=== PATIENT | female | born 1970 | race Caucasian/White ===

== ENCOUNTER 2023-10-31 21:44 | Observation (INO) | payer OTHER, SELFPAY ==
[2023-10-31] VITALS (18 sets, daily range): BP systolic 145–174; BP diastolic 90–130; PULSE 73–93; TEMP 36.8; O2SAT 94–97; BMI 39.0
--- NOTE | 2023-10-31 21:51 | ECG_ITS ---
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
--- NOTE | 2023-10-31 22:04 | XR_ITS ---
The [place] [id number] Patient Name: MIL MARCUM MRN: [id number] date: 1970 Sex: F Assigned Patient Location: ER Current Patient Location: ED.MAIN Accession/Order Number: [id number] Exam Date: 10/31/2023 22:12 Report Date: 10/31/2023 23:14 At the request of: CLARICE MARKER Procedure: XR chest 1V EXAMINATION: XR chest 1V, , 10/31/2023 10:12 PM EDT INDICATION: Cp HISTORY: Ordering Provider Reason for Exam: Cp Technologist Note: Additional: COMPARISON: XR CHEST 1 V Date 07/18/2021 TECHNIQUE: Chest x-ray: One view. FINDINGS: No pneumothorax, pleural effusion or focal airspace consolidation. Heart is normal in size. Bony thorax is unremarkable. XR/XR chest 1V IMPRESSION: No acute cardiopulmonary process. Electronically authenticated by: VIKTORIA NEWTON Date: 10/31/2023 23:14
--- NOTE | 2023-10-31 22:10 | ED_ITS ---
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 The patient states that the symptoms started earlier tonight. Her colleague did an EKG on her that was normal but then checked her blood pressure and it was very high. Her partner also told her that she appeared to be diaphoretic. She complains of mild shortness of breath. She denies any dizziness or syncope. She has no abdominal pain. She denies that she has done anything strenuous today. The pain in her chest radiates between her shoulder blades. She was given 324 mg baby aspirin by EMS with mild clinical improvement. Related Data Home Medications ?Medication ?Instructions ?Recorded ?Confirmed No Known Home Medications 10/31/23 10/31/23 Allergies Allergy/AdvReac Type Severity Reaction Status Date / Time No Known Drug Allergies Allergy Verified 10/31/23 21:46 Review of Systems ROS Status of ROS 10 or more systems reviewed and unremark able except as noted in history and below Exam Narrative Exam Narrative: Vital signs and Nursing Notes reviewed: Patient is afebrile with a normal pulse, blood pressure is elevated at 170/130, she has not hypoxic with pulse ox of 97% on room air General: Awake, alert, oriented, anxious, no respiratory distress HEENT: Normocephalic atraumatic, mucous membranes are moist and pink, eyes are clear, normal conjunctiva, vision is grossly intact Chest: Lungs are clear to auscultation with good air entry, there is no wheezing rhonchi or rales appreciated no accessory muscle use, patient is speaking in complete sentences-no chest wall tenderness to palpation CVS: Regular rate and rhythm S1-S2, no murmurs rubs or gallops, pulses are brisk and equal bilaterally ABD: Soft, nondistended, nontender, no rebound guarding or rigidity, bowel sounds are normal, no pulsatile masses appreciated Extremities: Moving all extremities, no lower extremity tenderness or swelling noted, negative Homans' sign, pulses are brisk and equal bilaterally Skin: Normal in appearance without rash,pallor, petechiae or purpura Neuro: No focal deficits Constitutional Vital Signs, click to edit/add: Last Vital Signs Temp 98.2 F 10/31/23 21:47 Pulse 71 11/01/23 02:00 Resp 21 H 11/01/23 02:00 BP 160/110 H 11/01/23 02:22 Pulse Ox 98 11/01/23 00:40 O2 Del Method Room Air 10/31/23 21:59 Course Vital Signs Vital signs: Vital Signs Temperature 98.2 F 10/31/23 21:47 Pulse Rate 88 10/31/23 21:47 Respiratory Rate 18 10/31/23 21:47 Blood Pressure 170/130 H 10/31/23 21:47 Pulse Oximetry 95 10/31/23 21:47 Oxygen Delivery Method Room Air 10/31/23 21:47 Temperature 98.2 F 10/31/23 21:47 Pulse Rate 71 11/01/23 02:00 Respiratory Rate 21 H 11/01/23 02:00 Blood Pressure 160/110 H 11/01/23 02:22 Pulse Oximetry 98 11/01/23 00:40 Oxygen Delivery Method Room Air 10/31/23 21:59 MDM - Chest Pain MDM Narrative Medical decision making narrative: This 53-year-old female who is moderately overweight but otherwise healthy and a non-smoker 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 The patient states that she started feeling some midsternal chest discomfort that radiated between her shoulders earlier in the evening. Her colleague told her that she looked mildly diaphoretic. An EKG was done that looked normal but her blood pressure was noted to be markedly elevated. Upon arrival her blood pressure was in the 170s over 100s. She states she has never had high blood pressure before. She states she is active, does not smoke and watches her diet. She did have [employer] for lunch earlier in the day. She had been given 324 mg baby aspirin by EMS prior to arrival with mild relief of her pain. Her blood pressure was still markedly elevated. An EKG done upon arrival was a sinus rhythm at 86 bpm with a normal axis and no acute changes. An IV was placed and she was medicated with a sublingual nitroglycerin and 5 mg of IV Lopressor as well as gentle IV hydration. Her blood pressure did come down initially with this treatment but then bounced back into the 160s over 100s. She was then given an oral dose of Norvasc. Her cardiac workup including CBC with differential, comprehensive metabolic profile, D-dimer and troponin and delta troponin were all normal the exception of a mildly elevated creatinine at 1.09. Chest x-ray was reviewed by radiology and is normal. Her blood pressure remained high despite these medications and she was given an additional 10 mg of IV labetalol. This provided her with short- term relief of the elevated blood pressure and again she bounced back into the 160s over 100s. An inch of Nitropaste was then placed onto her chest wall. At that time I felt it was prudent to admit her despite her reluctance to be admitted but she was agreeable partly because of the fact that her at age 48 from an OR but never had any symptoms prior to his heart attack. The case was discussed with the hospitalist and the patient accepted for admission. She will be admitted to the ICU for further evaluation, treatment, management of her elevated blood pressure and cardiology consultation as deemed appropriate. Medical Records Data Medical records narrative: The [address] [address] XRay Report Signed Patient: MIL MARCUM MR#: [id number] : 1970 Acct:[id number] Age/Sex: 53 / F ADM Date: 10/31/23 Loc: ER Attending Dr: Ordering Physician: Megan Lucas Date of Service: 10/31/23 Procedure(s): XR chest 1V Accession Number(s): [id number] cc: Megan Lucas; Sampson Carpenter M.D.~ The [address] [address] Patient Name: MIL MARCUM MRN: [id number] date: 1970 Sex: F Assigned Patient Location: ER Current Patient Location: ED.MAIN Accession/Order Number: [id number] Exam Date: 10/31/2023 22:12 Report Date: 10/31/2023 23:14 At the request of: MEGAN LUCAS Procedure: XR chest 1V EXAMINATION: XR chest 1V, , 10/31/2023 10:12 PM EDT INDICATION: Cp HISTORY: Ordering Provider Reason for Exam: Cp Technologist Note: Additional: COMPARISON: XR CHEST 1 V Date 07/18/2021 TECHNIQUE: Chest x-ray: One view. FINDINGS: No pneumothorax, pleural effusion or focal airspace consolidation. Heart is normal in size. Bony thorax is unremarkable. XR/XR chest 1V IMPRESSION: No acute cardiopulmonary process. Electronically authenticated by: VIKTORIA NEWTON Date: 10/31/2023 23:14 Lab Data Labs: Lab Results 10/31/23 10/31/23 Range/Units 22:08 23:52 WBC 10.5 (4.0-11.0) 10^3/uL RBC 4.74 (4.20-5.40) 10^6/uL Hgb 13.8 (12.0-16.0) g/dL Hct 40.8 (36.0-48.0) % MCV 86.1 (81.0-99.0) fL MCH 29.1 (26.7-34.0) pg MCHC 33.8 (29.9-35.2) g/dL RDW 13.0 (11.0-15.0) % Plt Count 273 (150-450) 10^3/uL MPV 10.0 (9.5-13.5) fL Neut % (Auto) 58.8 (43.0-75.0) % Lymph % (Auto) 31.8 (20.5-60.0) % [place] % (Auto) 6.6 (1.7-12.0) % Eos % (Auto) 2.1 (0.9-7.0) % Baso % (Auto) 0.4 (0.2-2.0) % Neut # (Auto) 6.2 (1.4-6.5) 10^3/uL Lymph # (Auto) 3.3 (1.2-3.8) 10^3/uL [place] # (Auto) 0.7 (0.3-0.8) 10^3/uL Eos # (Auto) 0.2 (0.0-0.7) 10^3/uL Baso # (Auto) 0.0 (0.0-0.1) 10^3/uL Abs Immat Gran (auto) 0.03 (0.00-0.03) 10^3/uL Imm/Tot Granulo (auto) 0.3 (0.0-0.5) % D-Dimer 0.42 (<=0.59) mg/L FEU Sodium 138 (136-145) mmol/L Potassium 3.9 (3.5-5.1) mmol/L Chloride 103 (98-107) mmol/L Carbon Dioxide 26.1 (21.0-32.0) mmol/L Anion Gap 12.8 BUN 14.0 (7.0-18.0) mg/dL Creatinine 1.09 H (0.55-1.02) mg/dL Est GFR ( Amer) >60 (>=60) Est GFR (Non-Af Amer) 53 L (>=60) BUN/Creatinine Ratio 12.8 Glucose 115 H (74-106) mg/dL Calcium 9.4 (8.5-10.1) mg/dL Total Bilirubin 0.3 (0.2-1.0) mg/dL AST 28 (15-37) U/L ALT 41 (14-59) U/L Alkaline Phosphatase 52 (46-116) U/L Troponin I High Sens <4.0 L <4.0 L (4.0-51.3) pg/mL Total Protein 7.5 (6.4-8.2) g/dL Albumin 3.8 (3.4-5.0) g/dL Globulin 3.7 g/dL Albumin/Globulin Ratio 1.0 ECG Data Attestation: I personally reviewed and interpreted this ECG as follows: (EKG interpretation sinus rhythm 86 bpm, normal axis, normal intervals, no acute ST segment elevation or T wave inversion) Heart Score History: Moderately Suspicious ECG: Normal Age: >45-<65 years Risk Factors: 1 or 2 Risk Factors Troponin: <Normal Limit Total Heart Score Recommendations & Risks:: 3 Critical Care Time Critical Care Time Critical Care Time: Yes Total Critical Care Time: 35 Attestation: Patient was treated with IV antihypertensives for her markedly elevated blood pressure as well as a cardiac workup and admission to the ICU Discharge Plan Discharge Stand Alone Forms: Portal Instructions Chief Complaint: Chest Pain Clinical Impression: Chest pain, Hypertension Patient Disposition: Home, Self-Care Time of Disposition Decision: 02:13 Condition: Good Prescriptions / Home Meds: No Action No Known Home Medications Print Language: Korean Instructions: Chest Pain (ED), Hypertension (ED) Referrals: Sampson Carpenter MD [Primary Care Provider] - 1 week
[2023-10-31 22:17] LABS: Basophils Percent Auto 0.4 % (0.2-2.0); Eosinophils Absolute Auto 0.2 10^3/uL (0.0-0.7); Eosinophils Percent Auto 2.1 % (0.9-7.0); Hematocrit 40.8 % (36.0-48.0); Hemoglobin 13.8 g/dL (12.0-16.0); Immature Granulocytes Abs Auto 0.03 10^3/uL (0.00-0.03); Immature Granulocytes Pct Auto 0.3 % (0.0-0.5); Lymphocytes Absolute Auto 3.3 10^3/uL (1.2-3.8); Lymphocytes Percent Auto 31.8 % (20.5-60.0); Mean Corpuscular HGB Conc 33.8 g/dL (29.9-35.2); Mean Corpuscular Hemoglobin 29.1 pg (26.7-34.0); Mean Corpuscular Volume 86.1 fL (81.0-99.0); Monocytes Absolute Auto 0.7 10^3/uL (0.3-0.8); Monocytes Percent Auto 6.6 % (1.7-12.0); Neutrophils Absolute Auto 6.2 10^3/uL (1.4-6.5); Neutrophils Percent Auto 58.8 % (43.0-75.0); Platelet Count 273 10^3/uL (150-450); Red Blood Count 4.74 10^6/uL (4.20-5.40); White Blood Count 10.5 10^3/uL (4.0-11.0)
[2023-10-31] MEDS: METOPROLOL TARTRATE 5 MG/5 ML VIAL IVP (22:22)
[2023-10-31] MEDS: NITROGLYCERIN 0.4 MG BOTTLE SL (22:22)
[2023-10-31] MEDS: FAMOTIDINE/PF 20 MG/2 ML VIAL IV (22:22)
[2023-10-31 22:32] LABS: D Dimer 0.42 mg/L FEU (<=0.59)
[2023-10-31 22:33] LABS: Anion Gap 12.8
[2023-10-31 22:35] LABS: Alanine Aminotransferase 41 U/L (14-59); Albumin Level 3.8 g/dL (3.4-5.0); Alkaline Phosphatase 52 U/L (46-116); Aspartate Amino Transferase 28 U/L (15-37); BUN Creatinine Ratio 12.8; Bilirubin Total 0.3 mg/dL (0.2-1.0); Calcium 9.4 mg/dL (8.5-10.1); Carbon Dioxide 26.1 mmol/L (21.0-32.0); Chloride 103 mmol/L (98-107); Estimated GFR (African America >60 (>=60); Estimated GFR (Non-African Ame 53 (>=60); Globulin 3.7 g/dL; Glucose 115 mg/dL (74-106); Potassium 3.9 mmol/L (3.5-5.1); Sodium 138 mmol/L (136-145); Total Protein 7.5 g/dL (6.4-8.2); Troponin I High Sensitivity <4.0 pg/mL (4.0-51.3)
[2023-10-31] MEDS: 0.9 % SODIUM CHLORIDE 1,000 ML 150 ML IV (23:18)
[2023-11-01] VITALS (88 sets, daily range): BP systolic 125–172; BP diastolic 83–120; PULSE 56–99; TEMP 36.4–37.1; O2SAT 95–98; BMI 39.0
[2023-11-01 00:22] LABS: Troponin I High Sensitivity <4.0 pg/mL (4.0-51.3)
[2023-11-01] MEDS: AMLODIPINE BESYLATE 5 MG TABLET PO (00:45)
[2023-11-01] MEDS: LABETALOL HCL 20 MG/4 ML SYRINGE 10 MG IVP (01:42)
[2023-11-01] MEDS: NITROGLYCERIN 2% 1 GRAM PACKET 1 GM TD (02:39)
[2023-11-01] MEDS: ACETAMINOPHEN 325 MG TABLET 650 MG PO (03:25)
--- NOTE | 2023-11-01 05:00 | ECG_ITS ---
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
[2023-11-01 06:57] LABS: Hematocrit 38.8 % (36.0-48.0); Hemoglobin 12.8 g/dL (12.0-16.0); Mean Corpuscular Volume 87.8 fL (81.0-99.0); Mean Platelet Volume 9.8 fL (9.5-13.5); Platelet Count 250 10^3/uL (150-450); Red Blood Count 4.42 10^6/uL (4.20-5.40); White Blood Count 9.3 10^3/uL (4.0-11.0)
--- NOTE | 2023-11-01 07:00 | CA_ITS ---
Patient Name: MIL MARCUM MR#: [id number] : 1970 Exam Date: 11/01/2023 Ordering Doctor: JANE VELARDE ECHOCARDIOGRAM REPORT PROCEDURE: CA ECHO DOPPLER COMPLETE INDICATIONS: Chest pain, Hypertensive urgency COMPARISON: None. DESCRIPTION: COMPLETE ECHOCARDIOGRAM Real-time transthoracic echocardiography with 2D, M-mode, spectral and color flow Doppler performed. QUALITY: Technical quality was good. LEFT VENTRICLE: Normal chamber size. Normal left ventricular wall thickness. LV EF: Global left ventricular systolic function is normal; visually estimated ejection fraction is 60 to 65%. No wall motion abnormalities. DIASTOLIC: Normal diastolic function. ATRIAL SEPTUM: Inadequately seen. LEFT ATRIUM: Normal chamber size. RIGHT ATRIUM: Normal chamber size. RIGHT VENTRICLE: Normal chamber size. Normal right ventricular systolic function. TRICUSPID VALVE: Normal mobility and thickness. No stenosis with no regurgitation. Unable to assess right-sided pressures due to lack of measurable tricuspid regurgitation. MITRAL VALVE: Normal mobility and thickness. No evidence of mitral valve stenosis. There is no mitral annular calcification. No mitral regurgitation. AORTIC VALVE: Normal trileaflet appearance. No visible sclerosis. Normal leaflet mobility. No evidence of aortic valve stenosis. No aortic regurgitation. AORTIC ROOT: Normal diameter and appearance. PULMONIC VALVE: Normal thickness and mobility. No stenosis. No regurgitation. PERICARDIUM: Anterior free space; trivial effusion versus fat pad. IVC: Not well visualized. CONCLUSION: 1. Global left ventricular systolic function is normal; visually estimated ejection fraction is 60 to 65% 2. Normal right ventricular size and systolic function 3. The left atrium is normal in size 4. Normal diastolic function 5. No significant valvular abnormalities 6. Anterior free space; trivial pericardial effusion versus fat pad Adult Echocardiography Procedure Report Left Ventricle LVEDD (3.7 - 5.6 cm): 4.37 cm LVESD (2.2 - 4.0 cm): 2.32 cm LVIVS thickness (0.6 - 1.2 cm): 0.92 cm LVPW thickness (0.5 - 1.0 cm): 0.78 cm e': 0.10 m/s E - e': 5.58 LVOT Max Gradient: 2.62 mm[Hg] LVOT Area (cm2): 0.81 m/s Peak Velocity (LVOT): 0.81 m/s LVOT Diameter 2.15 cm Left Atrium LA Volume Index (2D A2C): 22.31 ml/m2 Left Atrium Systolic Dimension: 3.69 cm Mitral Valve MV E to A Ratio: 0.80 Mitral Valve A-Wave Peak Velocity: 0.72 m/s Mitral Valve E-Wave Peak Velocity: 0.58 m/s Right Ventricle Aorta AO Root Diam: 3.20 cm Ascending Ao Diam: 2.89 cm Aortic Valve AoV Area ([place]): 2.41 cm2, 2.41 cm2 Peak Velocity(Antegrade Flow): 1.22 m/s Peak Gradient(Antegrade Flow): 5.93 mm[Hg] Tricuspid Valve Pulmonic Valve Mean Gradient: 2.45 mm[Hg] Mean Velocity: 0.74 m/s Peak Velocity: 1.04 m/s, 1.00 m/s Peak Gradient: 3.98 mm[Hg], 4.33 mm[Hg] Right Atrium Right Atrium Systolic Pressure: 53.79 ml, 53.79 ml Dictated by: Elizabeth Obrien M.D. on 11/01/2023 at 18:33 Approved by: Elizabeth Obrien M.D. on 11/01/2023 at 18:35
[2023-11-01 07:07] LABS: Estimated Average Glucose 120 mg/dL; Glycohemoglobin A1C 5.8 % (4.5-6.2)
[2023-11-01 07:26] LABS: Anion Gap 13.1; BUN Creatinine Ratio 11.7; Calcium 8.9 mg/dL (8.5-10.1); Carbon Dioxide 24.6 mmol/L (21.0-32.0); Chloride 107 mmol/L (98-107); Estimated GFR (African America >60 (>=60); Estimated GFR (Non-African Ame 56 (>=60); Glucose 118 mg/dL (74-106); Potassium 3.7 mmol/L (3.5-5.1); Sodium 141 mmol/L (136-145)
[2023-11-01 07:40] LABS: Chol HDL Ratio 3.5; Cholesterol 212 mg/dL (<=200); HDL Cholesterol 60 mg/dL (40-60); Thyroid Stimulating Hormone 1.773 uIU/mL (0.358-3.740); Triglycerides 123 mg/dL (<=150); Troponin I High Sensitivity <4.0 pg/mL (4.0-51.3); VLDL CHOLESTEROL 24.6 mg/dL
[2023-11-01] MEDS: ASPIRIN 81 MG TAB.CHEW PO (08:57)
[2023-11-01] MEDS: AMLODIPINE BESYLATE 5 MG TABLET 10 MG PO (09:45)
--- NOTE | 2023-11-01 10:45 | CM.NOTE ---
Rounds made with Dr. Ruiz. Dr. Ruiz explained high BP and need for medication and follow up with PCP. Pt stated hadn't seen Dr since 2018. Dr. Ruiz discussed importance of taking BP & tracking it in order to show PCP for possible medication adjustment after discharge. Pam verbalized understanding. To get echo done today and probable discharge today with po BP med.
--- NOTE | 2023-11-01 11:40 | P.HP_ITS ---
HPI H&P: HPI History of Present Illness Chief complaint: Chest Pain Narrative: History of presenting illness and Hospital course: 53-year-old female with no significant past medical history was in her usual state of health when she started to experience chest discomfort in the middle wi th radiation to her back along with mild difficulty in breathing. Her coworker checked her blood pressure and her blood pressure was as high as 170/120. She has no prior history of high blood pressure. She was brought in to ED for further evaluation and was admitted for observation for hypertensive emergency and rule out acute coronary syndrome. Overnight, patient received combination of oral and IV medications to bring her blood pressure down to acceptable level. She did not require continuous IV infusion for hypertensive emergency. Earlier today her blood pressure was more or less at goal with oral Norvasc 10 mg. Her chest pain and back pain is resolved. Her cardiac enzymes are also negative. Her EKG showed nonspecific T wave changes. She had an echocardiogram to assess cardiac structure and it did not show any significant finding but an official read is pending. Patient has no known prior history of coronary artery disease or congestive heart failure. She has not seen a primary care physician for 5 years now and does not check her blood pressure at home. Patient is stable for discharge medically on oral aspirin, Lipitor for hyperlipidemia and Norvasc for hypertension. She was instructed to check her blood pressure at home and bring her home blood pressure reading to her PCP. She will need to follow-up with PCP in 1 to 2 weeks. She is generally very active and I have low suspicion for underlying coronary artery disease. However it is not unreasonable to pursue workup for ischemic heart disease as outpatient if deemed necessary by her PCP. Opioid HPI Opioid Management Most Recent Pain and Opioid Data: Last Pain Scale 2 11/01/23 11:00 Last Pain Assessment 11/01/23 11:00 Last MAR Pain Assessment 11/01/23 04:46 Last ORT Total Score 0 11/01/23 03:11 Last ORT Risk Category Low Risk 11/01/23 03:11 Review of Systems ROS Status of ROS 10 or more systems reviewed and unremark able except as noted in history and below [facility] Surgical History (Updated 11/01/23 @ 03:06 by Coral Alcantara) H/O arthroscopy of knee ?Z98.890 - Other specified postprocedural states (ICD-10) History of bunionectomy ?Z98.890 - Other specified postprocedural states (ICD-10) Family History (Updated 11/01/23 @ 03:07 by Coral Alcantara) Mother Family history of cancer Grandmother Family history of diabetes mellitus Social History (Updated 11/01/23 @ 03:08 by Coral Alcantara) Within the past year, how often did you have a drink containing alcohol: never Score interpretation: A score less than 3 is consistent with normal alcohol consumption. Smoking status: Never smoker Non-prescribed substance use: denies use Previous occupational history: EMT Highest level of school completed/degree received: Associate degree: academic program Are you now , , , , never or living with a partner: In a typical week, how many times do you talk on the telephone with family, friends, or neighbors: 3 or more times per week How often do you get together with friends or relatives: 3 or more times per week How often do you attend buddhist or baptist services: never Little interest or pleasure in doing things: not at all Feeling down, depressed, or hopeless: not at all Feel stressed/tense/nervous/anxious/difficulty sleeping: not at all Meds Home Medications and Allergies Home Medications ?Medication ?Instructions ?Recorded ?Confirmed ?Type amlodipine 10 mg tablet (Norvasc) 10 mg PO DAILY #30 tabs 11/01/23 Rx aspirin 81 mg chewable tablet 81 mg PO DAILY #30 tabs 11/01/23 Rx atorvastatin 20 mg tablet (Lipitor) 20 mg PO DAILY #30 tabs 11/01/23 Rx Allergies Allergy/AdvReac Type Severity Reaction Status Date / Time No Known Drug Allergies Allergy Verified 10/31/23 21:46 Exam Constitutional Vital Signs, click to edit/add: Last Vital Signs Temp 97.6 F 11/01/23 08:00 Pulse 77 11/01/23 11:00 Resp 14 11/01/23 11:00 BP 137/83 11/01/23 10:59 Pulse Ox 98 11/01/23 10:52 O2 Del Method Room Air 11/01/23 10:52 Documenting provider has reviewed patient's vital signs: yes Common normals: no apparent distress and oriented x3 General appearance: cooperative HENMT Common normals: normocephalic and head/scalp atraumatic Head and scalp: normocephalic and atraumatic Respiratory Common normals: normal respiratory effort and clear to auscultation bilaterally Effort & inspection: able to speak in complete sentences Auscultation: clear to auscultation bilaterally Cardio Common normals: regular rate, S1 normal heart sound and S2 normal heart sound Rate: regular rate Heart sounds: S1 normal and S2 normal GI Common normals: Normal to inspection, nondistended, normoactive bowel sounds present, soft to palpation, non-tender and no hepatosplenomegaly Palpation: soft and no hepatosplenomegaly Extremity Common normals: no clubbing, cyanosis or edema Neuro Common normals: oriented x3, moves all extremities and no focal motor deficits Psych Common normals: mental status grossly normal, denies hallucinations, denies homicidal ideation and denies suicidal ideation Results Labs Labs: Short CBC 10/31/23 11/01/23 Range/Units 22:08 06:48 WBC 10.5 9.3 (4.0-11.0) 10^3/uL Hgb 13.8 12.8 (12.0-16.0) g/dL Hct 40.8 38.8 (36.0-48.0) % Plt Count 273 250 (150-450) 10^3/uL BMP 10/31/23 11/01/23 22:08 06:48 Sodium 138 141 Potassium 3.9 3.7 Chloride 103 107 Carbon Dioxide 26.1 24.6 BUN 14.0 12.0 Creatinine 1.09 H 1.03 H Glucose 115 H 118 H Calcium 9.4 8.9 Liver Function 10/31/23 Range/Units 22:08 Total Bilirubin 0.3 (0.2-1.0) mg/dL AST 28 (15-37) U/L ALT 41 (14-59) U/L Alkaline Phosphatase 52 (46-116) U/L Albumin 3.8 (3.4-5.0) g/dL Assessment and Plan Assessment and Plan (1) Chest pain: Assessment and Plan: Likely due to uncontrolled hypertension. Chest pain is now resolved. No significant finding on EKG and or cardiac echocardiogram. Cardiac enzymes are negative. Will discharge on low-dose aspirin and Lipitor as patient also has hyperlipidemia. Will defer ischemic workup to patient's PCP Qualifiers: Chest pain type: other chest pain Qualified Code(s): R07.89 - Other chest pain (2) Hypertensive emergency: Assessment and Plan: Presented with uncontrolled hypertension with blood pressure as high as 170/120. Improved with combination of oral and IV medication. Her blood pressure is reasonably controlled with oral Norvasc 10 mg once daily. Patient instructed to follow-up with PCP as outpatient and monitor blood pressure at home (3) HLD (hyperlipidemia): Assessment and Plan: LDL: 128, T chol >200. Will start on low dose lipitor. Qualifiers: Hyperlipidemia type: mixed hyperlipidemia Qualified Code(s): E78.2 - Mixed hyperlipidemia Plan Stable for discharge on oral Norvasc. Monitor blood pressure at home. Follow- up with PCP in 1 to 2 weeks.
--- NOTE | 2023-11-04 11:35 | CM.DCFOLLOWU ---
Person spoke with: patient How are you feeling? well How is your pain? none Did you understand your discharge instructions? yes Do you have any questions about your discharge instructions? no Were you given any prescriptions at discharge? yes Were you able to get your prescriptions filled? yes Do you understand how to take your medications as ordered? yes Do you have any questions about your follow up appointment and do you plan to keep your follow up appointment? no questions, has to call Dr. Carpenter office to reschedule follow up Is there anything else that you would like to discuss? no Questions/Comments/Concerns/Other: none
== END 2023-11-01 12:28 | disposition home or self-care (01) ==
LOC: ER 11-01 02:14 → ICU 11-01 02:59
PROVIDERS: Registered Nurse; Admitting Provider Internal Medicine; Emergency Provider Emergency Medicine; PCP Family Medicine; Visit Provider Internal Medicine
DX: I16.1 Hypertensive emergency (principal); R07.89 Other chest pain; E78.2 Mixed hyperlipidemia
CPT/HCPCS: 36415; 71045; 80048; 80053; 80061; 83036; 84443; 84484; 85025; 85027; 85378; 93005; 93306; 94761; 96374; 96375; 99285; G0378; J1290

== ENCOUNTER 2023-11-07 17:00 | Emergency (ER) | payer OTHER, SELFPAY ==
[2023-11-07] VITALS (13 sets, daily range): BP systolic 122–174; BP diastolic 82–104; PULSE 72–88; TEMP 36.8; O2SAT 94–98; BMI 39.0
--- OUTSIDE RECORDS SUMMARY | 2023-11-07 17:19 | XMS_ITS | CCD ---
Author Organization [facility] CliniSyri Care Team Providers Care Head Nurse Name Role Phone Carrol Traore Unavailable KrisitnaDeysi Unavailable CYNTHIA Samaniego Attending Provider [phone] Estrella Samaniego Unavailable AVINASH, DR SAMPSON Paula Primary Care Unavailable PAY ., DR HA Admitting Unavailable PAY ., DR HA Attending Unavailable PAY ., DR HA Consulting Unavailable AVINASH, DR SAMPSON Paula Primary Care Unavailable LEIA, DR SIGRID Beavers Admitting Unavailable LEIA, DR SIGRID Beavers Attending Unavailable LEIA, DR SIGRID Beavers Consulting Unavailable RUIZ, ANNE MARIE Consulting Unavailable SAID, LIZETTE Consulting Unavailable NADERER, DR SAMPSON Paula Admitting Unavailable NADERER, DR SAMPSON Paula Attending Unavailable NADERER, DR SAMPSON Paula Primary Care Unavailable NADERER, DR SAMPSON Paula Consulting Unavailable NADERER, DR SAMPSON Paula Admitting Unavailable NADERER, DR SAMPSON Paula Attending Unavailable NADERER, DR SAMPSON Paula Primary Care Unavailable NADERENimesh, DR SAMPSON Paula Consulting Unavailable NADERENimesh, DR SAMPSON Paula Admitting Unavailable CHRISTALERENimesh, DR SAMPSON Paula Attending Unavailable NADERER, DR SAMPSON Paula Primary Care Unavailable MABEL, DR LENNOX Beavers Consulting Unavailable NADERENimesh, DR SAMPSON Paula Consulting Unavailable CYNTHIA Samaniego Attending Provider MD Sampson Da Silva Primary Care Provider CYNTHIA Acevedo Emergency Provider Seth Soliz Unavailable MD Seth Soliz Attending Provider Rut Farrell Unavailable Sampson Da Silva Primary Care Unavailable Seth Soliz Admitting Unavailable Seth Soliz Attending Unavailable Sampson Da Silva Primary Care Unavailable Yves Rosales Admitting Unavailable Yves Rosales Attending Unavailable Nick Acevedo Admitting Unavailable Nick Acevedo Attending Unavailable Sampson Da Silva Primary Care Unavailable Seth Soliz Admitting Unavailable Sampson Da Silva Primary Care Unavailable Seth Soliz Attending Unavailable Estrella Samaniego Admitting Unavailable Estrella Samaniego Attending Unavailable Seth Soliz Attending Unavailable Sampson Da Silva Primary Care Unavailable Seth Soliz Admitting Unavailable Seth Soliz Attending Unavailable Sampson Da Silva Primary Care Unavailable Seth Soliz Admitting Unavailable MD Sampson Da Silva Primary Care Provider DO Yves Rosales Emergency Provider MD Seth Soliz Attending Provider Allergies Allergy Classification Reported Allergen(s) Allergy Type Date of Onset Reaction(s) Facility (6 sources) Meperidine; Translations: [meperidine] Drug Allergy 01-13-2020 [facility] Medications Current Medications Medication Drug Class(es) Dates Sig (Normalized) Sig (Original) acetaminophen 325 mg / HYDROcodone bitartrate 5 mg oral tablet (14 sources) Opioid Agonist Start: 09-13-2022 take 1-2 tablets by mouth every four to six hours as needed HYDROcodone-Aceta minophen 5-325 MG 1-2 tablet as needed Orally every 4-6 hrs for 7 days Aug, Active Start: 07-10-2017 End: 01-13-2020 take 1 tablet by mouth every four to six hours Hydrocodone-Acetaminophen ([place]) 5-325 mg tablet Discontinued 1 - 2 TAB PO EVERY 4-6 HOURS March 03, 2018 January 13, 2020 12:30pm [id number] 200 actuat albuterol 0.09 mg/actuat metered dose inhaler (2 sources) beta2-Adrenergic Agonist Start: 08-08-2021 take 2 puff(s) by inhalation four times daily as needed Albuterol Sulfate HFA 108 (90 Base) MCG/ACT 2 puffs Inhalation qid prn July, Active ciprofloxacin 3 mg/ml / dexamethasone 1 mg/ml otic suspension (2 sources) Corticosteroid, Quinolone Antimicrobial Start: 09-10-2021 Ciprofloxacin-Dexame thasone 0.3-0.1 % 4 drops into affected ear Otic Twice a day for 7 days Aug, Active clindamycin 300 mg oral capsule (2 sources) Lincosamide Antibacterial Start: 09-10-2021 take 1 capsule by mouth every eight hours Clindamycin HCl 300 MG 1 capsule Orally every 8 hrs for 10 day(s) Aug, Active dextromethorphan hydrobromide 15 mg / guaiFENesin 400 mg / pseudoephedrine hydrochloride 60 mg oral tablet (1 source) alpha-Adrenergic Agonist, Uncompetitive J-kxaxco-T-aspartat e Receptor Antagonist, Sigma-1 Agonist Start: 03-09-2023 take 4 tablets by mouth every twenty-four hours as needed Capmist DM 60-15-400 MG as needed Orally every 4-6 hours as needed, max 4 tablets in 24 hours for 5 days Feb, Active fluconazole 150 mg oral tablet (2 sources) Azole Antifungal Start: 09-10-2021 Diflucan 150 MG 1 tablet Orally take 1 tablet after antibiotics completed. may take another pill 7 days later if needed for 2 days Aug, Active methylPREDNISolone 4 mg oral tablet (4 sources) Corticosteroid Start: 09-10-2021 methylPREDNISolone 4 MG as directed Orally Once a day for 6 days Aug, Active Start: 12-31-2020 methylPREDNISo lone 4 MG as directed Orally Once a day for 6 days Dec, Active Naproxen (1 source) Nonsteroidal Anti-inflammatory Drug Aleve Active nitrofurantoin, macrocrystals 25 mg / nitrofurantoin, monohydrate 75 mg oral capsule (1 source) Nitrofuran Antibacterial Start: take 1 capsule by mouth every twelve hours Macrobid 100 MG 1 capsule with food Orally every 12 hrs for 7 day(s) Apr, Active phenazopyridine hydrochloride 200 mg oral tablet (1 source) Start: take 1 tablet by mouth every eight hours Pyridium 200 MG 1 tablet after meals Orally Three times a day for 2 day(s) Apr, Active predniSONE 20 mg oral tablet (3 sources) Start: take 1 tablet by mouth every twelve hours prednisone 20 MG 1 tablet Orally BID for 5 Feb, Active Start: 08-08-2021 take 1 tablet by hema th every twelve hours predniSONE 20 MG 1 tablet Orally bid for 5 day(s) July, Active zolpidem tartrate 10 mg oral tablet (4 sources) gamma-Aminobutyric Acid-ergic Agonist Start: 08-29-2022 take 10 mg by mouth once daily at bedtime Zolpidem Active 10 MG PO Daily at bedtime August 29, 2022 12:00am Completed/Discontinued Medications Medication Drug Class(es) Dates Sig (Normalized) Sig (Original) acetaminophen 325 mg / oxyCODONE hydrochloride 5 mg oral tablet (6 sources) Opioid Agonist Start: 01-13-2020 End: 07-20-2022 take 1 tablet by mouth every six hours Oxycodone-Acetamin ophen (Percocet) 5-325 mg tablet Discontinued 1 TAB PO Q6H 12 January 13, 2020 July 20, 2022 12:17pm amoxicillin 875 mg oral tablet (8 sources) Penicillin-class Antibacterial Start: 04-06-2019 take 1 tablet by mouth every twelve hours Amoxicillin 875 MG 1 tablet Orally every 12 hrs for 7 days Aug, Not-Taking cefTRIAXone (8 sources) Cephalosporin Antibacterial Start: 09-10-2021 Start: 09-10-2021 Rocephin 500 m g Aug, 500 mg hydrocortisone 10 mg/ml / neomycin 3.5 mg/ml / polymyxin b 16032 unt/ml otic solution (6 sources) Aminoglycoside Antibacterial, Polymyxin-class Antibacterial, Corticosteroid Start: 09-05-2020 Jqpcvuns-Gjfqamgky-EG [id number] 4 drops into affected ear Otic Three times a day for 7 day(s) Aug, Not-Taking Ketorolac (10 sources) Nonsteroidal Anti-inflammatory Drug, Cyclooxygenase Inhibitor Start: 10-14-2015 Start: 10-14-2015 Toradol per 15 mg Sep, 60 mg ondansetron 4 mg disintegrating oral tablet (6 sources) Serotonin-3 Receptor Antagonist Start: 01-13-2020 End: 07-20-2022 take 4 mg by mouth every six hours Ondansetron Discontinued 4 MG PO Q6H January 13, 2020 12:00am July 20, 2022 12:17pm 24 hr phentermine 11.25 mg / topiramate 69 mg extended release oral capsule (6 sources) Sympathomimetic Amine Anorectic Start: 07-20-2022 End: 08-29-2022 take 1 capsule by mouth once daily Phentermine-Topir amate (Qsymia) 11.25-69 mg capsule, ER multiphase 24 hr Discontinued 1 CAP PO Daily July 20, 2022 12:00am August 29, 2022 4:34pm Qsymia Active Sugar Bear Hair Vitamans (6 sources) Start: 07-08-2017 End: 01-13-2020 [employer] Vitamans Dis continued July 08, 2017 12:00am January 13, 2020 12:30pm Start: 07-08-2017 End: 01-13-2020 [employer] Vitamans Dis continued July 07, 2017 11:00pm January 13, 2020 11:30am sulfamethoxazole 800 mg / trimethoprim 160 mg oral tablet (12 sources) Dihydrofolate Reductase Inhibitor Antibacterial, Sulfonamide Antimicrobial Start: 07-10-2017 End: 01-13-2020 take 1 tablet by mouth twice daily Sulfamethoxazole-Trimethoprim (Bactrim Ds) 800-160 mg tablet Discontinued 1 TAB PO Twice daily 12 27March 03, 2018 1:00am January 13, 2020 12:30pm Problems Active Problems Problem Classification Problem Date Documented Date Episodic/Chronic Abdominal pain (6 sources) Abdominal pain; Translations: [Unspecified abdominal pain] 01-13-2020 Episodic Headache; including migraine (1 source) Migraine, unspecified, not intractable, without status migrainosus; Translations: [MIGRAINE UNS NOT INTRACT W/O SM] Onset: 07-31-2021 Chronic Headache; including migraine (1 source) Headache; including migraine; Translations: [HEADACHE UNSPECIFIED] Onset: 08-24-2021 Joint disorders and dislocations; trauma-related (6 sources) Derangement of left knee; Translations: [Unspecified internal derangement of left knee] Chronic Joint disorders and dislocations; trauma-related (2 sources) Other tear of medial meniscus, current injury, left knee, initial encounter; Translations: [Other tear of medial meniscus, current injury, left knee, subsequent encounter] Episodic Noninfectious gastroenteritis (6 sources) Colitis; Translations: [Noninfective gastroenteritis and colitis, unspecified] 01-13-2020 Episodic Osteoarthritis (6 sources) Arthritis of left knee; Translations: [Unilateral primary osteoarthritis, left knee] Chronic Other bone disease and musculoskeletal deformities (2 sources) Chondromalacia, left knee Episodic Other injuries and conditions due to external causes (2 sources) Other injury of unspecified body region, initial encounter Episodic Other nervous system disorders (20 sources) Carpal tunnel syndrome of left wrist; Translations: [Carpal tunnel syndrome, left upper limb] Chronic Other nervous system disorders (12 sources) Bilateral carpal tunnel syndrome; Translations: [Carpal tunnel syndrome, bilateral upper limbs] Chronic Other nervous system disorders (2 sources) Postoperative pain ; Translations: [Other acute postprocedural pain] 09-17-2022 Episodic Other non-traumatic joint disorders (2 sources) Pain in unspecified knee; Translations: [Knee pain] 09-17-2022 Episodic Other screening for suspected conditions (not mental disorders or infectious disease) (8 sources) Encounter for screening mammogram for malignant neoplasm of breast; Translations: [Encounter for screening for malignant neoplasm of cervix] Onset: 05-15-2022 Episodic Other upper respiratory infections (14 sources) Acute maxillary sinusitis; Translations: [Acute maxillary sinusitis] Onset: 08-24-2021 Episodic Otitis media and related conditions (9 sources) Chronic serous otitis media of right ear; Translations: [Chronic serous otitis media, right ear] Onset: 09-10-2021 Resolved: 09-10-2021 Chronic Residual codes; unclassified (2 sources) Other specified postprocedural states Episodic Sprains and strains (5 sources) Sprain of knee; Translations: [Sprain of unspecified site of unspecified knee, initial encounter] 07-20-2022 Episodic Unclassified (2 sources) COUGH, UNSPECIFIED; Translations: [COUGH, UNSPECIFIED] Onset: 08-24-2021 Unclassified (1 source) CONTACT W/AND (SUSP) EXPOS COVID-19; Translations: [CONTACT W/AND (SUSP) EXPOS COVID-19] Onset: 08-24-2021 Unclassified (1 source) Other tear of medial meniscus, current injury, left knee, subsequent encounter; Translations: [Other tear of medial meniscus, current injury, left knee, subsequent encounter] Onset: 09-24-2022 Unclassified (1 source) Pain in left knee; Translations: [Pain in left knee] Onset: 09-17-2022 Unclassified (1 source) Peripheral tear of medial meniscus, current injury, left knee, initial encounter; Translations: [Peripheral tear of medial meniscus, current injury, left knee, initial encounter] Onset: 09-12-2022 Unclassified (1 source) Encounter for preprocedural laboratory examination; Translations: [Encounter for preprocedural laboratory examination] Onset: 08-29-2022 Unclassified (1 source) Unspecified internal derangement of left knee; Translations: [Unspecified internal derangement of left knee] Onset: 08-07-2022 Unclassified (1 source) Pain in left lower leg; Translations: [Pain in left lower leg] Onset: 07-20-2022 Urinary tract infections (1 source) Acute cystitis with hematuria Episodic Past or Other Problems Problem Classification Problem Date Documented Da te Episodic/Chronic Chronic obstructive pulmonary disease and bronchiectasis (2 sources) Bronchitis, not specified as acute or chronic Onset: 08-08-2021 Resolved: 08-08-2021 Episodic Conditions associated with dizziness or vertigo (1 source) Dizziness and giddiness; Translations: [DIZZINESS AND GIDDINESS] Onset: 07-31-2021 Episodic Genitourinary symptoms and ill-defined conditions (2 sources) Dysuria; Translations: [Dysuria] Onset: 05-01-2022 Episodic Immunizations and screening for infectious disease (3 sources) Encounter for screening for other viral diseases; Translations: [Contact with and (suspected) exposure to other viral communicable diseases] Onset: 05-15-2021 Resolved: 08-08-2021 Episodic Nonspecific chest pain (4 sources) Other chest pain; Translations: [Chest pain, unspecified] Onset: 07-18-2021 Episodic Other aftercare (1 source) Other termite control technician (current) drug therapy; Translations: [OTH PENITENTIARY CURRENT DRUG THERAPY] Onset: 07-31-2021 Episodic Other ear and sense organ disorders (1 source) Diffuse otitis externa, right ear Onset: 09-10-2021 Resolved: 09-10-2021 Episodic Other ear and sense organ disorders (1 source) Otalgia, bilateral; Translations: [OTALGIA BILATERAL] Onset: 08-24-2021 Episodic Otitis media and related conditions (1 source) Otitis media, unspecified, right ear; Translations: [Right acute otitis media H66.91] Onset: 12-31-2020 Resolved: 12-31-2020 Episodic Unclassified (1 source) COUGH, UNSPECIFIED; Translations: [COUGH, UNSPECIFIED] Onset: 08-23-2021 Unclassified (1 source) Suspected COVID-19 virus infection Z20.822 Results Test Name Value Interpretation Reference Range Facility COVID/FLU RT-PCRon 3 SARS-CoV-2 (COVID-19) RNA PRANAV+probe Ql (Unsp spec) Negative Located Within [facility] YuanV Other COVID/FLU RT-PCR Negative [facility] Prognosis [employer] Other Basic Metabolic Panelon 08-24 Anion gap [Moles/Vol] 12.3 mmol/L Normal 6.0-15.0 [facility] Comment on above: Performed By: #### C RP, BMP, CBC, ESR #### [facility] [address] Calcium [Mass/Vol] 9.1 mg/dL Normal 8.6-10.3 [facility] Comment on above: Performed By: #### C RP, BMP, CBC, ESR #### [facility] [address] [place] [address] [place] Chloride [Moles/Vol] 105 mmol/L Normal 98-107 [facility] Comment on above: Performed By: #### C RP, BMP, CBC, ESR #### [facility] [address] [place] [id number] [facility] CO2 [Moles/Vol] 26.4 mmol/L Normal 21.0-31.0 [facility] Comment on above: Performed By: #### C RP, BMP, CBC, ESR #### [facility] [address] [place] [address] [place] Creatinine [Mass/Vol] 1.01 mg/dL Normal 0.60-1.20 [facility] Comment on above: Performed By: #### C RP, BMP, CBC, ESR #### [facility] [address] [place] [id number] [place] Creatinine Clr Calc Pharmacy 73.65 [facility] Comment on above: Performed By: #### C RP, BMP, CBC, ESR #### [facility] [address] [place] [address] [place] GFR/1.73 sq M.predicted MDRD (S/P/Bld) [Vol rate/Area] mL/min/{1.73_m2} Normal [facility] Comment on above: Performed By: #### C RP, BMP, CBC, ESR #### [facility] [address] [place] [address] [place] Glucose [Mass/Vol] 127 mg/dL High 70-100 [facility] Comment on above: Result Comment: [facility] Glucose Reference Range is dependent on time and content of last meal. Glucose of more than 200 mg/dL in a nonstressed, ambulatory subject supports the diagnosis of Diabetes Mellitus. ADA recommended reference range Performed By: #### C RP, BMP, CBC, ESR #### [facility] [address] Potassium [Moles/Vol] 3.7 mmol/L Normal 3.5-5.1 [facility] Comment on above: Performed By: #### C RP, BMP, CBC, ESR #### [facility] [address] [place] [address] [place] Sodium [Moles/Vol] 140 mmol/L Normal 136-145 [facility] Comment on above: Performed By: #### C RP, BMP, CBC, ESR #### [facility] [address] [place] [address] [place] Urea nitrogen [Mass/Vol] 15 mg/dL Normal 7-25 [facility] Comment on above: Performed By: #### C RP, BMP, CBC, ESR #### [facility] [address] [place] [address] [place] C-Reactive Proteinon 06-2 023 C-Reactive Protein 0.9 mg/dL High 0.0-0.5 [facility] Comment on above: Result Comment: PERF ORMED BY: [place] [address] PATHOLOGIST CHIEF RELAY TESTER LIGIA VALDIVIA M.D. Performed By: #### C RP, BMP, CBC, ESR #### [address] Complete Blood Count Auto Di ffon 09-17-2022 Basophils (Bld) [#/Vol] 0.1 10*3/uL Normal 0.0-0.2 [facility] Comment on above: Performed By: #### C RP, BMP, CBC, ESR #### [address] Basophils/100 WBC (Bld) 0.8 % Normal . F [facility] Comment on above: Performed By: #### C RP, BMP, CBC, ESR #### [address] Eosinophils (Bld) [#/Vol] 0.4 10*3/uL Normal 0.0-0.45 [facility] Comment on above: Performed By: #### C RP, BMP, CBC, ESR #### [address] Eosinophils/100 WBC (Bld) 4.0 % Normal . [facility] Comment on above: Performed By: #### C RP, BMP, CBC, ESR #### [address] Erythrocyte distribution width (RBC) [Ratio] 13.4 % Normal 11.9-15.3 [facility] Comment on above: Performed By: #### C RP, BMP, CBC, ESR #### [address] Hematocrit (Bld) [Volume fraction] 37.6 % Normal 34.0-46.4 [facility] Comment on above: Performed By: #### C RP, BMP, CBC, ESR #### [address] Hemoglobin (Bld) [Mass/Vol] 12.9 g/dL Normal 11.8-15.4 [facility] Comment on above: Performed By: #### C RP, BMP, CBC, ESR #### [place] [address] [place] Lymphocytes (Bld) [#/Vol] 3.2 10*3/uL Normal 1.00-4.8 [facility] Comment on above: Performed By: #### C RP, BMP, CBC, ESR #### [address] Lymphocytes/100 WBC (Bld) 32.5 % Normal . [facility] Comment on above: Performed By: #### C RP, BMP, CBC, ESR #### [address] MCH (RBC) [Entitic mass] 29.7 pg Normal 24.7-34.3 [facility] Comment on above: Performed By: #### C RP, BMP, CBC, ESR #### [address] MCV (RBC) [Entitic vol] 86.3 fL Normal 80-100 [facility] Comment on above: Performed By: #### C RP, BMP, CBC, ESR #### [address] Mean Corpuscular HGB Conc 34.4 g/dL Normal 32.0-35.0 [facility] Comment on above: Performed By: #### C RP, BMP, CBC, ESR #### [address] Monocytes (Bld) [#/Vol] 0.6 10*3/uL Normal 0.0-0.8 [facility] Comment on above: Performed By: #### C RP, BMP, CBC, ESR #### [address] Monocytes/100 WBC (Bld) 19.00 % Normal 0.00-20.00 [facility] Comment on above: Performed By: #### C RP, BMP, CBC, ESR #### [address] Monocytes/100 WBC (Bld) 6.4 % Normal . F [facility] Comment on above: Performed By: #### C RP, BMP, CBC, ESR #### [facility] [address] Neutrophils (Bld) [#/Vol] 5.6 10*3/uL Normal 1.8-7.7 [facility] Comment on above: Performed By: #### C RP, BMP, CBC, ESR #### [address] Neutrophils/100 WBC (Bld) 56.3 % Normal . [facility] Comment on above: Performed By: #### C RP, BMP, CBC, ESR #### [address] NRBC% 0.1 /100{WBC} Normal 0-0.5 [facility] Comment on above: Performed By: #### C RP, BMP, CBC, ESR #### [address] Platelet mean volume (Bld) [Entitic vol] 7.9 fL Normal 6.3-10.7 [facility] Comment on above: Performed By: #### C RP, BMP, CBC, ESR #### [address] Platelets (Bld) [#/Vol] 244 10*3/uL Normal 150-450 [facility] Comment on above: Performed By: #### C RP, BMP, CBC, ESR #### [address] RBC (Bld) [#/Vol] 4.35 10*6/uL Normal 3.60-5.00 [facility] Comment on above: Performed By: #### C RP, BMP, CBC, ESR #### [address] WBC (Bld) [#/Vol] 10.0 10*3/uL Normal 3.8-11.6 [facility] Comment on above: Performed By: #### C RP, BMP, CBC, ESR #### [address] Erythrocyte Sedimentation Ra ingris 09-17-2022 ESR (Bld) [Velocity] 11 mm/h Normal 0-29 [facility] Comment on above: Result Comment: PERF ORMED BY: [place] [address] PATHOLOGIST CHIEF RELAY TESTER LIGIA VALDIVIA M.D. Performed By: #### C RP, BMP, CBC, ESR #### [address] XR knee LT 4V*on 09-17-2022 XR knee LT 4V* [facility] Main [place] [address] [place] [address] XRay Report Signed Patient: Pam Méndez MR#: [id number] : 1970 Acct:[id number] Age/Sex: 52 / F ADM Date: 09/16/22 Loc: ER Room: Type: [facility] [place] Attending Dr: Copies to: Yves Rosales DO Ordering Provider: Yves Rosales DO Date of Service: 09/16/22 XR/XR knee LT 4V*: Extremity Injury, Lower LEFT KNEE - 4 views CLINICAL HISTORY: Left knee pain post surgery on Saturday. COMPARISON: Left knee 07/20/2022 FINDINGS: Knee joint effusion is noted. No acute bony process is seen. Joint spaces appear maintained. XR/XR knee LT 4V* IMPRESSION: KNEE JOINT EFFUSION WITHOUT ACUTE BONY PROCESS. Impression dictated by: Zain Cid Jr., D.O.09/17/2022 10:25 AM Dictation Location: [place] [address] Transcribed By: [facility] 09/17/22 1025 Dictated By: Zain Cid Jr, DO 09/17/22 1024 Signed By: 09/17/22 1025 Normal [facility] Basophils Auto (Bld) [#/Vol] Ordered By: Yves Rosales on 09-16-2022 Basophils (Bld) [#/Vol] 0.1 10*3/uL 0.0-0.2 [facility] Basophils/100 WBC Auto (Bld) Ordered By: Yves Rosales on 09-16-2022 Basophils/100 WBC (Bld) 0.8 % . [facility] C reactive protein [Mass/vol ume] in Serum or PlasmaOrdered By: Yves Rosales on 09-16-2022 CRP [Mass/Vol] 0.9 mg/dL 0.0-0.5 [facility] Calcium [Mass/volume] in Ser um or PlasmaOrdered By: Yves Rosales on 09-16-2022 Calcium [Mass/Vol] 9.1 mg/dL 8.6-10.3 [facility] Carbon dioxide, total [Moles /volume] in Serum or PlasmaOrdered By: Yves Rosales on 09-16-2022 CO2 [Moles/Vol] 26.4 mmol/L 21.0-31.0 [facility] Chloride [Moles/volume] in S dor[place] or PlasmaOrdered By: Yves Rosales on 09-16-2022 Chloride [Moles/Vol] 105 mmol/L 98-107 [facility] Creatinine [Mass/volume] in Serum or PlasmaOrdered By: Yves Rosales on 09-16-2022 Creatinine [Mass/Vol] 1.01 mg/dL 0.60-1.20 [facility] Eosinophils Auto (Bld) [#/Vo l]Ordered By: Yves Rosales on 09-16-2022 Eosinophils (Bld) [#/Vol] 0.4 10*3/uL 0.0-0.45 [facility] Eosinophils/100 WBC Auto (Bl d)Ordered By: Yves Rosales on 09-16-2022 Eosinophils/100 WBC (Bld) 4.0 % . [facility] Erythrocyte distribution wid th Auto (RBC) [Ratio]Ordered By: Yves Rosales on 09-16-2022 Erythrocyte distribution width (RBC) [Ratio] 13.4 % 11.9-15.3 [facility] Erythrocyte sedimentation ra te by Photometric methodOrdered By: Yves Rosales on 09-16-2022 ESR Photometric method (Bld) [Velocity] 11 mm/hr 0-29 [facility] Glucose [Mass/volume] in Ser um or PlasmaOrdered By: Yves Rosales on 09-16-2022 Glucose [Mass/Vol] 127 mg/dL 70-100 [facility] Comment on above: ADA recommended refe rence rangeRandom Glucose Reference Range is dependent on time and content of last meal. Glucose of more than 200 mg/dL in a nonstressed, ambulatory subject supports the diagnosis of Diabetes Mellitus. Hematocrit Auto (Bld) [Volum e fraction]Ordered By: Yves Rosales on 09-16-2022 Hematocrit (Bld) [Volume fraction] 37.6 % 34.0-46.4 [facility] Hemoglobin [Mass/volume] in BloodOrdered By: Yves Rosales on 09-16-2022 Hemoglobin (Bld) [Mass/Vol] 12.9 g/dL 11.8-15.4 [facility] [facility] [#/volume] correc gracie for nucleated erythrocytes in Blood by Automated counOrdered By: Yves Rosales on 09-16-2022 WBC corrected for nucl RBC Auto (Bld) [#/Vol] 10.0 10*3/uL 3.8-11.6 [facility] Lymphocytes Auto (Bld) [#/Vo l]Ordered By: Yves Rosales on 09-16-2022 Lymphocytes (Bld) [#/Vol] 3.2 10*3/uL 1.00-4.8 [facility] Lymphocytes/100 WBC Auto (Bl d)Ordered By: Yves Rosales on 09-16-2022 Lymphocytes/100 WBC (Bld) 32.5 % . [facility] MCH Auto (RBC) [Entitic mass ]Ordered By: Yves Rosales on 09-16-2022 MCH (RBC) [Entitic mass] 29.7 pg 24.7-34.3 [facility] MCHC Auto (RBC) [Mass/Vol]Or dered By: Yves Rosales on 09-16-2022 MCHC (RBC) [Mass/Vol] 34.4 g/dL 32.0-35.0 [facility] MCV Auto (RBC) [Entitic vol] Ordered By: Yves Rosales on 09-16-2022 MCV (RBC) [Entitic vol] 86.3 fL 80-100 [facility] Monocyte distribution width [Entitic volume] in Blood by AutomatedOrdered By: Yves Rosales on 09-16-2022 Monocyte distribution width Auto (Bld) [Entitic vol] 19.00 % 0.00-20.00 [facility] Monocytes Auto (Bld) [#/Vol] Ordered By: Yves Rosales on 09-16-2022 Monocytes (Bld) [#/Vol] 0.6 10*3/uL 0.0-0.8 [facility] Monocytes/100 WBC Auto (Bld) Ordered By: Yves Rosales on 09-16-2022 Monocytes/100 WBC (Bld) 6.4 % . [facility] Neutrophils Auto (Bld) [#/Vo l]Ordered By: Yves Rosales on 09-16-2022 Neutrophils (Bld) [#/Vol] 5.6 10*3/uL 1.8-7.7 [facility] Neutrophils/100 WBC Auto (Bl d)Ordered By: Yves Rosales on 09-16-2022 Neutrophils/100 WBC (Bld) 56.3 % . [facility] No Panel InformationOrdered By: Yves Rosales on 09-16-2022 Estimated GFR (CKD-EPI) > 60.0 mL/Min [facility] Creatinine Clearance (Chem 73.65 [facility] Nucleated erythrocytes [Pres ence] in Blood by Automated countOrdered By: Yves Rosales on 09-16-2022 Nucleated RBC Auto Ql (Bld) 0.1 /100{WBC} 0-0.5 [facility] Platelet mean volume Auto (B ld) [Entitic vol]Ordered By: Yves Rosales on 09-16-2022 Platelet mean volume (Bld) [Entitic vol] 7.9 fL 6.3-10.7 [facility] Platelets Auto (Bld) [#/Vol] Ordered By: Yves Rosales on 09-16-2022 Platelets (Bld) [#/Vol] 244 10*3/uL 150-450 [facility] Potassium [Moles/volume] in Serum or PlasmaOrdered By: Yves Rosales on 09-16-2022 Potassium [Moles/Vol] 3.7 mmol/L 3.5-5.1 [facility] RBC Auto (Bld) [#/Vol]Ordere d By: Yves Rosales on 09-16-2022 RBC (Bld) [#/Vol] 4.35 10*6/uL 3.60-5.00 [facility] Serum or plasma anion gap de terminationOrdered By: Yves Rosales on 09-16-2022 Anion gap [Moles/Vol] 12.3 mmol/L 6.0-15.0 [facility] Sodium [Moles/volume] in Ser um or PlasmaOrdered By: Yves Rosales on 09-16-2022 Sodium [Moles/Vol] 140 mmol/L 136-145 [facility] Urea nitrogen [Mass/volume] in Serum or PlasmaOrdered By: Yves Rosales on 09-16-2022 Urea nitrogen [Mass/Vol] 15 mg/dL 725 [facility] WBC Auto (Bld) [#/Vol]Ordere d By: Yves Rosales on 09-16-2022 WBC (Bld) [#/Vol] 10.0 10*3/uL 3.8-11.6 [facility] Alanine aminotransferase [En zymatic activity/volume] in Serum or PlasmaOrdered By: Seth Soliz on 08-29-2022 ALT [Catalytic activity/Vol] 32 U/L 7-52 [facility] Albumin [Mass/volume] in Ser um or Plasma by Bromocresol green (BCG) dye binding methoOrdered By: Seth Soliz on 08-29-2022 Albumin BCG dye [Mass/Vol] 4.7 g/dL 3.5-5.7 [facility] Alkaline phosphatase [Enzyma tic activity/volume] in Serum or PlasmaOrdered By: Seth Soliz on 08-29-2022 ALP [Catalytic activity/Vol] 49 U/L 34-104 [facility] Aspartate aminotransferase [ Enzymatic activity/volume] in Serum or PlasmaOrdered By: Seth Soliz on 08-29-2022 AST [Catalytic activity/Vol] 28 U/L 13-39 [facility] Basophils Auto (Bld) [#/Vol] Ordered By: Seth Soliz on 08-29-2022 Basophils (Bld) [#/Vol] 0.1 10*3/uL 0.0-0.2 [facility] Basophils/100 WBC Auto (Bld) Ordered By: Seth Soliz on 08-29-2022 Basophils/100 WBC (Bld) 0.6 % . [facility] Bilirubin.total [Mass/volume ] in Serum or PlasmaOrdered By: Seth Soliz on 08-29-2022 Bilirubin [Mass/Vol] 0.4 mg/dL 0.3-1.0 [facility] CMP with reflex to A1Con Albumin [Mass/Vol] 4.7 g/dL Normal 3.5-5.7 [facility] Comment on above: Performed By: #### C BC, CMP wRFX A1C #### [facility] [address] Albumin/Globulin [Mass ratio] 2.2 {ratio} Normal [facility] Comment on above: Performed By: #### C BC, CMP wRFX A1C #### [facility] [address] ALP [Catalytic activity/Vol] 49 U/L Normal 34-104 [facility] Comment on above: Result Comment: PERF ORMED BY: [place] [address] PATHOLOGIST CHIEF [employer] TESTER LIGIA VALDIVIA M.D. Performed By: #### C BC, CMP wRFX A1C #### [facility] [address] [place] [address] ALT [Catalytic activity/Vol] 32 U/L Normal 7-52 [facility] Comment on above: Performed By: #### C BC, CMP wRFX A1C #### [facility] [address] [place] [address] [place] Anion gap [Moles/Vol] 14.0 mmol/L Normal 6.0-15.0 [facility] Comment on above: Performed By: #### C BC, CMP wRFX A1C #### [facility] [address] [place] [address] [place] AST [Catalytic activity/Vol] 28 U/L Normal 13-39 [facility] Comment on above: Performed By: #### C BC, CMP wRFX A1C #### [facility] [address] [place] [id number] [place] Bilirubin [Mass/Vol] 0.4 mg/dL Normal 0.3-1.0 [facility] Comment on above: Performed By: #### C BC, CMP wRFX A1C #### [facility] [address] Calcium [Mass/Vol] 10.0 mg/dL Normal 8.6-10.3 [facility] Comment on above: Performed By: #### C BC, CMP wRFX A1C #### [facility] [address] Chloride [Moles/Vol] 107 mmol/L Normal 98-107 [facility] Comment on above: Performed By: #### C BC, CMP wRFX A1C #### [facility] [address] CO2 [Moles/Vol] 23.9 mmol/L Normal 21.0-31.0 [facility] Comment on above: Performed By: #### C BC, CMP wRFX A1C #### [address] Creatinine [Mass/Vol] 0.99 mg/dL Normal 0.60-1.20 [facility] Comment on above: Performed By: #### C BC, CMP wRFX A1C #### [place] [address] [place] GFR/1.73 sq M.predicted MDRD (S/P/Bld) [Vol rate/Area] mL/min/{1.73_m2} [facility] Comment on above: Performed By: #### C BC, CMP wRFX A1C #### [facility] [address] [place] [address] [place] Globulin (S) [Mass/Vol] 2.1 g/dL Normal [facility] Comment on above: Performed By: #### C BC, CMP wRFX A1C #### [facility] [address] Glucose [Mass/Vol] 100 mg/dL Normal 70-100 [facility] Comment on above: Performed By: #### C BC, CMP wRFX A1C #### [facility] [address] [place] [address] [place] Potassium [Moles/Vol] 3.9 mmol/L Normal 3.5-5.1 [facility] Comment on above: Performed By: #### C BC, CMP wRFX A1C #### [facility] [address] Protein [Mass/Vol] 6.8 g/dL Normal 6.4-8.9 [facility] Comment on above: Performed By: #### C BC, CMP wRFX A1C #### [facility] [address] Sodium [Moles/Vol] 141 mmol/L Normal 136-145 [facility] Comment on above: Performed By: #### C BC, CMP wRFX A1C #### [facility] [address] Urea nitrogen [Mass/Vol] 8 mg/dL Normal 7-25 [facility] Comment on above: Performed By: #### C BC, CMP wRFX A1C #### [facility] [address] Calcium [Mass/volume] in Ser um or PlasmaOrdered By: Seth Soliz on 08-29-2022 Calcium [Mass/Vol] 10.0 mg/dL 8.6-10.3 [facility] Carbon dioxide, total [Moles /volume] in Serum or PlasmaOrdered By: Seth Soliz on 08-29-2022 CO2 [Moles/Vol] 23.9 mmol/L 21.0-31.0 [facility] Chloride [Moles/volume] in S dorota or PlasmaOrdered By: Seth Soliz on 08-29-2022 Chloride [Moles/Vol] 107 mmol/L 98-107 [facility] Complete Blood Count Auto Di ffon 08-29-2022 Basophils (Bld) [#/Vol] 0.1 10*3/uL Normal 0.0-0.2 [facility] Comment on above: Result Comment: PERF ORMED BY: [facility] [address] [place] [address] PATHOLOGIST [employer]IE[employer] LIGIA VALDIVIA M.D. Performed By: #### C BC, CMP wRFX A1C #### [facility] [address] Basophils/100 WBC (Bld) 0.6 % Normal . [facility] Comment on above: Performed By: #### C BC, CMP wRFX A1C #### [facility] [address] Eosinophils (Bld) [#/Vol] 0.2 10*3/uL Normal 0.0-0.45 [facility] Comment on above: Performed By: #### C BC, CMP wRFX A1C #### [address] Eosinophils/100 WBC (Bld) 2.6 % Normal . [facility] Comment on above: Performed By: #### C BC, CMP wRFX A1C #### [address] Erythrocyte distribution width (RBC) [Ratio] 13.8 % Normal 11.9-15.3 [facility] Comment on above: Performed By: #### C BC, CMP wRFX A1C #### [address] Hematocrit (Bld) [Volume fraction] 41.2 % Normal 34.0-46.4 [facility] Comment on above: Performed By: #### C BC, CMP wRFX A1C #### [address] Hemoglobin (Bld) [Mass/Vol] 14.0 g/dL Normal 11.8-15.4 [facility] Comment on above: Performed By: #### C BC, CMP wRFX A1C #### [address] Lymphocytes (Bld) [#/Vol] 3.0 10*3/uL Normal 1.00-4.8 [facility] Comment on above: Performed By: #### C BC, CMP wRFX A1C #### [facility] [address] [place] [address] [place] Lymphocytes/100 WBC (Bld) 31.6 % Normal . [facility] Comment on above: Performed By: #### C BC, CMP wRFX A1C #### [facility] [address] MCH (RBC) [Entitic mass] 29.3 pg Normal 24.7-34.3 [facility] Comment on above: Performed By: #### C BC, CMP wRFX A1C #### [facility] [address] [place] [address] [place] MCV (RBC) [Entitic vol] 86.0 fL Normal 80-100 [facility] Comment on above: Performed By: #### C BC, CMP wRFX A1C #### [facility] [address] Mean Corpuscular HGB Conc 34.0 g/dL Normal 32.0-35.0 [facility] Comment on above: Performed By: #### C BC, CMP wRFX A1C #### [facility] [address] [place] [address] [place] Monocytes (Bld) [#/Vol] 0.7 10*3/uL Normal 0.0-0.8 [facility] Comment on above: Performed By: #### C BC, CMP wRFX A1C #### [facility] [address] [place] [address] [place] Monocytes/100 WBC (Bld) 7.1 % Normal . [facility] Comment on above: Performed By: #### C BC, CMP wRFX A1C #### [facility] [address] [place] [address] [place] Neutrophils (Bld) [#/Vol] 5.6 10*3/uL Normal 1.8-7.7 [facility] Comment on above: Performed By: #### C BC, CMP wRFX A1C #### [facility] [address] [place] [address] [place] Neutrophils/100 WBC (Bld) 58.1 % Normal . [facility] Comment on above: Performed By: #### C BC, CMP wRFX A1C #### [facility] [address] NRBC% 0.1 /100{WBC} Normal 0-0.5 [facility] Comment on above: Performed By: #### C BC, CMP wRFX A1C #### [facility] [address] Platelet mean volume (Bld) [Entitic vol] 8.9 fL Normal 6.3-10.7 [facility] Comment on above: Performed By: #### C BC, CMP wRFX A1C #### [facility] [address] [place] [address] [place] Platelets (Bld) [#/Vol] 268 10*3/uL Normal 150-450 [facility] Comment on above: Performed By: #### C BC, CMP wRFX A1C #### [facility] [address] RBC (Bld) [#/Vol] 4.78 10*6/uL Normal 3.60-5.00 [facility] Comment on above: Performed By: #### C BC, CMP wRFX A1C #### [facility] [address] WBC (Bld) [#/Vol] 9.6 10*3/uL Normal 3.8-11.6 [facility] Comment on above: Performed By: #### C BC, CMP wRFX A1C #### [address] Creatinine [Mass/volume] in Serum or PlasmaOrdered By: Seth Soliz on 08-29-2022 Creatinine [Mass/Vol] 0.99 mg/dL 0.60-1.20 [facility] ECG 12 lead ECGon 08-29-2022 ECG 12 lead ECG [facility] [address] [place] [address] Electrocardiograph Report Signed Patient: Pam Méndez MR#: [id number] : 1970 Acct:[id number] Age/Sex: 52 / F ADM Date: 08/29/22 Loc: PS Room: Type: [facility] Attending Dr: Seth Soliz MD Ordering Provider: Seth Soliz MD Date of Service: 08/29/2210/14/1610 ECG/ECG 12 lead ECG: LEFT KNEE ARTHROSCOPY, MEDIAL MENISCECTOMY Copies to: Test Reason : Blood Pressure : / mmHG Vent. Rate : 092 BPM Atrial Rate : 092 BPM P-R Int : 146 ms QRS Dur : 084 ms QT Int : 382 ms P-R-T Axes : 029 086 027 degrees QTc Int : 472 ms Normal sinus rhythm Prolonged QT Abnormal ECG No previous ECGs available Confirmed by DILCIA ALBRECHT DO ([id number]) on 08/30/2022 7:49:38 AM Referred By: SYLWIA Electronically Signed By:DILCIA ALBRECHT DO Transcribed By: MUS Signed By Dilcia Albrecht DO 08/30 0749 Normal [facility] Eosinophils Auto (Bld) [#/Vo l]Ordered By: Seth Soliz on 08-29-2022 Eosinophils (Bld) [#/Vol] 0.2 10*3/uL 0.0-0.45 [facility] Eosinophils/100 WBC Auto (Bl d)Ordered By: Seth Soliz on 08-29-2022 Eosinophils/100 WBC (Bld) 2.6 % . [facility] Erythrocyte distribution wid th Auto (RBC) [Ratio]Ordered By: Seth Soliz on 08-29-2022 Erythrocyte distribution width (RBC) [Ratio] 13.8 % 11.9-15.3 [facility] Globulin Calc (S) [Mass/Vol] Ordered By: Seth Soliz on 08-29-2022 Globulin (S) [Mass/Vol] 2.1 g/dL [facility] Glucose [Mass/volume] in Ser um or PlasmaOrdered By: Seth Soliz on 08-29-2022 Glucose [Mass/Vol] 100 mg/dL 70-100 [facility] Hematocrit Auto (Bld) [Volum e fraction]Ordered By: Seth Soliz on 08-29-2022 Hematocrit (Bld) [Volume fraction] 41.2 % 34.0-46.4 [facility] Hemoglobin [Mass/volume] in BloodOrdered By: Seth Soliz on 08-29-2022 Hemoglobin (Bld) [Mass/Vol] 14.0 g/dL 11.8-15.4 [facility] Leukocytes [#/volume] correc gracie for nucleated erythrocytes in Blood by Automated counOrdered By: Seth Soliz on 08-29-2022 WBC corrected for nucl RBC Auto (Bld) [#/Vol] 9.6 10*3/uL 3.8-11.6 [facility] Lymphocytes Auto (Bld) [#/Vo l]Ordered By: Seth Soliz on 08-29-2022 Lymphocytes (Bld) [#/Vol] 3.0 10*3/uL 1.00-4.8 [facility] Lymphocytes/100 WBC Auto (Bl d)Ordered By: Seth Soliz on 08-29-2022 Lymphocytes/100 WBC (Bld) 31.6 % . [facility] MCH Auto (RBC) [Entitic mass ]Ordered By: Seth Soliz on 08-29-2022 MCH (RBC) [Entitic mass] 29.3 pg 24.7-34.3 [facility] MCHC Auto (RBC) [Mass/Vol]Or dered By: Seth Soliz on 08-29-2022 MCHC (RBC) [Mass/Vol] 34.0 g/dL 32.0-35.0 [facility] MCV Auto (RBC) [Entitic vol] Ordered By: Seth Soliz on 08-29-2022 MCV (RBC) [Entitic vol] 86.0 fL 80-100 [facility] Monocytes Auto (Bld) [#/Vol] Ordered By: Seth Soliz on 08-29-2022 Monocytes (Bld) [#/Vol] 0.7 10*3/uL 0.0-0.8 [facility] Monocytes/100 WBC Auto (Bld) Ordered By: Seth Soliz on 08-29-2022 Monocytes/100 WBC (Bld) 7.1 % . [facility] Neutrophils Auto (Bld) [#/Vo l]Ordered By: Seth Soliz on 08-29-2022 Neutrophils (Bld) [#/Vol] 5.6 10*3/uL 1.8-7.7 [facility] Neutrophils/100 WBC Auto (Bl d)Ordered By: Seth Soliz on 08-29-2022 Neutrophils/100 WBC (Bld) 58.1 % . [facility] No Panel InformationOrdered By: Seth Soliz on 08-29-2022 Estimated GFR (CKD-EPI) > 60.0 mL/Min [facility] Creatinine Clearance (Chem N/A [facility] Nucleated erythrocytes [Pres ence] in Blood by Automated countOrdered By: Seth Soliz on 08-29-2022 Nucleated RBC Auto Ql (Bld) 0.1 /100{WBC} 0-0.5 [facility] Platelet mean volume Auto (B ld) [Entitic vol]Ordered By: Seth Soliz on 08-29-2022 Platelet mean volume (Bld) [Entitic vol] 8.9 fL 6.3-10.7 [facility] Platelets Auto (Bld) [#/Vol] Ordered By: Seth Soliz on 08-29-2022 Platelets (Bld) [#/Vol] 268 10*3/uL 150-450 [facility] Potassium [Moles/volume] in Serum or PlasmaOrdered By: Seth Soliz on 08-29-2022 Potassium [Moles/Vol] 3.9 mmol/L 3.5-5.1 [facility] Protein [Mass/volume] in Ser um or PlasmaOrdered By: Seth Soliz on 08-29-2022 Protein [Mass/Vol] 6.8 g/dL 6.4-8.9 [facility] RBC Auto (Bld) [#/Vol]Ordere d By: Seth Soliz on 08-29-2022 RBC (Bld) [#/Vol] 4.78 10*6/uL 3.60-5.00 [facility] Serum or plasma albumin/glob ulin mass ratioOrdered By: Seth Soliz on 08-29-2022 Albumin/Globulin [Mass ratio] 2.2 {ratio} [facility] Serum or plasma anion gap de terminationOrdered By: Seth Soliz on 08-29-2022 Anion gap [Moles/Vol] 14.0 mmol/L 6.0-15.0 [facility] Sodium [Moles/volume] in Ser um or PlasmaOrdered By: Seth Soliz on 08-29-2022 Sodium [Moles/Vol] 141 mmol/L 136-145 [facility] Urea nitrogen [Mass/volume] in Serum or PlasmaOrdered By: Seth Soliz on 08-29-2022 Urea nitrogen [Mass/Vol] 8 mg/dL 7-25 [facility] WBC Auto (Bld) [#/Vol]Ordere d By: Seth Soliz on 08-29-2022 WBC (Bld) [#/Vol] 9.6 10*3/uL 3.8-11.6 [facility] MR knee LT wo conon 08-08-19 MR knee LT wo con [facility] [place] [address] MRI Report Signed Patient: Pam Méndez MR#: [id number] : 1970 Acct:[id number] Age/Sex: 52 / F ADM Date: 08/07/22 Loc: [facility] Room: Type: [facility] Attending Dr: Seth Soliz MD Copies to: Seth Soliz MD Ordering Provider: Seth Soliz MD Date of Service: 08/07/22 MR/MR knee LT wo con: Internal derangement of left knee MRI of the leftKnee without contrast TECHNIQUE: Multiplanar T1 and T2-weighted imaging of the knee obtained without contrast HISTORY: Diffuse left knee pain. The left lower leg swelling. The medial knee pain for one month BONE MARROW: No infiltrative changes. BONE MARROW EDEMA: medial femoral condyle focal subarticular bone marrow edema FRACTURE: None BONE TUMOR: None BONY ALIGNMENT: Adequate DEGENERATION: No significant spurring or joint space narrowing. JOINT EFFUSION: Moderate joint effusion. MUSCLES: Unremarkable SOFT TISSUES: Unremarkable POPLITEAL CYST: None ANTERIOR CRUCIATE LIGAMENT: Intact POSTERIOR CRUCIATE LIGAMENT: Intact LATERAL COMPARTMENT: LATERAL MENISCUS: Intact. LATERAL ARTICULAR CARTILAGE: Intact. No osteochondral defect. No subcuticular bone marrow edema. PROXIMAL TIBIOFIBULAR JOINT: Intact POSTERIOR LATERAL COMPARTMENT: Intact lateral collateral ligament complex. Intact biceps femoris tendon. Intact popliteus tendon. COMMON PERONEAL NERVE: Intact MEDIAL COMPARTMENT: MEDIAL MENISCUS: A small tear of the body of the medial meniscus identified. 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 Associated subarticular bone marrow edema identified. POSTERIOR MEDIAL COMPARTMENT: Medial collateral ligament complex intact. The semimembranosus tendon intact. No ramp lesion of the posterior horn of medial meniscus present. PATELLOFEMORAL COMPARTMENT: PATELLOFEMORAL ARTICULAR CARTILAGE: Intact ANTERIOR LIGAMENTS: Patellar ligament and quadriceps tendon are intact. MR/MR knee LT wo con IMPRESSION: Intact ACL. Intact lateral meniscus. Small tear of the body of the medial meniscus. 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 Impression dictated by: Dilcia Lawson M.D.08/07/2022 1:59 PM Dictation Location: [place] [address] Transcribed By: [facility] 08/07/22 1359 Dictated By: Dilcia Lawson DO 08/07/22 1353 Signed By: 08/07/22 1359 [facility] US venous duplex LE LT US venous duplex LE LT [facility] [place] [place] [address] Ultrasound Report Signed Patient: Pam Méndez MR#: [id number] : 1970 Acct:[id number] Age/Sex: 52 / F ADM Date: 07/20/22 Loc: ER Room: Type: [facility] Attending Dr: Ordering Provider: Nick Acevedo APRN Date of Service: 07/20/22 US/US venous duplex LE LT: lower leg pain Copies to: Nick Acevedo APRN LEFT LOWER EXTREMITY VENOUS DUPLEX INDICATION: Left leg pain Unilateral left lower extremity venous duplex Doppler study was obtained utilizing B-mode, color- flow and spectral Doppler. FINDINGS: The left common femoral, femoral, and popliteal veins showed adequate compressibility, color-flow and augmentation. The left posterior tibial and peroneal veins were compressible, as well as proximal greater saphenous vein. The contralateral right common femoral vein was compressible with color-flow and augmentation. US/US venous duplex LE LT IMPRESSION: NO EVIDENCE OF DEEP VENOUS THROMBOSIS IN THE LEFT LOWER EXTREMITY. NO SUPERFICIAL THROMBOPHLEBITIS WAS NOTED. Impression dictated by: Dilcia Morales M.D.07/21/2022 10:40 AM Dictation Location: [place] [address] Tech: Barbara Owens Transcribed By: SELENA 07/21/22 1040 Dictated By: Dilcia Morales MD 07/21/22 1039 Signed By: 07/21/22 1040 [facility] XR knee LT 4V*on 07-20-2022 XR knee LT 4V* [facility] [address] [place] [address] XRay Report Signed Patient: Pam Méndez MR#: [id number] : 1970 Acct:[id number] Age/Sex: 52 / F ADM Date: 07/20/22 Loc: ER Room: Type: [facility] ER Attending Dr: Copies to: Nick Acevedo APRN Ordering Provider: Nick Acevedo APRN Date of Service: 07/20/22 XR/XR knee LT 4V*: Extremity Injury, Lower XR knee LT 4V* 07/20/2022 12:39 PM SIGNS AND SYMPTOMS: Left leg and ankle swelling, leg is cold to touch PROTOCOL: Frontal, lateral, and oblique radiographs of the left knee COMPARISON: None FINDINGS: The weightbearing and patellofemoral joint spaces are preserved. There is no evidence of fracture. No dislocation. No joint effusion or soft tissue swelling. XR/XR knee LT 4V* IMPRESSION: No acute bony injury. No significant degenerative change. Impression dictated by: Sigrid Millard M.D.07/20/2022 1:06 PM Dictation Location: [place] [address] Transcribed By: SELENA 07/20/22 1306 Dictated By: Sigrid Millard II, MD 07/20/22 1303 Signed By: 07/20/22 1306 [facility] MG MAMM SCREEN 3D SAIRA CADon 06-07-2022 MG MAMM SCREEN 3D SAIRA CAD Patient: PAM MÉNDEZ Exam Date: 06/07/2022 : 1970 Gender:F Ordering : DR SAMPSON DA SILVA . Admission #: [id number] Family : Order #: [id number] CLICK HERE TO VIEW EXAM RADIOLOGY REPORT PROCEDURE: MAMMOGRAM SCREENING 3D BILATERAL CAD COMPARISON: MG MAMM SCREEN SAIRA W CAD, 04/24/2017. MG MAMM SCREEN SAIRA W CAD, 09/24/2018. INDICATIONS: Screening mammography Calculator Name NCI Breast Cancer Risk Assessment Tool 5 Year Breast Cancer Risk 1.20% Lifetime Breast Cancer Risk 9.60% Personal Breast Cancer No Personal Ovarian Cancer No Treatments None Family Cancers None LOCATION: [facility] BREAST COMPOSITION: Scattered areas fibroglandular density. FINDINGS: DIAGNOSTIC CATEGORY 2--BENIGN FINDING: RIGHT BREAST: No significant suspicious finding. Scattered benign-appearing nodules are present. No significant change has occurred. LEFT BREAST: No significant suspicious finding. No significant change has occurred. RECOMMENDATIONS: ROUTINE MAMMOGRAM AND CLINICAL EVALUATION IN 12 MONTHS. PLEASE NOTE: A NORMAL MAMMOGRAM DOES NOT EXCLUDE THE POSSIBILITY OF BREAST CANCER. A CLINICALLY SUSPICIOUS PALPABLE LUMP SHOULD BE BIOPSIED. Dictated by: Lennox Muro M.D. on 06/07/2022 at 14:06 Approved by: Lennox Muro M.D. on 06/07/2022 at 14:08 Normal [facility] CBC AUTO DIFFon 05-29-2022 BASO # 0.0 103/ul Normal 0.0-0.1 [facility] Comment on above: Performed By: #### C BC ####[facility] [id number] [place] [address]Dr. Micah Ackerman Basophils/100 WBC (Bld) 0.4 % Normal 0.2-2.0 [facility] Comment on above: Performed By: #### C BC ####[facility] [address] [place] [id number]. Micah Ackerman EO # 0.3 103/ul Normal 0.0-0.7 [facility] Comment on above: Performed By: #### C BC ####[facility] [address] [place] [id number]. Micah Ackerman Eosinophils/100 WBC (Bld) 3.5 % Normal 0.9-7.0 [facility] Comment on above: Performed By: #### C BC ####[facility] [address] [place] [address]Dr. Micah Ackerman Erythrocyte distribution width (RBC) [Ratio] 12.9 % Normal 11.0-15.0 [facility] Comment on above: Performed By: #### C BC ####[facility] [address] [place], [place] [address]Dr. Micah Ackerman Hematocrit (Bld) [Volume fraction] 39.6 % Normal 36.0-48.0 [facility] Comment on above: Performed By: #### C BC ####[facility] Qtydkaritp[address] [place], [place] [address]Dr. Micah Ackerman Hemoglobin (Bld) [Mass/Vol] 13.5 g/dL Normal 12.0-16.0 [facility] Comment on above: Performed By: #### C BC ####[facility] W[address] [place], [place] [address]Dr. Micah Ackerman IG # 0.02 10e3/ul Normal 0.00-0.03 [facility] Comment on above: Performed By: #### C BC ####[facility] [address] [place], [place] [address]Dr. Micah Ackerman IG % 0.2 % Normal 0.0-0.5 [facility] Comment on above: Performed By: #### C BC ####[facility] Ogq[address] [place], [place] [address]Dr. Micah Ackerman LYMPH # 2.7 103/ul Normal 1.2-3.8 [facility] Comment on above: Performed By: #### C BC ####[facility] Abdvtmqkji[address] [place], [place] [address]Dr. Micah Ackerman Lymphocytes/100 WBC (Bld) 31.9 % Normal 20.5-60.0 [facility] Comment on above: Performed By: #### C BC ####[facility] G[address]zqhwa[address] [place], [place] [address]Dr. Micah Ackerman MANUAL DIFF REQ NO Normal [facility] Comment on above: Performed By: #### C BC ####[facility] Qv[address]jwen[address] [place] [id number]. Micah Tyron MCH (RBC) [Entitic mass] 28.7 pg Normal 26.7-34.0 [facility] Comment on above: Performed By: #### C BC ####[facility] [address] [place] [address] [address]Dr. Micah Tyron MCHC (RBC) [Mass/Vol] 34.1 g/dL Normal 29.9-35.2 [facility] Comment on above: Performed By: #### C BC ####[facility] X[address] [place] [address]Dr. Micah Ackerman MCV (RBC) [Entitic vol] 84.3 fL Normal 81.0-99.0 [facility] Comment on above: Performed By: #### C BC ####[facility] K[address] [place], [place] [address]Dr. Micah Ackerman MONO # 0.5 103/ul Normal 0.3-0.8 [facility] Comment on above: Performed By: #### C BC ####[facility] Zppedbbweo[address] [place], [place] [address]Dr. Micah Ackerman Monocytes/100 WBC (Bld) 6.0 % Normal 1.7-12.0 [facility] Comment on above: Performed By: #### C BC ####[facility] Fedkgwmkab[address] [place], [place] [address]Dr. Micah Ackerman NEUT # 4.9 103/ul Normal 1.4-6.5 [facility] Comment on above: Performed By: #### C BC ####[facility] [address] [place], [place] [id number]. Micah Ackerman Neutrophils/100 WBC (Bld) 58.0 % Normal 43.0-75.0 [facility] Comment on above: Performed By: #### C BC ####[facility] Qce[address]cp[address] [place], [place] [address]Dr. Micah Ackerman Platelet mean volume (Bld) [Entitic vol] 9.6 fL Normal 9.5-13.5 [facility] Comment on above: Performed By: #### C BC ####[facility] [address] [place] [address]Dr. Micah Ackerman PLT 273 103/ul Normal 150-450 [facility] Comment on above: Performed By: #### C BC ####[facility] [address] [place] [id number]. Micah Ackerman RBC 4.70 106/ul Normal 4.20-5.40 [facility] Comment on above: Performed By: #### C BC ####[facility] [address] [place] [id number]. Micah Ackerman WBC 8.5 103/ul Normal 4.0-11.0 [facility] Comment on above: Performed By: #### C BC ####[facility] [address] [place] [address]Dr. Micah Ackerman GLYCOHEMOGLOBIN A1Con 2022 ADA RECOMMENDATION SEE BELOW Normal [facility] Comment on above: Result Comment: ADA RECOMMENDED LIMIT 4.0 - 6.0 ADA THERAPEUTIC TARGET < 7.0 ACTION SUGGESTED > 7.0 Performed By: #### A 1C ####[facility] [address] [place] [address]Dr. Micah Ackerman Glucose [Mass/Vol] 128 mg/dL Normal [facility] Comment on above: Performed By: #### A 1C ####[facility] [address] [place] [address]Dr. Micah Ackerman HbA1c (Bld) [Mass fraction] 6.1 % Normal 4.5-6.2 [facility] Comment on above: Performed By: #### A 1C ####[facility] [address] [place] [address]Dr. Micah Ackerman LIPID PROFILEon 05-29-2022 CHOL-HDL RATIO NORM SEE BELOW Normal [facility] Comment on above: Result Comment: 3.3 - 4.4 LOW RISK 4.4 - 7.1 AVERAGE RISK 7.1 - 11.0 MODERATE RISK >11.0 HIGH RISK Performed By: #### L IVER, TSH, BMP, LIPID #### [facility] [address] [address] [address] Micah Ackerman Cholesterol [Mass/Vol] 204 mg/dL Critically high <=200 [facility] Comment on above: Performed By: #### L IVER, TSH, BMP, LIPID #### [facility] [address] [address] [address] Micah Ackerman Cholesterol in HDL [Mass/Vol] 54 mg/dL Normal 40-60 [facility] Comment on above: Performed By: #### L IVER, TSH, BMP, LIPID #### [facility] [address] [address] [address] Micah Ackerman Cholesterol in LDL [Mass/Vol] 132.2 mg/dL Normal [facility] Comment on above: Performed By: #### L IVER, TSH, BMP, LIPID #### [facility] [address] [place] [address] Dr. Micah Ackerman Cholesterol.total/Kanchan sterol in HDL [Mass ratio] 3.8 {ratio} Normal [facility] Comment on above: Performed By: #### L IVER, TSH, BMP, LIPID #### [facility] [address] [address] [address] Micah Ackerman HDL NORMAL > or = 60 mg/dl - LOW CARDIOVASCULAR RISK <40 mg/dl - HIGH CARDIOVASCULAR RISK Normal [facility] Comment on above: Performed By: #### L IVER, TSH, BMP, LIPID #### [facility] [address] [address] [address] Micah Ackerman LDL CALC NORMAL SEE BELOW Normal [facility] Comment on above: Result Comment: <100 mg/dl OPTIMAL 100 - 129 mg/dl NEAR OR ABOVE OPTIMAL 130 - 159 mg/dl BORDERLINE HIGH 160 - 189 mg/dl HIGH >190 mg/dl VERY HIGH Performed By: #### L IVER, TSH, BMP, LIPID #### [facility] [address] [address] [address] Micah Ackerman Triglyceride [Mass/Vol] 89 mg/dL Normal <=150 [facility] Comment on above: Performed By: #### L IVER, TSH, BMP, LIPID #### [facility] [address] [address] [address] Micah Ackerman VLDL CALC 17.8 mg/dL Normal [facility] Comment on above: Performed By: #### L IVER, TSH, BMP, LIPID #### [facility] [address] [address] [address] Micah Ackerman LIVER PROFILEon 05-29-2022 Albumin [Mass/Vol] 4.0 g/dL Normal 3.4-5.0 [facility] Comment on above: Performed By: #### L IVER, TSH, BMP, LIPID #### [facility] [address] [address] [address] Micah Ackerman Albumin/Globulin [Mass ratio] 1.3 {ratio} Normal [facility] Comment on above: Performed By: #### L IVER, TSH, BMP, LIPID #### [facility] [address] [address] [address] Micah Ackerman ALP [Catalytic activity/Vol] 57 U/L Normal 46-116 [facility] Comment on above: Performed By: #### L IVER, TSH, BMP, LIPID #### [facility] [address] [address] [address] Micah Ackerman ALT [Catalytic activity/Vol] 51 U/L Normal 14-59 [facility] Comment on above: Performed By: #### L IVER, TSH, BMP, LIPID #### [facility] [address] [address] [address] Micah Ackerman AST [Catalytic activity/Vol] 46 U/L Critically high 15-37 [facility] Comment on above: Performed By: #### L IVER, TSH, BMP, LIPID #### [facility] [address] [address] [address] Micah Ackerman BILI, CONJUGATED 0.1 mg/dL Normal 0.0-0.2 [facility] Comment on above: Performed By: #### L IVER, TSH, BMP, LIPID #### [facility] [address] [address] [address] Micah Ackerman Bilirubin [Mass/Vol] 0.6 mg/dL Normal 0.2-1.0 [facility] Comment on above: Performed By: #### L IVER, TSH, BMP, LIPID #### [facility] [address] [address] [address] Micah Ackerman Globulin (S) [Mass/Vol] 3.0 g/dL Normal [facility] Comment on above: Performed By: #### L IVER, TSH, BMP, LIPID #### [facility] [address] [address] [address] Micah Ackerman Protein [Mass/Vol] 7.0 g/dL Normal 6.4-8.2 [facility] Comment on above: Performed By: #### L IVER, TSH, BMP, LIPID #### [facility] [address] [place] [address] Dr. Micah Ackerman PROF CHEM 8 (BAS METB)on Anion gap [Moles/Vol] 14.3 mmol/L Normal [facility] Comment on above: Performed By: #### L IVER, TSH, BMP, LIPID #### [facility] [address] [place] [address] Dr. Micah Ackerman Calcium [Mass/Vol] 8.8 mg/dL Normal 8.5-10.1 [facility] Comment on above: Performed By: #### L IVER, TSH, BMP, LIPID #### [facility] [address] [place] [address] Dr. Micah Ackerman Chloride [Moles/Vol] 108 mmol/L Critically high 98-107 [facility] Comment on above: Performed By: #### L IVER, TSH, BMP, LIPID #### [facility] [address] [address] [address] Micah Ackerman CO2 [Moles/Vol] 23.5 mmol/L Normal 21.0-32.0 [facility] Comment on above: Performed By: #### L IVER, TSH, BMP, LIPID #### [facility] [address] [address] [address] Micah Ackerman Creatinine [Mass/Vol] 1.12 mg/dL Critically high 0.55-1.02 [facility] Comment on above: Performed By: #### L IVER, TSH, BMP, LIPID #### [facility] [address] [place] [address] Dr. Micah Ackerman EGFR-AF ARMENIAN >60 Normal >=60 [facility] Comment on above: Performed By: #### L IVER, TSH, BMP, LIPID #### [facility] [address] [address] [address] Micah Ackerman EGFR-NON AF ARMENIAN 51 mL/min/1.73m2 Critically low >=60 [facility] Comment on above: Performed By: #### L IVER, TSH, BMP, LIPID #### [facility] [address] [place] [address] Dr. Micah Ackerman Glucose [Mass/Vol] 126 mg/dL Critically high 74-106 T [facility] Comment on above: Performed By: #### L IVER, TSH, BMP, LIPID #### [facility] [address] [place] [address] Dr. Micah Ackerman Potassium [Moles/Vol] 3.8 mmol/L Normal 3.5-5.1 [facility] Comment on above: Performed By: #### L IVER, TSH, BMP, LIPID #### [facility] [address] [place] [address] Dr. Micah Ackerman Sodium [Moles/Vol] 142 mmol/L Normal 136-145 [facility] Comment on above: Performed By: #### L IVER, TSH, BMP, LIPID #### [facility] [address] [place] [address] Dr. Micah Ackerman Urea nitrogen [Mass/Vol] 11.0 mg/dL Normal 7.0-18.0 [facility] Comment on above: Performed By: #### L IVER, TSH, BMP, LIPID #### [facility] [address] [place] [address] Dr. Micah Ackerman Urea nitrogen/Creatinine [Mass ratio] 9.8 mg/mg Normal [facility] Comment on above: Performed By: #### L IVER, TSH, BMP, LIPID #### [facility] [address] [address] [address] Micah Ackerman TSHon 05-29-2022 TSH 1.092 uIU/mL Normal 0.358-3.740 [facility] Comment on above: Performed By: #### L IVER, TSH, BMP, LIPID #### [facility] [address] [address] [address] Micah Ackerman PAP ACOG PANEL 2: 30 to 65on 05-23-2022 . . Normal [facility] Comment on above: Result Comment: Perf ormed at: WB Performed By: #### 4 [id number] ####[facility] [address] [place] [address]Dr. Micah Ackerman Age Gdln ACOG Testing - [facility] Comment on above: Performed By: #### 4 [id number] ####[facility] [address] [place] [address]DrDrea Ackerman DIAGNOSIS: Comment Normal [facility] Comment on above: Result Comment: NEGA TIVE FOR INTRAEPITHELIAL LESION OR MALIGNANCY. SHIFT IN NURIA SUGGESTIVE OF BACTERIAL VAGINOSIS. Performed at: WB Performed By: #### 4 [id number] ####[facility] [address] [place], [place] [address]DrDrea Ackerman HPV Aptima Positive Abnormal Negative [facility] Comment on above: Result Comment: This nucleic acid amplification test detects fourteen high-risk HPV types (16,18,31,33,35,39,45,51,52,56,58,59,66,68) without differentiation. Performed at: =G Performed By: #### 4 [id number] ####[facility] [address] [place] [address]Dr. Micah Ackerman HPV Genotype 16 Negative Normal Negative [facility] Comment on above: Performed By: #### 4 [id number] ####[facility] [address] [place] [address]Dr. Micah Ackerman HPV Genotype 18,45 Negative Normal Negative [facility] Comment on above: Performed By: #### 4 [id number] ####[facility] [address] [place] [id number]. Micah Ackerman HPV Genotype Reflex Comment Normal [facility] Comment on above: Result Comment: Dyllan higuera, see HPV Genotype results. Performed at: WB Performed By: #### 4 [id number] ####[facility] [address] [place] [address]Dr. Micah Ackerman Methodology: Comment Normal [facility] Comment on above: Result Comment: This liquid based ThinPrep(R) pap test was screened with the use of an image guided system. Performed at: WB Performed By: #### 4 [id number] ####[facility] [address] [place], [place] [address]Dr. Micah Ackerman Note: Comment Normal [facility] Comment on above: Result Comment: The Pap smear is a screening test designed to aid in the detection of premalignant and malignant conditions of the uterine cervix. It is not a diagnostic procedure and should not be used as the sole means of detecting cervical cancer. Both false-positive and false-negative reports do occur. . Performed at: WB Performed By: #### 4 [id number] ####[facility] [address] [place], [place] [address]Dr. Micah Ackerman Performed by: Comment Normal [facility] Comment on above: Result Comment: Justyn Rick, Nip Wrapper (ASCP) Performed at: WB Performed By: #### 4 [id number] ####[facility] [address] [place], [place] [address]Dr. Micah Ackerman Specimen adequacy: Comment Normal [facility] Comment on above: Result Comment: Sati sfactory for evaluation. Endocervical and/or squamous metaplastic cells (endocervical component) are present. Performed at: WB Performed By: #### 4 [id number] ####[facility] [address] [place], [place] [address]Dr. Micah Ackerman Urinalysis - AUTOMATEDon Appearance (U) Cloudy [employer] Other Bilirubin Ql (U) Negative [employer] Other Color (U) Yellow [employer] Other Glucose Ql (U) Negative [employer] Other Hemoglobin Ql (U) Large [employer] Other Ketones Ql (U) Negative [employer] Other Leukocyte esterase Test strip Ql (U) Large [employer] Other Nitrite Ql (U) Negative [employer] Other pH (U) 6.0 [pH] [employer] Other Protein Ql (U) 100 [employer] Other Specific gravity (U) [Rel density] 1.025 [employer] Other Urobilinogen (U) [Mass/Vol] 0.2 mg/dL [employer] Other Urinalysis - AUTOMATED No rt ilab Other Urine Cultureon 05-01-2022 Bacteria identified Cx Nom (U) ORGANISM: Escherichia coli (O:ESCCOL) [place] Count >100,000 Aerobic GRACE Charge ([id number]) ------ SUSCEPTIBILITY ----- ORGANISM: O:ESCCOL ANTIBIOTIC INTERPRETATION GRACE Amikacin S <16 Amoxacillin/K Clavulanate S <8 Ampicillin R >16 Ampicillin/Sulbacta m I 1616/8 Aztreonam S <4 Cefazolin S <2 Cefepime S <2 Ceftazidime S <1 Ceftazidime/Avibact am S <4 Ceftolozane/Tazobac becker S <2 Ceftriaxone S <1 Cefuroxime S <4 Ciprofloxacin S <0.25 Ertapenem S <0.5 Gentamicin R >8 Levofloxacin S <0.5 Meropenem S <1 Meropenem/Vaborbact am S <2 Nitrofurantoin S <32 Piperacillin/Tazoba ctam S <8 Tetracycline R >8 Tigecycline S <2 Tobramycin R >8 Trimethoprim/Sulfam ethoxazole R >2 S = SUSCEPTIBLE I = INTERMEDIATE R = RESISTANT BLANK = DATA NOT AVAILABLE, OR DRUG NOT ADVISABLE OR TESTED R* = RESISTANCE DUE TO EXTENDED SPECTRUM BETA-LACTAMASES ESBL = EXTENDED SPECTRUM BETA-LACTAMASE TFG = THYMIDINE-DEPENDENT STRAIN SHU = BETA-LACTAMASE POSITIVE IB = INDUCIBLE BETA-LACTAMASE. APPEARS IN PLACE OF 'S' WITH SPECIES KNOWN TO POSSESS INDUCIBLE BETA-LACTAMASES. POTENTIALLY THEY MAY BECOME RESISTANT TO ALL B-LACTAM DRUGS. PERFORMED BY: [facility] [address] [place] [address] PATHOLOGIST CHIEF RELAY TESTER LIGIA VALDIVIA M.D. Normal [facility] Comment on above: Performed By: #### C UU ####[facility] [address] [place] [address] [facility] Urine Culture >100,000 [employer] Other Urine Culture <16 Susceptible [employer] Other Urine Culture <8/4 Susceptible [employer] Other Urine Culture >16 Resistant [employer] Other Urine Culture <4 Susceptible [employer] Other Urine Culture <2 Susceptible [employer] Other Urine Culture <1 Susceptible [employer] Other Urine Culture <0.25 Susceptible [employer] Other Urine Culture <0.5 Susceptible [employer] Other Urine Culture >8 Resistant [employer] Other Urine Culture <32 Susceptible [employer] Other Urine Culture >2/38 Resistant [employer] Other Urine culture routineOrdered By: Estrella Samaniego on 05-01-2022 Bacteria identified Cx Nom (U) Escherichia coli [facility] Consenton 09-14-2021 Consent [id number]:127 Normal [facility] Quantiferon-TB Plus (Client Incubated)on 09-14-2021 Gamma interferon background IA Qn (Bld) 0.00 International_Unit/ mL Invalid Interpretation Code [facility] Comment on above: Performed By: #### 1 [id number], [id number], [id number] #### [facility] [address] [place] [address] M. tuberculosis stim IFN-g by CD4+ CD8+ T-cells corrected for background Qn (Bld) 0.00 International_Unit/ mL Invalid Interpretation Code [facility] Comment on above: Performed By: #### 1 [id number], [id number], [id number], [id number] #### [facility] [address] [place] [address] M. tuberculosis stim IFN-g by CD4+ T-cells corrected for background Qn (Bld) 0.00 International_Unit/ mL Invalid Interpretation Code [facility] Comment on above: Performed By: #### 1 [id number], [id number], [id number], [id number] #### [facility] [address] [place] [address] M. tuberculosis stim IFN-g Ql (Bld) [Interp] Negative Invalid Interpretation Code Negative [facility] Comment on above: Result Comment: The specimen received for QuantiFERON testing was incubated by the ordering institution. Specific procedures outlined in our Directory of Services and in the package insert for the QuantiFERON Gold (In Tube) test must be followed to enable for proper stimulation of cells for the production of interferon gamma. Chemiluminescence immunoassay methodology Performed at: [facility] [address] [place] [address] [id number] PhD Geehta Payne Performed By: #### 1 [id number], [id number], [id number], [id number] #### [facility] [address] [place] [address] Mitogen stimulated gamma interferon Qn (Bld) >10.00 Invalid Interpretation Code [facility] Comment on above: Performed By: #### 1 [id number], [id number], [id number], [id number] #### [facility] [address] [place] [address] Service comment (Unsp spec) [Interp] Comment Invalid Interpretation Code [facility] Comment on above: Result Comment: The QuantiFERON-TB Gold Plus result is determined by subtracting the Nil value from either TB antigen (Ag) tube. The mitogen tube serves as a control for the test. Performed By: #### 1 [id number], [id number], [id number], [id number] #### [facility] [address] [place] [address] Registrationon 09-14-2021 Registration [id number]:127 Normal [facility] Hep Bs Abon 09-13-2021 HBV surface Ab Ql (S) Non-Reactive Invalid Interpretation Code [facility] Comment on above: Result Comment: Non Reactive: Inconsistent with immunity, less than 10 mIU/mL Reactive: Consistent with immunity, greater than 9.9 mIU/mL Performed at: [address] [id number] PhD Geetha Payne Performed By: #### 1 [id number], [id number], [id number], [id number] #### [facility] [address] [place] [address] Measles/Mumps/Rubella Immuni tyon 09-13-2021 MeV IgG IA Qn (S) 79.0 A unit/mL Invalid Interpretation Code Immune >16.4 [facility] Comment on above: Result Comment: Nega tive <13.5 Equivocal 13.5 - 16.4 Positive >16.4 Presence of antibodies to Rubeola is presumptive evidence of immunity except when acute infection is suspected. Performed By: #### 1 [id number], [id number], [id number], [id number] #### [facility] [address] [place] [address] MuV IgG IA Qn (S) 65.9 A unit/mL Invalid Interpretation Code Immune >10.9 [facility] Comment on above: Result Comment: Nega tive <9.0 Equivocal 9.0 - 10.9 Positive >10.9 A positive result generally indicates past exposure to Mumps virus or previous vaccination. Performed at: [id number] [place], [place] [id number] PhD Geetha Payne Performed By: #### 1 [id number], [id number], [id number], [id number] #### [facility] [address] [place] [address] Rubella virus IgG Qn (S) 1.48 [IU]/mL Invalid Interpretation Code Immune >0.99 [facility] Comment on above: Result Comment: Non- immune <0.90 Equivocal 0.90 - 0.99 Immune >0.99 Performed By: #### 1 [id number], [id number], [id number], [id number] #### [facility] [address] [place] [address] Varic IgGon 09-13-2021 VZV IgG IA Qn (S) 581 Invalid Interpretation Code Immune >165 [facility] Comment on above: Result Comment: Nega tive <135 Equivocal 135 - 165 Positive >165 A positive result generally indicates exposure to the pathogen or administration of specific immunoglobulins, but it is not indication of active infection or stage of disease. Performed at: [address] [id number] PhD Geetha Payne Performed By: #### 1 [id number], [id number], [id number], [id number] #### [facility] [address] [place] [address] Physician Orderon 09-12-2021 Physician Order [id number]:127 Normal [facility] Physician Order [id number]:127 Normal [facility] Covid-19 PCR (CVDTBH)on SARS-CoV-2 (COVID-19) RNA PRANAV+probe Ql (Unsp spec) Not detected Normal NOT DETECTED [facility] Comment on above: Result Comment: When diagnostic testing is negative, the possibility of a false negative should be considered in the context of a patient's recent exposures and the presence of clinical signs and symptoms consistent with SARS-CoV-2. This test is not yet approved or cleared by the [place] FDA. When there are no FDA-approved or cleared tests available, and other criteria are met, FDA can make tests available under an emergency access mechanism called an Emergency Use Authorization (EUA). The EUA for this test is supported by the [place] of Health and Human Service's declaration that circumstances exist to justify the emergency use of in vitro diagnostics for the detection and/or diagnosis of the virus that causes COVID-19. This EUA will remain in effect for the duration of the COVID-19 declaration justifying emergency of IVDs, unless it is terminated or revoked by the FDA (after which the test may no longer be used). Performed By: #### C VDTBH #### [facility] [address] [address] [address] Micah Ackerman COVID Quick Testingon 2021 Result Negative [facility] Other CBC AUTO DIFFon 07-18-2021 BASO # 0.0 103/ul Normal 0.0-0.1 [facility] Comment on above: Performed By: #### C BC ####[facility] [address] [address]Dr. Micah Ackerman Basophils/100 WBC (Bld) 0.5 % Normal 0.2-2.0 [facility] Comment on above: Performed By: #### C BC ####[facility] [address] [address]Dr. Micah Ackerman EO # 0.2 103/ul Normal 0.0-0.7 [facility] Comment on above: Performed By: #### C BC ####[facility] [address] [address]Dr. Micah Ackerman Eosinophils/100 WBC (Bld) 2.1 % Normal 0.9-7.0 [facility] Comment on above: Performed By: #### C BC ####[facility] [address] [address]Dr. Micah Ackerman Erythrocyte distribution width (RBC) [Ratio] 12.9 % Normal 11.0-15.0 [facility] Comment on above: Performed By: #### C BC ####[facility] [address] [place], [place] [address]Dr. Micah Ackerman Hematocrit (Bld) [Volume fraction] 40.9 % Normal 36.0-48.0 [facility] Comment on above: Performed By: #### C BC ####[facility] [address] [place], [place] [address]Dr. Micah Ackerman Hemoglobin (Bld) [Mass/Vol] 13.5 g/dL Normal 12.0-16.0 [facility] Comment on above: Performed By: #### C BC ####[facility] [address] [place], [place] [address]Dr. Micah Ackerman IG # 0.03 10e3/ul Normal 0.00-0.03 [facility] Comment on above: Performed By: #### C BC ####[facility] [address] [place], [place] [address]Dr. Micah Ackerman IG % 0.4 % Normal 0.0-0.5 [facility] Comment on above: Performed By: #### C BC ####[facility] [address] [place], [place] [address]Dr. Micah Ackerman LYMPH # 1.6 103/ul Normal 1.2-3.8 [facility] Comment on above: Performed By: #### C BC ####[facility] [address] [place], [place] [address]Dr. Micah Ackerman Lymphocytes/100 WBC (Bld) 19.5 % Critically low 20.5-60.0 [facility] Comment on above: Performed By: #### C BC ####[facility] [address] [id number]. Micah Ackerman MANUAL DIFF REQ NO Normal [facility] Comment on above: Performed By: #### C BC ####[facility] [address] [id number]. Micah Ackerman MCH (RBC) [Entitic mass] 29.5 pg Normal 26.7-34.0 [facility] Comment on above: Performed By: #### C BC ####[facility] [address] [id number]. Micah Ackerman MCHC (RBC) [Mass/Vol] 33.0 g/dL Normal 29.9-35.2 [facility] Comment on above: Performed By: #### C BC ####[facility] [address] [address]Dr. Micah Ackerman MCV (RBC) [Entitic vol] 89.5 fL Normal 81.0-99.0 [facility] Comment on above: Performed By: #### C BC ####[facility] [address] [place], [place] [address]Dr. Micah Ackerman MONO # 0.6 103/ul Normal 0.3-0.8 [facility] Comment on above: Performed By: #### C BC ####[facility] [address] [place], [place] [address]Dr. Micah Ackerman Monocytes/100 WBC (Bld) 8.0 % Normal 1.7-12.0 [facility] Comment on above: Performed By: #### C BC ####[facility] [address] [id number]. Micah Ackerman NEUT # 5.6 103/ul Normal 1.4-6.5 [facility] Comment on above: Performed By: #### C BC ####[facility] [address] [id number]. Micah Ackerman Neutrophils/100 WBC (Bld) 69.5 % Normal 43.0-75.0 [facility] Comment on above: Performed By: #### C BC ####[facility] [address] [id number]. Micah Ackerman Platelet mean volume (Bld) [Entitic vol] 9.4 fL Critically low 9.5-13.5 [facility] Comment on above: Performed By: #### C BC ####[facility] [address] [id number]. Micah Ackerman PLT 249 103/ul Normal 150-450 [facility] Comment on above: Performed By: #### C BC ####[facility] [address] [id number]. Micah Ackerman RBC 4.57 106/ul Normal 4.20-5.40 [facility] Comment on above: Performed By: #### C BC ####[facility] [address] [id number]. Micah Ackerman WBC 8.0 103/ul Normal 4.0-11.0 [facility] Comment on above: Performed By: #### C BC ####[facility] [id number]. Micah Ackerman CT HEAD WO CONon 07-18-2021 CT HEAD WO CON EXAMINATION: CT HEAD WO CON HISTORY: BENIGN PAROXYSMAL VERTIGO, UNSPECIFIED EAR COMPARISON: None. TECHNIQUE: CT examination of the head without IV contrast. Dose reduction techniques were achieved by using automated exposure control and/or adjustment of mA and/or kV according to patient size and/or use of iterative reconstruction technique. FINDINGS: The cerebral sulci and ventricles are normal in size and shape. The density of the cerebrum, brainstem, and cerebellum is unremarkable. There is no evidence of intracranial hemorrhage, mass, or midline shift. No extra-axial fluid collection is seen. The brainstem and cerebellum are normal in appearance. The visualized paranasal sinuses and mastoid air cells are clear. No skull abnormalities are identified. IMPRESSION: 1. No acute intracranial abnormality. Electronically authenticated by: Constanza RUIZ Date: 2021-07-18 01:20 Normal [facility] CTA CHEST WO W CONon 2 022 CTA CHEST WO W CON EXAMINATION: CTA CHEST WO W CON HISTORY: BENIGN PAROXYSMAL VERTIGO, UNSPECIFIED EAR COMPARISON: None. TECHNIQUE: CT angiography of the pulmonary arteries following the administration of intravenous contrast. Coronal and sagittal MIP (maximum intensity projection) images were performed. Dose reduction techniques were achieved by using automated exposure control and/or adjustment of mA and/or kV according to patient size and/or use of iterative reconstruction technique. FINDINGS: The study is technically adequate with a good contrast bolus to the pulmonary arteries. There are no filling defects or vascular cutoffs to indicate a pulmonary embolus. The pulmonary arteries are normal in size. There is a mosaic attenuation to the lungs. The central airways are patent. No pleural effusion or pneumothorax is seen. The thoracic aorta is normal in course and caliber without evidence of an aneurysm. There is mild cardiomegaly. There is no pericardial effusion. There is no mediastinal, hilar, or axillary lymphadenopathy by CT size criteria. Images through the upper abdomen reveal a cyst within the right hepatic lobe. There is a small hiatal hernia. No suspicious or aggressive bone lesions are seen. No acute fracture is seen. IMPRESSION: 1. No evidence of pulmonary embolism. 2. Mosaic attenuation of the lungs which can be seen with small airways disease. 3. Mild cardiomegaly. Electronically authenticated by: Constanza RUIZ Date: 2021-07-18 02:32 Normal [facility] D-DIMERon 07-18-2021 D-DIMER 0.45 mg/L FEU Normal 0.19-0.[address] [facility] Comment on above: Performed By: #### D DIM ####[facility] [address] [id number]. Micah Ackerman D-DIMER COMMENTS SEE BELOW Normal [facility] Comment on above: Result Comment: Incr eases in D-Dimer concentration observed with thromboembolic events can be variable due to localization, size, and age of the thrombus. Therefore, a thromboembolic event cannot be diagnosed with certainty on the basis of the reference range. D-Dimers may also be elevated for a variety of disorders including: advanced age, , coronary disease, cancer, liver disease, infection, inflammation, hematoma, DIC, trauma, post-surgery, diabetes, thrombolytic or anticoagulant therapy, stress, and generalized hospitalization. Performed By: #### D DIM ####[facility] [address] [id number]. Micah Ackerman PROF 14(COMP METB)on 022 Albumin [Mass/Vol] 3.8 g/dL Normal 3.4-5.0 [facility] Comment on above: Performed By: #### C MP #### [facility] [address] [address] [address] Micah Ackerman Albumin/Globulin [Mass ratio] 1.1 {ratio} Normal [facility] Comment on above: Performed By: #### C MP #### [facility] [address] [address] [address] Micah Ackerman ALP [Catalytic activity/Vol] 44 U/L Critically low 46-116 [facility] Comment on above: Performed By: #### C MP #### [facility] [address] [place] [address] Dr. Micah Ackerman ALT [Catalytic activity/Vol] 44 U/L Normal 14-59 [facility] Comment on above: Performed By: #### C MP #### [facility] [address] [place] [address] Dr. Micah Ackerman Anion gap [Moles/Vol] 13.7 mmol/L Normal [facility] Comment on above: Performed By: #### C MP #### [facility] [address] [place] [address] Dr. Micah Ackerman AST [Catalytic activity/Vol] 32 U/L Normal 15-37 [facility] Comment on above: Performed By: #### C MP #### [facility] [address] [address] [address] Micah Ackerman Bilirubin [Mass/Vol] 0.4 mg/dL Normal 0.2-1.0 [facility] Comment on above: Performed By: #### C MP #### [facility] [address] [place] [address] Dr. Micah Ackerman Calcium [Mass/Vol] 8.6 mg/dL Normal 8.5-10.1 [facility] Comment on above: Performed By: #### C MP #### [facility] [address] [place] [address] Dr. Micah Ackerman Chloride [Moles/Vol] 103 mmol/L Normal 98-107 [facility] Comment on above: Performed By: #### C MP #### [facility] [address] [place] [address] Dr. Micah Ackerman CO2 [Moles/Vol] 25.5 mmol/L Normal 21.0-32.0 [facility] Comment on above: Performed By: #### C MP #### [facility] [address] [place] [address] Dr. Micah Ackerman Creatinine [Mass/Vol] 1.02 mg/dL Normal 0.55-1.02 [facility] Comment on above: Performed By: #### C MP #### [facility] [address] [place] [address] Dr. Micah Ackerman EGFR-AF ARMENIAN >60 Normal >=60 [facility] Comment on above: Performed By: #### C MP #### [facility] [address] [place] [address] Dr. Micah Ackerman EGFR-NON AF ARMENIAN 57 mL/min/1.73m2 Critically low >=60 [facility] Comment on above: Performed By: #### C MP #### [facility] [address] [place] [address] Dr. Micah Ackerman Globulin (S) [Mass/Vol] 3.6 g/dL Normal [facility] Comment on above: Performed By: #### C MP #### [facility] [address] [place] [address] Dr. Micah Ackerman Glucose [Mass/Vol] 168 mg/dL Critically high 74-106 [facility] Comment on above: Performed By: #### C MP #### [facility] [address] [place] [address] Dr. Micah Ackerman Potassium [Moles/Vol] 4.2 mmol/L Normal 3.5-5.1 [facility] Comment on above: Performed By: #### C MP #### [facility] [address] [place] [address] Dr. Micah Ackerman Protein [Mass/Vol] 7.4 g/dL Normal 6.1-8.2 [facility] Comment on above: Performed By: #### C MP #### [facility] [address] [address] [address] Micah Ackerman Sodium [Moles/Vol] 138 mmol/L Normal 136-145 [facility] Comment on above: Performed By: #### C MP #### [facility] [address] [address] [address] Micah Ackerman Urea nitrogen [Mass/Vol] 14.0 mg/dL Normal 7.0-18.0 [facility] Comment on above: Performed By: #### C MP #### [facility] [address] [address] [address] Micah Ackerman Urea nitrogen/Creatinine [Mass ratio] 13.7 mg/mg Normal [facility] Comment on above: Performed By: #### C MP #### [facility] [address] [address] [address] Micah Ackerman TROPONIN, HIGH SENSITIVITYon 07-18-2021 HSTROP 5.1 pg/mL Normal 4.0-51.3 [facility] Comment on above: Result Comment: CUT- OFF POINTS HAVE BEEN ESTABLISHED BASED ON THE FOURTH UNIVERSAL DEFINITIONS OF MYOCARDIAL INFARCTION. THE UPPER REFERENCE LIMIT (URL) OF TROPONIN, DEFINED THE 99TH PERCENTILE OF cTnI DISTRIBUTION IN A REFERENCE POPULATION, HAS BEEN CONFIRMED THE DECISION THRESHOLD FOR [place] DIAGNOSIS. Performed By: #### H STROPN ####[facility] [address] [address]Dr. Micah Ackerman HSTROP 5.5 pg/mL Normal 4.0-51.3 [facility] Comment on above: Result Comment: CUT- OFF POINTS HAVE BEEN ESTABLISHED BASED ON THE FOURTH UNIVERSAL DEFINITIONS OF MYOCARDIAL INFARCTION. THE UPPER REFERENCE LIMIT (URL) OF TROPONIN, DEFINED THE 99TH PERCENTILE OF cTnI DISTRIBUTION IN A REFERENCE POPULATION, HAS BEEN CONFIRMED THE DECISION THRESHOLD FOR [place] DIAGNOSIS. Performed By: #### H STROPN #### [facility] [address] [address] [address] Micah Ackerman XR CHEST 1 Von 07-18-2021 XR CHEST 1 V EXAM: XR CHEST 1 V 07/18/2021 12:25 AM EDT OH001 CLINICAL STATEMENT: CHEST PAIN, UNSPECIFIED COMPARISON: 07/15/2020 TECHNIQUE: Single AP radiograph of the chest is submitted. FINDINGS: There is no acute airspace disease. The cardiac silhouette is normal. The costophrenic recesses are sharp. No pneumothorax. The bony elements are unremarkable. IMPRESSION: No acute cardiopulmonary process. FOLLOW-UP: Follow-up as clinically indicated. Electronically authenticated by: LIZETTE WETZEL Date: 2021-07-18 00:45 Normal [facility] COVID Quick Testingon 2021 Result Negative [facility] Other Vital Signs Date Time Vital Sign Value Performing Clinician Facility 09-06-2023 09:29-0400 Body height 160.02 cm [facility] 09-06-2023 09:29-0400 Body mass index (BMI) [Ratio] 38.9 kg/m2 [facility] 09-06-2023 09:29-0400 Body temperature 98.1 [degF] [facility] 09-06-2023 09:29-0400 Body weight 99.9 kg [facility] 09-06-2023 09:29-0400 Diastolic blood pressure 85 mm[Hg] [facility] 09-06-2023 09:29-0400 Heart rate 58 /min [facility] 09-06-2023 09:29-0400 Respiratory rate 18 /min [facility] 09-06-2023 09:29-0400 SaO2% (BldA) [Mass fraction] 98 % [facility] 09-06-2023 09:29-0400 Systolic blood pressure 133 mm[Hg] [facility] 03-09-2023 11:10-0500 Body height 160.02 cm Estrella Samaniego Other [facility] Other 03-09-2023 11:10-0500 Body mass index (BMI) [Ratio] 39.76 kg/m2 Estrella Samaniego Other [facility] Other 03-09-2023 11:10-0500 Body temperature 97.7 [degF] Estrella Aden Other [facility] Other 03-09-2023 11:10-0500 Body weight 101.83 kg Estrella Samaniego Other [facility] Other 03-09-2023 11:10-0500 Respiratory rate 18 /min Estrella Samaniego Other [facility] Other 03-09-2023 11:10-0500 SaO2% (BldA) [Mass fraction] 94 % Estrella Samaniego Other [facility] Other 09-17-2022 00:30-0400 Diastolic blood pressure 84 mm[Hg] MD Sampson Da Silva Work Phone: [facility] 09-17-2022 00:30-0400 Heart rate 74 /min MD Sampson Da Silva Work Phone: [facility] 09-17-2022 00:30-0400 Respiratory rate 16 /min MD Sampson Da Silva Work Phone: [facility] 09-17-2022 00:30-0400 SaO2% (BldA) [Mass fraction] 96 % MD Sampson Da Silva Work Phone: [facility] 09-17-2022 00:30-0400 Systolic blood pressure 149 mm[Hg] MD Sampson Da Silva Work Phone: [facility] 09-16-2022 22:31-0400 Body height 160.02 cm MD Sampson Da Silva Work Phone: [facility] 09-16-2022 22:31-0400 Body temperature 96.7 [degF] MD Sampson Da Silva Work Phone: [facility] 09-16-2022 22:31-0400 Body weight 100.4 kg MD Sampson Da Silva Work Phone: [facility] 09-12-2022 10:40-0400 Diastolic blood pressure 88 mm[Hg] MD Sampson Da Silva Work Phone: [facility] 09-12-2022 10:40-0400 Heart rate 84 /min MD Sampson Da Silva Work Phone: [facility] 09-12-2022 10:40-0400 Respiratory rate 16 /min MD Sampson Da Silva Work Phone: [facility] 09-12-2022 10:40-0400 SaO2% (BldA) [Mass fraction] 95 % MD Sampson Da Silva Work Phone: [facility] 09-12-2022 10:40-0400 Systolic blood pressure 152 mm[Hg] MD Sampson Da Silva Work Phone: [facility] 09-12-2022 10:19-0400 Body height 160.02 cm MD Sampson Da Silva Work Phone: [facility] 09-12-2022 10:19-0400 Body mass index (BMI) [Ratio] 38.6 kg/m2 MD Sampson Da Silva Work Phone: [facility] 09-12-2022 10:19-0400 Body weight 98.9 kg MD Sampson Da Silva Work Phone: [facility] 09-12-2022 09:29-0400 Body temperature 98.1 [degF] MD Sampson Da Silva Work Phone: [facility] 09-12-2022 09:29-0400 Inhaled oxygen flow rate 6 L/min MD Sampson Da Silva Work Phone: [facility] 07-20-2022 12:19-0400 Body height 160.02 cm MD Sampson Da Silva Work Phone: [facility] 07-20-2022 12:19-0400 Body temperature 97.9 [degF] MD Sampson Da Silva Work Phone: [facility] 07-20-2022 12:19-0400 Body weight 97 kg MD Sampson Da Silva Work Phone: [facility] 07-20-2022 12:19-0400 Diastolic blood pressure 96 mm[Hg] MD Sampson Da Silva Work Phone: [facility] 07-20-2022 12:19-0400 Heart rate 89 /min MD Sampson Da Silva Work Phone: [facility] 07-20-2022 12:19-0400 Respiratory rate 18 /min MD Sampson Da Silva Work Phone: [facility] 07-20-2022 12:19-0400 SaO2% (BldA) [Mass fraction] 98 % MD Sampson Da Silva Work Phone: [facility] 07-20-2022 12:19-0400 Systolic blood pressure 166 mm[Hg] MD Sampson Da Silva Work Phone: [facility] 05-01-2022 13:05-0500 Body height 160.02 cm Estrella [employer] Other [facility] Other 05-01-2022 13:05-0500 Body mass index (BMI) [Ratio] 38.97 kg/m2 Estrella [employer] Other [facility] Other 05-01-2022 13:05-0500 Body temperature 97.4 [degF] Estrella [employer] Other [facility] Other 05-01-2022 13:05-0500 Body weight 99.79 kg Estrella Samaniego Other [facility] Other 05-01-2022 13:05-0500 Respiratory rate 18 /min Estrella [employer] Other [facility] Other 05-01-2022 13:05-0500 SaO2% (BldA) [Mass fraction] 96 % Estrella Samaniego Other [facility] Other 09-10-2021 10:15-0400 Body height 160.02 cm Carrol Traore Other [facility] Other 09-10-2021 10:15-0400 Body mass index (BMI) [Ratio] 37.9 kg/m2 Carrol Morganault Other [facility] Other 09-10-2021 10:15-0400 Body temperature 97.9 [degF] Carrol Morganault Other [facility] Other 09-10-2021 10:15-0400 Body weight 97.07 kg Carrol Traore Other [facility] Other 09-10-2021 10:15-0400 Diastolic blood pressure 71 mm[Hg] Carrol Morganault Other [facility] Other 09-10-2021 10:15-0400 Respiratory rate 18 /min Carrol Morganault Other [facility] Other 09-10-2021 10:15-0400 SaO2% (BldA) [Mass fraction] 98 % Carrol Eugenie Other [facility] Other 09-10-2021 10:15-0400 Systolic blood pressure 132 mm[Hg] Carrol Morganault Other [facility] Other 08-08-2021 11:45-0400 Body height 160.02 cm Deysi Acevedo Other [facility] Other 08-08-2021 11:45-0400 Body temperature 98 [degF] Deysi Acevedo Other [facility] Other 08-08-2021 11:45-0400 Respiratory rate 18 /min Deysi Acevedo Other [facility] Other 08-08-2021 11:45-0400 SaO2% (BldA) [Mass fraction] 98 % Deysi Acevedo Other [facility] Other 12-31-2020 13:20-0400 Body height 160.02 cm Carrol Eugenie Other [facility] Other 12-31-2020 13:20-0400 Body mass index (BMI) [Ratio] 37.9 kg/m2 Carrol Eugenie Other [facility] Other 12-31-2020 13:20-0400 Body temperature 98 [degF] Carrol Eugenie Other [facility] Other 12-31-2020 13:20-0400 Body weight 97.07 kg Carrol Eugenie Other [facility] Other 12-31-2020 13:20-0400 Diastolic blood pressure 66 mm[Hg] Carrol Eugenie Other [facility] Other 12-31-2020 13:20-0400 Respiratory rate 18 /min Carrol Eugenie Other [facility] Other 12-31-2020 13:20-0400 SaO2% (BldA) [Mass fraction] 99 % Carrol Traore Other [facility] Other 12-31-2020 13:20-0400 Systolic blood pressure 131 mm[Hg] Carrol Traore Other [facility] Other Encounters Encounter Date Encounter Type Care Provider Facility Start: 09-06-2023 End: 09-06-2023 ambulatory [facility] Work Phone: Start: 09-06-2023 End: 09-06-2023 Patient encounter procedure [facility] Work Phone: Start: 03-09-2023 End: 03-09-2023 ambulatory Estrella Samaniego Other [facility] Other Start: 03-09-2023 Office outpatient vi sit 25 minutes Estrella Samaniego [facility] Start: 10-08-2022 End: 10-08-2022 ambulatory Seth Olexa Other [facility] Other Start: 10-08-2022 Postop follow up vis it related to original px Seth Olexa [facility] Start: 09-24-2022 End: 09-24-2022 ambulatory Seth Olexa Facility:[facility] Start: 09-24-2022 End: 09-24-2022 ambulatory MD Sampson Da Silva Work Phone: [facility] Work Phone: Start: 09-24-2022 End: 09-24-2022 Discharged Recurring MD Sampson Da Silva Work Phone: [facility] [place] Start: 09-17-2022 End: 09-17-2022 ambulatory Rut Farrell Other [facility] Other Start: 09-17-2022 Postop follow up vis it related to original px Rut Farrell [facility] Start: 09-17-2022 End: 09-17-2022 Emergency department patient visit Sampson Da Silva Facility:[facility] Start: 09-16-2022 End: 09-17-2022 Emergency department patient visit MD Sampson Da Silva Work Phone: [facility] Work Phone: Start: 09-13-2022 End: 09-13-2022 ambulatory Rut Urenaarney Other [facility] Other Start: 09-13-2022 Telephone encounter Rut Farrell [facility] Start: 09-12-2022 End: 09-12-2022 ambulatory Sampson Da Silva Facility:[facility] Start: 09-12-2022 End: 09-12-2022 Admission to same day surgery center MD Sampson Da Silva Work Phone: [facility] [place] Start: 09-12-2022 End: 09-12-2022 ambulatory MD Sampson Da Silva Work Phone: [facility] Work Phone: Start: 08-29-2022 End: 08-29-2022 ambulatory Seth Latifxa Facility:[facility] Start: 08-29-2022 End: 08-29-2022 ambulatory MD Sampson Da Silva Work Phone: [facility] Work Phone: Start: 08-29-2022 End: 08-29-2022 Patient encounter procedure MD Sampson Da Silva Work Phone: [facility] Work Phone: Start: 08-07-2022 End: 08-07-2022 ambulatory Seth Latifxa Facility:[facility] Start: 08-07-2022 End: 08-07-2022 Patient encounter procedure MD Sampson Da Silva Work Phone: [facility] [address] Work Phone: Start: 07-24-2022 End: 07-24-2022 ambulatory Seth Soliz Other Located Within [facility] [employer] Other Start: 07-24-2022 Office outpatient vi sit 25 minutes Seth Soliz [facility] Start: 07-20-2022 End: 07-20-2022 Emergency department patient visit Nick Acevedo Facility:[facility] Start: 07-20-2022 End: 07-20-2022 Emergency department patient visit MD Sampson Da Silva Work Phone: [facility] Work Phone: Start: 06-07-2022 End: 06-08-[address] SAMPSON DA SILVA Facility:[facility] Start: 05-31-2022 Encounter for genera l adult medical examination without abnormal findings DR SAMPSON DA SILVA [facility] Start: 05-29-2022 End: 05-30-[address] SAMPSON DA SILVA Facility:[facility] Start: 05-29-2022 End: 05-30-2022 Encounter for general adult medical examination without abnormal findings DR SAMPSON DA SILVA Facility:[facility] Start: 05-15-2022 End: 05-15-[address] SAMPSON DA SILVA Facility:[facility] Start: 05-01-2022 End: 05-01-2022 ambulatory Estrella Samaniego Facility:[facility] Start: 05-01-2022 Office outpatient vi sit 15 minutes Estrella Samaniego [facility] Start: 05-01-2022 End: 05-01-2022 ambulatory ELEMENTARY EDUCATION TEACHER Estrella Samaniego Work Phone: [facility] Work Phone: Start: 05-01-2022 End: 05-01-2022 Departed Referred ELEMENTARY EDUCATION TEACHERRosalie Samaniego Work Phone: [facility] [address] Work Phone: Start: 09-14-2021 End: 09-14-2021 ambulatory Carrol Traore Other [facility] Other Start: 09-14-2021 Telephone encounter Carrol Cathymicheletvarun ocampo [facility] Start: 09-10-2021 End: 09-10-2021 ambulatory Carrol Traore Other [facility] Other Start: 09-10-2021 Office outpatient vi sit 25 minutes Carrol Eugenie [facility] Start: 08-23-2021 End: 08-23-[address] SAMPSON DA SILVA Facility:[facility] Start: 08-08-2021 End: 08-08-2021 ambulatory Deysi Acevedo Other [facility] Other Start: 08-08-2021 Office outpatient vi sit 15 minutes Deysi Acevedo [facility] Start: 07-18-2021 End: 07-18-[address] SAMPSON DA SILVA Facility:[facility] Start: 05-15-2021 End: 05-15-2021 ambulatory Carrol Eugenie Other [facility] Other Start: 05-15-2021 Office outpatient vi sit 5 minutes Carrol Eugenie [facility] Start: 12-31-2020 Office outpatient vi sit 15 minutes Carrol Eugenie [facility] Procedures Date Procedure Procedure Detail Performing Clinician Start: 09-16-2022 Radiologic examinati on of knee MD Sampson Da Silva Work Phone: Start: 09-12-2022 Arthroscopy of knee MD Sampson Da Silva Work Phone: Start: 08-07-2022 MRI of left knee MD Evelin Da Silva Work Phone: Start: 07-20-2022 Radiologic examinati on of knee MD Sampson Da Silva Work Phone: Start: 07-20-2022 Duplex scan of lower limb veins MD Sampson Da Silva Work Phone: Start: 05-01-2022 Piperacillin/tazobactam Estrella Samaniego Other Start: 05-01-2022 Urine culture MD Sampson vallejo Work Phone: Plan of Treatment Date Care Activity Detail Author Start: 09-12-2022 End: 09-12-2022 [facility] Start: 07-20-2022 Duplex scan of lower limb veins US venous duplex LE LT [facility] Start: 07-20-2022 US Lower extremity v ein - left [facility] Start: 05-01-2022 Bacteria identified in Urine by Culture [facility] Patient Education [facility] Work Phone: Patient referral [facility] Work Phone: [facility] Immunizations Immunization Date Immunization Notes Care Provider Fa cility 12-13-2020 COVID-19 mRNA Comirnatjurgen (Pfizer) MD Sampson Da Silva Work Phone: [facility] 11-22-2020 COVID-19 mRNASharanirlawrence (Pfizer) MD Sampson Da Silva Work Phone: [facility] 10-14-2015 Toradol per 15 mg Carrol Traore Other [facility] Other Payers Date Payer Category Payer [employer] ( and others) [id number] 44 2022 Self-pay [id number] 1970 Unknown [id number] 1970 Unknown [id number] 1970 Unknown [id number] 1970 Unknown [id number] 1970 Unknown [id number] 1959 [employer] ( and others) [id number] [employer] ( and others) [id number] 19 Unknown [id number] [id number] Unknown [id number] [id number] Unknown [id number] [id number] Unknown [id number] [id number] Unknown [id number] [id number] Unknown [id number] [id number] Unknown [id number] Social History Date Type Detail Facility Unknown if ever smoked [facility] Other Sex Assigned At Sex Assigned At Bir th [facility] Other Start: 01-14-2020 End: 09-16-2022 Tobacco smoking status NHIS Never smoked tobacco (finding) [facility] Start: 1970 Sex Assigned At Female F [facility] Goals Date Patient Goal Desired Activity /State Clinical Notes 07-10-2017 to 03-09-2023 Note Date & Type Note Facility 03-09-2023 Evaluation note Encounter Date Diagnosis Assessment Notes 16 Dec, 2023 Suspected COVID-19 virus infection (ICD-10 - Z20.822) Feb, Viral URI with cough (ICD-10 - J06.9) Advised patient that COVID/Influenza A/B PCR test was negative today. Advised patient that will treat as viral URI. Supportive care as directed, increase fluids and rest, Tylenol as directed, rx of Capmist and prednisone as directed, cool mist humidifier, throat lozenges. Discussed infection control practices such as good hand washing and mask wearing. Patient to follow up with PCP if symptoms persist or worsen despite treatment. Immediate eval for SOB, difficulty breathing, chest pain, fevers that do not break with antipyretic or any other concerning symptoms as reviewed on patient education handout. Patient verbalizes understanding and is agreeable to treatment plan. Patient left in stable condition. [facility] Other 06-26-2023 Evaluation note* Encounter Date Diagnosis Assessment Notes Treatment Notes Treatment Clinical Notes Aug, Acute medial meniscal tear, left, initial encounter (ICD-10 - S83.242A) Patient instructed on gentle motion exercise as well as quadriceps and hamstring strengthening exericse. Discussed use of ice and heat for pain relief as well as elevation of the leg to prevent swelling. Examination and assessment of this patient was performed by Rut Farrell NP and patient will continue with the treatment plan per Dr. Soliz, who initiated this treatment plan. Dr. Soliz is present in the office today and providing supervision. 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 Continued active use of the knee can lead to worsening of the condition and lead to irreversible damage to the knee. An MRI of the knee will be necessary to identify the source of pain and plan potential surgical treatment. [facility] Other 02-07-2023 Evaluation note* Encounter Date Diagnosis Assessment Notes Treatment Notes Treatment Clinical Notes Apr, Dysuria (ICD-10 - R30.0) Apr, Acute cystitis with hematuria (ICD-10 - N30.01) Discussed diagnosis and dipstick findings with patient. Will treat patient for UTI. Instructed patient to take antibiotic as prescribed, take with food, complete entire course of therapy even if feeling better. Allergies and recent antibiotic use were reviewed with patient. Advised patient culture was sent today and we will call with her results in 2-5 days. Patient instructed to push fluids. May take Pyridium for discomfort as prescribed. Patient symptoms should improve in the next 48 hours, if symptoms persist follow up with PCP or UC. Immediate eval by ER if back or flank pain, fever, chills, N/V, or any other concerning symptoms arise. Patient verbalizes understanding and is agreeable to treatment plan [facility] Other 06-19-2022 Evaluation note* Encounter Date Diagnosis Assessment Notes Treatment Notes Treatment Clinical Notes Aug, Right chronic serous otitis media (ICD-10 - H65.21) Referral made to ENT since this has been an ongoing issue and it is required for insurance. Patient has been suffering for over a month with symptoms after 3 treatments - this will be the 4ths. Aug, Acute diffuse otitis externa of right ear (ICD-10 - H60.311) [facility] Other 05-17-2022 Evaluation note* Encounter Date Diagnosis Assessment Notes Treatment Notes Treatment Clinical Notes July, Contact with and (suspected) exposure to other viral communicable diseases (ICD-10 - Z20.828) July, Bronchitis (ICD-10 - J40) Drink plenty fluids, get plenty of rest. Take the prednisone as prescribed until gone. Use the albuterol inhaler as prescribed as needed for cough or shortness of breath. Follow-up with your family physician if no improvement in 2 to 3 days. July, Other Additional time spent conducting pre-visit phone call, screening for symptoms, instructions on social distancing, application and removal of PPE, and cleaning of examination room, equipment and supplies was preformed. Patient education given for testing methodology and results. Patient care instructions given in writting by [employer] [facility] document. [facility] Other 03-01-2022 Reason for referral (narrative)* Reason *09/29 patient has had ear infection since May 2021 - history of repeated TM's - must have referral due to insurance. Has been hospitalized in past for ENT related infections. treated 3 times Diagnosis 1 Right chronic serous otitis media (H65.21) Diagnosis 2 Acute diffuse otitis externa of right ear (H60.311) Referral Organization [facility] Family Yusuf Mcnair Referring Provider First Name Carrol Referring Provider Last Name Eugenie Referring Provider Specialty Nurse Charlotte paige Referred Organization [facility] Referred Provider Yves Warren Referred Address [address] [place], [place],[address] Referred Provider Specialty Otolaryngolo gy Referral [facility]ine [facility]59 PM >Received today and waiting for notes to be locked and system is down today to check on Prior Auth [facility] 09/13/2021 07:39:02 AM > Auth attached and waiting for office notes to be locked [facility] 09/18/2021 08:16:51 AM >Please lock notes [facility] 09/21/2021 09:04:12 AM >Referral was fax [facility] Other 02-21-2022 Evaluation note* Encounter Date Diagnosis Assessment Notes Treatment Notes Treatment Clinical Notes Apr, Encounter for screening for other viral diseases (ICD-10 - Z11.59) Apr, Other Additional time spent conducting pre-visit phone call, screening for symptoms, instructions on social distancing, application and removal of PPE, and cleaning of examination room, equipment and supplies was preformed. Patient education given for testing methodology and results. Patient care instructions given in writting by [employer] [facility] document. [facility] Other 10-09-2021 Evaluation note* Encounter Date Diagnosis Assessment Notes Treatment Notes Treatment Clinical Notes Dec, Right acute otitis media (ICD-10 - H66.91) Ear infections are often a secondary infection caused from an URI, the flu or allergies. Take medication as directed. Complete all doses, even if you feel better. Tylenol or ibuprofen can help with pain. Warm pack to area for comfort helps as well. Follow up with primary care provider if no improvement of symptoms. [facility] Other 04-18-2018 History general Narrative - Reported* Type Description Date Surgical History Foot Surgery Surgical History ear surgery Surgical History tubal ligation 1999 Surgical History RCTR 07/10/17 Hospitalization History ear infetions [facility] Other 04-18-2018 History general Narrative - Reported* Type Description Date Surgical History Foot Surgery Surgical History ear surgery Surgical History tubal ligation 1999 Surgical History RCTR 07/10/17 Surgical History left knee arthroscop y with partial medial meniscectomy and chondral debridement medial femoral condyle, lateral patellar facet 09/12/22 Hospitalization History ear infetions [facility] Other Evaluation noteNo InformationNort ilab Other Evaluation noteNo assessment information available [facility] Work Phone: Evaluation noteNoThe [employer] Other History general Narrative - ReportedNoMadefire Other Hospital Discharge instructions Additional Instructions DISCHARGE INSTRUCTIONS FOR KNEE ARTHROSCOPY The following instructions must be followed very closely: 1. If you need pain pills, start before pain becomes intense. Antibiotics and pain pills are frequently less upsetting to your stomach if you take them with food such as crackers or bread. 2. If you are having excessive or persistent pain in, swelling, bleeding, nausea, vomiting, or any other problems, you should first call your surgeon for advice. If you are unable to contact your surgeon, seek help from a hospital emergency room. If you are given drugs to make you drowsy and/or pain medication, follow these instructions: 1. You should spend the remainder of the day and evening resting. 2. You should not attempt to walk, including going to the bathroom, without assistance. You may be lightheaded from the medications you received. 3. Eat light today to avoid nausea. You should be able to return to normal diet 24-36 hours after surgery. 4. For the next 24 hours he should not consume alcohol, attempt to drive, use any power tools, site important documents or make important personal or business decisions. After that do so only if you feel perfectly normal and alert. 5. Follow carefully any verbal or written instructions your surgeon may have given you. Surgeon's written instructions: It's very important to take aspirin after surgery if your surgeon has directed you to do so. This helps prevent post-op blood clots. If you are unsure about an aspirin regimen, contact your surgeon as soon as possible. 1. Weightbearing as tolerated, use crutches as needed, begin bending your knee. 2. Take pain medications as directed. 3. Ice bag to knee for 24 hours. 4. Elevate leg above the level of the heart to reduce swelling and pain. 5. Remove the dressing in 24 hours. Apply Band-Aids, and then you may shower. If there are tape strips over the incision line, do not remove them. 6. Call the office to confirm your postoperative appointment to see the surgeon in 1 week. 7. If you are having excessive or persistent pain, swelling, fever, yellow-green foul smelling drainage or bleeding from the incision, excessive redness of incision, nausea, vomiting, or any other problems, you should first call your surgeon at [phone] for advice. If your are unable to contact your surgeon, seek help from a hospital emergency room.[facility] Work Phone: Summary Purpose Family History Relationship Condition Age at Onset Recorded Date/T annabelle grandparent Diabetes mellitus Unknown Not Specified Malignant neoplasm of lung Unknown family member Malignant neoplasm of breast Unknown Relationship Condition Age at Onset Recorded Date/T annabelle grandparent Diabetes mellitus Unknown Not Specified Malignant neoplasm of lung Unknown family member Malignant neoplasm of breast Unknown father Unknown Not Specified Unknown Advance Directives Advance Directive Response Recorded Date/ Time Advance Directives No June 28 8:31am Advance Directive Response Recorded Date/ Time Advance Directives No June 28 9:31am Chief Complaint and Reason for Visit Chief Complaint R30.0 L leg pain Chief Complaint L leg pain M23.92 Knee Pain Chief Complaint L leg pain M23.92 Knee Pain Knee Pain Chief Complaint post surgical issue left knee Left Knee Scope/Medial Menisectomy Chief Complaint right ear iinfection Additional Source Comments INFORMATION SOURCE (unrecogn ized section and content) DATE CREATED AUTHOR 09/15/2021 Nicanor Kwong [facility] DATE CREATED AUTHOR AUTHOR'S ORGANIZ ATION 06/17/2022 [facility] DATE CREATED AUTHOR AUTHOR'S ORGANIZ ATION 12/14/2022 [facility] REASON FOR VISIT (unrecogniz ed section and content) LEFT EAR PAIN#1 MIGRAINE H/A , SXS SINCE RESOLVED, COVID Nurse Visit- Self PayRED [place], VOMITTING, SOB, B/A X 2 DAYSRED [place], VOMITTING, SOB, B/A X 2 DAYSRIGHT EARACHENo InformationBURNING AND PRESSURE; POSSIBLE UTILeft Knee InjurypostopRecheck Left Kneewants covid and flu test - sinus and exposure Care Teams (unrecognized sec tion and content) Team Status: Inactive Member Role Status Dates Estrella Samaniego APRN Attending Provider Active Team Status: Active Member Role Status Dates Sampson Da Silva MD Primary Care Provider Active Team Status: Inactive Member Role Status Dates Sampson Da Silva MD Primary Care Provider Active Nick Acevedo APRN Emergency Provider Active Team Status: Inactive Member Role Status Dates Sampson Da Silva MD Primary Care Provider Active Seth Soliz MD Attending Provider Active Team Status: Inactive Member Role Status Dates Sampson Da Silva MD Primary Care Provider Active Yves Rosales DO Emergency Provider Active Team Status: Inactive Member Role Status Dates Sampson Da Silva MD Primary Care Provider Active S tart: September 06, 2023 End: September 06, 2023 Zonia Stout APRN Attending Provider Active Start: September 06, 2023 End: September 06, 2023 Goals (unrecognized section and content) Goals may be documented in a n alternate section FOR RECORDS PERTAINING TO PATIENTS WHO ARE OR HAVE BEEN ENROLLED IN A CHEMICAL DEPENDENCY/SUBSTANCEABUSE PROGRAM, SOME INFORMATION MAY BE OMITTED. This clinical summary was aggregated from multiple sources. Caution should be exercised in using it in the provision of clinical care. This summary normalizes information from multiple sources, and as a consequence, information in this document may materially change the coding, format and clinical context of patient data. In addition, data may be omitted in some cases. CLINICAL DECISIONS SHOULD BE BASED ON THE PRIMARY CLINICAL RECORDS. [facility] [employer] [facility]. provides no warranty or guarantee of the accuracy or completeness of information in this document.
--- NOTE | 2023-11-07 17:26 | ECG_ITS ---
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
--- NOTE | 2023-11-07 17:26 | XR_ITS ---
[address] [address] Patient Name: MIL MARCUM MRN: [id number] date: 1970 Sex: F Assigned Patient Location: ER Current Patient Location: ER Accession/Order Number: [id number] Exam Date: 11/07/2023 17:35 Report Date: 11/07/2023 18:22 At the request of: SHAKA HEADLEY Procedure: XR chest 1V EXAM: XR chest 1V HISTORY: HTN, chest tightness COMPARISON: 10/31/2023 and earlier. TECHNIQUE: AP upright chest x-ray FINDINGS: Lungs clear without infiltrate or edema. Normal heart size for technique. No pleural effusion or pneumothorax. XR/XR chest 1V IMPRESSION: Negative chest x-ray, no acute abnormality. Electronically authenticated by: BALTAZAR LOPEZ Date: 11/07/2023 18:22
--- NOTE | 2023-11-07 17:27 | ED_ITS ---
HPI HPI - General Adult General Chief complaint: Chest Pain Stated complaint: Hypertension Time Seen by Provider: 11/07/23 17:14 Source: patient Mode of arrival: walk-in Limitations: no limitations History of Present Illness HPI narrative: 53 year old female presents to the ED for HTN, chest tightness, nausea. Onset was this afternoon. Denies fever, chills, [place], dizziness, vision changes. Denies SOB, back pain, emesis. She was evaluated here 10/31/23 for the same. She was placed on Lisinopril. She forgot to take the medication yesterday morning and this morning. Her last dose was 1430 this afternoon upon returning home from work; states her shifts are 24 hours. Related Data Previous Rx's ?Medication ?Instructions ?Recorded amlodipine 10 mg tablet (Norvasc) 10 mg PO DAILY #30 tabs 11/01/23 aspirin 81 mg chewable tablet 81 mg PO DAILY #30 tabs 11/01/23 atorvastatin 20 mg tablet (Lipitor) 20 mg PO DAILY #30 tabs 11/01/23 Allergies Allergy/AdvReac Type Severity Reaction Status Date / Time No Known Drug Allergies Allergy Verified 11/07/23 17:10 Opioid HPI Opioid Management Most Recent Opioid Data: Last Pain Scale 4 11/07/23 17:52 Last Pain Assessment 11/01/23 11:00 Last MAR Pain Assessment 11/01/23 04:46 Last ORT Total Score 0 11/01/23 03:11 Last ORT Risk Category Low Risk 11/01/23 03:11 Review of Systems ROS Constitutional Denies: fever or chills Eyes Denies: change in vision or blurry vision Ears, nose, mouth, and throat Denies: neck pain Cardiovascular Reports: other (Chest tightness); Denies: chest pain, palpitations, edema or swelling of feet/ankles Respiratory Denies: shortness of breath Gastrointestinal Denies: abdominal pain Musculoskeletal Denies: back pain or neck pain Neurological Denies: headache, numbness in extremities, weakness in extremities, lack of coordination, dizziness, confusion or slurred speech PFSH PFS Medical History (Updated 11/07/23 @ 18:37 by Mery Sands) HLD (hyperlipidemia) ?E78.5 - Hyperlipidemia, unspecified (ICD-10) Hypertension ?I10 - Essential (primary) hypertension (ICD-10) Surgical History (Updated 11/01/23 @ 03:06 by Coral Alcantara) H/O arthroscopy of knee ?Z98.890 - Other specified postprocedural states (ICD-10) History of bunionectomy ?Z98.890 - Other specified postprocedural states (ICD-10) Family History (Updated 11/01/23 @ 03:07 by Coral Alcantara) Mother Family history of cancer Grandmother Family history of diabetes mellitus Social History (Updated 11/01/23 @ 03:08 by Coral Alcantara) Within the past year, how often did you have a drink containing alcohol: never Score interpretation: A score less than 3 is consistent with normal alcohol consumption. Smoking status: Never smoker Non-prescribed substance use: denies use Previous occupational history: EMT Highest level of school completed/degree received: Associate degree: academic program Are you now , , , , never or living with a partner: In a typical week, how many times do you talk on the telephone with family, friends, or neighbors: 3 or more times per week How often do you get together with friends or relatives: 3 or more times per week How often do you attend pentecostal or adventist services: never Little interest or pleasure in doing things: not at all Feeling down, depressed, or hopeless: not at all Feel stressed/tense/nervous/anxious/difficulty sleeping: not at all Exam Constitutional Vital Signs, click to edit/add: Last Vital Signs Temp 98.2 F 11/07/23 17:05 Pulse 72 11/07/23 18:30 Resp 12 11/07/23 18:30 BP 123/83 11/07/23 18:30 Pulse Ox 96 11/07/23 18:30 O2 Del Method Room Air 11/07/23 17:54 Common normals: no apparent distress and oriented x3 General appearance: cooperative Orientation/consciousness: Yes awake HENMT Mouth: oral and palatal mucosa normal and lip normal Eye Common normals: PERRL, EOMs intact bilaterally, conjunctivae normal and no scleral icterus Chest Chest: symmetrical chest wall rise Respiratory Common normals: normal respiratory effort, no retractions, no use of accessory muscles and clear to auscultation bilaterally Cardio Common normals: regular rate and regular rhythm Neuro Common normals: oriented x3, CN's II-XII intact bilaterally, moves all extremities, no focal motor deficits and no sensory deficits noted Sensorium/orientation: awake and alert Speech: speech normal Gait (neuro): normal gait Course Vital Signs Vital signs: Vital Signs Temperature 98.2 F 11/07/23 17:05 Pulse Rate 80 11/07/23 17:05 Respiratory Rate 18 11/07/23 17:05 Blood Pressure 174/104 H 11/07/23 17:05 Temperature 98.2 F 11/07/23 17:05 Pulse Rate 72 11/07/23 18:30 Respiratory Rate 12 11/07/23 18:30 Blood Pressure 123/83 11/07/23 18:30 Pulse Oximetry 96 11/07/23 18:30 Oxygen Delivery Method Room Air 11/07/23 17:54 Medical Decision Making MDM Narrative Medical decision making narrative: BP was unremarkable here in the ED. Creatinine was 1.15. Troponin was unremarkable. Chest x-ray showed no acute findings. Findings were discussed with the patient. It was recommended to her that she stay for a second troponin draw; she declined. Follow up with pcp for a recheck, further evaluation and treatment. Return precautions were discussed. Medical Records Medical records reviewed: Yes I reviewed the patient's medical records Lab Data Lab results reviewed: Yes I reviewed the patient's lab results Labs: Lab Results 11/07/23 Range/Units 17:46 WBC 11.1 H (4.0-11.0) 10^3/uL RBC 4.88 (4.20-5.40) 10^6/uL Hgb 14.3 (12.0-16.0) g/dL Hct 42.5 (36.0-48.0) % MCV 87.1 (81.0-99.0) fL MCH 29.3 (26.7-34.0) pg MCHC 33.6 (29.9-35.2) g/dL RDW 12.9 (11.0-15.0) % Plt Count 283 (150-450) 10^3/uL MPV 10.0 (9.5-13.5) fL Neut % (Auto) 62.8 (43.0-75.0) % Lymph % (Auto) 28.4 (20.5-60.0) % Cook % (Auto) 6.2 (1.7-12.0) % Eos % (Auto) 1.9 (0.9-7.0) % Baso % (Auto) 0.5 (0.2-2.0) % Neut # (Auto) 7.0 H (1.4-6.5) 10^3/uL Lymph # (Auto) 3.2 (1.2-3.8) 10^3/uL Cook # (Auto) 0.7 (0.3-0.8) 10^3/uL Eos # (Auto) 0.2 (0.0-0.7) 10^3/uL Baso # (Auto) 0.1 (0.0-0.1) 10^3/uL Abs Immat Gran (auto) 0.02 (0.00-0.03) 10^3/uL Imm/Tot Granulo (auto) 0.2 (0.0-0.5) % Sodium 138 (136-145) mmol/L Potassium 3.9 (3.5-5.1) mmol/L Chloride 102 (98-107) mmol/L Carbon Dioxide 27.7 (21.0-32.0) mmol/L Anion Gap 12.2 BUN 15.0 (7.0-18.0) mg/dL Creatinine 1.15 H (0.55-1.02) mg/dL Est GFR ( Amer) 60 (>=60) Est GFR (Non-Af Amer) 49 L (>=60) BUN/Creatinine Ratio 13.0 Glucose 108 H (74-106) mg/dL Calcium 9.5 (8.5-10.1) mg/dL Troponin I High Sens <4.0 L (4.0-51.3) pg/mL Imaging Data Chest x-ray: Radiologist's impression: ITS Impressions Chest X-Ray 11/07/23 17:26 IMPRESSION: Negative chest x-ray, no acute abnormality. Electronically authenticated by: BALTAZAR LOPEZ Date: 11/07/2023 18:22 ECG Data Attestation: ?I have reviewed the pertinent ECG results. Interpretation: Measurements Intervals [place] Rate: 81 P: 39 TN: 144 QRS: 100 QRSD: 84 T: 24 QT: 386 QTc: 424 Interpretive Statements 1100 Sinus rhythm 4068 Nonspecific [place] abnormality 7102 Moderate right axis deviation 9130 borderline ECG No previous ECG available for comparison Discharge Plan Discharge Stand Alone Forms: Portal Instructions Chief Complaint: Chest Pain Clinical Impression: Hypertension, Chest tightness Patient Disposition: Home, Self-Care Time of Disposition Decision: 18:37 Condition: Good Mode of Transportation: Private Vehicle Prescriptions / Home Meds: No Action amlodipine [Norvasc] 10 mg tablet 10 mg PO DAILY Qty: 30 0RF atorvastatin [Lipitor] 20 mg tablet 20 mg PO DAILY Qty: 30 0RF aspirin 81 mg tablet,chewable 81 mg PO DAILY Qty: 30 0RF Print Language: Indonesian Instructions: Chest Pain (ED), Hypertension (ED) Additional Instructions: Return to the ER for new or worsening symptoms. Referrals: Sampson Carpenter MD [Primary Care Provider] - 1 week Discharge Date/Time: 11/07/23 18:46
[2023-11-07 18:02] LABS: Basophils Absolute Auto 0.1 10^3/uL (0.0-0.1); Basophils Percent Auto 0.5 % (0.2-2.0); Eosinophils Absolute Auto 0.2 10^3/uL (0.0-0.7); Eosinophils Percent Auto 1.9 % (0.9-7.0); Hematocrit 42.5 % (36.0-48.0); Hemoglobin 14.3 g/dL (12.0-16.0); Immature Granulocytes Abs Auto 0.02 10^3/uL (0.00-0.03); Immature Granulocytes Pct Auto 0.2 % (0.0-0.5); Lymphocytes Absolute Auto 3.2 10^3/uL (1.2-3.8); Lymphocytes Percent Auto 28.4 % (20.5-60.0); Mean Corpuscular HGB Conc 33.6 g/dL (29.9-35.2); Mean Corpuscular Hemoglobin 29.3 pg (26.7-34.0); Mean Corpuscular Volume 87.1 fL (81.0-99.0); Monocytes Absolute Auto 0.7 10^3/uL (0.3-0.8); Monocytes Percent Auto 6.2 % (1.7-12.0); Neutrophils Percent Auto 62.8 % (43.0-75.0); Platelet Count 283 10^3/uL (150-450); Red Blood Count 4.88 10^6/uL (4.20-5.40); Red Cell Distribution Width 12.9 % (11.0-15.0); White Blood Count 11.1 10^3/uL (4.0-11.0)
[2023-11-07 18:13] LABS: Anion Gap 12.2; Calcium 9.5 mg/dL (8.5-10.1); Carbon Dioxide 27.7 mmol/L (21.0-32.0); Chloride 102 mmol/L (98-107); Estimated GFR (African America 60 (>=60); Estimated GFR (Non-African Ame 49 (>=60); Glucose 108 mg/dL (74-106); Potassium 3.9 mmol/L (3.5-5.1); Sodium 138 mmol/L (136-145); Troponin I High Sensitivity <4.0 pg/mL (4.0-51.3)
== END 2023-11-07 18:46 | disposition home or self-care (01) ==
PROVIDERS: Nurse Practitioner Family; Emergency Provider Emergency Medicine; PCP Family Medicine
DX: I10 Essential (primary) hypertension (principal); R07.89 Other chest pain
CPT/HCPCS: 36415; 71045; 80048; 84484; 85025; 93005; 99285

== ENCOUNTER 2023-12-03 06:50 | Outpatient (OUT) | payer OTHER, SELFPAY ==
--- OUTSIDE RECORDS SUMMARY | 2023-12-03 06:52 | XMS_ITS | CCD ---
Author Organization [facility] CliniSymd Care Team Providers Care Computer Networker Name Role Phone Carrol Traore Unavailable KristinaDeysi Unavailable CYNTHIA Samaniego Attending Provider Estrella Samaniego Unavailable AVINASH, DR SAMPSON Paula Primary Care Unavailable PAY ., DR HA Admitting Unavailable PAY ., DR HA Attending Unavailable PAY ., DR HA Consulting Unavailable NADREMINGTON, DR SAMPSON Paula Primary Care Unavailable LEIA, DR SIGRID Beavers Admitting Unavailable LEIA, DR SIGRID Beavers Attending Unavailable LEIA, DR SIGRID Beavers Consulting Unavailable JOSEPH, ANNE MARIE Consulting Unavailable SAID, LIZETTE Consulting [...] Unavailable NADERENimesh, DR SAMPSON Paula Admitting Unavailable NADERER, DR SAMPSON Paula Attending Unavailable NADERER, DR SAMPSON Paula Primary Care Unavailable MABEL, DR LENNOX Beavers Consulting Unavailable NADERER, DR SAMPSON Paula Consulting Unavailable CYNTHIA Samaniego Attending Provider [phone] MD Sampson Da Silva Primary Care Provider [phone] CYNTHIA Acevedo Emergency Provider [phone] Seth Soliz Unavailable MD Seth Soliz Attending Provider Rut Farrell Unavailable Sampson Da Silva Primary Care Unavailable Seth Soliz Admitting Unavailable Seth Soliz Attending Unavailable Sampson Da Silva Primary Care Unavailable Yves Rosales Admitting Unavailable Yves Rosales Attending Unavailable Nick Acevedo Admitting Unavailable Nick Acevedo Attending Unavailable Sampson Da Silva Primary Care Unavailable Heydi, Seth Admitting Unavailable Sampson Da Silva Primary Care Unavailable Heydi, Seth Attending Unavailable Estrella Samaniego Admitting Unavailable Estrella Samaniego Attending Unavailable Seth Soliz Attending Unavailable Sampson Da Silva Primary Care Unavailable Seth Soliz Admitting Unavailable Seth Soliz Attending Unavailable Sampson Da Silva Primary Care Unavailable Heydi, Seth Admitting Unavailable MD Sampson Da Silva Primary Care Provider [phone] DO Yves Rosales Emergency Provider MD Seth Soliz Attending Provider SAMPSON DA SILVA Attending Unavailable Allergies Allergy Classification Reported Allergen(s) Allergy Type Date of Onset Reaction(s) Facility (6 sources) Meperidine; Translations: [meperidine] Drug Allergy 01-13-2020 [facility] Medications Current Medications Medication Drug Class(es) [...] mouth every four to six hours Hydrocodone-Acetaminophen ([place]) 5-325 mg tablet Discontinued 1 - 2 TAB PO EVERY 4-6 HOURS March 03, 2018 January 13, 2020 12:30pm [id number] 200 actuat albuterol 0.09 mg/actuat metered dose [...] oral tablet (1 source) alpha-Adrenergic Agonist, Uncompetitive W-hslpyv-I-aspartat e Receptor Antagonist, Sigma-1 Agonist Start: 03-09-2023 [...] / neomycin 3.5 mg/ml / polymyxin b [id number] unt/ml otic solution (6 sources) Aminoglycoside Antibacterial, Polymyxin-class Antibacterial, Corticosteroid Start: 09-05-2020 Sldnwrvv-Awiuvxotp-KJ 3.5-23818-9 4 drops into affected ear Otic Three [...] 07-18-2021 Episodic Other aftercare (1 source) Other mcfp (current) drug therapy; Translations: [OTH RETIREMENT CURRENT DRUG THERAPY] Onset: 07-31-2021 Episodic Other [...] (COVID-19) RNA PRANAV+probe Ql (Unsp spec) Negative [facility] FTL SOLAR Other COVID/FLU RT-PCR Negative [facility] [employer] Other Basic Metabolic Panelon 08-24 Anion gap [Moles/Vol] 12.3 mmol/L Normal 6.0-15.0 [facility] Comment on above: Performed By: #### C RP, BMP, CBC, ESR #### [facility] [address] [place] [address] [place] Calcium [Mass/Vol] 9.1 mg/dL Normal 8.6-10.3 [facility] Comment on above: Performed By: #### C RP, BMP, CBC, ESR #### [facility] [address] [place] [id number] [place] Chloride [Moles/Vol] 105 mmol/L Normal 98-107 [facility] Comment on above: Performed By: #### C RP, BMP, CBC, ESR #### [facility] [address] [place] [id number] [place] CO2 [Moles/Vol] 26.4 mmol/L Normal 21.0-31.0 [facility] Comment on above: Performed By: #### C RP, BMP, CBC, ESR #### [facility] [address] [place] [address] [place] Creatinine [Mass/Vol] 1.01 mg/dL Normal 0.60-1.20 [facility] Comment on above: Performed By: #### C RP, BMP, CBC, ESR #### [facility] [address] [place] [id number] [place] Creatinine Clr Calc Pharmacy 73.65 Normal [facility] Comment on above: Performed By: #### C RP, BMP, CBC, ESR #### [facility] [address] [place] [address] [place] GFR/1.73 sq M.predicted MDRD (S/P/Bld) [Vol rate/Area] mL/min/{1.73_m2} Normal [facility] Comment on above: Performed By: #### C RP, BMP, CBC, ESR #### [facility] [address] [place] [address] [place] Glucose [Mass/Vol] 127 mg/dL High 70-100 [facility] Comment on above: Result Comment: [facility] Glucose Reference Range is dependent on time and content of last meal. Glucose of more than 200 mg/dL in a nonstressed, ambulatory subject supports the diagnosis of Diabetes Mellitus. ADA recommended reference range Performed By: #### C RP, BMP, CBC, ESR #### [facility] [address] [place] [address] [place] Potassium [Moles/Vol] 3.7 mmol/L Normal 3.5-5.1 [facility] Comment on above: Performed By: #### C RP, BMP, CBC, ESR #### [place] [address] [place] Sodium [Moles/Vol] 140 mmol/L Normal 136-145 [facility] Comment on above: Performed By: #### C RP, BMP, CBC, ESR #### [facility] [address] [place] [address] [place] Urea nitrogen [Mass/Vol] 15 mg/dL Normal 7-25 [facility] Comment on above: Performed By: #### C RP, BMP, CBC, ESR #### [facility] [address] [place] [address] [place] C-Reactive Proteinon 023 C-Reactive Protein 0.9 mg/dL High 0.0-0.5 [facility] Comment on above: Result Comment: PERF ORMED BY: [place] [address] PATHOLOGIST STATION SUPERVISOR LIGIA VALDIVIA M.D. Performed By: #### C RP, BMP, CBC, ESR #### [address] Complete Blood Count Auto Di ffon 09-17-2022 Basophils (Bld) [#/Vol] 0.1 10*3/uL Normal 0.0-0.2 [facility] Comment on above: Performed By: #### C RP, BMP, CBC, ESR #### [address] Basophils/100 WBC (Bld) 0.8 % Normal . [facility] Comment on above: Performed By: #### C RP, BMP, CBC, ESR #### [address] Eosinophils (Bld) [#/Vol] 0.4 10*3/uL Normal 0.0-0.45 [facility] Comment on above: Performed By: #### C RP, BMP, CBC, ESR #### [address] Eosinophils/100 WBC (Bld) 4.0 % Normal . [facility] Comment on above: Performed By: #### C RP, BMP, CBC, ESR #### [address] Erythrocyte distribution width (RBC) [Ratio] 13.4 % Normal 11.9-15.3 [facility] Comment on above: Performed By: #### C RP, BMP, CBC, ESR #### [address] Hematocrit (Bld) [Volume fraction] 37.6 % Normal 34.0-46.4 [facility] Comment on above: Performed By: #### C RP, BMP, CBC, ESR #### [address] Hemoglobin (Bld) [Mass/Vol] 12.9 g/dL Normal 11.8-15.4 [facility] Comment on above: Performed By: #### C RP, BMP, CBC, ESR #### [place] [address] [place] Lymphocytes (Bld) [#/Vol] 3.2 10*3/uL Normal 1.00-4.8 [facility] Comment on above: Performed By: #### C RP, BMP, CBC, ESR #### [facility] [address] Lymphocytes/100 WBC (Bld) 32.5 % Normal . [facility] Comment on above: Performed By: #### C RP, BMP, CBC, ESR #### [facility] [address] MCH (RBC) [Entitic mass] 29.7 pg Normal 24.7-34.3 [facility] Comment on above: Performed By: #### C RP, BMP, CBC, ESR #### [address] MCV (RBC) [Entitic vol] 86.3 fL Normal 80-100 [facility] Comment on above: Performed By: #### C RP, BMP, CBC, ESR #### [address] Mean Corpuscular HGB Conc 34.4 g/dL Normal 32.0-35.0 [facility] Comment on above: Performed By: #### C RP, BMP, CBC, ESR #### [address] Monocytes (Bld) [#/Vol] 0.6 10*3/uL Normal 0.0-0.8 [facility] Comment on above: Performed By: #### C RP, BMP, CBC, ESR #### [place] [address] [place] Monocytes/100 WBC (Bld) 19.00 % Normal 0.00-20.00 [facility] Comment on above: Performed By: #### C RP, BMP, CBC, ESR #### [address] Monocytes/100 WBC (Bld) 6.4 % Normal . [facility] Comment on above: Performed By: #### C RP, BMP, CBC, ESR #### [address] Neutrophils (Bld) [#/Vol] 5.6 10*3/uL Normal 1.8-7.7 [facility] Comment on above: Performed By: #### C RP, BMP, CBC, ESR #### [address] Neutrophils/100 WBC (Bld) 56.3 % Normal . [facility] Comment on above: Performed By: #### C RP, BMP, CBC, ESR #### [address] NRBC% 0.1 /100{WBC} Normal 0-0.5 [facility] Comment on above: Performed By: #### C RP, BMP, CBC, ESR #### [address] Platelet mean volume (Bld) [Entitic vol] 7.9 fL Normal 6.3-10.7 [facility] Comment on above: Performed By: #### C RP, BMP, CBC, ESR #### [address] Platelets (Bld) [#/Vol] 244 10*3/uL Normal 150-450 [facility] Comment on above: Performed By: #### C RP, BMP, CBC, ESR #### [address] RBC (Bld) [#/Vol] 4.35 10*6/uL Normal 3.60-5.00 [facility] Comment on above: Performed By: #### C RP, BMP, CBC, ESR #### [address] WBC (Bld) [#/Vol] 10.0 10*3/uL Normal 3.8-11.6 [facility] Comment on above: Performed By: #### C RP, BMP, CBC, ESR #### [place] [address] [place] Erythrocyte Sedimentation Ra ingris 09-17-2022 ESR (Bld) [Velocity] 11 mm/h Normal 0-29 [facility] Comment on above: Result Comment: PERF ORMED BY: [place] [address] PATHOLOGIST STATION SUPERVISOR LIGIA VALDIVIA M.D. Performed By: #### C RP, BMP, CBC, ESR #### [address] XR knee LT 4V*on 09-17-2022 XR knee LT 4V* [facility] [place] [address] [place] [address] XRay Report Signed Patient: Pam Méndez MR#: [id number] : 1970 Acct:[id number] Age/Sex: 52 / F ADM Date: 09/16/22 Loc: ER Room: Type: [facility] ER Attending Dr: Copies to: Yves Rosales [...] Cid Jr., D.O.09/17/2022 10:25 AM Dictation Location: [place] [address] Transcribed By: [facility] 09/17/22 1025 Dictated By: Zain Cid Jr, DO 09/17/22 1024 Signed By: 09/17/22 1025 Normal [facility] Basophils Auto (Bld) [#/Vol] Ordered By: Yves Rosales on 09-16-2022 Basophils (Bld) [#/Vol] 0.1 10*3/uL 0.0-0.2 [facility] Basophils/100 WBC Auto (Bld) Ordered By: Yves Rosales on 09-16-2022 Basophils/100 WBC (Bld) 0.8 % . [facility] C reactive protein [Mass/vol ume] in Serum or PlasmaOrdered By: Yves Rosales on 09-16-2022 CRP [Mass/Vol] 0.9 mg/dL 0.0-0.5 [facility] Calcium [Mass/volume] in Ser um or PlasmaOrdered By: Yves Rosales on 09-16-2022 Calcium [Mass/Vol] 9.1 mg/dL 8.6-10.3 [facility] Carbon dioxide, total [Moles /volume] in Serum or PlasmaOrdered By: Yves Rosales on 09-16-2022 CO2 [Moles/Vol] 26.4 mmol/L 21.0-31.0 [facility] Chloride [Moles/volume] in S dorota or PlasmaOrdered By: Yves Rosales on 09-16-2022 Chloride [Moles/Vol] 105 mmol/L 98-107 [facility] Creatinine [Mass/volume] in Serum or PlasmaOrdered By: Yves Rosales on 09-16-2022 Creatinine [Mass/Vol] 1.01 mg/dL 0.60-1.20 [facility] Eosinophils Auto (Bld) [#/Vo l]Ordered By: Yves Rosales on 09-16-2022 Eosinophils (Bld) [#/Vol] 0.4 10*3/uL 0.0-0.45 [facility] Eosinophils/100 WBC Auto (Bl d)Ordered By: Yves Rosales on 09-16-2022 Eosinophils/100 WBC (Bld) 4.0 % . [facility] Erythrocyte distribution wid th Auto (RBC) [Ratio]Ordered By: Yves Rosales on 09-16-2022 Erythrocyte distribution width (RBC) [Ratio] 13.4 % 11.9-15.3 [facility] Erythrocyte sedimentation ra te by Photometric methodOrdered By: Yves Rosales on 09-16-2022 ESR Photometric method (Bld) [Velocity] 11 mm/hr 0-29 [facility] Glucose [Mass/volume] in Ser um or PlasmaOrdered By: Yves Rosales on 09-16-2022 Glucose [Mass/Vol] 127 mg/dL 70-100 [facility] Comment on above: ADA recommended refe rence rangeRandom Glucose Reference Range is dependent on time and content of last meal. Glucose of more than 200 mg/dL in a nonstressed, ambulatory subject supports the diagnosis of Diabetes Mellitus. Hematocrit Auto (Bld) [Volum e fraction]Ordered By: Yves Rosales on 09-16-2022 Hematocrit (Bld) [Volume fraction] 37.6 % 34.0-46.4 [facility] Hemoglobin [Mass/volume] in BloodOrdered By: Yves Rosales on 09-16-2022 Hemoglobin (Bld) [Mass/Vol] 12.9 g/dL 11.8-15.4 [facility] Leukocytes [#/volume] correc gracie for nucleated erythrocytes in Blood by Automated counOrdered By: Yves Rosales on 09-16-2022 WBC corrected for nucl RBC Auto (Bld) [#/Vol] 10.0 10*3/uL 3.8-11.6 [facility] Lymphocytes Auto (Bld) [#/Vo l]Ordered By: Yves Rosales on 09-16-2022 Lymphocytes (Bld) [#/Vol] 3.2 10*3/uL 1.00-4.8 [facility] Lymphocytes/100 WBC Auto (Bl d)Ordered By: Yves Rosales on 09-16-2022 Lymphocytes/100 WBC (Bld) 32.5 % . [facility] MCH Auto (RBC) [Entitic mass ]Ordered By: Yves Rosales on 09-16-2022 MCH (RBC) [Entitic mass] 29.7 pg 24.7-34.3 [facility] MCHC Auto (RBC) [Mass/Vol]Or dered By: Yves Rosales on 09-16-2022 MCHC (RBC) [Mass/Vol] 34.4 g/dL 32.0-35.0 [facility] MCV Auto (RBC) [Entitic vol] Ordered By: Yves Rosales on 09-16-2022 MCV (RBC) [Entitic vol] 86.3 fL 80-100 [facility] Monocyte distribution width [Entitic volume] in Blood by AutomatedOrdered By: Yves Rosales on 09-16-2022 Monocyte distribution width Auto (Bld) [Entitic vol] 19.00 % 0.00-20.00 [facility] Monocytes Auto (Bld) [#/Vol] Ordered By: Yves Rosales on 09-16-2022 Monocytes (Bld) [#/Vol] 0.6 10*3/uL 0.0-0.8 [facility] Monocytes/100 WBC Auto (Bld) Ordered By: Yves Rosales on 09-16-2022 Monocytes/100 WBC (Bld) 6.4 % . [facility] Neutrophils Auto (Bld) [#/Vo l]Ordered By: Yves Rosales on 09-16-2022 Neutrophils (Bld) [#/Vol] 5.6 10*3/uL 1.8-7.7 [facility] Neutrophils/100 WBC Auto (Bl d)Ordered By: Yves Rosales on 09-16-2022 Neutrophils/100 WBC (Bld) 56.3 % . [facility] No Panel InformationOrdered By: Yves Rosales on 09-16-2022 Estimated GFR (CKD-EPI) > 60.0 mL/Min [facility] Creatinine Clearance (Chem 73.65 [facility] Nucleated erythrocytes [Pres ence] in Blood by Automated countOrdered By: Yves Rosales on 09-16-2022 Nucleated RBC Auto Ql (Bld) 0.1 /100{WBC} 0-0.5 [facility] Platelet mean volume Auto (B ld) [Entitic vol]Ordered By: Yves Rosales on 09-16-2022 Platelet mean volume (Bld) [Entitic vol] 7.9 fL 6.3-10.7 [facility] Platelets Auto (Bld) [#/Vol] Ordered By: Yves Rosales on 09-16-2022 Platelets (Bld) [#/Vol] 244 10*3/uL 150-450 [facility] Potassium [Moles/volume] in Serum or PlasmaOrdered By: Yves Rosales on 09-16-2022 Potassium [Moles/Vol] 3.7 mmol/L 3.5-5.1 [facility] RBC Auto (Bld) [#/Vol]Ordere d By: Yves Rosales on 09-16-2022 RBC (Bld) [#/Vol] 4.35 10*6/uL 3.60-5.00 [facility] Serum or plasma anion gap de terminationOrdered By: Yves Rosales on 09-16-2022 Anion gap [Moles/Vol] 12.3 mmol/L 6.0-15.0 [facility] Sodium [Moles/volume] in Ser um or PlasmaOrdered By: Yves Rosales on 09-16-2022 Sodium [Moles/Vol] 140 mmol/L 136-145 [facility] Urea nitrogen [Mass/volume] in Serum or PlasmaOrdered By: Yves Rosales on 09-16-2022 Urea nitrogen [Mass/Vol] 15 mg/dL 7-25 [facility] WBC Auto (Bld) [#/Vol]Ordere d By: Yves Rosales on 09-16-2022 WBC (Bld) [#/Vol] 10.0 10*3/uL 3.8-11.6 [facility] Alanine aminotransferase [En zymatic activity/volume] in Serum or PlasmaOrdered By: Seth Soliz on 08-29-2022 ALT [Catalytic activity/Vol] 32 U/L 7-52 [facility] Albumin [Mass/volume] in Ser um or Plasma by Bromocresol green (BCG) dye binding methoOrdered By: Seth Soliz on 08-29-2022 Albumin BCG dye [Mass/Vol] 4.7 g/dL 3.5-5.7 [facility] Alkaline phosphatase [Enzyma tic activity/volume] in Serum or PlasmaOrdered By: Seth Soliz on 08-29-2022 ALP [Catalytic activity/Vol] 49 U/L 34-104 [facility] Aspartate aminotransferase [ Enzymatic activity/volume] in Serum or PlasmaOrdered By: Seth Soliz on 08-29-2022 AST [Catalytic activity/Vol] 28 U/L 13-39 [facility] Basophils Auto (Bld) [#/Vol] Ordered By: Seth Soliz on 08-29-2022 Basophils (Bld) [#/Vol] 0.1 10*3/uL 0.0-0.2 [facility] Basophils/100 WBC Auto (Bld) Ordered By: eSth Soliz on 08-29-2022 Basophils/100 WBC (Bld) 0.6 % . [facility] Bilirubin.total [Mass/volume ] in Serum or PlasmaOrdered By: Seth Soliz on 08-29-2022 Bilirubin [Mass/Vol] 0.4 mg/dL 0.3-1.0 [facility] CMP with reflex to A1Con Albumin [Mass/Vol] 4.7 g/dL Normal 3.5-5.7 [facility] Comment on above: Performed By: #### C BC, CMP wRFX A1C #### [facility] [address] Albumin/Globulin [Mass ratio] 2.2 {ratio} Normal [facility] Comment on above: Performed By: #### C BC, CMP wRFX A1C #### [address] ALP [Catalytic activity/Vol] 49 U/L Normal 34-104 [facility] Comment on above: Result Comment: PERF ORMED BY: [place] [address] PATHOLOGIST STATION SUPERVISOR LIGIA VALDIVIA M.D. Performed By: #### C BC, CMP wRFX A1C #### [facility] [address] [place] [address] ALT [Catalytic activity/Vol] 32 U/L Normal 7-52 [facility] Comment on above: Performed By: #### C BC, CMP wRFX A1C #### [facility] [address] [place] [address] Anion gap [Moles/Vol] 14.0 mmol/L Normal 6.0-15.0 [facility] Comment on above: Performed By: #### C BC, CMP wRFX A1C #### [facility] [address] [place] [address] AST [Catalytic activity/Vol] 28 U/L Normal 13-39 [facility] Comment on above: Performed By: #### C BC, CMP wRFX A1C #### [facility] [address] [place] [id number] [place] Bilirubin [Mass/Vol] 0.4 mg/dL Normal 0.3-1.0 [facility] Comment on above: Performed By: #### C BC, CMP wRFX A1C #### [facility] [address] Calcium [Mass/Vol] 10.0 mg/dL Normal 8.6-10.3 [facility] Comment on above: Performed By: #### C BC, CMP wRFX A1C #### [facility] [address] Chloride [Moles/Vol] 107 mmol/L Normal 98-107 [facility] Comment on above: Performed By: #### C BC, CMP wRFX A1C #### [facility] [address] CO2 [Moles/Vol] 23.9 mmol/L Normal 21.0-31.0 [facility] Comment on above: Performed By: #### C BC, CMP wRFX A1C #### [facility] [address] Creatinine [Mass/Vol] 0.99 mg/dL Normal 0.60-1.20 [facility] Comment on above: Performed By: #### C BC, CMP wRFX A1C #### [facility] [address] [place] [address] [place] GFR/1.73 sq M.predicted MDRD (S/P/Bld) [Vol rate/Area] mL/min/{1.73_m2} [facility] Comment on above: Performed By: #### C BC, CMP wRFX A1C #### [facility] [address] [place] [address] [place] Globulin (S) [Mass/Vol] 2.1 g/dL Normal [facility] Comment on above: Performed By: #### C BC, CMP wRFX A1C #### [facility] [address] [place] [address] [place] Glucose [Mass/Vol] 100 mg/dL Normal 70-100 [facility] Comment on above: Performed By: #### C BC, CMP wRFX A1C #### [facility] [address] [place] [address] [place] Potassium [Moles/Vol] 3.9 mmol/L Normal 3.5-5.1 [facility] Comment on above: Performed By: #### C BC, CMP wRFX A1C #### [facility] [address] Protein [Mass/Vol] 6.8 g/dL Normal 6.4-8.9 [facility] Comment on above: Performed By: #### C BC, CMP wRFX A1C #### [facility] [address] Sodium [Moles/Vol] 141 mmol/L Normal 136-145 [facility] Comment on above: Performed By: #### C BC, CMP wRFX A1C #### [facility] [address] Urea nitrogen [Mass/Vol] 8 mg/dL Normal 7-25 [facility] Comment on above: Performed By: #### C BC, CMP wRFX A1C #### [facility] [address] Calcium [Mass/volume] in Ser um or PlasmaOrdered By: Seth Soliz on 08-29-2022 Calcium [Mass/Vol] 10.0 mg/dL 8.6-10.3 [facility] Carbon dioxide, total [Moles /volume] in Serum or PlasmaOrdered By: Seth Soliz on 08-29-2022 CO2 [Moles/Vol] 23.9 mmol/L 21.0-31.0 [facility] Chloride [Moles/volume] in S dorota or PlasmaOrdered By: Seth Soliz on 08-29-2022 Chloride [Moles/Vol] 107 mmol/L 98-107 [facility] Complete Blood Count Auto Di ffon 08-29-2022 Basophils (Bld) [#/Vol] 0.1 10*3/uL Normal 0.0-0.2 [facility] Comment on above: Result Comment: PERF ORMED BY: [place] [address] PATHOLOGIST STATION SUPERVISOR LIGIA VALDIVIA M.D. Performed By: #### C BC, CMP wRFX A1C #### [address] Basophils/100 WBC (Bld) 0.6 % Normal . [facility] Comment on above: Performed By: #### C BC, CMP wRFX A1C #### [address] Eosinophils (Bld) [#/Vol] 0.2 10*3/uL Normal 0.0-0.45 [facility] Comment on above: Performed By: #### C BC, CMP wRFX A1C #### [address] Eosinophils/100 WBC (Bld) 2.6 % Normal . [facility] Comment on above: Performed By: #### C BC, CMP wRFX A1C #### [address] Erythrocyte distribution width (RBC) [Ratio] 13.8 % Normal 11.9-15.3 [facility] Comment on above: Performed By: #### C BC, CMP wRFX A1C #### [address] Hematocrit (Bld) [Volume fraction] 41.2 % Normal 34.0-46.4 [facility] Comment on above: Performed By: #### C BC, CMP wRFX A1C #### [address] Hemoglobin (Bld) [Mass/Vol] 14.0 g/dL Normal 11.8-15.4 [facility] Comment on above: Performed By: #### C BC, CMP wRFX A1C #### [address] Lymphocytes (Bld) [#/Vol] 3.0 10*3/uL Normal 1.00-4.8 [facility] Comment on above: Performed By: #### C BC, CMP wRFX A1C #### [facility] [address] [place] [address] [place] Lymphocytes/100 WBC (Bld) 31.6 % Normal . [facility] Comment on above: Performed By: #### C BC, CMP wRFX A1C #### [facility] [address] [place] [address] [place] MCH (RBC) [Entitic mass] 29.3 pg Normal 24.7-34.3 [facility] Comment on above: Performed By: #### C BC, CMP wRFX A1C #### [facility] [address] MCV (RBC) [Entitic vol] 86.0 fL Normal 80-100 [facility] Comment on above: Performed By: #### C BC, CMP wRFX A1C #### [facility] [address] Mean Corpuscular HGB Conc 34.0 g/dL Normal 32.0-35.0 [facility] Comment on above: Performed By: #### C BC, CMP wRFX A1C #### [facility] [address] [place] [address] [place] Monocytes (Bld) [#/Vol] 0.7 10*3/uL Normal 0.0-0.8 [facility] Comment on above: Performed By: #### C BC, CMP wRFX A1C #### [facility] [address] [place] [address] [place] Monocytes/100 WBC (Bld) 7.1 % Normal . [facility] Comment on above: Performed By: #### C BC, CMP wRFX A1C #### [facility] [address] [place] [address] [place] Neutrophils (Bld) [#/Vol] 5.6 10*3/uL Normal 1.8-7.7 [facility] Comment on above: Performed By: #### C BC, CMP wRFX A1C #### [facility] [address] [place] [id number] [place] Neutrophils/100 WBC (Bld) 58.1 % Normal . [facility] Comment on above: Performed By: #### C BC, CMP wRFX A1C #### [facility] [address] NRBC% 0.1 /100{WBC} Normal 0-0.5 [facility] Comment on above: Performed By: #### C BC, CMP wRFX A1C #### [facility] [address] Platelet mean volume (Bld) [Entitic vol] 8.9 fL Normal 6.3-10.7 [facility] Comment on above: Performed By: #### C BC, CMP wRFX A1C #### [facility] [address] [place] [address] [place] Platelets (Bld) [#/Vol] 268 10*3/uL Normal 150-450 [facility] Comment on above: Performed By: #### C BC, CMP wRFX A1C #### [facility] [address] [place] [address] [place] RBC (Bld) [#/Vol] 4.78 10*6/uL Normal 3.60-5.00 [facility] Comment on above: Performed By: #### C BC, CMP wRFX A1C #### [facility] [address] WBC (Bld) [#/Vol] 9.6 10*3/uL Normal 3.8-11.6 [facility] Comment on above: Performed By: #### C BC, CMP wRFX A1C #### [address] Creatinine [Mass/volume] in Serum or PlasmaOrdered By: Seth Soliz on 08-29-2022 Creatinine [Mass/Vol] 0.99 mg/dL 0.60-1.20 [facility] ECG 12 lead ECGon 08-29-2022 ECG 12 lead ECG [facility] [address] [place] [address] [place] [address] Electrocardiograph Report Signed Patient: Pam Méndez MR#: [id number] : 1970 Acct:[id number] Age/Sex: 52 / F ADM Date: 08/29/22 Loc: PS Room: Type: [facility] Attending Dr: Seth Soliz MD Ordering Provider: [...] ([id number]) on 08/30/2022 7:49:38 AM Referred By: HEYDI Electronically Signed By:DILCIA ALBRECHT DO Transcribed By: MUS Signed By Dilcia Albrecht DO 08/30 0749 Normal [facility] Eosinophils Auto (Bld) [#/Vo l]Ordered By: Seth Soliz on 08-29-2022 Eosinophils (Bld) [#/Vol] 0.2 10*3/uL 0.0-0.45 [facility] Eosinophils/100 WBC Auto (Bl d)Ordered By: Seth Soliz on 08-29-2022 Eosinophils/100 WBC (Bld) 2.6 % . [facility] Erythrocyte distribution wid th Auto (RBC) [Ratio]Ordered By: Seth Soliz on 08-29-2022 Erythrocyte distribution width (RBC) [Ratio] 13.8 % 11.9-15.3 [facility] Globulin Calc (S) [Mass/Vol] Ordered By: Seth Soliz on 08-29-2022 Globulin (S) [Mass/Vol] 2.1 g/dL [facility] Glucose [Mass/volume] in Ser um or PlasmaOrdered By: Seth Soliz on 08-29-2022 Glucose [Mass/Vol] 100 mg/dL 70-100 [facility] Hematocrit Auto (Bld) [Volum e fraction]Ordered By: Seth Soliz on 08-29-2022 Hematocrit (Bld) [Volume fraction] 41.2 % 34.0-46.4 [facility] Hemoglobin [Mass/volume] in BloodOrdered By: Seth Soliz on 08-29-2022 Hemoglobin (Bld) [Mass/Vol] 14.0 g/dL 11.8-15.4 [facility] Leukocytes [#/volume] correc gracie for nucleated erythrocytes in Blood by Automated counOrdered By: Seth Soliz on 08-29-2022 WBC corrected for nucl RBC Auto (Bld) [#/Vol] 9.6 10*3/uL 3.8-11.6 [facility] Lymphocytes Auto (Bld) [#/Vo l]Ordered By: Seth Soliz on 08-29-2022 Lymphocytes (Bld) [#/Vol] 3.0 10*3/uL 1.00-4.8 [facility] Lymphocytes/100 WBC Auto (Bl d)Ordered By: Seth Soliz on 08-29-2022 Lymphocytes/100 WBC (Bld) 31.6 % . [facility] MCH Auto (RBC) [Entitic mass ]Ordered By: Seth Soliz on 08-29-2022 MCH (RBC) [Entitic mass] 29.3 pg 24.7-34.3 [facility] MCHC Auto (RBC) [Mass/Vol]Or dered By: Seth Soliz on 08-29-2022 MCHC (RBC) [Mass/Vol] 34.0 g/dL 32.0-35.0 [facility] MCV Auto (RBC) [Entitic vol] Ordered By: Seth Soliz on 08-29-2022 MCV (RBC) [Entitic vol] 86.0 fL 80-100 [facility] Monocytes Auto (Bld) [#/Vol] Ordered By: Seth Soliz on 08-29-2022 Monocytes (Bld) [#/Vol] 0.7 10*3/uL 0.0-0.8 [facility] Monocytes/100 WBC Auto (Bld) Ordered By: Seth Soliz on 08-29-2022 Monocytes/100 WBC (Bld) 7.1 % . [facility] Neutrophils Auto (Bld) [#/Vo l]Ordered By: Seth Soliz on 08-29-2022 Neutrophils (Bld) [#/Vol] 5.6 10*3/uL 1.8-7.7 [facility] Neutrophils/100 WBC Auto (Bl d)Ordered By: Seth Soliz on 08-29-2022 Neutrophils/100 WBC (Bld) 58.1 % . [facility] No Panel InformationOrdered By: Seth Soliz on 08-29-2022 Estimated GFR (CKD-EPI) > 60.0 mL/Min [facility] Creatinine Clearance (Chem N/A [facility] Nucleated erythrocytes [Pres ence] in Blood by Automated countOrdered By: Seth Soliz on 08-29-2022 Nucleated RBC Auto Ql (Bld) 0.1 /100{WBC} 0-0.5 [facility] Platelet mean volume Auto (B ld) [Entitic vol]Ordered By: Seth Soliz on 08-29-2022 Platelet mean volume (Bld) [Entitic vol] 8.9 fL 6.3-10.7 [facility] Platelets Auto (Bld) [#/Vol] Ordered By: Seth Soliz on 08-29-2022 Platelets (Bld) [#/Vol] 268 10*3/uL 150-450 [facility] Potassium [Moles/volume] in Serum or PlasmaOrdered By: Seth Soliz on 08-29-2022 Potassium [Moles/Vol] 3.9 mmol/L 3.5-5.1 [facility] Protein [Mass/volume] in Ser um or PlasmaOrdered By: Seth Soliz on 08-29-2022 Protein [Mass/Vol] 6.8 g/dL 6.4-8.9 [facility] RBC Auto (Bld) [#/Vol]Ordere d By: Seth Soliz on 08-29-2022 RBC (Bld) [#/Vol] 4.78 10*6/uL 3.60-5.00 [facility] Serum or plasma albumin/glob ulin mass ratioOrdered By: Seth Soliz on 08-29-2022 Albumin/Globulin [Mass ratio] 2.2 {ratio} [facility] Serum or plasma anion gap de terminationOrdered By: Seth Soliz on 08-29-2022 Anion gap [Moles/Vol] 14.0 mmol/L 6.0-15.0 [facility] Sodium [Moles/volume] in Ser um or PlasmaOrdered By: Seth Soliz on 08-29-2022 Sodium [Moles/Vol] 141 mmol/L 136-145 [facility] Urea nitrogen [Mass/volume] in Serum or PlasmaOrdered By: Seth Soliz on 08-29-2022 Urea nitrogen [Mass/Vol] 8 mg/dL 7-25 [facility] WBC Auto (Bld) [#/Vol]Ordere d By: Seth Soliz on 08-29-2022 WBC (Bld) [#/Vol] 9.6 10*3/uL 3.8-11.6 [facility] MR knee LT wo conon 08-08-19 MR knee LT wo con [facility] [place] [address] MRI Report Signed Patient: Pam Méndez MR#: [id number] : 1970 Acct:[id number] Age/Sex: 52 / F ADM Date: 08/07/22 Loc: [facility] Room: Type: [facility] Attending Dr: Seth Soliz MD Copies to: [...] Dilcia Lawson M.D.08/07/2022 1:59 PM Dictation Location: [place] [address] Transcribed By: [facility] 08/07/22 135 Dictated By: Dilcia Lawson DO 08/07/22 1353 Signed By: 08/07/22 [facility] [facility] US venous duplex LE LTon US venous duplex LE LT [facility] [place] [address] Ultrasound Report Signed Patient: Pam Méndez MR#: [id number] : 1970 Acct:[id number] Age/Sex: 52 / F ADM Date: 07/20/22 Loc: ER Room: Type: [facility] ER Attending Dr: Ordering Provider: Nick Acevedo APRN [...] Dilcia Morales M.D.07/21/2022 10:40 AM Dictation Location: [place] [address] Tech: Barbara Sharma Transcribed By: SELENA 07/21/22 1040 Dictated By: Dilcia Morales MD 07/21/22 1039 Signed By: 07/21/[address] [facility] XR knee LT 4V*on 07-20-2022 XR knee LT 4V* [facility] [place] [address] [place] [address] XRay Report Signed Patient: Pam Méndez MR#: [id number] : 1970 Acct:[id number] Age/Sex: 52 / F ADM Date: 07/20/22 Loc: ER Room: Type: [facility] ER Attending Dr: Copies to: Nick Acevedo [...] Sigrid Millard M.D.07/20/2022 1:06 PM Dictation Location: [place] [address] Transcribed By: SELENA 07/20/22 1306 Dictated By: Sigrid Millard II, MD 07/20/22 1303 Signed By: 07/20/[address] [facility] MG MAMM SCREEN 3D SAIRA CADon 06-07-2022 MG MAMM SCREEN 3D SAIRA CAD Patient: PAM MÉNDEZ Exam Date: 06/07/2022 : 1970 Gender:F Ordering : DR SAMPSON DA SILVA . Admission #: [id number] Family : Order #: [id number] CLICK HERE TO VIEW EXAM RADIOLOGY REPORT [...] Treatments None Family Cancers None LOCATION: [facility] BREAST COMPOSITION: Scattered areas fibroglandular density. FINDINGS: [...] M.D. on 06/07/2022 at 14:08 Normal [facility] CBC AUTO DIFFon 05-29-2022 BASO # 0.0 103/ul Normal 0.0-0.[address] [facility] Comment on above: Performed By: #### C BC ####[facility] [address] [place] [id number]. Micah Ackerman Basophils/100 WBC (Bld) 0.4 % Normal 0.2-2.0 [facility] Comment on above: Performed By: #### C BC ####[facility] [address] [place], [place] [address]LrDrea Ackerman EO # 0.3 103/ul Normal 0.0-0.[address] [facility] Comment on above: Performed By: #### C BC ####[facility] [address] [place] [id number] Ackerman Eosinophils/100 WBC (Bld) 3.5 % Normal 0.9-7.[address] [facility] Comment on above: Performed By: #### C BC ####[facility] [address] [place] [address]Dr. Micah Ackerman Erythrocyte distribution width (RBC) [Ratio] 12.9 % Normal 11.0-15.[address] [facility] Comment on above: Performed By: #### C BC ####[facility] [address] [place], [place] [address]Dr. Micah Ackerman Hematocrit (Bld) [Volume fraction] 39.6 % Normal 36.0-48.[address] [facility] Comment on above: Performed By: #### C BC ####[facility] [address] [place], [place] [address]Dr. Micah Ackerman Hemoglobin (Bld) [Mass/Vol] 13.5 g/dL Normal 12.0-16.[address] [facility] Comment on above: Performed By: #### C BC ####[facility] [address] [place], [place] [address]Dr. Micah Ackerman IG # 0.02 10e3/ul Normal 0.00-0.[address] [facility] Comment on above: Performed By: #### C BC ####[facility] [address] [place], [place] [address]Dr. Micah Ackerman IG % 0.2 % Normal 0.0-0.[address] [facility] Comment on above: Performed By: #### C BC ####[facility] [address] [place], [place] [address]Dr. Micah Ackerman LYMPH # 2.7 103/ul Normal 1.2-3.[address] [facility] Comment on above: Performed By: #### C BC ####[facility] [address] [place], [place] [address]Dr. Micah Ackerman Lymphocytes/100 WBC (Bld) 31.9 % Normal 20.5-60.[address] [facility] Comment on above: Performed By: #### C BC ####[facility] [address] [place], [place] [address]Dr. Micah Ackerman MANUAL DIFF REQ NO Normal [place] Comment on above: Performed By: #### C BC ####[facility] [address] [place] [id number]. Micah Tyron MCH (RBC) [Entitic mass] 28.7 pg Normal 26.7-34.[address] [facility] Comment on above: Performed By: #### C BC ####[facility] [address] [place] [address]Dr. Micah Tyron MCHC (RBC) [Mass/Vol] 34.1 g/dL Normal 29.9-35.[address] [facility] Comment on above: Performed By: #### C BC ####[facility] [address] [place] [address]Dr. Geraldineenriqueta Ackerman MCV (RBC) [Entitic vol] 84.3 fL Normal 81.0-99.0 [facility] Comment on above: Performed By: #### C BC ####[facility] [address] [place], [place] [address]Dr. Micah Ackerman MONO # 0.5 103/ul Normal 0.3-0.[address] [facility] Comment on above: Performed By: #### C BC ####[facility] [address] [place], [place] [address]Dr. Geraldineenriqueta Ackerman Monocytes/100 WBC (Bld) 6.0 % Normal 1.7-12.0 [facility] Comment on above: Performed By: #### C BC ####[facility] [address] [place], [place] [address]Dr. Micah Ackerman NEUT # 4.9 103/ul Normal 1.4-6.[address] [facility] Comment on above: Performed By: #### C BC ####[facility] [address] [place], [place] [address]DrDrea Ackerman Neutrophils/100 WBC (Bld) 58.0 % Normal 43.0-75.[address] [facility] Comment on above: Performed By: #### C BC ####[facility] [address] [place], [place] [address]Dr. Micah Ackerman Platelet mean volume (Bld) [Entitic vol] 9.6 fL Normal 9.5-13.[address] [facility] Comment on above: Performed By: #### C BC ####[facility] [address] [place] [address]Dr. Micah Ackerman PLT 273 103/ul Normal 150-[address] [facility] Comment on above: Performed By: #### C BC ####[facility] [address] [place] [id number]. Micah Ackerman RBC 4.70 106/ul Normal 4.20-5.[address] [facility] Comment on above: Performed By: #### C BC ####[facility] [address] [place] [address]Dr. Micah Ackerman WBC 8.5 103/ul Normal 4.0-11.[address] [facility] Comment on above: Performed By: #### C BC ####[facility] [address] [place] [address]Dr. Micah Ackerman GLYCOHEMOGLOBIN A1Con 2022 ADA RECOMMENDATION SEE BELOW Normal [facility] Comment on above: Result Comment: ADA RECOMMENDED LIMIT 4.0 - 6.0 ADA THERAPEUTIC TARGET < 7.0 ACTION SUGGESTED > 7.0 Performed By: #### A 1C ####[facility] [address] [place], [place] [address]Dr. Micah Ackerman Glucose [Mass/Vol] 128 mg/dL Normal [facility] Comment on above: Performed By: #### A 1C ####[facility] [address] [place] [address]Dr. Micah Ackerman HbA1c (Bld) [Mass fraction] 6.1 % Normal 4.5-6.[address] [facility] Comment on above: Performed By: #### A 1C ####[facility] [address] [place], [place] [address]Dr. Micah Ackerman LIPID PROFILEon 05-29-2022 CHOL-HDL RATIO NORM SEE BELOW Normal [facility] Comment on above: Result Comment: 3.3 - 4.4 LOW RISK 4.4 - 7.1 AVERAGE RISK 7.1 - 11.0 MODERATE RISK >11.0 HIGH RISK Performed By: #### L MITCHEL BECKWITH, BMP, LIPID #### [facility] [address] [place] [address] [address] Micah Ackerman Cholesterol [Mass/Vol] 204 mg/dL Critically high <=[address] [facility] Comment on above: Performed By: #### L IVER, TSH, BMP, LIPID #### [facility] [address] [place] [address] [address] Micah Ackerman Cholesterol in HDL [Mass/Vol] 54 mg/dL Normal 40-[address] [facility] Comment on above: Performed By: #### L IVER, TSH, BMP, LIPID #### [facility] [address] [place] [address] [address] Micah Ackerman Cholesterol in LDL [Mass/Vol] 132.2 mg/dL Normal [facility] Comment on above: Performed By: #### L IVER, TSH, BMP, LIPID #### [facility] [address] [place] [address] Dr. Micah Ackerman Cholesterol.total/Kanchan sterol in HDL [Mass ratio] 3.8 {ratio} Normal [facility] Comment on above: Performed By: #### L IVER, TSH, BMP, LIPID #### [facility] [address] [place] [address] [address] Micah Ackerman HDL NORMAL > or = 60 mg/dl - LOW CARDIOVASCULAR RISK <40 mg/dl - HIGH CARDIOVASCULAR RISK Normal [facility] Comment on above: Performed By: #### L IVER, TSH, BMP, LIPID #### [facility] [address] [place] [address] [address] Micah Ackerman LDL CALC NORMAL SEE BELOW Normal [place] Comment on above: Result Comment: <100 mg/dl OPTIMAL 100 - 129 mg/dl NEAR OR ABOVE OPTIMAL 130 - 159 mg/dl BORDERLINE HIGH 160 - 189 mg/dl HIGH >190 mg/dl VERY HIGH Performed By: #### L IVER, TSH, BMP, LIPID #### [facility] [address] [place] [address] [address] Micah Ackerman Triglyceride [Mass/Vol] 89 mg/dL Normal <=150 [facility] Comment on above: Performed By: #### L IVER, TSH, BMP, LIPID #### [facility] [address] [place] [address] [address] Micah Ackerman VLDL CALC 17.8 mg/dL Normal [facility] Comment on above: Performed By: #### L IVER, TSH, BMP, LIPID #### [facility] [address] [place] [address] Dr. Micah Ackerman LIVER PROFILEon 05-29-2022 Albumin [Mass/Vol] 4.0 g/dL Normal 3.4-5.0 [facility] Comment on above: Performed By: #### L IVER, TSH, BMP, LIPID #### [facility] [address] [place] [address] Dr. Micah Ackerman Albumin/Globulin [Mass ratio] 1.3 {ratio} Normal [facility] Comment on above: Performed By: #### L IVER, TSH, BMP, LIPID #### [facility] [address] [place] [address] Dr. Micah Ackerman ALP [Catalytic activity/Vol] 57 U/L Normal 46-[address] [facility] Comment on above: Performed By: #### L IVER, TSH, BMP, LIPID #### [facility] [address] [place] [address] Dr. Micah Ackerman ALT [Catalytic activity/Vol] 51 U/L Normal 14-[address] [facility] Comment on above: Performed By: #### L IVER, TSH, BMP, LIPID #### [facility] [address] [place] [address] Dr. Micah Ackerman AST [Catalytic activity/Vol] 46 U/L Critically high 15-[address] [facility] Comment on above: Performed By: #### L IVER, TSH, BMP, LIPID #### [facility] [address] [place] [address] Dr. Micah Ackerman BILI, CONJUGATED 0.1 mg/dL Normal 0.0-0.2 [facility] Comment on above: Performed By: #### L IVER, TSH, BMP, LIPID #### [facility] [address] [place] [address] Dr. Micah Ackerman Bilirubin [Mass/Vol] 0.6 mg/dL Normal 0.2-1.[address] [facility] Comment on above: Performed By: #### L IVER, TSH, BMP, LIPID #### [facility] [address] [place] [address] Dr. Micah Ackerman Globulin (S) [Mass/Vol] 3.0 g/dL Normal T [facility] Comment on above: Performed By: #### L IVER, TSH, BMP, LIPID #### [facility] [address] [place] [address] Dr. Micah Ackerman Protein [Mass/Vol] 7.0 g/dL Normal 6.4-8.2 [facility] Comment on above: Performed By: #### L IVER, TSH, BMP, LIPID #### [facility] [address] [place] [address] Dr. Micah Ackerman PROF CHEM 8 (BAS METB)on Anion gap [Moles/Vol] 14.3 mmol/L Normal [facility] Comment on above: Performed By: #### L IVER, TSH, BMP, LIPID #### [facility] [address] [place] [address] Dr. Micah Ackerman Calcium [Mass/Vol] 8.8 mg/dL Normal 8.5-10.1 [facility] Comment on above: Performed By: #### L IVER, TSH, BMP, LIPID #### [facility] [address] [place] [address] Dr. Micah Ackerman Chloride [Moles/Vol] 108 mmol/L Critically high 98-[address] [facility] Comment on above: Performed By: #### L IVER, TSH, BMP, LIPID #### [facility] [address] [place] [address] Dr. Micah Ackerman CO2 [Moles/Vol] 23.5 mmol/L Normal 21.0-32.0 [facility] Comment on above: Performed By: #### L IVER, TSH, BMP, LIPID #### [facility] [address] [place] [address] Dr. Micah Ackerman Creatinine [Mass/Vol] 1.12 mg/dL Critically high 0.55-1.[address] [facility] Comment on above: Performed By: #### L IVER, TSH, BMP, LIPID #### [facility] [address] [place] [address] [address] Micah Ackerman EGFR-AF COSTA RICAN >60 Normal >=60 [facility] Comment on above: Performed By: #### L IVER, TSH, BMP, LIPID #### [facility] [address] [place] [address] [address] Micah Ackerman EGFR-NON AF [place] R[place] 51 mL/min/1.73m2 Critically low >=[address] [facility] Comment on above: Performed By: #### L IVER, TSH, BMP, LIPID #### [facility] [address] [place] [address] Dr. Micah Ackerman Glucose [Mass/Vol] 126 mg/dL Critically high 74-106 T [facility] Comment on above: Performed By: #### L IVER, TSH, BMP, LIPID #### [facility] [address] [place] [address] [address] Micah Ackerman Potassium [Moles/Vol] 3.8 mmol/L Normal 3.5-5.[address] [facility] Comment on above: Performed By: #### L IVER, TSH, BMP, LIPID #### [facility] [address] [place] [address] [address] Micah Ackerman Sodium [Moles/Vol] 142 mmol/L Normal 136-145 [facility] Comment on above: Performed By: #### L IVER, TSH, BMP, LIPID #### [facility] [address] [place] [address] [address] Micah Ackerman Urea nitrogen [Mass/Vol] 11.0 mg/dL Normal 7.0-18.[address] [facility] Comment on above: Performed By: #### L IVER, TSH, BMP, LIPID #### [facility] [address] [place] [address] [address] Micah Ackerman Urea nitrogen/Creatinine [Mass ratio] 9.8 mg/mg Normal [facility] Comment on above: Performed By: #### L IVER, TSH, BMP, LIPID #### [facility] [address] [place] [address] [address] Micah Ackerman TSHon 05-29-2022 TSH 1.092 uIU/mL Normal 0.358-3.740 [facility] Comment on above: Performed By: #### L IVER, TSH, BMP, LIPID #### [facility] [address] [place] [address] [address] Micah Ackerman PAP ACOG PANEL 2: 30 to 65on 05-23-2022 . . Normal [facility] Comment on above: Result Comment: Perf ormed at: WB Performed By: #### [id number] ####[facility] [address] [place], [place] [address]Dr. Micah Ackerman Age Gdln ACOG Testing 30-65 [facility] Comment on above: Performed By: #### [id number] ####[facility] [address] [place], [place] [address]Dr. Micah Ackerman DIAGNOSIS: Comment Normal [facility] Comment on above: Result Comment: NEGA TIVE FOR INTRAEPITHELIAL LESION OR MALIGNANCY. SHIFT IN NURIA SUGGESTIVE OF BACTERIAL VAGINOSIS. Performed at: WB Performed By: #### [id number] ####[facility] [address] [place], [place] [address]Dr. Micah Ackerman HPV Aptima Positive Abnormal Negative [facility] Comment on above: Result Comment: This nucleic acid amplification test detects fourteen high-risk HPV types (16,18,31,33,35,39,45,51,52,56,58,59,66,68) without differentiation. Performed at: =G Performed By: #### [id number] ####[facility] [address] [place] [address]Dr. Micah Ackerman HPV Genotype 16 Negative Normal Negative [facility] Comment on above: Performed By: #### 4 [id number] ####[facility] [address] [place] [address]Dr. Micah Ackerman HPV Genotype 18,45 Negative Normal Negative [facility] Comment on above: Performed By: #### 4 [id number] ####[facility] [address] [place] [id number]. Micah Ackerman HPV Genotype Reflex Comment Normal [facility] Comment on above: Result Comment: Dyllan higuera, see HPV Genotype results. Performed at: WB Performed By: #### 4 [id number] ####[facility] [address] [place], [place] [address]Dr. Micah Ackerman Methodology: Comment Normal [facility] Comment on above: Result Comment: This liquid based ThinPrep(R) pap test was screened with the use of an image guided system. Performed at: WB Performed By: #### 4 [id number] ####[facility] [address] [place], [place] [address]Dr. Micah Ackerman Note: Comment Normal [facility] Comment on above: Result Comment: The Pap smear is a screening test designed to aid in the detection of premalignant and malignant conditions of the uterine cervix. It is not a diagnostic procedure and should not be used as the sole means of detecting cervical cancer. Both false-positive and false-negative reports do occur. . Performed at: WB Performed By: #### 4 [id number] ####[facility] L[address] [place], [place] [address]Dr. Micah Ackerman Performed by: Comment Normal [facility] Comment on above: Result Comment: Justyn Rick, Rake Operator (ASCP) Performed at: WB Performed By: #### 4 [id number] ####[facility] [address] [place], [place] [address]Dr. Micah Ackerman Specimen adequacy: Comment Normal [facility] Comment on above: Result Comment: Sati sfactory for evaluation. Endocervical and/or squamous metaplastic cells (endocervical component) are present. Performed at: WB Performed By: #### 4 [id number] ####[facility] [address] [place], [place] [address]Dr. Micah Ackerman Urinalysis - AUTOMATEDon Appearance (U) [facility] Other Bilirubin Ql (U) Negative [facility] Other Color (U) Yellow [facility] Other Glucose Ql (U) Negative [facility] Other Hemoglobin Ql (U) Large [facility] Other Ketones Ql (U) Negative [facility] Other Leukocyte esterase Test strip Ql (U) Large [facility] Other Nitrite Ql (U) Negative [facility] Other pH (U) 6.0 [pH] [facility] Other Protein Ql (U) 100 [facility] Other Specific gravity (U) [Rel density] 1.025 [facility] Other Urobilinogen (U) [Mass/Vol] 0.2 mg/dL [facility] Other Urinalysis - AUTOMATED No rt [facility] Other Urine Cultureon 05-01-2022 Bacteria identified Cx Nom (U) ORGANISM: Escherichia coli (O:ESCCOL) Hardwick Count >100,000 Aerobic GRACE Charge (NMIC56) ------ [...] RESISTANT TO ALL B-LACTAM DRUGS. PERFORMED BY: [address] [place] [address] PATHOLOGIST STATION SUPERVISOR LIGIA VALDIVIA M.D. Normal [facility] Comment on above: Performed By: #### C UU ####[facility] [address] [place] [address] [facility] Urine Culture >100,000 [facility] Other Urine Culture <16 Susceptible [facility] Other Urine Culture <8/4 Susceptible [facility] Other Urine Culture >16 Resistant [facility] Other Urine Culture <4 Sus[facility] Other Urine Culture <2 Sus[facility] Other Urine Culture <1 [facility] Other Urine Culture <0.25 [facility] Other Urine Culture <0.5 [facility] Other Urine Culture >8 Resistant [facility] Other Urine Culture <32 [facility] Other Urine Culture >2/38 Resistant [facility] Other Urine culture routineOrdered By: Estrella Samaniego on 05-01-2022 Bacteria identified Cx Nom (U) Escherichia coli [facility] [place] 09-14-2021 Consent [id number]:127 Normal [facility] Quantiferon-TB Plus (Client Incubated)on 09-14-2021 Gamma interferon background IA Qn (Bld) 0.00 International_Unit/ mL Invalid Interpretation Code [facility] Comment on above: Performed By: #### 1 [id number], [id number], [id number] #### [facility] Laboratory [address] [place] [address] M. tuberculosis stim IFN-g by CD4+ CD8+ T-cells corrected for background Qn (Bld) 0.00 International_Unit/ mL Invalid Interpretation Code [facility] Comment on above: Performed By: #### 1 [id number], [id number], [id number], [id number] #### [facility] Laboratory [address] [place] [address] M. tuberculosis stim IFN-g by CD4+ T-cells corrected for background Qn (Bld) 0.00 International_Unit/ mL Invalid Interpretation Code [facility] Comment on above: Performed By: #### 1 [id number], 2591583, [id number], [id number] #### [facility] Laboratory [address] [place] [address] M. tuberculosis stim IFN-g Ql (Bld) [Interp] Negative Invalid Interpretation Code Negative [facility] Comment on above: Result Comment: The specimen received for QuantiFERON testing was incubated by the ordering institution. Specific procedures outlined in our Directory of Services and in the package insert for the QuantiFERON Gold (In Tube) test must be followed to enable for proper stimulation of cells for the production of interferon gamma. Chemiluminescence immunoassay methodology Performed at: [facility] [id number] PhD Geetha Payne Performed By: #### 1 [id number], [id number], [id number], [id number] #### [facility] Laboratory [address] [place] [address] Mitogen stimulated gamma interferon Qn (Bld) >10.00 Invalid Interpretation Code [facility] Comment on above: Performed By: #### 1 [id number], 3353390, [id number], [id number] #### [facility] Laboratory [address] [place] [address] Service comment (Unsp spec) [Interp] Comment Invalid Interpretation Code [facility] Comment on above: Result Comment: The QuantiFERON-TB Gold Plus result is determined by subtracting the Nil value from either TB antigen (Ag) tube. The mitogen tube serves as a control for the test. Performed By: #### 1 [id number], 1304967, [id number], [id number] #### [facility] Laboratory [address] [place] [address] Registrationon 09-14-2021 Registration [id number]:127 Normal [facility] Hep Bs Abon 09-13-2021 HBV surface Ab Ql (S) Non-Reactive Invalid Interpretation Code [facility] Comment on above: Result Comment: Non Reactive: Inconsistent with immunity, less than 10 mIU/mL Reactive: Consistent with immunity, greater than 9.9 mIU/mL Performed at: [address] [id number] PhD Geetha Payne Performed By: #### 1 [id number], [id number], [id number], [id number] #### [facility] Laboratory [address] [place] [address] Measles/Mumps/Rubella Immuni tyon 09-13-2021 MeV IgG IA Qn (S) 79.0 A unit/mL Invalid Interpretation Code Immune >16.4 [facility] Comment on above: Result Comment: Nega tive <13.5 Equivocal 13.5 - 16.4 Positive >16.4 Presence of antibodies to Rubeola is presumptive evidence of immunity except when acute infection is suspected. Performed By: #### 1 [id number], 6196981, [id number], [id number] #### [facility] Laboratory [address] [place] [address] MuV IgG IA Qn (S) 65.9 A unit/mL Invalid Interpretation Code Immune >10.9 [facility] Comment on above: Result Comment: Nega tive <9.0 Equivocal 9.0 - 10.9 Positive >10.9 A positive result generally indicates past exposure to Mumps virus or previous vaccination. Performed at: [facility] [address] [place] [address] [id number] PhD Geetha Payne Performed By: #### 1 [id number], 4634216, [id number], [id number] #### [facility] Laboratory [address] [place] [address] Rubella virus IgG Qn (S) 1.48 [IU]/mL Invalid Interpretation Code Immune >0.99 [facility] Comment on above: Result Comment: Non- immune <0.90 Equivocal 0.90 - 0.99 Immune >0.99 Performed By: #### 1 [id number], 0974638, [id number], [id number] #### [facility] Laboratory [address] [place] [address] Varic IgGon 09-13-2021 VZV IgG IA Qn (S) 581 Invalid Interpretation Code Immune >165 [facility] Comment on above: Result Comment: Nega tive <135 Equivocal 135 - 165 Positive >165 A positive result generally indicates exposure to the pathogen or administration of specific immunoglobulins, but it is not indication of active infection or stage of disease. Performed at: [address] [id number] PhD Geetha Payne Performed By: #### 1 [id number], 5341068, [id number], [id number] #### [facility] Laboratory [address] [place] [address] Physician Orderon 09-12-2021 Physician Order [id number]#[id number]:127 Normal [facility] Physician Order [id number]:127 Normal [facility] SARS-CoV-2 (COVID-19) RNA PRANAV+probe Ql (Unsp spec) Not detected Normal NOT DETECTED [facility] Comment on above: Result Comment: When diagnostic [...] for this test is supported by the [place] of Health and Human Service's declaration that [...] used). Performed By: #### C VDTBH #### [facility] Laboratory [address] [address] [address] Micah Ackerman COVID Quick Testingon 2021 Result Negative [facility] Other CBC AUTO DIFFon 07-18-2021 BASO # 0.0 103/ul Normal 0.0-0.[address] [facility] Comment on above: Performed By: #### C BC ####[facility] [address] [place], [place] [address]LvDr. Micah Ackerman Basophils/100 WBC (Bld) 0.5 % Normal 0.2-2.0 [facility] Comment on above: Performed By: #### C BC ####[facility] [address] [place], [place] [address]ZpDr. Micah Ackemran EO # 0.2 103/ul Normal 0.0-0.[address] [facility] Comment on above: Performed By: #### C BC ####[facility] [address] [place] [address]Dr. Micah Ackerman Eosinophils/100 WBC (Bld) 2.1 % Normal 0.9-7.[address] [facility] Comment on above: Performed By: #### C BC ####[facility] [address] [place], [place] [address]Dr. Micah Ackerman Erythrocyte distribution width (RBC) [Ratio] 12.9 % Normal 11.0-15.[address] [facility] Comment on above: Performed By: #### C BC ####[facility] Bj[address] [place], [place] [address]Dr. Micah Ackerman Hematocrit (Bld) [Volume fraction] 40.9 % Normal 36.0-48.[address] [facility] Comment on above: Performed By: #### C BC ####[facility] [address] [place], [place] [address]Dr. Micah Ackerman Hemoglobin (Bld) [Mass/Vol] 13.5 g/dL Normal 12.0-16.[address] [facility] Comment on above: Performed By: #### C BC ####[facility] [address] [place], [place] [address]Dr. Micah Ackerman IG # 0.03 10e3/ul Normal 0.00-0.[address] [facility] Comment on above: Performed By: #### C BC ####[facility] [address] [place], [place] [address]Dr. Micah Ackerman IG % 0.4 % Normal 0.0-0.[address] [facility] Comment on above: Performed By: #### C BC ####[facility] [address] [place], [place] [address]Dr. Micah Ackerman LYMPH # 1.6 103/ul Normal 1.2-3.[address] [facility] Comment on above: Performed By: #### C BC ####[facility] Up[address] [place], [place] [address]Dr. Micah Ackerman Lymphocytes/100 WBC (Bld) 19.5 % Critically low 20.5-60.[address] [facility] Comment on above: Performed By: #### C BC ####[facility] [address] [place] [address]Dr. Micah Ackerman MANUAL DIFF REQ NO Normal [place] Comment on above: Performed By: #### C BC ####[facility] [address] [place] [id number]. Micah Ackerman MCH (RBC) [Entitic mass] 29.5 pg Normal 26.7-34.[address] [facility] Comment on above: Performed By: #### C BC ####[facility] [address] [place] [address]Dr. Micah Ackerman MCHC (RBC) [Mass/Vol] 33.0 g/dL Normal 29.9-35.[address] [facility] Comment on above: Performed By: #### C BC ####[facility] [address] [place], [place] [address]Dr. Micah Ackerman MCV (RBC) [Entitic vol] 89.5 fL Normal 81.0-99.0 [facility] Comment on above: Performed By: #### C BC ####[facility] [address] [place], [place] [address]Dr. Micah Ackerman MONO # 0.6 103/ul Normal 0.3-0.[address] [facility] Comment on above: Performed By: #### C BC ####[facility] [address] [place] [address]Dr. Micah Ackerman Monocytes/100 WBC (Bld) 8.0 % Normal 1.7-12.0 [facility] Comment on above: Performed By: #### C BC ####[facility] [address] [place], [place] [address]DrDrea Ackerman NEUT # 5.6 103/ul Normal 1.4-6.[address] [facility] Comment on above: Performed By: #### C BC ####[facility] [address] [place], [place] [address]DrDrea Ackerman Neutrophils/100 WBC (Bld) 69.5 % Normal 43.0-75.[address] [facility] Comment on above: Performed By: #### C BC ####[facility] [address] [place] [address]Dr. Micah Ackerman Platelet mean volume (Bld) [Entitic vol] 9.4 fL Critically low 9.5-13.[address] [facility] Comment on above: Performed By: #### C BC ####[facility] [address] [place] [address]Dr. Micah Ackerman PLT 249 103/ul Normal 150-[address] [facility] Comment on above: Performed By: #### C BC ####[facility] [address] [place] [address]Dr. Micah Ackerman RBC 4.57 106/ul Normal 4.20-5.[address] [facility] Comment on above: Performed By: #### C BC ####[facility] [address] [place] [address]Dr. Micah Ackerman WBC 8.0 103/ul Normal 4.0-11.[address] [facility] Comment on above: Performed By: #### C BC ####[facility] [address] [place] [id number]. Micah Ackerman CT HEAD WO CONon 07-18-2021 [...] Constanza RUIZ Date: 2021-07-18 01:20 Normal [facility] CTA CHEST WO W CONon 2 022 [...] Constanza RUIZ Date: 2021-07-18 02:32 Normal [facility] D-DIMERon 07-18-2021 D-DIMER 0.45 mg/L FEU Normal 0.19-0.50 [facility] Comment on above: Performed By: #### D DIM ####[facility] [address] [place], [place] [address]DzDr. Micah Ackerman D-DIMER COMMENTS SEE BELOW Normal [facility] Comment on above: Result Comment: Incr [...] generalized hospitalization. Performed By: #### D DIM ####[facility] [address] [place] [address]Dr. Micah Ackerman PROF 14(COMP METB)on 022 Albumin [Mass/Vol] 3.8 g/dL Normal 3.4-5.0 [facility] Comment on above: Performed By: #### C MP #### [facility] Laboratory [address] [address] [address] Micah Ackerman Albumin/Globulin [Mass ratio] 1.1 {ratio} Normal [facility] Comment on above: Performed By: #### C MP #### [facility] [address] [place] [address] [address] Micah Ackerman ALP [Catalytic activity/Vol] 44 U/L Critically low 46-[address] [facility] Comment on above: Performed By: #### C MP #### [facility] [address] [place] [address] [address] Micah Ackerman ALT [Catalytic activity/Vol] 44 U/L Normal 14-[address] [facility] Comment on above: Performed By: #### C MP #### [facility] [address] [address] [address] Micah Ackerman Anion gap [Moles/Vol] 13.7 mmol/L Normal [facility] Comment on above: Performed By: #### C MP #### [facility] [address] [address] [address] Micah Ackerman AST [Catalytic activity/Vol] 32 U/L Normal 15-[address] [facility] Comment on above: Performed By: #### C MP #### [facility] [address] [address] [address] Micah Ackerman Bilirubin [Mass/Vol] 0.4 mg/dL Normal 0.2-1.[address] [facility] Comment on above: Performed By: #### C MP #### [facility] [address] [address] [address] Micah Ackerman Calcium [Mass/Vol] 8.6 mg/dL Normal 8.5-10.1 [facility] Comment on above: Performed By: #### C MP #### [facility] [address] [address] [address] Micah Ackerman Chloride [Moles/Vol] 103 mmol/L Normal 98-[address] [facility] Comment on above: Performed By: #### C MP #### [facility] [address] [address] [address] Micah Ackerman CO2 [Moles/Vol] 25.5 mmol/L Normal 21.0-32.0 [facility] Comment on above: Performed By: #### C MP #### [facility] [address] [place] [address] Dr. Micah Ackerman Creatinine [Mass/Vol] 1.02 mg/dL Normal 0.55-1.[address] [facility] Comment on above: Performed By: #### C MP #### [facility] [address] [place] [address] Dr. Micah Ackerman EGFR-AF COSTA RICAN >60 Normal >=60 [facility] Comment on above: Performed By: #### C MP #### [facility] [address] [place] [address] Dr. Micah Ackerman EGFR-NON AF COSTA RICAN 57 mL/min/1.73m2 Critically low >=[address] [facility] Comment on above: Performed By: #### C MP #### [facility] [address] [place] [address] Dr. Micah Ackerman Globulin (S) [Mass/Vol] 3.6 g/dL Normal [facility] Comment on above: Performed By: #### C MP #### [facility] [address] [place] [address] Dr. Micah Ackerman Glucose [Mass/Vol] 168 mg/dL Critically high 74-106 [facility] Comment on above: Performed By: #### C MP #### [facility] [address] [place] [address] Dr. Micah Ackerman Potassium [Moles/Vol] 4.2 mmol/L Normal 3.5-5.[address] [facility] Comment on above: Performed By: #### C MP #### [facility] [address] [place] [address] Dr. Micah Ackerman Protein [Mass/Vol] 7.4 g/dL Normal 6.1-8.2 [facility] Comment on above: Performed By: #### C MP #### [facility] [address] [address] [address] Micah Ackerman Sodium [Moles/Vol] 138 mmol/L Normal 136-145 [facility] Comment on above: Performed By: #### C MP #### [facility] [address] [address] [address] Micah Ackerman Urea nitrogen [Mass/Vol] 14.0 mg/dL Normal 7.0-18.[address] [facility] Comment on above: Performed By: #### C MP #### [facility] [address] [place] [address] Dr. Micah Ackerman Urea nitrogen/Creatinine [Mass ratio] 13.7 mg/mg Normal [facility] Comment on above: Performed By: #### C MP #### [facility] [address] [place] [address] Dr. Micah Ackerman TROPONIN, HIGH SENSITIVITYon 07-18-2021 HSTROP 5.1 pg/mL Normal 4.0-51.[address] [facility] Comment on above: Result Comment: CUT- OFF POINTS HAVE BEEN ESTABLISHED BASED ON THE FOURTH UNIVERSAL DEFINITIONS OF MYOCARDIAL INFARCTION. THE UPPER REFERENCE LIMIT (URL) OF TROPONIN, DEFINED THE 99TH PERCENTILE OF cTnI DISTRIBUTION IN A REFERENCE POPULATION, HAS BEEN CONFIRMED THE DECISION THRESHOLD FOR MT DIAGNOSIS. Performed By: #### H STROPN ####[facility] [address] [place] [address]Dr. Micah Ackerman HSTROP 5.5 pg/mL Normal 4.0-51.[address] [facility] Comment on above: Result Comment: CUT- OFF POINTS HAVE BEEN ESTABLISHED BASED ON THE FOURTH UNIVERSAL DEFINITIONS OF MYOCARDIAL INFARCTION. THE UPPER REFERENCE LIMIT (URL) OF TROPONIN, DEFINED THE 99TH PERCENTILE OF cTnI DISTRIBUTION IN A REFERENCE POPULATION, HAS BEEN CONFIRMED THE DECISION THRESHOLD FOR MT DIAGNOSIS. Performed By: #### H STROPN #### [facility] [address] [address] [address] Micah Ackerman XR CHEST 1 Von [...] by: LIZETTE WETZEL Date: 2021-07-18 00:[address] [facility] COVID Quick Testingon 2021 Result Negative [employer] Other Vital Signs Date Time Vital Sign Value Performing Clinician Facility 09-06-2023 09:29-0400 Body height 160.02 cm [facility] 09-06-2023 09:29-0400 Body mass index (BMI) [Ratio] 38.9 kg/m2 [facility] 09-06-2023 09:29-0400 Body temperature 98.1 [degF] [facility] 09-06-2023 09:29-0400 Body weight 99.9 kg [facility] 09-06-2023 09:29-0400 Diastolic blood pressure 85 mm[Hg] [facility] 09-06-2023 09:29-0400 Heart rate 58 /min [facility] 09-06-2023 09:29-0400 Respiratory rate 18 /min [facility] 09-06-2023 09:29-0400 SaO2% (BldA) [Mass fraction] 98 % [facility] 09-06-2023 09:29-0400 Systolic blood pressure 133 mm[Hg] [facility] 03-09-2023 11:10-0500 Body height 160.02 cm Estrella Smaaniego Other [employer] Other 03-09-2023 11:10-0500 Body mass index (BMI) [Ratio] 39.76 kg/m2 Estrella Samaniego Other [employer] Other 03-09-2023 11:10-0500 Body temperature 97.7 [degF] Estrella Aden Other [employer] Other 03-09-2023 11:10-0500 Body weight 101.83 kg Estrella Aden Other [employer] Other 03-09-2023 11:10-0500 Respiratory rate 18 /min Estrella Samaniego Other [employer] Other 03-09-2023 11:10-0500 SaO2% (BldA) [Mass fraction] 94 % Estrella Aden Other [employer] Other 09-17-2022 00:30-0400 Diastolic blood pressure 84 mm[Hg] MD Sampson Da Silva Work Phone: [facility] 09-17-2022 00:30-0400 Heart rate 74 /min MD Sampson Da Silva Work Phone: [facility] 09-17-2022 00:30-0400 Respiratory rate 16 /min MD Sampson Da Silva Work Phone: [facility] 09-17-2022 00:30-0400 SaO2% (BldA) [Mass fraction] 96 % MD Sampson Da Silva Work Phone: [facility] 09-17-2022 00:30-0400 Systolic blood pressure 149 mm[Hg] MD Sampson Da Silva Work Phone: [facility] 09-16-2022 22:31-0400 Body height 160.02 cm MD Sampson Da Silva Work Phone: [facility] [facility]22 22:31-0400 Body temperature 96.7 [degF] MD Sampson Da Silva Work Phone: [facility] 09-16-2022 22:31-0400 Body weight 100.4 kg MD Sampson Da Silva Work Phone: [facility] 09-12-2022 10:40-0400 Diastolic blood pressure 88 mm[Hg] MD Sampson Da Silva Work Phone: [facility] 09-12-2022 10:40-0400 Heart rate 84 /min MD Sampson Da Silva Work Phone: [facility] 09-12-2022 10:40-0400 Respiratory rate 16 /min MD Sampson Da Silva Work Phone: [facility] 09-12-2022 10:40-0400 SaO2% (BldA) [Mass fraction] 95 % MD Sampson Da Silva Work Phone: [facility] 09-12-2022 10:40-0400 Systolic blood pressure 152 mm[Hg] MD Sampson Da Silva Work Phone: [facility] 09-12-2022 10:19-0400 Body height 160.02 cm MD Sampson Da Silva Work Phone: [facility] 09-12-2022 10:19-0400 Body mass index (BMI) [Ratio] 38.6 kg/m2 MD Sampson Da Silva Work Phone: [facility] 09-12-2022 10:19-0400 Body weight 98.9 kg MD Sampson Da Silva Work Phone: [facility] 09-12-2022 09:29-0400 Body temperature 98.1 [degF] MD Sampson Da Silva Work Phone: [facility] 09-12-2022 09:29-0400 Inhaled oxygen flow rate 6 L/min MD Sampson Da Silva Work Phone: [facility] 07-20-2022 12:19-0400 Body height 160.02 cm MD Sampson Da Silva Work Phone: [facility] 07-20-2022 12:19-0400 Body temperature 97.9 [degF] MD Sampson Da Silva Work Phone: [facility] 07-20-2022 12:19-0400 Body weight 97 kg MD Sampson Da Silva Work Phone: [facility] 07-20-2022 12:19-0400 Diastolic blood pressure 96 mm[Hg] MD Sampson Da Silva Work Phone: [facility] 07-20-2022 12:19-0400 Heart rate 89 /min MD Sampson Da Silva Work Phone: [facility] 07-20-2022 12:19-0400 Respiratory rate 18 /min MD Sampson Da Silva Work Phone: [facility] 07-20-2022 12:19-0400 SaO2% (BldA) [Mass fraction] 98 % MD Sampson Da Silva Work Phone: [facility] 07-20-2022 12:19-0400 Systolic blood pressure 166 mm[Hg] MD Sampson Da Silva Work Phone: [facility] 05-01-2022 13:05-0500 Body height 160.02 cm Estrella Samaniego Other [email or web address] [facility] [employer] Other 05-01-2022 13:05-0500 Body mass index (BMI) [Ratio] 38.97 kg/m2 Estrella Samaniego Other [employer] Other 05-01-2022 13:05-0500 Body temperature 97.4 [degF] Estrella Samaniego Other [employer] Other 05-01-2022 13:05-0500 Body weight 99.79 kg Estrella Samaniego Other [employer] Other 05-01-2022 13:05-0500 Respiratory rate 18 /min Estrella Samaniego Other [employer] Other 05-01-2022 13:05-0500 SaO2% (BldA) [Mass fraction] 96 % Estrella Samaniego Other [employer] Other 09-10-2021 10:15-0400 Body height 160.02 cm Carrol Morganault Other [employer] Other 09-10-2021 10:15-0400 Body mass index (BMI) [Ratio] 37.9 kg/m2 Carrol Eugenie Other [employer] Other 09-10-2021 10:15-0400 Body temperature 97.9 [degF] Carrol Eugenie Other [employer] Other 09-10-2021 10:15-0400 Body weight 97.07 kg Carrol Morganault Other [employer] Other 09-10-2021 10:15-0400 Diastolic blood pressure 71 mm[Hg] Carrol Eugenie Other [employer] Other 09-10-2021 10:15-0400 Respiratory rate 18 /min Carrol Eugenie Other [employer] Other 09-10-2021 10:15-0400 SaO2% (BldA) [Mass fraction] 98 % Carrol Eugenie Other [employer] Other 09-10-2021 10:15-0400 Systolic blood pressure 132 mm[Hg] Carrol Eugenie Other [employer] Other 08-08-2021 11:45-0400 Body height 160.02 cm Deysi Acevedo Other [employer] Other 08-08-2021 11:45-0400 Body temperature 98 [degF] Deysi Acevedo Other [employer] Other 08-08-2021 11:45-0400 Respiratory rate 18 /min Deysi Acevedo Other [employer] Other 08-08-2021 11:45-0400 SaO2% (BldA) [Mass fraction] 98 % Deysi Acevedo Other [employer] Other 12-31-2020 13:20-0400 Body height 160.02 cm Carrol Morganault Other [employer] Other 12-31-2020 13:20-0400 Body mass index (BMI) [Ratio] 37.9 kg/m2 Carrol Eugenie Other [employer] Other 12-31-2020 13:20-0400 Body temperature 98 [degF] Carrol Eugenie Other [employer] Other 12-31-2020 13:20-0400 Body weight 97.07 kg Carrol Eugenie Other [employer] Other 12-31-2020 13:20-0400 Diastolic blood pressure 66 mm[Hg] Carrol Eugenie Other [employer] Other 12-31-2020 13:20-0400 Respiratory rate 18 /min Carrol Eugenie Other [employer] Other 12-31-2020 13:20-0400 SaO2% (BldA) [Mass fraction] 99 % Carrol Traore Other [employer] Other 12-31-2020 13:20-0400 Systolic blood pressure 131 mm[Hg] Carrol Morganault Other [employer] Other Encounters Encounter Date Encounter Type Care Provider Facility Start: 11-13-2023 End: 11-13-2023 ambulatory SAMPSON DA SILVA Not Available Start: 09-06-2023 End: 09-06-2023 ambulatory [facility] Work Phone: Start: 09-06-2023 End: 09-06-2023 Patient encounter procedure [facility] Work Phone: Start: 03-09-2023 End: 03-09-2023 ambulatory Estrella Samaniego Other [employer] Other Start: 03-09-2023 Office outpatient vi sit 25 minutes Estrella Samaniego [facility] Start: 10-08-2022 End: 10-08-2022 ambulatory Seth Olexa Other [employer] Other Start: 10-08-2022 Postop follow up vis it related to original px Seth Olexa [facility] Start: 09-24-2022 End: 09-24-2022 ambulatory Seth Olexa Facility:[facility] Start: 09-24-2022 End: 09-24-2022 ambulatory MD Sampson Da Silva Work Phone: [facility] Work Phone: Start: 09-24-2022 End: 09-24-2022 Discharged Recurring MD Sampson Da Silva Work Phone: [facility]-Physical Therapy [place] Start: 09-17-2022 End: 09-17-2022 ambulatory Rut Tompkinsney Other [employer] Other Start: 09-17-2022 Postop follow up vis it related to original px Rut Bud [facility] Start: 09-17-2022 End: 09-17-2022 Emergency department patient visit Sampson Da Silva Facility:[facility] Start: 09-16-2022 End: 09-17-2022 Emergency department patient visit MD Sampson Da Silva Work Phone: [facility]-Emergency Room Work Phone: Start: 09-13-2022 End: 09-13-2022 ambulatory Rut Urenaarney Other [employer] Other Start: 09-13-2022 Telephone encounter Rut Farrell [facility] Start: 09-12-2022 End: 09-12-2022 ambulatory Sampson Da Silva Facility:[facility] Start: 09-12-2022 End: 09-12-2022 Admission to same day surgery center MD Sampson Da Silva Work Phone: [facility]gery [facility] [address] [place] Start: 09-12-2022 End: 09-12-2022 ambulatory MD Sampson Da Silva Work Phone: [facility] Work Phone: Start: 08-29-2022 End: 08-29-2022 ambulatory Seth Soliz Facility:[facility] Start: 08-29-2022 End: 08-29-2022 ambulatory MD Sampson Da Silva Work Phone: [facility] Work Phone: Start: 08-29-2022 End: 08-29-2022 Patient encounter procedure MD Sampsno Da Silva Work Phone: [facility]-Pre-Surgical Testing Work Phone: Start: 08-07-2022 End: 08-07-2022 ambulatory Seth Heydi Facility:[facility] Start: 08-07-2022 End: 08-07-2022 Patient encounter procedure MD Sampson Da Silva Work Phone: [facility] [address] Work Phone: Start: 07-24-2022 End: 07-24-2022 ambulatory Seth Latifxa Other [employer] Other Start: 07-24-2022 Office outpatient vi sit 25 minutes Seth Soliz [facility] Start: 07-20-2022 End: 07-20-2022 Emergency department patient visit Nick Acevedo Facility:[facility] Start: 07-20-2022 End: 07-20-2022 Emergency department patient visit MD Sampson Da Silva Work Phone: [facility]-Emergency Room Work Phone: Start: 06-07-2022 End: 06-08-[address] SAMPSON DA SILVA Facility:[facility] Start: 05-31-2022 Encounter for genera l adult medical examination without abnormal findings DR SAMPSON DA SILVA [facility] Start: 05-29-2022 End: 05-30-[address] SAMPSON DA SILVA Facility:[facility] Start: 05-29-2022 End: 05-30-2022 Encounter for general adult medical examination without abnormal findings DR SAMPSON DA SILVA Facility:[facility] Start: 05-15-2022 End: 05-15-[address] SAMPSON DA SILVA Facility:[facility] Start: 05-01-2022 End: 05-01-2022 ambulatory Estrella Samaniego Facility:[facility] Start: 05-01-2022 Office outpatient vi sit 15 minutes Estrella Samaniego [facility] Start: 05-01-2022 End: 05-01-2022 ambulatory CYNTHIA Samaniego Work Phone: [facility] Work Phone: Start: 05-01-2022 End: 05-01-2022 Departed Referred CYNTHIA Samaniego Work Phone: [facility]-Lab [address] [place] Work Phone: Start: 09-14-2021 End: 09-14-2021 ambulatory Carrol Morganault Other [employer] Other Start: 09-14-2021 Telephone encounter Carrol Blackwood t [facility] Start: 09-10-2021 End: 09-10-2021 ambulatory Carrol Eugenie Other [employer] Other Start: 09-10-2021 Office outpatient vi sit 25 minutes Carrol Eugenie [facility] Start: 08-23-2021 End: 08-23-[address] SAMPSON DA SILVA Facility:[facility] Start: 08-08-2021 End: 08-08-2021 ambulatory Deysi Acevedo Other [employer] Other Start: 08-08-2021 Office outpatient vi sit 15 minutes Deysibear Acevedo [facility] Start: 07-18-2021 End: 07-18-[address] SAMPSON DA SILVA Facility:[facility] Start: 05-15-2021 End: 05-15-2021 ambulatory Carrol Eugenie Other [employer] Other Start: 05-15-2021 Office outpatient vi sit [...] Activity Detail Author Start: 09-12-2022 End: 09-12-2022 [facility] Start: 07-20-2022 Duplex scan of lower limb veins US venous duplex LE LT [facility] Start: 07-20-2022 US Lower extremity v ein - left [facility] Start: 05-01-2022 Bacteria identified in Urine by Culture [facility] Patient Education [facility] Work Phone: Patient referral [facility] Work Phone: [facility] Immunizations Immunization Date Immunization Notes Care Provider Fa cility 12-13-2020 COVID-19 mRNA, Comirnaty (Pfizer) MD Sampson Da Silva Work Phone: [facility] 11-22-2020 COVID-19 mRNA, Comirnaty (Pfizer) MD Sampson Da Silva Work Phone: [facility] 10-14-2015 Toradol per 15 mg Carrol Traore Other [employer] Other Payers Date Payer Category Payer [employer] ( and others) [id number] 2022 Self-pay [id number] 2022 [employer] ( and others) [id number] 1970 Unknown [id number] 1970 Unknown [id number] 1970 Unknown [id number] [id number] 1970 Unknown [id number] [id number] 1970 Unknown [id number] [id number] 1970 Unknown [id number] [id number] 1959 [employer] ([employer]) [id number] [employer] ([employer]) [id number]. 19 Unknown [id number] [id number] Unknown [id number] 2.16.840.1.030695.3.579.2.531 Unknown [id number] 2.16.840.1.885349.3.579.2.531 Unknown [id number] 2.16.840.1.012863.3.579.2.531 Unknown [id number] 2.16.840.1.655599.3.579.2.531 Unknown [id number] 2.16.840.1.939729.3.579.2.531 Unknown [id number] [id number] Social History Date Type Detail Facility Unknown if ever smoked [employer] Other Sex Assigned At Sex Assigned At Bir th [employer] Other Start: 01-14-2020 End: 09-16-2022 Tobacco smoking status NHIS Never smoked tobacco (finding) [facility] Start: 1970 Sex Assigned At Female F [facility] Goals Date Patient Goal Desired Activity /State Clinical Notes 07-10-2017 to 03-09-2023 Note Date & Type Note Facility 03-09-2023 Evaluation note Encounter Date Diagnosis Assessment Notes Feb, Suspected COVID-19 virus infection (ICD-10 - Z20.822) [...] treatment plan. Patient left in stable condition. [employer] Other 06-26-2023 Evaluation note* Encounter Date Diagnosis [...] Other specified postprocedural states (ICD-10 - Z98.890) [employer] Other 05-02-2023 Evaluation note* Encounter Date Diagnosis [...] of pain and plan potential surgical treatment. [employer] Other 02-07-2023 Evaluation note* Encounter Date Diagnosis [...] understanding and is agreeable to treatment plan [employer] Other 06-19-2022 Evaluation note* Encounter Date Diagnosis [...] externa of right ear (ICD-10 - H60.311) [employer] Other 05-17-2022 Evaluation note* Encounter Date Diagnosis [...] Patient care instructions given in writting by [facility] document. [employer] Other 03-01-2022 Reason for referral (narrative)* Reason * 09/29 patient has had ear infection since May 2021 - history of repeated TM's - must have referral due to insurance. Has been hospitalized in past for ENT related infections. treated 3 times Diagnosis 1 Right chronic serous otitis media (H65.21) Diagnosis 2 Acute diffuse otitis externa of right ear (H60.311) Referral Organization [facility] Yusuf Mcnair Referring Provider First Name Carrol Referring Provider Last Name Eugenie Referring Provider Specialty Nurse Charlotte paige Referred Organization [facility] Referred Provider Yves Warren Referred Address [address], [place],[address] Referred Provider Specialty Otolaryngolo gy Referral Priority Routine General Notes Paula Huertas 022 01:50:59 PM >Received today and waiting for notes to be locked and system is down today to check on [facility] 07:39[facility]02 AM > Auth attached and [facility] for office notes to be locked [facility] 08:16:51 AM >[facility] 09:04:12 AM >Referral was fax [employer] Other 02-21-2022 Evaluation note* Encounter Date Diagnosis [...] Patient care instructions given in writting by [facility] document. [employer] Other 10-09-2021 Evaluation note* Encounter Date Diagnosis [...] care provider if no improvement of symptoms. [employer] Other 04-18-2018 History general Narrative - Reported* Type Description Date Surgical History Foot Surgery Surgical History ear surgery Surgical History tubal ligation 1999 Surgical History RCTR 07/10/17 Hospitalization History ear infetions [employer] Other 04-18-2018 History general Narrative - Reported* Type Description Date Surgical History Foot Surgery Surgical History ear surgery Surgical History tubal ligation 1999 Surgical History RCTR 07/10/17 Surgical History left knee arthroscop y with partial medial meniscectomy and chondral debridement medial femoral condyle, lateral patellar facet 09/12/22 Hospitalization History ear infetions [employer] Other Evaluation noteNo InformationNort [employer] Other Evaluation noteNo assessment information available [facility] Work Phone: Evaluation noteNort [employer] Other History general Narrative - [facility] Other Hospital Discharge instructions Additional Instructions DISCHARGE [...] you should first call your surgeon at [phone] for advice. If your are unable to contact your surgeon, seek help from a hospital emergency room.[facility] Work Phone: Summary Purpose Family History No Family History Records Found Relationship Condition Age at Onset Recorded Date/T annabelle grandparent Diabetes mellitus Unknown Not Specified Malignant neoplasm of lung Unknown family member Malignant neoplasm of breast Unknown Relationship Condition Age at Onset Recorded Date/T annabelle grandparent Diabetes mellitus Unknown Not Specified Malignant neoplasm of lung Unknown family member Malignant neoplasm of breast Unknown father Unknown Not Specified Unknown Advance Directives No Advanced Directives Records Found Advance Directive Response Recorded Date/ Time Advance [...] section and content) DATE CREATED AUTHOR 09/15/2021 Vick Varghese [facility] DATE CREATED AUTHOR AUTHOR'S ORGANIZ ATION 06/17/2022 [facility] DATE CREATED AUTHOR AUTHOR'S ORGANIZ ATION 12/14/2022 [facility] DATE CREATED AUTHOR AUTHOR'S ORGANIZ ATION 11/15/2023 [facility] EPIC REASON FOR VISIT (unrecogniz ed section and [...] BE BASED ON THE PRIMARY CLINICAL RECORDS. Patient Communicator [facility]. provides no warranty or guarantee of the accuracy or completeness of information in this document.
--- NOTE | 2023-12-03 07:10 | NM_ITS ---
Patient Name: MIL MARCUM MR#: [id number] : 1970 Exam Date: 12/03/2023 Ordering Doctor: DR Sampson Carpenter . RADIOLOGY REPORT PROCEDURE: NM CHUY PERF SPECT REST STR COMPARISON: None. INDICATIONS: CHEST PAIN, HYPERTENSION TECHNIQUE: Exam Description: Stress/Rest one day protocol gated SPECT Rest Imagin.4 mCi Tc-99m Cardiolite IV on 12/03/2023 Stress Imaging 31.0 mCi Tc-99m Cardiolite IV on 12/03/2023 Exercise Protocol: Mikey Heart Rate (bpm): Rest: 75 Max: 150 PMHR: 89 Blood Pressure: Rest: 140/98 Max: 180/92 Exercise Time: Minutes: 7 Seconds: 02 Stage Reached: Stage: 3 Mets 10.1 Symptoms: Rest and peak stress ECG findings were pending and the exercise portion of the study was pending per attending physician Dr. Hemphill . For more details please see separate cardiac stress test report. FINDINGS: QUALITY OF STUDY: Excellent. PERFUSION DEFECT: None. LOCATION: N/A SIZE: N/A. SEVERITY: N/A. TYPE: N/A. WALL MOTION: Normal. LV SIZE: Normal. 61 mL. TID / TCD: None; 0.7 LVEF: Normal. Calculated EF 83%. SUMMARY: Myocardial perfusion imaging study is NORMAL. CONCLUSION: 1. Normal nuclear medicine myocardial perfusion scan. Dictated by: Lennox Muro M.D. on 12/03/2023 at 16:43 Approved by: Lennox Muro M.D. on 12/03/2023 at 16:44
--- NOTE | 2023-12-03 18:29 | P.STRESS_ITS ---
Stress Test Stress Test Allergies Allergy/AdvReac Type Severity Reaction Status Date / Time No Known Drug Allergies Allergy Verified 11/07/23 17:10 Requesting physician: Sampson Carpenter Procedure: Exercise Cardiolite stress test General Information: Reason for Stress Test: Chest pain Risk factors: Hypertension Resting 12 - Lead Electrocardiogram: Rate & rhythm: Normal sinus at a rate of 68. [place]: Right axis deviation T-waves: Inverted in aVL ST-segments: Normal Stress Test: Protocol: Mikey protocol was followed, with injection of Cardiolite once target heart rate was achieved. Exercise capacity: Good exercise capacity. Total exercise time of 7 minutes 3 seconds reached Mikey stage 3 at 3.4 MPH, 14% grade, & 10.1 METs. Blood pressure: Initial: 140/98, Maximum: 180/92 Rate & rhythm: Patient remained in sinus rhythm during the exercise and recovery portions of the study.? The maximum heart rate was 150, which was 89% of the maximum predicted heart rate. A couplet was noted. ST-segments & T-waves: Inverted T-waves in aVL flipped to positive orientation during exercise and maintained this orientation throughout recovery. Patient response/symptoms: No reproducible symptoms to chief complaint. Interpretation: Normal exercise stress test without electrocardiographical evidence of ischemia. Asymptomatic of chief complaint. Cardiolite imaging interpretation will be reported separately. Clinical correlation required.?
== END 2023-12-03 06:51 | disposition home or self-care (01) ==
LOC: NM 06:50
PROVIDERS: PCP Family Medicine; Visit Provider Family Medicine
DX: R07.89 Other chest pain (principal); I10 Essential (primary) hypertension; E78.5 Hyperlipidemia, unspecified; E66.9 Obesity, unspecified
CPT/HCPCS: 78452; 93017; A9500

== ENCOUNTER 2024-03-26 07:43 | Outpatient (OUT) | payer OTHER, SELFPAY ==
--- NOTE | 2024-03-24 08:39 | VEINCLINIC_ITS ---
Vital Signs 03/26/24 07:55 Height 5 ft 3 in Weight 99.79 kg BMI 39.0 BP 134/75 BP Location Right Brachial BP Position Supine BP Cuff Size Adult BP Source Automatic Cuff Respiration 16 Pulse 72 Pulse Source Monitor Pulse Oximetry (%) 98 Oxygen Delivery Method Room Air Comment The patient's blood pressure is elevated. Varicose Veins Patient is a 54 year old female in this day as a referral from Dr. Carpenter secondary to venous insufficiency. Patient c/o bilateral leg pain and swelling left greater than right. Patient has worn bilateral leg knee high compression stockings in the past, yet is unable to wear them due to they cut into her legs at knee area resulting in wounds. 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 Patient has no history of varicose vein treatment, nor family history of varicose vein disease. Patient no history of DVT no any clotting issues. Ishaan Oshea MD personally performed the services described in this documentation, as scribed by Osbaldo Nixon RN in my presence and it is both accurate and complete. Osbaldo Oshea RN, am scribing for, and in the presence of, Dr. Ishaan Cortez and in the presence of the patient. knee: bilateral, calf: bilateral, ankle: bilateral and villarreal: bilateral aching, burning, cramping, dull and tender 9 5 years Worsened in recent months: Yes standing, heavy lifting, long car trips and sitting analgesics and elevating extremities Reports muscle spasms of leg, heaviness, edema and leg edema History of lower extremity trauma: No Superficial thrombophlebitis: No Family history of varicose veins: no Has patient had previous lower extremity venous surgery: No Patient has previously received the following treatment(s) for lower extremity varicose veins: Reports none Does patient have a history of : yes Does patient intend to have future pregnancies: no Has patient had lower extremity venous scan with relux testing: No Support hose used: Yes Problems walking or doing physical activity: Yes How does it affect you: patient is currently changing careers due to the pain sh e is experiencing Do you walk much: Yes Do you stand much: Yes Review of Systems ROS0 Narrative Ishaan Oshae MD personally performed the services described in this documentation, as scribed by Osbaldo Hussain RN in my presence and it is both accurate and complete. I, Osbaldo Nixon RN, am scribing for, and in the presence of, Dr. Ishaan Cortez and in the presence of the patient. Status of ROS 10 or more systems reviewed and unremark able except as noted in history and below Cardiovascular Reports: edema Integumentary/Breast Reports: itching Neurological Reports: weakness in extremities PFSH [facility] Medical History (Updated 03/26/24 @ 08:10 by Osbaldo Nixon) Varicose veins of bilateral lower extremities with pain ?I83.813 - Varicose veins of bilateral lower extremities with pain (ICD-10) HLD (hyperlipidemia) ?E78.5 - Hyperlipidemia, unspecified (ICD-10) Hypertension ?I10 - Essential (primary) hypertension (ICD-10) Surgical History (Updated 11/01/23 @ 03:06 by Coral Alcantara) H/O arthroscopy of knee ?Z98.890 - Other specified postprocedural states (ICD-10) History of bunionectomy ?Z98.890 - Other specified postprocedural states (ICD-10) Family History (Updated 11/01/23 @ 03:07 by Coral Alcantara) Mother Family history of cancer Grandmother Family history of diabetes mellitus Social History (Updated 11/01/23 @ 03:08 by oCral Alcantara) Within the past year, how often did you have a drink containing alcohol: never Score interpretation: A score less than 3 is consistent with normal alcohol consumption. Smoking status: Never smoker Non-prescribed substance use: denies use Previous occupational history: EMT Highest level of school completed/degree received: Associate degree: academic program Are you now , , , , never or living with a partner: In a typical week, how many times do you talk on the telephone with family, friends, or neighbors: 3 or more times per week How often do you get together with friends or relatives: 3 or more times per week How often do you attend denominational or mu-ism services: never Little interest or pleasure in doing things: not at all Feeling down, depressed, or hopeless: not at all Feel stressed/tense/nervous/anxious/difficulty sleeping: not at all Meds Home Medications and Allergies Home Medications ?Medication ?Instructions ?Recorded ?Confirmed ?Type amlodipine 10 mg tablet (Norvasc) 10 mg PO DAILY #30 tabs 11/01/23 11/07/23 Rx aspirin 81 mg chewable tablet 81 mg PO DAILY #30 tabs 11/01/23 11/07/23 Rx atorvastatin 20 mg tablet (Lipitor) 20 mg PO DAILY #30 tabs 11/01/23 11/07/23 Rx Allergies Allergy/AdvReac Type Severity Reaction Status Date / Time No Known Drug Allergies Allergy Verified 11/07/23 17:10 Exam Constitutional Documenting provider has reviewed patient's vital signs: yes Common normals: oriented x3 Nutritional appearance: overweight Cardio Peripheral pulses: posterior tibial pulses present and dorsalis pedis pulses present Extremity Common normals: normal capillary refill General: edema Right lower extremity: lower leg Right lower leg: inspection and palpation Left lower extremity: lower leg Left lower leg: inspection and palpation Neuro Common normals: oriented x3 Results Additional Findings Additional findings: Bilateral leg reflux u/s reveals mild to moderate great saphenous venous insufficiency with dilation bilaterally along with bilateral leg branch saphenous truncal tributary venous insufficiency. Ishaan Oshea MD personally performed the services described in this documentation, as scribed by Osbaldo Nixon RN in my presence and it is both accurate and complete. Osbaldo Oshea RN, am scribing for, and in the presence of, Dr. Ishaan Cortez and in the presence of the patient. Assessment and Plan Assessment and Plan (1) Varicose veins of bilateral lower extremities with pain: Plan Plan is for patient to continue bilateral leg compression, exercise, rest, and elevation of bilateral legs/feet. Patient to return for EVLT of left GSV followed by right GSV followed by microfoam chemical ablation bilateral leg branch saphenous varicosities, and lastly sclerotherapy bilateral leg pre-hemorrhagic, reticular spider veins. Ishaan Oshea MD personally performed the services described in this documentation, as scribed by Osbaldo Nixon RN in my presence and it is both accurate and complete. Osbaldo Oshea RN, am scribing for, and in the presence of, Dr. Ishaan Cortez and in the presence of the patient.
--- NOTE | 2024-03-24 08:43 | P.DS_ITS ---
Discharge Plan Discharge Disposition: Home, Self-Care Outpatient Diagnostics: VC Endovenous Ablation 1VeinRT (Routine) Timeframe: 2 Weeks Facility: [facility] - Location[facility] Ordered By: Ishaan Cortez Plan of Treatment: EVLT of right GSV Patient Instructions: Endovenous Ablation (DC) Print Language: Serbian
--- OUTSIDE RECORDS SUMMARY | 2024-03-26 07:47 | XMS_ITS | CCD ---
Author Organization [facility] Care Team Providers Care Warning Coordination Meteorologist Name Role Phone Carrol Traore Unavailable KristinaDeysi Unavailable CYNTHIA Samaniego Attending Provider Estrella Samaniego Unavailable AVINASH, DR SAMPSON Paula Primary Care Unavailable PAY ., DR HA Admitting Unavailable PAY ., DR HA Attending Unavailable PAY ., DR HA Consulting Unavailable NADERENimesh, DR SAMPSON Paula Primary Care Unavailable LEIA, DR SIGRID Beavers Admitting Unavailable LEIA, DR SIGRID Beavers Attending Unavailable LEIA, DR SIGRID Beavers Consulting Unavailable RUIZ, ANNE MARIE Consulting Unavailable SAID, BINOR Consulting Unavailable NADERER, DR SAMPSON Paula Admitting [...] NADERER, DR SAMPSON Paula Primary Care Unavailable ZIEBER, DR LENNOX Beavers Consulting Unavailable NADERER, DR SAMPSON Paula Consulting Unavailable CYNTHIA Samaniego Attending Provider MD Sampson Da Silva Primary Care Provider CYNTHIA Acevedo Emergency Provider [phone] Seth Soliz Unavailable MD Seth Soliz Attending Provider [phone] Rut Farrell Unavailable MD Sampson Da Silva Primary Care Provider [phone] DO Yves Rosales Emergency Provider MD Seth Soliz Attending Provider Sampson Da Silva MD Primary Care Provider SAMPSON DA SILVA Attending Unavailable SAMPSON DA SILVA Attending Unavailable Elder Hare Attending Unavailable Elder Hare Admitting Unavailable Sampson Da Silva Primary Care Unavailable Allergies Allergy Classification Reported Allergen(s) Allergy Type Date of Onset Reaction(s) Facility (6 sources) Meperidine; Translations: [meperidine] Drug Allergy 01-13-2020 Hallucinating [facility] Medications Current Medications Medication Drug Class(es) Dates [...] mouth every four to six hours Hydrocodone-Acetaminophen ([place]) 5-325 mg tablet Discontinued 1 - 2 TAB PO EVERY 4-6 HOURS March 03, 2018 January 13, 2020 12:30pm [id number] 200 actuat albuterol 0.09 mg/actuat metered dose inhaler (2 sources) beta2-Adrenergic Agonist Start: 08-08-2021 take 2 puff(s) by inhalation four times daily as needed Albuterol Sulfate HFA 108 (90 Base) MCG/ACT 2 puffs Inhalation qid prn July, Active ALPRAZolam 0.5 mg oral tablet (3 sources) Benzodiazepine Start: 02-25-2023 End: 11-13-2023 take 1 tablet by mouth three times daily as needed for anxiety ALPRAZolam (Xanax) 0.5 MG tablet Indications: Acute stress reaction Take 1 tablet (0.5 mg) by mouth 3 (three) times a day as needed for anxiety 30 tablet 1 02/25/2023 11/13/2023 Discontinued (Therapy completed) amLODIPine 10 mg oral tablet (2 sources) Dihydropyridine Calcium Channel Mateo Start: 11-01-2023 take 1 tablet by mouth once daily amLODIPine (Norvasc) 10 MG tablet Take 10 mg by mouth Daily 11/01/2023 Active ciprofloxacin 3 mg/ml / dexamethasone 1 mg/ml otic suspension (2 sources) Corticosteroid, Quinolone Antimicrobial Start: 09-10-2021 Ciprofloxacin-De xamethasone 0.3-0.1 % 4 drops into affected ear Otic Twice a day for 7 days Aug, Active clindamycin 300 mg oral capsule (2 sources) Lincosamide Antibacterial Start: 09-10-2021 take 1 capsule by mouth every eight hours Clindamycin HCl 300 MG 1 capsule Orally every 8 hrs for 10 day(s) Aug, Active clobetasol propionate 0.5 mg/ml topical spray (8 sources) Corticosteroid Start: 03-02-2023 Clobetasol Propionate 0.05 % external spray APPLY TO THE AFFECTED AREA(S) topically TWICE DAILY 03/02/2023 Active Start: 02-25-2023 End: 11-13-2023 clobetasol (Temovate) 0.05 % external solution Indications: Dermatitis of ear canal, bilateral Apply topically 2 (two) times a day 30 mL 3 02/25/2023 11/13/2023 Discontinued dextromethorphan hydrobromide 15 mg / guaiFENesin 400 mg / pseudoephedrine hydrochloride 60 mg oral tablet (1 source) alpha-Adrenergic Agonist, Uncompetitive E-ufqzka-X-aspartate Receptor Antagonist, Sigma-1 Agonist Start: 03-09-2023 take 4 tablets by mouth every twenty-four hours as needed Capmist DM 60-15-400 MG as needed Orally every 4-6 hours as needed, max 4 tablets in 24 hours for 5 days Feb, Active diazePAM 5 mg oral tablet (2 sources) Benzodiazepine Start: 03-05-2024 End: 03-15-2024 take 1 tablet by mouth three times daily as needed for anxiety diazePAM (Valium) 5 MG tablet Indications: IRAIS (generalized anxiety disorder) (CMS/HCC) Take 1 tablet (5 mg) by mouth 3 (three) times a day as needed for anxiety for up to 10 days 30 tablet 03/05/2024 03/15/2024 Active fluconazole 150 mg oral tablet (2 sources) Azole Antifungal Start: 09-10-2021 Diflucan 150 MG 1 tablet Orally take 1 tablet after antibiotics completed. may take another pill 7 days later if needed for 2 days Aug, Active losartan potassium 25 mg oral tablet (5 sources) Angiotensin 2 Receptor Mateo Start: 03-05-2024 take 1 tablet by mouth once daily losartan (Cozaar) 25 MG tablet Indications: Benign essential hypertension (CMS/HCC) Take 1 tablet (25 mg) by mouth Daily 30 tablet 5 03/05/2024 Active Start: 11-18-2023 End: 03-05-2024 take 1 tablet by mouth once daily losartan (Cozaar) 50 MG tablet Indications: Benign essential hypertension (CMS/HCC) Take 1 tablet (50 mg) by mouth Daily 30 tablet 3 11/18/2023 03/05/2024 Discontinued (Reorder) methylPREDNISolone 4 mg oral tablet (4 sources) Corticosteroid Start: 09-10-2021 methylPREDNISo lone 4 MG as directed Orally [...] 12 hrs for 7 day(s) Apr, Active pantoprazole 40 mg delayed release oral tablet (2 sources) Proton Pump Inhibitor Start: 024 take 1 tablet by mouth before mealtime pantoprazole (Protonix) 40 MG EC tablet Indications: Chronic superficial gastritis without bleeding Take 1 tablet (40 mg) by mouth in the morning. Take before meals. Do not crush, chew, or split.. 30 tablet 5 03/05/2024 Active phenazopyridine hydrochloride 200 mg oral tablet (1 source) Start: take 1 tablet by mouth every eight hours Pyridium 200 MG 1 tablet after meals Orally Three times a day for 2 day(s) Apr, Active predniSONE 20 mg oral tablet (3 sources) Start: 023 take 1 tablet by mouth every twelve hours prednisone 20 MG 1 tablet Orally BID for 5 Feb, Active Start: 08-08-2021 take 1 tablet by hema th every twelve hours predniSONE 20 MG 1 tablet Orally bid for 5 day(s) July, Active sertraline 25 mg oral tablet (2 sources) Serotonin Reuptake Inhibitor Start: 03-05-2024 take 1 tablet by mouth once daily sertraline (Zoloft) 25 MG tablet Indications: IRAIS (generalized anxiety disorder) (CMS/HCC) Take 1 tablet (25 mg) by mouth Daily 30 tablet 5 03/05/2024 Active zolpidem tartrate 10 mg oral tablet (4 sources) gamma-Aminobutyri c Acid-ergic Agonist Start: 08-29-2022 take 10 mg [...] 12 hrs for 7 days Aug, Not-Taking aspirin 81 mg chewable tablet (5 sources) Platelet Aggregation Inhibitor, Nonsteroidal Anti-inflammatory Drug Start: 11-01-2023 End: 03-05-2024 Aspirin Low Dose 81 MG chewable tablet Chew 81 mg Daily 11/01/2023 03/05/2024 Discontinued atorvastatin 20 mg oral tablet (5 sources) HMG-CoA Reductase Inhibitor Start: 11-01-2023 End: 03-05-2024 take 1 tablet by mouth once daily atorvastatin (Lipitor) 20 MG tablet Take 20 mg by mouth Daily 11/01/2023 03/05/2024 Discontinued cefTRIAXone (8 sources) Cephalosporin Antibacterial Start: 09-10-2021 Start: 09-10-2021 Rocephin 500 m g Aug, 500 mg furosemide 40 mg oral tablet (3 sources) Loop Diuretic Start: 11-18-2023 End: 03-05-2024 take 1 tablet by mouth once daily as needed for edema furosemide (Lasix) 40 MG tablet Indications: Localized edema Take 1 tablet (40 mg) by mouth Daily as needed (Edema) 30 tablet 3 11/18/2023 03/05/2024 Discontinued hydrocortisone 10 mg/ml / neomycin 3.5 mg/ml / polymyxin b [id number] unt/ml otic solution (6 sources) Aminoglycoside Antibacterial, Polymyxin-class Antibacterial, Corticosteroid Start: 09-05-2020 Neomycin-Polymyxi n-HC [id number] 4 drops into affected ear Otic Three times a day for 7 day(s) Aug, Not-Taking Ketorolac (10 sources) Nonsteroidal Anti-inflammatory Drug, Cyclooxygenase Inhibitor Start: 10-14-2015 Start: 10-14-2015 Toradol per 15 mg Sep, 60 mg omeprazole 10 mg delayed release oral capsule (5 sources) Proton Pump Inhibitor End: 03-05-2024 omeprazole (PriLOSEC) [address] capsule 1 (one) time each day at the same time 03/05/2024 Discontinued ondansetron 4 mg disintegrating oral tablet (6 [...] pain; Translations: [Unspecified abdominal pain] 01-13-2020 Episodic Acquired foot deformities (6 sources) Hallux valgus (acquired), left foot; Translations: [Hallux valgus (acquired)] Onset: 11-13-2023 11-13-2023 Chronic Anxiety disorders (8 sources) Acute stress disorder; Translations: [Acute stress reaction] Onset: 11-13-2023 11-13-2023 Chronic Disorders of lipid metabolism (8 sources) Dyslipidemia; Translations: [Hyperlipidemia, unspecified] Onset: 11-13-2023 11-13-2023 Chronic Essential hypertension (9 sources) Benign essential hypertension; Translations: [Essential (primary) hypertension] Onset: 11-13-2023 11-13-2023 Chronic Gastritis and duodenitis (4 sources) Chronic superficial gastritis; Translations: [Chronic superficial gastritis without bleeding] Onset: 03-05-2024 03-05-2024 Chronic Genitourinary symptoms and ill-defined conditions (1 source) Dysuria Episodic Headache; including migraine (1 source) Migraine, [...] [Noninfective gastroenteritis and colitis, unspecified] 01-13-2020 Episodic Nonspecific chest pain (14 sources) Other chest pain; Translations: [Chest pain, unspecified] Onset: 07-18-2021 Episodic Osteoarthritis (6 sources) Arthritis of left knee; Translations: [Unilateral primary osteoarthritis, left knee] Chronic Other acquired deformities (6 sources) Equinus contracture of the ankle; Translations: [Contracture, left ankle] Onset: 11-13-2023 11-13-2023 Chronic Other bone disease and musculoskeletal deformities (2 sources) Chondromalacia, left knee Episodic Other circulatory disease (6 sources) Vascular insufficiency; Translations: [Venous insufficiency (chronic) (peripheral)] Onset: 11-13-2023 03-05-2024 Episodic Other injuries and conditions due to [...] knee; Translations: [Knee pain] 09-17-2022 Episodic Other nutritional; endocrine; and metabolic disorders (5 sources) Body mass index 30+ - obesity; Translations: [Obesity, unspecified] Onset: 11-13-2023 11-13-2023 Chronic Other nutritional; endocrine; and metabolic disorders (4 sources) Severe obesity; Translations: [Class 2 severe obesity due to excess calories with serious comorbidity and body mass index (BMI) of 39.0 to 39.9 in adult (CMS/HCC)] Onset: 11-13-2023 03-05-2024 Chronic Other screening for suspected conditions (not mental disorders or infectious disease) (10 sources) Encounter for screening mammogram for malignant [...] [CONTACT W/AND (SUSP) EXPOS COVID-19] Onset: 08-24-2021 Urinary tract infections (1 source) Acute cystitis with hematuria Episodic Past or Other Problems Problem Classification Problem Date Documented Da te Episodic/Chronic Chronic obstructive pulmonary disease and bronchiectasis (2 sources) Bronchitis, not specified as acute or chronic Onset: 08-08-2021 Resolved: 08-08-2021 Episodic Conditions associated with dizziness or vertigo (1 source) Dizziness and giddiness; Translations: [DIZZINESS AND GIDDINESS] Onset: 07-31-2021 Episodic Diabetes mellitus without complication (6 sources) Prediabetes; Translations: [Prediabetes] Onset: 11-13-2023 11-13-2023 Episodic Immunizations and screening for infectious disease (3 sources) Encounter for screening for other viral diseases; Translations: [Contact with and (suspected) exposure to other viral communicable diseases] Onset: 05-15-2021 Resolved: 08-08-2021 Episodic Other aftercare (1 source) Other oysterman (current) drug therapy; Translations: [OTH ASSISTED CURRENT DRUG THERAPY] Onset: 07-31-2021 Episodic Other connective tissue disease (6 sources) Plantar fasciitis; Translations: [Plantar fascial fibromatosis] Onset: 11-13-2023 11-13-2023 Episodic Other ear and sense organ disorders (1 source) Diffuse otitis externa, right ear Onset: 09-10-2021 Resolved: 09-10-2021 Episodic Other ear and sense organ disorders (1 source) Otalgia, bilateral; Translations: [OTALGIA BILATERAL] Onset: 08-24-2021 Episodic Otitis media and related conditions (1 source) Otitis media, unspecified, right ear; Translations: [Right acute otitis media H66.91] Onset: 12-31-2020 Resolved: 12-31-2020 Episodic Residual codes; unclassified (4 sources) Edema; Translations: [Edema, unspecified] Onset: 11-13-2023 11-13-2023 Episodic Residual codes; unclassified (6 sources) Persistent insomnia; Translations: [Insomnia, unspecified] Onset: 11-13-2023 11-13-2023 Episodic Spondylosis; intervertebral disc disorders; other back problems (6 sources) Chronic thoracic back pain; Translations: [Pain in thoracic spine] Onset: 11-13-2023 11-13-2023 Episodic Unclassified (1 source) COUGH, UNSPECIFIED; Translations: [COUGH, UNSPECIFIED] Onset: 08-23-2021 Unclassified (1 source) Suspected COVID-19 virus infection Z20.822 Results Test Name Value Interpretation Reference Range Facility B-Type Natriuretic Peptideon 03-02-2024 Natriuretic peptide B (Bld) [Mass/Vol] 16.0 pg/mL Normal 5-100 [facility] Comment on above: Result Comment: PERF ORMED BY: [place] [address] PATHOLOGIST CIRCULATION LIBRARIAN CHARY RHODES M.D. Performed By: #### H S TROP, CBC, CK, BMP, BNP, PT #### [address] Basic Metabolic Panelon 12-0 Anion gap [Moles/Vol] 13.0 mmol/L Normal 6.0-15.0 Th e [facility] Comment on above: Performed By: #### H S TROP, CBC, CK, BMP, BNP, PT #### [address] Calcium [Mass/Vol] 9.5 mg/dL Normal 8.6-10.3 [facility] Comment on above: Performed By: #### H S TROP, CBC, CK, BMP, BNP, PT #### [facility] [address] Chloride [Moles/Vol] 106 mmol/L Normal 98-107 [facility] Comment on above: Performed By: #### H S TROP, CBC, CK, BMP, BNP, PT #### [address] CO2 [Moles/Vol] 25.7 mmol/L Normal 21.0-31.0 The [facility] Comment on above: Performed By: #### H S TROP, CBC, CK, BMP, BNP, PT #### [facility] [address] Creatinine [Mass/Vol] 1.10 mg/dL Normal 0.60-1.20 [facility] Comment on above: Performed By: #### H S TROP, CBC, CK, BMP, BNP, PT #### [address] Creatinine Clr Calc Pharmacy 66.77 Normal [facility] Comment on above: Result Comment: PERF ORMED BY: [place] [address] PATHOLOGIST CIRCULATION LIBRARIAN CHRAY RHODES M.D. Performed By: #### H S TROP, CBC, CK, BMP, BNP, PT #### [address] Estimated GFR 59.712 mL/Min Normal [facility] Comment on above: Performed By: #### H S TROP, CBC, CK, BMP, BNP, PT #### [facility] [address] Glucose [Mass/Vol] 98 mg/dL Normal 70-100 The [facility] Comment on above: Result Comment: [place] Glucose Reference Range is dependent on time and content of last meal. Glucose of more than 200 mg/dL in a nonstressed, ambulatory subject supports the diagnosis of Diabetes Mellitus. ADA recommended reference range Performed By: #### H S TROP, CBC, CK, BMP, BNP, PT #### [address] Potassium [Moles/Vol] 3.7 mmol/L Normal 3.5-5.1 [facility] Comment on above: Performed By: #### H S TROP, CBC, CK, BMP, BNP, PT #### [facility] [address] Sodium [Moles/Vol] 141 mmol/L Normal 136-145 [facility] Comment on above: Performed By: #### H S TROP, CBC, CK, BMP, BNP, PT #### [address] Urea nitrogen [Mass/Vol] 13 mg/dL Normal 7-25 [facility] Comment on above: Performed By: #### H S TROP, CBC, CK, BMP, BNP, PT #### [address] angio [place]ston 03-02-2024 CT angio chest [facility] [place] [address] [place] [address] CT Scan Report Signed Patient: Pam Méndez MR#: [id number] : 1970 Acct:[id number] Age/Sex: 54 / F ADM Date: 03/02/24 Loc: ER Room: Type: [facility] ER Attending Dr: Copies to: Elder Hare DO Ordering Provider: Elder Hare DO Date of Service: 03/02/24 CT/CT angio chest: ro dissection CTA chest CLINICAL DATA: Midsternal chest pain radiates to back starting this morning. TECHNIQUE: Intravenous contrast-enhanced CT angiography of the chest was performed. Axial, sagittal, coronal, and 3D-dimensional reconstructions were created and reviewed. These CT exams were performed using one or more of the following dose reduction techniques: Automated exposure control, adjustment of the mA and/or kV according to patient size, or use of iterative reconstruction technique. COMPARISON: None. FINDINGS: Chest: Mediastinum:Aorta is normal. No dissection or aneurysm. Pulmonary trunk appears nondilated. No pericardial effusion or lymphadenopathy. The esophagus is grossly unremarkable. Moderate-sized hiatal hernia. Lungs:No consolidation pneumothorax or pleural effusion. Mild lung scarring. Tree-in-bud nodularity right upper lobe. Abd: No acute findings. Hepatic steatosis Liver cyst.[ Soft tissues/Bones: No acute findings. Osseous structures demonstrate degenerative change. CT/CT angio chest IMPRESSION: No acute aortic pathology. Moderate size hiatal hernia. Tree-in-bud nodularity involving the right upper lobe likely a sequela of bronchiolitis. Attention on follow-up is suggested. Impression dictated by: Zain Cid Jr., D.ODrea03/02/2024 6:39 PM Dictation Location: [id number] Transcribed By: [facility] 03/02/241838 Dictated By: Zain Cid Jr, DO 03/02/241832 Signed By: 03/02/241838 Normal [facility] Complete Blood Count Auto Di ffon 03-02-2024 Basophils (Bld) [#/Vol] 0.1 10*3/uL Normal 0.0-0.2 The [facility] Comment on above: Result Comment: PERF ORMED BY: [place] [address] PATHOLOGIST CIRCULATION LIBRARIAN CHARY RHODES M.D. Performed By: #### H S TROP, CBC, CK, BMP, BNP, PT #### [address] Basophils/100 WBC (Bld) 1.1 % Normal . T alan [facility] Comment on above: Performed By: #### H S TROP, CBC, CK, BMP, BNP, PT #### [address] Eosinophils (Bld) [#/Vol] 0.3 10*3/uL Normal 0.0-0.45 [facility] Comment on above: Performed By: #### H S TROP, CBC, CK, BMP, BNP, PT #### [place] [address] [place] Eosinophils/100 WBC (Bld) 2.4 % Normal . [facility] Comment on above: Performed By: #### H S TROP, CBC, CK, BMP, BNP, PT #### [address] Erythrocyte distribution width (RBC) [Ratio] 13.5 % Normal 11.9-15.3 [facility] Comment on above: Performed By: #### H S TROP, CBC, CK, BMP, BNP, PT #### [address] Hematocrit (Bld) [Volume fraction] 40.7 % Normal 34.0-46.4 [facility] Comment on above: Performed By: #### H S TROP, CBC, CK, BMP, BNP, PT #### [address] Hemoglobin (Bld) [Mass/Vol] 13.9 g/dL Normal 11.8-15.4 [facility] Comment on above: Performed By: #### H S TROP, CBC, CK, BMP, BNP, PT #### [address] Lymphocytes (Bld) [#/Vol] 3.4 10*3/uL Normal 1.00-4.8 [facility] Comment on above: Performed By: #### H S TROP, CBC, CK, BMP, BNP, PT #### [address] Lymphocytes/100 WBC (Bld) 32.0 % Normal . [facility] Comment on above: Performed By: #### H S TROP, CBC, CK, BMP, BNP, PT #### [address] MCH (RBC) [Entitic mass] 28.9 pg Normal 24.7-34.3 [facility] Comment on above: Performed By: #### H S TROP, CBC, CK, BMP, BNP, PT #### [address] MCV (RBC) [Entitic vol] 84.4 fL Normal 80-100 T he [facility] Comment on above: Performed By: #### H S TROP, CBC, CK, BMP, BNP, PT #### [address] Mean Corpuscular HGB Conc 34.2 g/dL Normal 32.0-35.0 [facility] Comment on above: Performed By: #### H S TROP, CBC, CK, BMP, BNP, PT #### [address] Monocytes (Bld) [#/Vol] 0.7 10*3/uL Normal 0.0-0.8 [facility] Comment on above: Performed By: #### H S TROP, CBC, CK, BMP, BNP, PT #### [address] Monocytes/100 WBC (Bld) 20.37 % High 0.00-20.00 [facility] Comment on above: Result Comment: For adults in ED, MDW > 20.0 may be associated with a higher risk of sepsis during the first 12 hrs of hospital admission Performed By: #### H S TROP, CBC, CK, BMP, BNP, PT #### [address] Monocytes/100 WBC (Bld) 6.7 % Normal . T alan [facility] Comment on above: Performed By: #### H S TROP, CBC, CK, BMP, BNP, PT #### [address] Neutrophils (Bld) [#/Vol] 6.1 10*3/uL Normal 1.8-7.7 [facility] Comment on above: Performed By: #### H S TROP, CBC, CK, BMP, BNP, PT #### [place] [address] [place] Neutrophils/100 WBC (Bld) 57.8 % Normal . [facility] Comment on above: Performed By: #### H S TROP, CBC, CK, BMP, BNP, PT #### [place] [address] [place] NRBC% 0.1 /100{WBC} Normal 0-0.5 [facility] Comment on above: Performed By: #### H S TROP, CBC, CK, BMP, BNP, PT #### [address] Platelet mean volume (Bld) [Entitic vol] 8.5 fL Normal 6.3-10.[address] [facility] Comment on above: Performed By: #### H S TROP, CBC, CK, BMP, BNP, PT #### [address] Platelets (Bld) [#/Vol] 296 10*3/uL Normal 150-450 [facility] Comment on above: Performed By: #### H S TROP, CBC, CK, BMP, BNP, PT #### [address] RBC (Bld) [#/Vol] 4.82 10*6/uL Normal 3.60-5.00 [facility] Comment on above: Performed By: #### H S TROP, CBC, CK, BMP, BNP, PT #### [address] WBC (Bld) [#/Vol] 10.6 10*3/uL Normal 3.8-11.6 [facility] Comment on above: Performed By: #### H S TROP, CBC, CK, BMP, BNP, PT #### [address] Creatine Kinaseon 03-02-2024 CK [Catalytic activity/Vol] 100 U/L Normal 30-223 [facility] Comment on above: Performed By: #### H S TROP, CBC, CK, BMP, BNP, PT #### [place] [address] [place] Dipstick and Microscopicon 1 05-03-2023 Appearance (U) Clear Normal Clear [facility] Comment on above: Order Comment: Name Collection Type:: Clean-Voided Midstream Performed By: #### C UU, ADDONUAPLUS #### [address] Bacteria,Urine None Seen Normal None Seen [facility] Comment on above: Order Comment: Name Collection Type:: Clean-Voided Midstream Performed By: #### C UU, ADDONUAPLUS #### [address] Bilirubin,Urine Negative Normal Negative [facility] Comment on above: Order Comment: Name Collection Type:: Clean-Voided Midstream Performed By: #### C UU, ADDONUAPLUS #### [address] Color (U) Colorless Normal Yellow [facility] [facility] Comment on above: Order Comment: Name Collection Type:: Clean-Voided Midstream Performed By: #### C UU, ADDONUAPLUS #### [address] Glucose Ql (U) Normal Normal Normal [facility] Comment on above: Order Comment: Name Collection Type:: Clean-Voided Midstream Performed By: #### C UU, ADDONUAPLUS #### [address] Hyaline Casts,Urine None Normal 0-[address] [facility] Comment on above: Order Comment: Name Collection Type:: Clean-Voided Midstream Result Comment: PERF ORMED BY: [place] [address] PATHOLOGIST CIRCULATION LIBRARIAN CHARY RHODES M.D. Performed By: #### C UU, ADDONUAPLUS #### [address] Ketones Ql (U) Negative Normal Negative [facility] Comment on above: Order Comment: Name Collection Type:: Clean-Voided Midstream Performed By: #### C UU, ADDONUAPLUS #### [address] Leukocyte esterase Test strip Ql (U) 4+ High Negative [facility] Comment on above: Order Comment: Name Collection Type:: Clean-Voided Midstream Performed By: #### C UU, ADDONUAPLUS #### [place] [address] [place] Nitrite,Urine Negative Normal Negative [facility] Comment on above: Order Comment: Name Collection Type:: Clean-Voided Midstream Performed By: #### C UU, ADDONUAPLUS #### [address] Occult Blood,Urine Negative Normal Negative The Counts include 234 beds at the [facility] Comment on above: Order Comment: Name Collection Type:: Clean-Voided Midstream Result Comment: PERF ORMED BY: [place] [address] PATHOLOGIST CIRCULATION LIBRARIAN CHARY RHODES M.D. Performed By: #### C UU, ADDONUAPLUS #### [address] pH (U) 5.5 [pH] Normal 5.0-9.0 [facility] Comment on above: Order Comment: Name Collection Type:: Clean-Voided Midstream Performed By: #### C UU, ADDONUAPLUS #### [place] [address] [place] Protein,Urine Negative Normal Negative [facility] Comment on above: Order Comment: Name Collection Type:: Clean-Voided Midstream Performed By: #### C UU, ADDONUAPLUS #### [place] [address] [place] RBC,Urine 5 [HPF] High 0-4 [facility] Comment on above: Order Comment: Name Collection Type:: Clean-Voided Midstream Performed By: #### C UU, ADDONUAPLUS #### [place] [address] [place] Specificy [place],Urine 1.008 Normal 1.001-1.030 [facility] Comment on above: Order Comment: Name Collection Type:: Clean-Voided Midstream Performed By: #### C UU, ADDONUAPLUS #### [place] [address] [place] Squamous Epithelial Cell,Urine 3 [HPF] High 0-2 [facility] Comment on above: Order Comment: Name Collection Type:: Clean-Voided Midstream Performed By: #### C UU, ADDONUAPLUS #### [facility] [address] [place] [address] Urobilinogen,Urine Normal Normal Normal [facility] Comment on above: Order Comment: Name Collection Type:: Clean-Voided Midstream Performed By: #### C UU, ADDONUAPLUS #### [facility] [address] [place] [address] WBC,Urine 5 [HPF] High 0-4 [facility] Comment on above: Order Comment: Name Collection Type:: Clean-Voided Midstream Performed By: #### C UU, ADDONUAPLUS #### [facility] [address] [place] [address] ECG 12 lead ECGon 03-02-2024 ECG 12 lead ECG [facility] [place] [address] [place] [address] Electrocardiograph Report Signed Patient: Pam Méndez MR#: [id number] : 1970 Acct:[id number] Age/Sex: 54 / F ADM Date: 03/02/24 Loc: ER Room: Type: PRE ER Attending Dr: Ordering Provider: Elder Hare DO Date of Service: 03/02/2412/16/1537 ECG/ECG 12 lead ECG: Chest Pain Copies to: Test Reason : Blood Pressure : 152/91 mmHG Vent. Rate : 77 BPM Atrial Rate : 77 BPM P-R Int : 150 ms QRS Dur : 84 ms QT Int : 408 ms P-R-T Axes : 44 100 27 degrees QTcB Int : 461 ms Normal sinus rhythm Rightward axis Borderline ECG When compared with ECG of 29-Aug-2022 16:27, No significant change was found Confirmed by ELDER HARE DO ([id number]) on 03/02/2024 4:46:22 PM Referred By: Electronically Signed By: ELDER HARE DO Transcribed By: MUS Signed By Elder Hare DO [id number] Normal [facility] Prothrombin Time INRon 03-02 INR Coag (PPP) [Relative time] 1.0 {INR} Normal [facility] Comment on above: Result Comment: INR Therapeutic Range A) Pre- and Peroperative OAT started two weeks before surgery. NOT HIP SURGERY: 1.5 - 2.5 HIP SURGERY: 2 - 3 B) Primary and secondary prevention of venous THROMBOSIS: 2 - 3 C) Active venous thrombosis, pulmonary embolism and prevention of recurrent venous thrombosis: 2 - 3 D) Prevention of arterial thromboembolism including patients with mechanical heart valves: 3 - 4.5 PERFORMED BY: [place] [id number] PATHOLOGIST CIRCULATION LIBRARIAN CHARY RHODES M.D. Performed By: #### H S TROP, CBC, CK, BMP, BNP, PT #### [address] [address] [facility] PT Coag (PPP) [Time] 11.9 s Normal 9.0-12.9 [facility] Comment on above: Result Comment: A he matocrit value greater than 55% may lead to inaccurate results in coagulation testing. Patients having hematocrit values >55% require a special collection tube for coagulation studies. Please contact the laboratory at [phone] for redraw instructions. Performed By: #### H S TROP, CBC, CK, BMP, BNP, PT #### [place] [id number] [facility] Troponin I High Sensitivityo n 03-02-2024 Troponin I High Sensitivity 2.7 pg/mL Normal 0.0-15.0 [facility] Comment on above: Result Comment: PERF ORMED BY: [address] [address] PATHOLOGIST CIRCULATION LIBRARIAN CHARY RHODES M.D. Performed By: #### H S TROP, CBC, CK, BMP, BNP, PT #### [place] [id number] [facility] Troponin I High Sensitivity 3.0 pg/mL Normal 0.0-15.0 [facility] Comment on above: Result Comment: PERF ORMED BY: [address] [place] [address] PATHOLOGIST CIRCULATION LIBRARIAN CHARY RHODES M.D. Performed By: #### H S TROP, CBC, CK, BMP, BNP, PT #### [facility] [address] [place] [address] Urine Cultureon 03-02-2024 Bacteria identified Cx Nom (U) >100,000 colonies/ml mixed bacterial skin contaminants 2 Days PERFORMED BY: [place] [address] PATHOLOGIST CIRCULATION LIBRARIAN CHARY RHODES M.D. Normal [facility] Comment on above: Performed By: #### C UU, ADDONUAPLUS #### [place] [id number] [facility] COVID/FLU RT-PCRon 3 SARS-CoV-2 (COVID-19) RNA PRANAV+probe Ql (Unsp spec) Negative [employer] Other COVID/FLU RT-PCR Negative [employer] Other Basophils Auto (Bld) [#/Vol] Ordered By: Yves Rosales on 09-16-2022 Basophils (Bld) [#/Vol] 0.1 10*3/uL 0.0-0.2 [facility] Basophils/100 WBC Auto (Bld) Ordered By: Yves Rosales on 09-16-2022 Basophils/100 WBC (Bld) 0.8 % . [facility] C reactive protein [Mass/vol ume] in Serum or PlasmaOrdered By: Yves Rosales on 09-16-2022 CRP [Mass/Vol] 0.9 mg/dL 0.0-0.5 [facility] Calcium [Mass/volume] in Ser um or PlasmaOrdered By: Yves Rosales on 09-16-2022 Calcium [Mass/Vol] 9.1 mg/dL 8.6-10.3 [facility] Carbon dioxide, total [Moles /volume] in Serum or PlasmaOrdered By: Yves Rosales on 09-16-2022 CO2 [Moles/Vol] 26.4 mmol/L 21.0-31.0 [facility] [place] [facility] Chloride [Moles/volume] in S dorota or PlasmaOrdered By: Yves Rosales on 09-16-2022 Chloride [Moles/Vol] 105 mmol/L 98-107 [facility] Creatinine [Mass/volume] in Serum or PlasmaOrdered By: Yves Rosales on 09-16-2022 Creatinine [Mass/Vol] 1.01 mg/dL 0.60-1.20 [facility] Eosinophils Auto (Bld) [#/Vo l]Ordered By: Yves Rosales on 09-16-2022 Eosinophils (Bld) [#/Vol] 0.4 10*3/uL 0.0-0.45 [facility] Eosinophils/100 WBC Auto (Bl d)Ordered By: Yves Rosales on 09-16-2022 Eosinophils/100 WBC (Bld) 4.0 % . [facility] Erythrocyte distribution wid th Auto (RBC) [Ratio]Ordered By: Yves Rosales on 09-16-2022 Erythrocyte distribution width (RBC) [Ratio] 13.4 % 11.9-15.3 [facility] Erythrocyte sedimentation ra te by Photometric methodOrdered By: vYes Rosales on 09-16-2022 ESR Photometric method (Bld) [Velocity] 11 mm/hr 0-29 [facility] Glucose [Mass/volume] in Ser um or PlasmaOrdered By: Yves Rosales on 09-16-2022 Glucose [Mass/Vol] 127 mg/dL 70-100 [facility] Comment on above: ADA recommended refe rence rangeRandom Glucose Reference Range is dependent on time and content of last meal. Glucose of more than 200 mg/dL in a nonstressed, ambulatory subject supports the diagnosis of Diabetes Mellitus. Hematocrit Auto (Bld) [Volum e fraction]Ordered By: Yves Rosales on 09-16-2022 Hematocrit (Bld) [Volume fraction] 37.6 % 34.0-46.4 [facility] Hemoglobin [Mass/volume] in BloodOrdered By: Yves Rosales on 09-16-2022 Hemoglobin (Bld) [Mass/Vol] 12.9 g/dL 11.8-15.4 [facility] Leukocytes [#/volume] correc gracie for nucleated erythrocytes in Blood by Automated counOrdered By: Yves Rosales on 09-16-2022 WBC corrected for nucl RBC Auto (Bld) [#/Vol] 10.0 10*3/uL 3.8-11.6 [facility] Lymphocytes Auto (Bld) [#/Vo l]Ordered By: Yves Rosales on 09-16-2022 Lymphocytes (Bld) [#/Vol] 3.2 10*3/uL 1.00-4.8 [facility] Lymphocytes/100 WBC Auto (Bl d)Ordered By: Yves Rosales on 09-16-2022 Lymphocytes/100 WBC (Bld) 32.5 % . [facility] MCH Auto (RBC) [Entitic mass ]Ordered By: Yves Rosales on 09-16-2022 MCH (RBC) [Entitic mass] 29.7 pg 24.7-34.3 [facility] MCHC Auto (RBC) [Mass/Vol]Or dered By: Yves Rosales on 09-16-2022 MCHC (RBC) [Mass/Vol] 34.4 g/dL 32.0-35.0 [facility] MCV Auto (RBC) [Entitic vol] Ordered By: Yevs Rosales on 09-16-2022 MCV (RBC) [Entitic vol] 86.3 fL 80-100 [facility] Monocyte distribution width [Entitic volume] in Blood by AutomatedOrdered By: Yves Rosales on 09-16-2022 Monocyte distribution width Auto (Bld) [Entitic vol] 19.00 % 0.00-20.00 [facility] Monocytes Auto (Bld) [#/Vol] Ordered By: Yves Rosales on 09-16-2022 Monocytes (Bld) [#/Vol] 0.6 10*3/uL 0.0-0.8 [facility] Monocytes/100 WBC Auto (Bld) Ordered By: Yves Rosales on 09-16-2022 Monocytes/100 WBC (Bld) 6.4 % . [facility] Neutrophils Auto (Bld) [#/Vo l]Ordered By: Yves Rosales on 09-16-2022 Neutrophils (Bld) [#/Vol] 5.6 10*3/uL 1.8-7.7 [facility] Neutrophils/100 WBC Auto (Bl d)Ordered By: Yves Rosales on 09-16-2022 Neutrophils/100 WBC (Bld) 56.3 % . [facility] No Panel InformationOrdered By: Yves Rosales on 09-16-2022 Estimated GFR (CKD-EPI) > 60.0 mL/Min [facility] Creatinine Clearance (Chem 73.65 [facility] Nucleated erythrocytes [Pres ence] in Blood by Automated countOrdered By: Yves Rosales on 09-16-2022 Nucleated RBC Auto Ql (Bld) 0.1 /100{WBC} 0-0.5 [facility] Platelet mean volume Auto (B ld) [Entitic vol]Ordered By: Yves Rosales on 09-16-2022 Platelet mean volume (Bld) [Entitic vol] 7.9 fL 6.3-10.7 [facility] Platelets Auto (Bld) [#/Vol] Ordered By: Yves Rosales on 09-16-2022 Platelets (Bld) [#/Vol] 244 10*3/uL 150-450 [facility] Potassium [Moles/volume] in Serum or PlasmaOrdered By: Yves Rosales on 09-16-2022 Potassium [Moles/Vol] 3.7 mmol/L 3.5-5.1 [facility] RBC Auto (Bld) [#/Vol]Ordere d By: Yves Rosales on 09-16-2022 RBC (Bld) [#/Vol] 4.35 10*6/uL 3.60-5.00 [facility] Serum or plasma anion gap de terminationOrdered By: Yves Rosales on 09-16-2022 Anion gap [Moles/Vol] 12.3 mmol/L 6.0-15.0 [facility] Sodium [Moles/volume] in Ser um or PlasmaOrdered By: Yves Rosales on 09-16-2022 Sodium [Moles/Vol] 140 mmol/L 136-145 [facility] Urea nitrogen [Mass/volume] in Serum or PlasmaOrdered By: Yves Rosales on 09-16-2022 Urea nitrogen [Mass/Vol] 15 mg/dL 7-25 [facility] WBC Auto (Bld) [#/Vol]Ordere d By: Yves Rosales on 09-16-2022 WBC (Bld) [#/Vol] 10.0 10*3/uL 3.8-11.6 [facility] Alanine aminotransferase [En zymatic activity/volume] in Serum or PlasmaOrdered By: Seth Soliz on 08-29-2022 ALT [Catalytic activity/Vol] 32 U/L 7-52 [facility] Albumin [Mass/volume] in Ser um or Plasma by Bromocresol green (BCG) dye binding methoOrdered By: Seth Soliz on 08-29-2022 Albumin BCG dye [Mass/Vol] 4.7 g/dL 3.5-5.7 [facility] Alkaline phosphatase [Enzyma tic activity/volume] in Serum or PlasmaOrdered By: Seth Soliz on 08-29-2022 ALP [Catalytic activity/Vol] 49 U/L 34-104 [facility] Aspartate aminotransferase [ Enzymatic activity/volume] in Serum or PlasmaOrdered By: Seth Soliz on 08-29-2022 AST [Catalytic activity/Vol] 28 U/L 13-39 [facility] Basophils Auto (Bld) [#/Vol] Ordered By: Seth Soliz on 08-29-2022 Basophils (Bld) [#/Vol] 0.1 10*3/uL 0.0-0.2 [facility] Basophils/100 WBC Auto (Bld) Ordered By: Seth Soliz on 08-29-2022 Basophils/100 WBC (Bld) 0.6 % . [facility] Bilirubin.total [Mass/volume ] in Serum or PlasmaOrdered By: Seth Soliz on 08-29-2022 Bilirubin [Mass/Vol] 0.4 mg/dL 0.3-1.0 [facility] Calcium [Mass/volume] in Ser um or PlasmaOrdered By: eSth Soliz on 08-29-2022 Calcium [Mass/Vol] 10.0 mg/dL 8.6-10.3 [facility] Carbon dioxide, total [Moles /volume] in Serum or PlasmaOrdered By: Seth Soliz on 08-29-2022 CO2 [Moles/Vol] 23.9 mmol/L 21.0-31.0 [facility] [place] [facility] Chloride [Moles/volume] in S dorota or PlasmaOrdered By: Seth Soliz on 08-29-2022 Chloride [Moles/Vol] 107 mmol/L 98-107 [facility] Creatinine [Mass/volume] in Serum or PlasmaOrdered By: Seth Soliz on 08-29-2022 Creatinine [Mass/Vol] 0.99 mg/dL 0.60-1.20 [facility] Eosinophils Auto (Bld) [#/Vo l]Ordered By: Seth Soliz on 08-29-2022 Eosinophils (Bld) [#/Vol] 0.2 10*3/uL 0.0-0.45 [facility] Eosinophils/100 WBC Auto (Bl d)Ordered By: Seth Soliz on 08-29-2022 Eosinophils/100 WBC (Bld) 2.6 % . [facility] Erythrocyte distribution wid th Auto (RBC) [Ratio]Ordered By: Seth Soliz on 08-29-2022 Erythrocyte distribution width (RBC) [Ratio] 13.8 % 11.9-15.3 [facility] Globulin Calc (S) [Mass/Vol] Ordered By: Seth Soliz on 08-29-2022 Globulin (S) [Mass/Vol] 2.1 g/dL [facility] Glucose [Mass/volume] in Ser um or PlasmaOrdered By: Seth Soliz on 08-29-2022 Glucose [Mass/Vol] 100 mg/dL 70-100 [facility] Hematocrit Auto (Bld) [Volum e fraction]Ordered By: Seth Soliz on 08-29-2022 Hematocrit (Bld) [Volume fraction] 41.2 % 34.0-46.4 [facility] Hemoglobin [Mass/volume] in BloodOrdered By: Seth Soliz on 08-29-2022 Hemoglobin (Bld) [Mass/Vol] 14.0 g/dL 11.8-15.4 [facility] Leukocytes [#/volume] correc gracie for nucleated erythrocytes in Blood by Automated counOrdered By: Seth Soliz on 08-29-2022 WBC corrected for nucl RBC Auto (Bld) [#/Vol] 9.6 10*3/uL 3.8-11.6 [facility] Lymphocytes Auto (Bld) [#/Vo l]Ordered By: Seth Soliz on 08-29-2022 Lymphocytes (Bld) [#/Vol] 3.0 10*3/uL 1.00-4.8 [facility] Lymphocytes/100 WBC Auto (Bl d)Ordered By: Seht Soliz on 08-29-2022 Lymphocytes/100 WBC (Bld) 31.6 % . [facility] MCH Auto (RBC) [Entitic mass ]Ordered By: Seth Soliz on 08-29-2022 MCH (RBC) [Entitic mass] 29.3 pg 24.7-34.3 [facility] MCHC Auto (RBC) [Mass/Vol]Or dered By: Seth Soliz on 08-29-2022 MCHC (RBC) [Mass/Vol] 34.0 g/dL 32.0-35.0 [facility] MCV Auto (RBC) [Entitic vol] Ordered By: Seth Soliz on 08-29-2022 MCV (RBC) [Entitic vol] 86.0 fL 80-100 [facility] Monocytes Auto (Bld) [#/Vol] Ordered By: Seth Soliz on 08-29-2022 Monocytes (Bld) [#/Vol] 0.7 10*3/uL 0.0-0.8 [facility] Monocytes/100 WBC Auto (Bld) Ordered By: Seth Soliz on 08-29-2022 Monocytes/100 WBC (Bld) 7.1 % . [facility] Neutrophils Auto (Bld) [#/Vo l]Ordered By: Seth Soliz on 08-29-2022 Neutrophils (Bld) [#/Vol] 5.6 10*3/uL 1.8-7.7 [facility] Neutrophils/100 WBC Auto (Bl d)Ordered By: Seth Soliz on 08-29-2022 Neutrophils/100 WBC (Bld) 58.1 % . [facility] No Panel InformationOrdered By: Seth Soliz on 08-29-2022 Estimated GFR (CKD-EPI) > 60.0 mL/Min [facility] Creatinine Clearance (Chem N/A [facility] Nucleated erythrocytes [Pres ence] in Blood by Automated countOrdered By: Seth Soliz on 08-29-2022 Nucleated RBC Auto Ql (Bld) 0.1 /100{WBC} 0-0.5 [facility] Platelet mean volume Auto (B ld) [Entitic vol]Ordered By: Seth Soliz on 08-29-2022 Platelet mean volume (Bld) [Entitic vol] 8.9 fL 6.3-10.7 [facility] Platelets Auto (Bld) [#/Vol] Ordered By: Seth Soliz on 08-29-2022 Platelets (Bld) [#/Vol] 268 10*3/uL 150-450 [facility] Potassium [Moles/volume] in Serum or PlasmaOrdered By: Seth Soliz on 08-29-2022 Potassium [Moles/Vol] 3.9 mmol/L 3.5-5.1 [facility] Protein [Mass/volume] in Ser um or PlasmaOrdered By: Seth Soliz on 08-29-2022 Protein [Mass/Vol] 6.8 g/dL 6.4-8.9 [facility] RBC Auto (Bld) [#/Vol]Ordere d By: Seth Soliz on 08-29-2022 RBC (Bld) [#/Vol] 4.78 10*6/uL 3.60-5.00 [facility] Serum or plasma albumin/glob ulin mass ratioOrdered By: Seth Soliz on 08-29-2022 Albumin/Globulin [Mass ratio] 2.2 {ratio} [facility] Serum or plasma anion gap de terminationOrdered By: Seth Soliz on 08-29-2022 Anion gap [Moles/Vol] 14.0 mmol/L 6.0-15.0 [facility] Sodium [Moles/volume] in Ser um or PlasmaOrdered By: Seth Soliz on 08-29-2022 Sodium [Moles/Vol] 141 mmol/L 136-145 [facility] Urea nitrogen [Mass/volume] in Serum or PlasmaOrdered By: Seth Soliz on 08-29-2022 Urea nitrogen [Mass/Vol] 8 mg/dL 7-25 [facility] WBC Auto (Bld) [#/Vol]Ordere d By: Seth Soliz on 08-29-2022 WBC (Bld) [#/Vol] 9.6 10*3/uL 3.8-11.6 [facility] MG MAMM SCREEN 3D SAIRA CADon 06-07-2022 MG MAMM SCREEN 3D SAIRA CAD Patient: PAM MÉNDEZ Exam Date: 06/07/2022 : 1970 Gender:F Ordering : DR SAMPSON DA SILVA . Admission #: [id number] Family : Order #: [id number] CLICK HERE TO VIEW EXAM RADIOLOGY REPORT [...] Treatments None Family Cancers None LOCATION: [facility] BREAST COMPOSITION: Scattered areas fibroglandular density. [...] Muro M.D. on 06/07/2022 at 14:08 Normal [facility] [place] [facility] CBC AUTO DIFFon 05-29-2022 BASO # 0.0 103/ul Normal 0.0-0.1 [facility] [place] [facility] Comment on above: Performed By: #### C BC ####[facility] [address] [place] [address]Dr. Micah Ackerman Basophils/100 WBC (Bld) 0.4 % Normal 0.2-2.0 [facility] Comment on above: Performed By: #### C BC ####[facility] [address] [place] [address]Dr. Micah Ackerman EO # 0.3 103/ul Normal 0.0-0.7 [facility] Comment on above: Performed By: #### C BC ####[facility] [address] [place] [address]Dr. Micah Ackerman Eosinophils/100 WBC (Bld) 3.5 % Normal 0.9-7.0 [facility] Comment on above: Performed By: #### C BC ####[facility] [address] [place], [place] [address]Dr. Micah Ackerman Erythrocyte distribution width (RBC) [Ratio] 12.9 % Normal 11.0-15.0 [facility] Comment on above: Performed By: #### C BC ####[facility] [address] [place], [place] [address]Dr. Micah Ackerman Hematocrit (Bld) [Volume fraction] 39.6 % Normal 36.0-48.0 [facility] Comment on above: Performed By: #### C BC ####[facility] [address] [place], [place] [address]Dr. Micah Ackerman Hemoglobin (Bld) [Mass/Vol] 13.5 g/dL Normal 12.0-16.0 [facility] Comment on above: Performed By: #### C BC ####[facility] [address] [place], [place] [address]Dr. Micah Ackerman IG # 0.02 10e3/ul Normal 0.00-0.03 [facility] Comment on above: Performed By: #### C BC ####[facility] [address] [place], [place] [address]Dr. Micah Ackerman IG % 0.2 % Normal 0.0-0.5 [facility] Comment on above: Performed By: #### C BC ####[facility] [address] [place], [place] [address]Dr. Micah Ackerman LYMPH # 2.7 103/ul Normal 1.2-3.8 [facility] Comment on above: Performed By: #### C BC ####[facility] [address] [place], [place] [address]Dr. Micah Ackerman Lymphocytes/100 WBC (Bld) 31.9 % Normal 20.5-60.0 [facility] [place] [facility] Comment on above: Performed By: #### C BC ####[facility] [address] [place] [address]Dr. Micah Ackerman MANUAL DIFF REQ NO Normal [facility] Comment on above: Performed By: #### C BC ####[facility] [address] [place] [address]Dr. Micah Ackerman MCH (RBC) [Entitic mass] 28.7 pg Normal 26.7-34.0 [facility] [place] [facility] Comment on above: Performed By: #### C BC ####[facility] [address] [place], [place] [address]Dr. Micah Ackerman MCHC (RBC) [Mass/Vol] 34.1 g/dL Normal 29.9-35.2 [facility] [place] [facility] Comment on above: Performed By: #### C BC ####[facility] [address] [place], [place] [address]Dr. Micah Ackerman MCV (RBC) [Entitic vol] 84.3 fL Normal 81.0-99.0 [facility] Comment on above: Performed By: #### C BC ####[facility] [address] [place], [place] [address]Dr. Micah Ackerman MONO # 0.5 103/ul Normal 0.3-0.8 [facility] [place] [facility] Comment on above: Performed By: #### C BC ####[facility] [address] [place], [place] [address]Dr. Micah Ackerman Monocytes/100 WBC (Bld) 6.0 % Normal 1.7-12.0 [facility] Comment on above: Performed By: #### C BC ####[facility] [address] [place], [place] [address]DrDrea Ackerman NEUT # 4.9 103/ul Normal 1.4-6.5 [facility] Comment on above: Performed By: #### C BC ####[facility] [address] [place], [place] [address]Dr. Micah Ackerman Neutrophils/100 WBC (Bld) 58.0 % Normal 43.0-75.0 [facility] [place] [facility] Comment on above: Performed By: #### C BC ####[facility] [address] [place] [address]Dr. Micah Ackerman Platelet mean volume (Bld) [Entitic vol] 9.6 fL Normal 9.5-13.5 [facility] Comment on above: Performed By: #### C BC ####[facility] [address] [place] [address]Dr. Micah Ackerman PLT 273 103/ul Normal 150-450 [facility] Comment on above: Performed By: #### C BC ####[facility] [address] [place], [place] [address]Dr. Micah Ackerman RBC 4.70 106/ul Normal 4.20-5.40 [facility] Comment on above: Performed By: #### C BC ####[facility] [address] [place], [place] [address]Dr. Micah Ackerman WBC 8.5 103/ul Normal 4.0-11.0 [facility] Comment on above: Performed By: #### C BC ####[facility] [address] [place], [place] [address]Dr. Micah Ackerman GLYCOHEMOGLOBIN A1Con 2022 ADA RECOMMENDATION SEE BELOW Normal [facility] Comment on above: Result Comment: ADA RECOMMENDED LIMIT 4.0 - 6.0 ADA THERAPEUTIC TARGET < 7.0 ACTION SUGGESTED > 7.0 Performed By: #### A 1C ####[facility] [address] [place], [place] [address]Dr. Micah Ackerman Glucose [Mass/Vol] 128 mg/dL Normal [facility] [place] [facility] Comment on above: Performed By: #### A 1C ####[facility] [address] [place], [place] [address]Dr. Micah Ackerman HbA1c (Bld) [Mass fraction] 6.1 % Normal 4.5-6.2 [facility] [place] [facility] Comment on above: Performed By: #### A 1C ####[facility] [address] [place], [place] [address]DcDr. Micah Ackerman LIPID PROFILEon 05-29-2022 CHOL-HDL RATIO NORM SEE BELOW Normal [facility] Comment on above: Result Comment: 3.3 - 4.4 LOW RISK 4.4 - 7.1 AVERAGE RISK 7.1 - 11.0 MODERATE RISK >11.0 HIGH RISK Performed By: #### L IVER, TSH, BMP, LIPID #### [facility] [address] [address] [address] Micah Ackerman Cholesterol [Mass/Vol] 204 mg/dL Critically high <=200 [facility] [place] [facility] Comment on above: Performed By: #### L IVER, TSH, BMP, LIPID #### [facility] [address] [address] [address] Micah Ackerman Cholesterol in HDL [Mass/Vol] 54 mg/dL Normal 40-60 [facility] [place] [facility] Comment on above: Performed By: #### L IVER, TSH, BMP, LIPID #### [facility] [address] [address] [address] Micah Ackerman Cholesterol in LDL [Mass/Vol] 132.2 mg/dL Normal [facility] [place] [facility] Comment on above: Performed By: #### L IVER, TSH, BMP, LIPID #### [facility] [address] [address] [address] Micah Ackerman Cholesterol.total/Kanchan sterol in HDL [Mass ratio] 3.8 {ratio} Normal [facility] [place] [facility] Comment on above: Performed By: #### L IVER, TSH, BMP, LIPID #### [facility] [address] [address] [address] Micah Ackerman HDL NORMAL > or = 60 mg/dl - LOW CARDIOVASCULAR RISK <40 mg/dl - HIGH CARDIOVASCULAR RISK Normal [facility] [place] [facility] Comment on above: Performed By: #### L IVER, TSH, BMP, LIPID #### [facility] [address] [address] [address] Micah Ackerman LDL CALC NORMAL SEE BELOW Normal [facility] Comment on above: Result Comment: <100 mg/dl OPTIMAL 100 - 129 mg/dl NEAR OR ABOVE OPTIMAL 130 - 159 mg/dl BORDERLINE HIGH 160 - 189 mg/dl HIGH >190 mg/dl VERY HIGH Performed By: #### L IVER, TSH, BMP, LIPID #### [facility] [address] [address] [address] Micah Ackerman Triglyceride [Mass/Vol] 89 mg/dL Normal <=150 [facility] Comment on above: Performed By: #### L IVER, TSH, BMP, LIPID #### [facility] [address] [address] [address] Micah Ackerman VLDL CALC 17.8 mg/dL Normal [facility] [place] [facility] Comment on above: Performed By: #### L IVER, TSH, BMP, LIPID #### [facility] [address] [address] [address] Micah Ackerman LIVER PROFILEon 05-29-2022 Albumin [Mass/Vol] 4.0 g/dL Normal 3.4-5.0 [facility] Comment on above: Performed By: #### L IVER, TSH, BMP, LIPID #### [facility] [address] [place] [address] Dr. Micah Ackerman Albumin/Globulin [Mass ratio] 1.3 {ratio} Normal [facility] [place] [facility] Comment on above: Performed By: #### L IVER, TSH, BMP, LIPID #### [facility] [address] [place] [address] Dr. Micah Ackerman ALP [Catalytic activity/Vol] 57 U/L Normal 46-116 [facility] [place] [facility] Comment on above: Performed By: #### L IVER, TSH, BMP, LIPID #### [facility] [address] [place] [address] Dr. Micah Ackerman ALT [Catalytic activity/Vol] 51 U/L Normal 14-59 [facility] [place] [facility] Comment on above: Performed By: #### L IVER, TSH, BMP, LIPID #### [facility] [address] [place] [address] Dr. Micah Ackerman AST [Catalytic activity/Vol] 46 U/L Critically high 15-37 [facility] [place] [facility] Comment on above: Performed By: #### L IVER, TSH, BMP, LIPID #### [facility] [address] [place] [address] Dr. Micah Ackerman BILI, CONJUGATED 0.1 mg/dL Normal 0.0-0.2 [facility] Comment on above: Performed By: #### L IVER, TSH, BMP, LIPID #### [facility] [address] [place] [address] Dr. Micah Ackerman Bilirubin [Mass/Vol] 0.6 mg/dL Normal 0.2-1.0 [facility] [place] [facility] Comment on above: Performed By: #### L IVER, TSH, BMP, LIPID #### [facility] [address] [place] [address] Dr. Micah Ackerman Globulin (S) [Mass/Vol] 3.0 g/dL Normal T [facility] Comment on above: Performed By: #### L IVER, TSH, BMP, LIPID #### [facility] [address] [place] [address] Dr. Micah Ackerman Protein [Mass/Vol] 7.0 g/dL Normal 6.4-8.2 [facility] Comment on above: Performed By: #### L IVER, TSH, BMP, LIPID #### [facility] [address] [place] [address] Dr. Micah Ackerman PROF CHEM 8 (BAS METB)on Anion gap [Moles/Vol] 14.3 mmol/L Normal [facility] Comment on above: Performed By: #### L IVER, TSH, BMP, LIPID #### [facility] [address] [place] [address] Dr. Micah Ackerman Calcium [Mass/Vol] 8.8 mg/dL Normal 8.5-10.1 [facility] Comment on above: Performed By: #### L IVER, TSH, BMP, LIPID #### [facility] [address] [place] [address] Dr. Micah Ackerman Chloride [Moles/Vol] 108 mmol/L Critically high 98-107 [facility] [place] [facility] Comment on above: Performed By: #### L IVER, TSH, BMP, LIPID #### [facility] [address] [address] [address] Micah Ackerman CO2 [Moles/Vol] 23.5 mmol/L Normal 21.0-32.0 [facility] Comment on above: Performed By: #### L IVER, TSH, BMP, LIPID #### [facility] [address] [address] [address] Micah Ackerman Creatinine [Mass/Vol] 1.12 mg/dL Critically high 0.55-1.02 [facility] [place] [facility] Comment on above: Performed By: #### L IVER, TSH, BMP, LIPID #### [facility] [address] [address] [address] Micah Ackerman EGFR-AF BRITISH >60 Normal >=60 [facility] Comment on above: Performed By: #### L IVER, TSH, BMP, LIPID #### [facility] [address] [place] [address] Dr. Micah Ackerman EGFR-NON AF BRITISH 51 mL/min/1.73m2 Critically low >=60 [facility] [place] [facility] Comment on above: Performed By: #### L IVER, TSH, BMP, LIPID #### [facility] [address] [address] [address] Micah Ackerman Glucose [Mass/Vol] 126 mg/dL Critically high 74-106 [facility] Comment on above: Performed By: #### L IVER, TSH, BMP, LIPID #### [facility] [address] [address] [address] Micah Ackerman Potassium [Moles/Vol] 3.8 mmol/L Normal 3.5-5.1 [facility] [place] [facility] Comment on above: Performed By: #### L IVER, TSH, BMP, LIPID #### [facility] [address] [address] [address] Micah Ackerman Sodium [Moles/Vol] 142 mmol/L Normal 136-145 [facility] Comment on above: Performed By: #### L IVER, TSH, BMP, LIPID #### [facility] [address] [address] [address] Micah Ackerman Urea nitrogen [Mass/Vol] 11.0 mg/dL Normal 7.0-18.0 [facility] [place] [facility] Comment on above: Performed By: #### L IVER, TSH, BMP, LIPID #### [facility] [address] [address] [address] Micah Ackerman Urea nitrogen/Creatinine [Mass ratio] 9.8 mg/mg Normal [facility] [place] [facility] Comment on above: Performed By: #### L IVER, TSH, BMP, LIPID #### [facility] [address] [address] [address] Micah Ackerman TSHon 05-29-2022 TSH 1.092 uIU/mL Normal 0.358-3.740 [facility] Comment on above: Performed By: #### L IVER, TSH, BMP, LIPID #### [facility] [address] [address] [address] Micah Ackerman PAP ACOG PANEL 2: 30 to 65on 05-23-2022 . . Normal [facility] [place] [facility] Comment on above: Result Comment: Perf ormed at: WB Performed By: #### 4 [id number] ####[facility] [address] [address]Dr. Micah Ackerman Age Gdln ACOG Testing 30-65 [facility] Comment on above: Performed By: #### 4 [id number] ####[facility] [address] [address]Dr. Micah Ackerman DIAGNOSIS: Comment Normal [facility] [place] [facility] Comment on above: Result Comment: NEGA TIVE FOR INTRAEPITHELIAL LESION OR MALIGNANCY. SHIFT IN NURIA SUGGESTIVE OF BACTERIAL VAGINOSIS. Performed at: WB Performed By: #### 4 [id number] ####[facility] [address] [address]Dr. Micah Ackerman HPV Aptima Positive Abnormal Negative [facility] [place] [facility] Comment on above: Result Comment: This nucleic acid amplification test detects fourteen high-risk HPV types (16,18,31,33,35,39,45,51,52,56,58,59,66,68) without differentiation. Performed at: =G Performed By: #### 4 [id number] ####[facility] [address] [address]Dr. Micah Ackerman HPV Genotype 16 Negative Normal Negative [facility] Comment on above: Performed By: #### 4 [id number] ####[facility] [address] [address]Dr. Micah Ackerman HPV Genotype 18,45 Negative Normal Negative [facility] [place] [facility] Comment on above: Performed By: #### 4 [id number] ####[facility] [address] [address]Dr. Micah Ackerman HPV Genotype Reflex Comment Normal [facility] Comment on above: Result Comment: Dyllan higuera, see HPV Genotype results. Performed at: WB Performed By: #### 4 [id number] ####[facility] [address] [place], [place] [address]Dr. Micah Ackerman Methodology: Comment Normal [facility] [place] [facility] Comment on above: Result Comment: This liquid based ThinPrep(R) pap test was screened with the use of an image guided system. Performed at: WB Performed By: #### 4 [id number] ####[facility] [address] [place], [place] [address]Dr. Micah Ackerman Note: Comment Normal [facility] [place] [facility] Comment on above: Result Comment: The Pap smear is a screening test designed to aid in the detection of premalignant and malignant conditions of the uterine cervix. It is not a diagnostic procedure and should not be used as the sole means of detecting cervical cancer. Both false-positive and false-negative reports do occur. . Performed at: WB Performed By: #### 4 [id number] ####[facility] [address] [address]Dr. Micah Ackerman Performed by: Comment Normal [facility] Comment on above: Result Comment: Justyn Rick, Necktie Stitcher (ASCP) Performed at: WB Performed By: #### 4 [id number] ####[facility] [address] [address]Dr. Micah Ackerman Specimen adequacy: Comment Normal [facility] Comment on above: Result Comment: Sati sfactory for evaluation. Endocervical and/or squamous metaplastic cells (endocervical component) are present. Performed at: WB Performed By: #### 4 [id number] ####[facility] [address] [place], [place] [address]IxDrea Ackerman Urinalysis - AUTOMATEDon Appearance (U) Cloudy [employer] Other Bilirubin Ql (U) Negative [employer] Other Color (U) Yellow [employer] Other Glucose Ql (U) Negative [employer] Other Hemoglobin Ql (U) Large sliceX Other Ketones Ql (U) Negative [employer] Other Leukocyte esterase Test strip Ql (U) Large [employer] Other Nitrite Ql (U) Negative [employer] Other pH (U) 6.0 [pH] [employer] Other Protein Ql (U) 100 [employer] Other Specific gravity (U) [Rel density] 1.025 [employer] Other Urobilinogen (U) [Mass/Vol] 0.2 mg/dL [employer] Other Urinalysis - AUTOMATED No rt Pops Other Urine Cultureon 05-01-2022 Urine Culture >100,000 [employer] Other Urine Culture <16 Susceptible [employer] Other Urine Culture <8/4 Susceptible [employer] Other Urine Culture >16 Resistant [employer] Other Urine Culture <4 Susceptible [employer] Other Urine Culture <2 Susceptible [employer] Other Urine Culture <1 Susceptible [employer] Other Urine Culture <0.25 Susceptible [employer] Other Urine Culture <0.5 Susceptible [employer] Other Urine Culture >8 Resistant [employer] Other Urine Culture <32 Susceptible [employer] Other Urine Culture >2/38 Resistant [employer] Other Urine culture routineOrdered By: Estrella Samaniego on 05-01-2022 Bacteria identified Cx Nom (U) Escherichia coli [facility] Consenton 09-14-2021 Consent [id number]:127 Normal [facility] Quantiferon-TB Plus (Client Incubated)on 09-14-2021 Gamma interferon background IA Qn (Bld) 0.00 International_Unit/ mL Invalid Interpretation Code [facility] Comment on above: Performed By: #### 1 [id number], [id number], [id number], [id number] #### [facility] [address] [place] [address] M. tuberculosis stim IFN-g by CD4+ CD8+ T-cells corrected for background Qn (Bld) 0.00 International_Unit/ mL Invalid Interpretation Code [facility] Comment on above: Performed By: #### 1 [id number], 4198885, [id number], [id number] #### [facility] [address] [place] [address] M. tuberculosis stim IFN-g by CD4+ T-cells corrected for background Qn (Bld) 0.00 International_Unit/ mL Invalid Interpretation Code [facility] Comment on above: Performed By: #### 1 [id number], [id number], [id number], [id number] #### [facility] [address] [place] [address] M. tuberculosis stim IFN-g Ql (Bld) [Interp] Negative Invalid Interpretation Code Negative [facility] Comment on above: Result Comment: The specimen received for QuantiFERON testing was incubated by the ordering institution. Specific procedures outlined in our Directory of Services and in the package insert for the QuantiFERON Gold (In Tube) test must be followed to enable for proper stimulation of cells for the production of interferon gamma. Chemiluminescence immunoassay methodology Performed at: [facility] [address] [id number] PhD Geetha Payne Performed By: #### 1 [id number], [id number], [id number], [id number] #### [facility] [address] [place] [address] Mitogen stimulated gamma interferon Qn (Bld) >10.00 Invalid Interpretation Code [facility] Comment on above: Performed By: #### 1 1133354, 1206493, [id number], [id number] #### [facility] [address] [place] [address] Service comment (Unsp spec) [Interp] Comment Invalid Interpretation Code [facility] Comment on above: Result Comment: The QuantiFERON-TB Gold Plus result is determined by subtracting the Nil value from either TB antigen (Ag) tube. The mitogen tube serves as a control for the test. Performed By: #### 1 [id number], 6127845, [id number], [id number] #### [facility] [address] [place] [address] Registrationon 09-14-2021 Registration [id number]:127 Normal [facility] Hep Bs Abon 09-13-2021 HBV surface Ab Ql (S) Non-Reactive Invalid Interpretation Code [facility] Comment on above: Result Comment: Non Reactive: Inconsistent with immunity, less than 10 mIU/mL Reactive: Consistent with immunity, greater than 9.9 mIU/mL Performed at: [email or web address] [address] [place] [address] [id number] PhD Geetha Payne Performed By: #### 1 [id number], 4726600, [id number], [id number] #### [facility] [address] [place] [address] Measles/Mumps/Rubella Immuni tyon 09-13-2021 MeV IgG IA Qn (S) 79.0 A unit/mL Invalid Interpretation Code Immune >16.4 [facility] Comment on above: Result Comment: Nega tive <13.5 Equivocal 13.5 - 16.4 Positive >16.4 Presence of antibodies to Rubeola is presumptive evidence of immunity except when acute infection is suspected. Performed By: #### 1 [id number], 4294013, [id number], [id number] #### [facility] [address] [place] [address] MuV IgG IA Qn (S) 65.9 A unit/mL Invalid Interpretation Code Immune >10.9 [facility] Comment on above: Result Comment: Nega tive <9.0 Equivocal 9.0 - 10.9 Positive >10.9 A positive result generally indicates past exposure to Mumps virus or previous vaccination. Performed at: [address] [id number] PhD Geetha Payne Performed By: #### 1 5052046, 4709417, [id number], [id number] #### [facility] [address] [place] [address] Rubella virus IgG Qn (S) 1.48 [IU]/mL Invalid Interpretation Code Immune >0.99 [facility] Comment on above: Result Comment: Non- immune <0.90 Equivocal 0.90 - 0.99 Immune >0.99 Performed By: #### 1 2978102, 7714861, [id number], [id number] #### [facility] [address] [place] [address] Varic IgGon 09-13-2021 VZV IgG IA Qn (S) 581 Invalid Interpretation Code Immune >165 [facility] Comment on above: Result Comment: Nega tive <135 Equivocal 135 - 165 Positive >165 A positive result generally indicates exposure to the pathogen or administration of specific immunoglobulins, but it is not indication of active infection or stage of disease. Performed at: [address] [id number] PhD Geetha Payne Performed By: #### 1 7208878, 9914947, [id number], [id number] #### [facility] [address] [place] [address] Physician Orderon 09-12-2021 Physician Order [id number]#[id number]:127 Normal [facility] Physician Order [id number]:127 Normal [facility] Covid-19 PCR (CVDTB)on SARS-CoV-2 (COVID-19) RNA PRANAV+probe Ql (Unsp spec) Not detected Normal NOT DETECTED [facility] Comment on above: Result Comment: When [...] for this test is supported by the [place] of Health and Human Service's declaration that [...] used). Performed By: #### C VDTBH #### [facility] [address] [place], [place] [address] Dr. Micah Ackerman COVID Quick Testingon 2021 Result Negative [employer] Other CBC AUTO DIFFon 07-18-2021 BASO # 0.0 103/ul Normal 0.0-0.1 [facility] [place] [facility] Comment on above: Performed By: #### C BC ####[facility] [address] [place], [place] [address]Dr. Geraldineenriqueta Tyron Basophils/100 WBC (Bld) 0.5 % Normal 0.2-2.0 [facility] Comment on above: Performed By: #### C BC ####[facility] [address] [place], [place] [address]Dr. Micah Ackerman EO # 0.2 103/ul Normal 0.0-0.7 [facility] [place] [facility] Comment on above: Performed By: #### C BC ####[facility] [address] [place], [place] [address]Dr. Micah Ackerman Eosinophils/100 WBC (Bld) 2.1 % Normal 0.9-7.0 [facility] Comment on above: Performed By: #### C BC ####[facility] [address] [place], [place] [address]Dr. Micah Ackerman Erythrocyte distribution width (RBC) [Ratio] 12.9 % Normal 11.0-15.0 [facility] [place] [facility] Comment on above: Performed By: #### C BC ####[facility] [address] [place], [place] [address]Dr. Micah Ackerman Hematocrit (Bld) [Volume fraction] 40.9 % Normal 36.0-48.0 [facility] [place] [facility] Comment on above: Performed By: #### C BC ####[facility] [address] [place], [place] [address]Dr. Micah Ackemran Hemoglobin (Bld) [Mass/Vol] 13.5 g/dL Normal 12.0-16.0 [facility] Comment on above: Performed By: #### C BC ####[facility] [address] [place], [place] [address]Dr. Micah Ackerman IG # 0.03 10e3/ul Normal 0.00-0.03 [facility] Comment on above: Performed By: #### C BC ####[facility] [address] [address]Dr. Geraldineenriqueta Ackerman IG % 0.4 % Normal 0.0-0.5 [facility] [place] [facility] Comment on above: Performed By: #### C BC ####[facility] [address] [address]Dr. Micah Tyron LYMPH # 1.6 103/ul Normal 1.2-3.8 [facility] [place] [facility] Comment on above: Performed By: #### C BC ####[facility] [address] [address]Dr. Micah Tyron Lymphocytes/100 WBC (Bld) 19.5 % Critically low 20.5-60.0 [facility] [place] [facility] Comment on above: Performed By: #### C BC ####[facility] [address] [address]Dr. Geraldineenriqueta Ackerman MANUAL DIFF REQ NO Normal [facility] Comment on above: Performed By: #### C BC ####[facility] [address] [address]Dr. Micah Tyron MCH (RBC) [Entitic mass] 29.5 pg Normal 26.7-34.0 [facility] [place] [facility] Comment on above: Performed By: #### C BC ####[facility] [address] [place], [place] [address]Dr. Micah Ackerman MCHC (RBC) [Mass/Vol] 33.0 g/dL Normal 29.9-35.2 [facility] [place] [facility] Comment on above: Performed By: #### C BC ####[facility] [address] [address]Dr. Micah Tyron MCV (RBC) [Entitic vol] 89.5 fL Normal 81.0-99.0 [facility] Comment on above: Performed By: #### C BC ####[facility] [address] [place], [place] [address]Dr. Micah Ackerman MONO # 0.6 103/ul Normal 0.3-0.8 [facility] [place] [facility] Comment on above: Performed By: #### C BC ####[facility] [address] [place], [place] [address]Dr. Micah Ackerman Monocytes/100 WBC (Bld) 8.0 % Normal 1.7-12.0 [facility] Comment on above: Performed By: #### C BC ####[facility] [address] [address]Dr. Micah Ackerman NEUT # 5.6 103/ul Normal 1.4-6.5 [facility] [place] [facility] Comment on above: Performed By: #### C BC ####[facility] [address] [address]Dr. Micah Ackerman Neutrophils/100 WBC (Bld) 69.5 % Normal 43.0-75.0 [facility] Comment on above: Performed By: #### C BC ####[facility] [address] [address]Dr. Micah Ackerman Platelet mean volume (Bld) [Entitic vol] 9.4 fL Critically low 9.5-13.5 [facility] [place] [facility] Comment on above: Performed By: #### C BC ####[facility] [address] [address]Dr. Micah Ackerman PLT 249 103/ul Normal 150-450 [facility] Comment on above: Performed By: #### C BC ####[facility] [address] [address]Dr. Micah Ackerman RBC 4.57 106/ul Normal 4.20-5.40 [facility] Comment on above: Performed By: #### C BC ####[facility] [address] [address]Dr. Micah Ackerman WBC 8.0 103/ul Normal 4.0-11.0 [facility] Comment on above: Performed By: #### C BC ####[facility] [address] [address]. Micah Ackerman CT HEAD WO CONon 07-18-2021 [...] Constanza RUIZ Date: 2021-07-18 01:20 Normal [facility] CTA CHEST WO W CONon 022 CTA CHEST WO W CON EXAMINATION: [...] Constanza RUIZ Date: 2021-07-18 02:32 Normal [facility] D-DIMERon 07-18-2021 D-DIMER 0.45 mg/L FEU Normal 0.19-0.50 [facility] Comment on above: Performed By: #### D DIM ####[facility] [address] [place], [place] [address]Dr. Micah Ackerman D-DIMER COMMENTS SEE BELOW Normal [facility] Comment on above: Result Comment: Incr [...] generalized hospitalization. Performed By: #### D DIM ####[facility] [address] [address]Dr. Micah Ackerman PROF 14(COMP METB)on 022 Albumin [Mass/Vol] 3.8 g/dL Normal 3.4-5.0 [facility] Comment on above: Performed By: #### C MP #### [facility] [address] [address] [address] Micah Ackerman Albumin/Globulin [Mass ratio] 1.1 {ratio} Normal [facility] [place] [facility] Comment on above: Performed By: #### C MP #### [facility] [address] [address] [address] Micah Ackerman ALP [Catalytic activity/Vol] 44 U/L Critically low 46-116 [facility] [place] [facility] Comment on above: Performed By: #### C MP #### [facility] [address] [address] [address] Micah Ackerman ALT [Catalytic activity/Vol] 44 U/L Normal 14-59 [facility] Comment on above: Performed By: #### C MP #### [facility] [address] [address] [address] Micah Ackerman Anion gap [Moles/Vol] 13.7 mmol/L Normal Th [facility] Comment on above: Performed By: #### C MP #### [facility] [address] [address] [address] Micah Ackerman AST [Catalytic activity/Vol] 32 U/L Normal 15-37 [facility] Comment on above: Performed By: #### C MP #### [facility] [address] [address] [address] Micah Ackerman Bilirubin [Mass/Vol] 0.4 mg/dL Normal 0.2-1.0 [facility] Comment on above: Performed By: #### C MP #### [facility] [address] [address] [address] Micah Ackerman Calcium [Mass/Vol] 8.6 mg/dL Normal 8.5-10.1 [facility] Comment on above: Performed By: #### C MP #### [facility] [address] [address] [address] Micah Ackerman Chloride [Moles/Vol] 103 mmol/L Normal 98-107 [facility] Comment on above: Performed By: #### C MP #### [facility] [address] [address] [address] Micah Ackerman CO2 [Moles/Vol] 25.5 mmol/L Normal 21.0-32.0 [facility] Comment on above: Performed By: #### C MP #### [facility] [address] [address] [address] Micah Ackerman Creatinine [Mass/Vol] 1.02 mg/dL Normal 0.55-1.02 [facility] Comment on above: Performed By: #### C MP #### [facility] [address] [address] [address] Micah Ackerman EGFR-AF BRITISH >60 Normal >=60 [facility] Comment on above: Performed By: #### C MP #### [facility] [address] [address] [address] Micah Ackerman EGFR-NON AF BRITISH 57 mL/min/1.73m2 Critically low >=60 [facility] Comment on above: Performed By: #### C MP #### [facility] [address] [address] [address] Micah Ackerman Globulin (S) [Mass/Vol] 3.6 g/dL Normal T [facility] Comment on above: Performed By: #### C MP #### [facility] [address] [address] [address] Micah Ackerman Glucose [Mass/Vol] 168 mg/dL Critically high 74-106 T [facility] Comment on above: Performed By: #### C MP #### [facility] [address] [address] [address] Micah Ackerman Potassium [Moles/Vol] 4.2 mmol/L Normal 3.5-5.1 [facility] Comment on above: Performed By: #### C MP #### [facility] [address] [address] [address] Micah Ackerman Protein [Mass/Vol] 7.4 g/dL Normal 6.1-8.2 [facility] Comment on above: Performed By: #### C MP #### [facility] [address] [address] [address] Micah Ackerman Sodium [Moles/Vol] 138 mmol/L Normal 136-145 [facility] Comment on above: Performed By: #### C MP #### [facility] [address] [address] [address] Micah Ackerman Urea nitrogen [Mass/Vol] 14.0 mg/dL Normal 7.0-18.0 [facility] Comment on above: Performed By: #### C MP #### [facility] [address] [address] [address] Micah Ackerman Urea nitrogen/Creatinine [Mass ratio] 13.7 mg/mg Normal [facility] Comment on above: Performed By: #### C MP #### [facility] [address] [address] [address] Micah Ackerman TROPONIN, HIGH SENSITIVITYon 07-18-2021 HSTROP 5.1 pg/mL Normal 4.0-51.3 [facility] Comment on above: Result Comment: CUT- OFF POINTS HAVE BEEN ESTABLISHED BASED ON THE FOURTH UNIVERSAL DEFINITIONS OF MYOCARDIAL INFARCTION. THE UPPER REFERENCE LIMIT (URL) OF TROPONIN, DEFINED THE 99TH PERCENTILE OF cTnI DISTRIBUTION IN A REFERENCE POPULATION, HAS BEEN CONFIRMED THE DECISION THRESHOLD FOR NM DIAGNOSIS. Performed By: #### H STROPN ####[facility] [id number] [place], [place] [address]ZtDr. Micah Ackerman HSTROP 5.5 pg/mL Normal 4.0-51.3 [facility] Comment on above: Result Comment: CUT- OFF POINTS HAVE BEEN ESTABLISHED BASED ON THE FOURTH UNIVERSAL DEFINITIONS OF MYOCARDIAL INFARCTION. THE UPPER REFERENCE LIMIT (URL) OF TROPONIN, DEFINED THE 99TH PERCENTILE OF cTnI DISTRIBUTION IN A REFERENCE POPULATION, HAS BEEN CONFIRMED THE DECISION THRESHOLD FOR NM DIAGNOSIS. Performed By: #### H STROPN #### [facility] [address] [place], [place] [address] Dr. Micah Ackerman XR CHEST 1 Von [...] by: LIZETTE WETZEL Date: 2021-07-18 00:45 Normal [facility] COVID Quick Testingon 2021 Result Negative [employer] Other Vital Signs Date Time Vital Sign Value Performing Clinician Facility 03-05-2024 13:55-0500 Body height 160 cm Sampson Da Silva MD Work Phone: [facility] 03-05-2024 13:55-0500 Body mass index (BMI) [Ratio] 39.5 kg/m2 Sampson Da Silva MD Work Phone: [facility] 03-05-2024 13:55-0500 Body temperature 97.11 [degF] Sampson Da Silva MD Work Phone: [facility] 03-05-2024 13:55-0500 Body weight 101.15 kg Sampson Da Silva MD Work Phone: [facility] 03-05-2024 13:55-0500 Diastolic blood pressure 72 mm[Hg] Sampson Da Silva MD Work Phone: [facility] 03-05-2024 13:55-0500 Heart rate 95 /min Sampson Da Silva MD Work Phone: [facility] 03-05-2024 13:55-0500 Respiratory rate 18 /min Sampson Da Silva MD Work Phone: [facility] 03-05-2024 13:55-0500 SaO2% (BldA) [Mass fraction] 97 % Sampson Da Silva MD Work Phone: [facility] 03-05-2024 13:55-0500 Systolic blood pressure 156 mm[Hg] Sampson Da Silva MD Work Phone: [facility] 11-13-2023 11:07-0400 Body height 162.6 cm Sampson Da Silva MD Work Phone: [facility] 11-13-2023 11:07-0400 Body mass index (BMI) [Ratio] 38.11 kg/m2 Sampson Da Silva MD Work Phone: [facility] 11-13-2023 11:07-0400 Body temperature 97.81 [degF] Sampson Da Silva MD Work Phone: [facility] 11-13-2023 11:07-0400 Body weight 100.7 kg Sampson Da Silva MD Work Phone: [facility] 11-13-2023 11:07-0400 Diastolic blood pressure 96 mm[Hg] Sampson Da Silva MD Work Phone: [facility] 11-13-2023 11:07-0400 Heart rate 70 /min Sampson Da Silva MD Work Phone: [facility] Comment on above: 99% O2 11-13-2023 11:07-0400 Systolic blood pressure 130 mm[Hg] Sampson Da Silva MD Work Phone: [facility] 09-06-2023 09:29-0400 Body height 160.02 cm [facility] 09-06-2023 09:29-0400 Body mass index (BMI) [Ratio] 38.9 kg/m2 [facility] 09-06-2023 09:29-0400 Body temperature 98.1 [degF] [facility] 09-06-2023 09:29-0400 Body weight 99.9 kg [facility] 09-06-2023 09:29-0400 Diastolic blood pressure 85 mm[Hg] [facility] 09-06-2023 09:29-0400 Heart rate 58 /min [facility] 09-06-2023 09:29-0400 Respiratory rate 18 /min [facility] 09-06-2023 09:29-0400 SaO2% (BldA) [Mass fraction] 98 % [facility] 09-06-2023 09:29-0400 Systolic blood pressure 133 mm[Hg] [facility] 03-09-2023 11:10-0500 Body height 160.02 cm Estrella Samaniego Other [facility] [employer] Other 03-09-2023 11:10-0500 Body mass index (BMI) [Ratio] 39.76 kg/m2 Estrella Samaniego Other [employer] Other 03-09-2023 11:10-0500 Body temperature 97.7 [degF] Estrella Samaniego Other [employer] Other 03-09-2023 11:10-0500 Body weight 101.83 kg Estrella Samaniego Other [employer] Other 03-09-2023 11:10-0500 Respiratory rate 18 /min Estrella Samaniego Other [employer] Other 03-09-2023 11:10-0500 SaO2% (BldA) [Mass fraction] 94 % Estrella Samaniego Other [employer] Other 09-17-2022 00:30-0400 Diastolic blood pressure 84 mm[Hg] MD Sampson Da Silva Work Phone: [facility] 09-17-2022 00:30-0400 Heart rate 74 /min MD Sampson Da Silva Work Phone: [facility] 09-17-2022 00:30-0400 Respiratory rate 16 /min MD Sampson Da Silva Work Phone: [facility] 09-17-2022 00:30-0400 SaO2% (BldA) [Mass fraction] 96 % MD Sampson Da Silva Work Phone: [facility] 09-17-2022 00:30-0400 Systolic blood pressure 149 mm[Hg] MD Sampson Da Silva Work Phone: [facility] 09-16-2022 22:31-0400 Body height 160.02 cm MD Sampson Da Silva Work Phone: [facility] 09-16-2022 22:31-0400 Body temperature 96.7 [degF] MD Sampson Da Silva Work Phone: [facility] 09-16-2022 22:31-0400 Body weight 100.4 kg MD Sampson Da Silva Work Phone: [facility] 09-12-2022 10:40-0400 Diastolic blood pressure 88 mm[Hg] MD Sampson Da Silva Work Phone: [facility] 09-12-2022 10:40-0400 Heart rate 84 /min MD Sampson Da Silva Work Phone: [facility] 09-12-2022 10:40-0400 Respiratory rate 16 /min MD Sampson Da Silva Work Phone: [facility] 09-12-2022 10:40-0400 SaO2% (BldA) [Mass fraction] 95 % MD Sampson Da Silva Work Phone: [facility] 09-12-2022 10:40-0400 Systolic blood pressure 152 mm[Hg] MD Sampson Da Silva Work Phone: [facility] 09-12-2022 10:19-0400 Body height 160.02 cm MD Sampson Da Silva Work Phone: [facility] 09-12-2022 10:19-0400 Body mass index (BMI) [Ratio] 38.6 kg/m2 MD Sampson Da Silva Work Phone: [facility] 09-12-2022 10:19-0400 Body weight 98.9 kg MD Sampson Da Silva Work Phone: [facility] 09-12-2022 09:29-0400 Body temperature 98.1 [degF] MD Sampson Da Silva Work Phone: [facility] 09-12-2022 09:29-0400 Inhaled oxygen flow rate 6 L/min MD Sampson Da Silva Work Phone: [facility] 07-20-2022 12:19-0400 Body height 160.02 cm MD Sampson Da Silva Work Phone: [facility] 07-20-2022 12:19-0400 Body temperature 97.9 [degF] MD Sampson Da Silva Work Phone: [facility] 07-20-2022 12:19-0400 Body weight 97 kg MD Sampson Da Silva Work Phone: [facility] 07-20-2022 12:19-0400 Diastolic blood pressure 96 mm[Hg] MD Sampson Da Silva Work Phone: [facility] 07-20-2022 12:19-0400 Heart rate 89 /min MD Sampson Da Silva Work Phone: [facility] 07-20-2022 12:19-0400 Respiratory rate 18 /min MD Sampson Da Silva Work Phone: [facility] 07-20-2022 12:19-0400 SaO2% (BldA) [Mass fraction] 98 % MD Sampson Da Silva Work Phone: [facility] 07-20-2022 12:19-0400 Systolic blood pressure 166 mm[Hg] MD Sampson Da Silva Work Phone: [facility] 05-01-2022 13:05-0500 Body height 160.02 cm Estrella Samaniego Other [employer] Other 05-01-2022 13:05-0500 Body mass index (BMI) [Ratio] 38.97 kg/m2 Estrella Samaniego Other [employer] Other 05-01-2022 13:05-0500 Body temperature 97.4 [degF] Estrella Samaniego Other [employer] Other 05-01-2022 13:05-0500 Body weight 99.79 kg Estrella Samaniego Other [employer] Other 05-01-2022 13:05-0500 Respiratory rate 18 /min Estrella Samaniego Other [employer] Other 05-01-2022 13:05-0500 SaO2% (BldA) [Mass fraction] 96 % Estrella Samaniego Other [employer] Other 09-10-2021 10:15-0400 Body height 160.02 cm Carrol Traore Other [employer] Other 09-10-2021 10:15-0400 Body mass index (BMI) [Ratio] 37.9 kg/m2 Carrol Traore Other [employer] Other 09-10-2021 10:15-0400 Body temperature 97.9 [degF] Carrol Traore Other [employer] Other 09-10-2021 10:15-0400 Body weight 97.07 kg Carrol Traore Other [employer] Other 09-10-2021 10:15-0400 Diastolic blood pressure 71 mm[Hg] Carrol Traore Other [employer] Other 09-10-2021 10:15-0400 Respiratory rate 18 /min Carrol Traore Other [employer] Other 09-10-2021 10:15-0400 SaO2% (BldA) [Mass fraction] 98 % Carrol Traore Other [employer] Other 09-10-2021 10:15-0400 Systolic blood pressure 132 mm[Hg] Carrol Traore Other [employer] Other 08-08-2021 11:45-0400 Body height 160.02 cm Deysi Garciamond Other [employer] Other 08-08-2021 11:45-0400 Body temperature 98 [degF] Deysi Garciamond Other [employer] Other 08-08-2021 11:45-0400 Respiratory rate 18 /min Deysi Kristina Other [employer] Other 08-08-2021 11:45-0400 SaO2% (BldA) [Mass fraction] 98 % Deysi Kristina Other [employer] Other 12-31-2020 13:20-0400 Body height 160.02 cm Carrol Traore Other [employer] Other 12-31-2020 13:20-0400 Body mass index (BMI) [Ratio] 37.9 kg/m2 Carrol Traore Other [employer] Other 12-31-2020 13:20-0400 Body temperature 98 [degF] Carrol Traore Other [employer] Other 12-31-2020 13:20-0400 Body weight 97.07 kg Carrol Traore Other [employer] Other 12-31-2020 13:20-0400 Diastolic blood pressure 66 mm[Hg] Carrol Traore Other [employer] Other 12-31-2020 13:20-0400 Respiratory rate 18 /min Carrol Traore Other [employer] Other 12-31-2020 13:20-0400 SaO2% (BldA) [Mass fraction] 99 % Carrol Traore Other [employer] Other 12-31-2020 13:20-0400 Systolic blood pressure 131 mm[Hg] Carrol Traore Other [employer] Other Encounters Encounter Date Encounter Type Care Provider Facility Start: 03-05-2024 End: 03-05-2024 Gema Da Silva MD Work Phone: [facility] Start: 03-05-2024 End: 03-05-2024 Gema Da Silva MD Work Phone: [facility] Start: 03-05-2024 End: 03-05-2024 Office outpatient visit 25 minutes Sampson Da Silva MD Work Phone: [facility] Comment on above: Other chest pain (Pr imary Dx); Benign essential hypertension (CMS/HCC); IRAIS (generalized anxiety disorder) (CMS/HCC); Venous insufficiency; Breast cancer screening by mammogram; Chronic superficial gastritis without bleeding; Class 2 severe obesity due to excess calories with serious comorbidity and body mass index (BMI) of 39.0 to 39.9 in adult (CMS/HCC) Start: 03-05-2024 End: 03-05-2024 ambulatory SAMPSON DA SILVA Not Available Start: 03-02-2024 End: 03-02-2024 Emergency department patient visit Elder Hare Facility:[facility] Start: 11-13-2023 End: 11-13-2023 [employer] Sampson Da Silva MD Work Phone: [facility] Start: 11-13-2023 End: [facility] Work Phone: [facility] Start: 11-13-2023 End: 11-13-2023 Office outpatient visit 25 minutes Sampson Da Silva MD Work Phone: [facility] Comment on above: Other chest pain (Pr imary Dx); Benign essential hypertension (CMS/HCC); Dyslipidemia (CMS/HCC); Obesity (BMI 30-39.9) Start: 11-13-2023 End: 11-13-2023 ambulatory SAMPSON DA SILVA Not Available Start: 09-06-2023 End: 09-06-2023 ambulatory [facility] Work Phone: Start: 09-06-2023 End: 09-06-2023 Patient encounter procedure [facility] Work Phone: Start: 03-09-2023 End: 03-09-2023 ambulatory Estrella Samaniego Other [employer] Other Start: 03-09-2023 Office outpatient vi sit 25 minutes Estrella Samaniego [facility] Start: 10-08-2022 End: 10-08-2022 ambulatory Seth Soliz Other [employer] Other Start: 10-08-2022 Postop follow up vis it related to original px Seth Latifxa [facility] Start: 09-24-2022 End: 09-24-2022 ambulatory MD Sampson Da Silva Work Phone: [facility] Work Phone: Start: 09-24-2022 End: 09-24-2022 Discharged Recurring MD Sampson Da Silva Work Phone: [facility] Start: 09-17-2022 End: 09-17-2022 ambulatory Rut Farrell Other [employer] Other Start: 09-17-2022 Postop follow up vis it related to original px Rut Farrell [facility] Start: 09-16-2022 End: 09-17-2022 Emergency department patient visit MD Sampson Da Silva Work Phone: [facility]-Emergency Room Work Phone: Start: 09-13-2022 End: 09-13-2022 ambulatory Rut Farrell Other [employer] Other Start: 09-13-2022 Telephone encounter Rut Farrell [facility] Start: 09-12-2022 End: 09-12-2022 Admission to same day surgery center MD Sampson Da Silva Work Phone: [facility] [place] Start: 09-12-2022 End: 09-12-2022 ambulatory MD Sampson Da Silva Work Phone: [facility] Work Phone: Start: 08-29-2022 End: 08-29-2022 ambulatory MD Sampson Da Silva Work Phone: [facility] Work Phone: Start: 08-29-2022 End: 08-29-2022 Patient encounter procedure MD Sampson Da Silva Work Phone: [facility] Work Phone: Start: 08-07-2022 End: 08-07-2022 Patient encounter procedure MD Sampson Da Silva Work Phone: [facility] [address] Work Phone: Start: 07-24-2022 End: 07-24-2022 ambulatory Seth Soliz Other [employer] Other Start: 07-24-2022 Office outpatient vi sit 25 minutes Seth Soliz [facility] Start: 07-20-2022 End: 07-20-2022 Emergency department patient visit MD Sampson Da Silva Work Phone: [facility]Emer[facility] Work Phone: Start: 06-07-2022 End: 06-08-[address] SAMPSON DA SILVA Facility:[facility] Start: 05-31-2022 Encounter for genera l adult medical examination without abnormal findings DR SAMPSON DA SILVA [facility] Start: 05-29-2022 End: 05-30-[address] SAMPSON DA SILVA Facility:[facility] Start: 05-29-2022 End: 05-30-2022 Encounter for general adult medical examination without abnormal findings DR SAMPSON DA SILVA Facility:[facility] Start: 05-15-2022 End: 05-15-[address] SAMPSON DA SILVA Facility:[facility] Start: 05-01-2022 Office outpatient vi sit 15 minutes Estrella Samaniego [facility] Start: 05-01-2022 End: 05-01-2022 ambulatory HAND DRAWER IN Estrella Samaniego Work Phone: [facility] Work Phone: Start: 05-01-2022 End: 05-01-2022 Departed Referred HAND DRAWER IN Estrella Samaniego Work Phone: [facility] [address] [place] Work Phone: Start: 09-14-2021 End: 09-14-2021 ambulatory Carrol Traore Other [employer] Other Start: 09-14-2021 Telephone encounter Carrol ocampo [facility] Start: 09-10-2021 End: 09-10-2021 ambulatory Carrolmatheus Traore Other [employer] Other Start: 09-10-2021 Office outpatient vi sit 25 minutes Carroltierra Traore [facility] Start: 08-23-2021 End: 08-23-[address] SAMPSON DA SILVA Facility:[facility] Start: 08-08-2021 End: 08-08-2021 ambulatory Deysi Acevedo Other [employer] Other Start: 08-08-2021 Office outpatient vi sit 15 minutes Deysibear Acevedo [facility] Start: 07-18-2021 End: 07-18-[address] SAMPSON DA SILVA Facility:[facility] Start: 05-15-2021 End: 05-15-2021 ambulatory Carrol Traore Other [employer] Other Start: 05-15-2021 Office outpatient vi sit [...] MD Sampson Da Silva Work Phone: Start: 05-15-2022 Microscopic observat ion [Identifier] in Cervix by Cyto stain Sampson Da Silva MD Work Phone: Start: 05-01-2022 Piperacillin/tazobactam Estrella Samaniego Other Start: 05-01-2022 Urine culture MD Sampson vallejo Work Phone: Start: 01-14-2020 Colonoscopy Sampson cunningham MD Work Phone: Plan of Treatment Date Care Activity Detail Author Start: 01-13-2030 Screening for malign ant neoplasm of colon [facility] Start: 05-15-2025 Screening for malign ant neoplasm of cervix [facility] Start: 04-09-2024 End: 04-09-2024 Patient encounter procedure 04/09/2024 10:00 AM EST Office Visit [facility] [address] [place] [id number] Sampson Da Silva MD [address] [place] [id number] [facility] Start: 03-05-2024 End: 05-06-2025 MG Breast - bilateral Screening Bilateral screening mammogram Imaging Routine Breast cancer screening by mammogram Expected: 03/05/2024, Expires: 05/06/2025 [facility] Work Phone: Comment on above: Expected: 03/05/2024 , Expires: 05/06/2025 Start: 03-05-2024 End: 03-05-2024 Patient encounter procedure 03/05/2024 1:45 PM EST Office Visit [facility] [address] [place] [id number] Sampson Da Silva MD [address] [place] [phone] Arrived [facility] Comment on above: Arrived Start: 02-13-2024 End: 02-13-2024 Patient encounter procedure 02/13/2024 2:30 PM EST Office Visit [facility] [address] [place] [phone] Sampson Da Silva MD [address] [place] [phone] [facility] Start: 11-24-2023 Influenza vaccination Influenza Vacc ine (#1) [facility] Start: 11-13-2023 End: 11-12-2025 NM Heart Perfusion W single state of exercise Stress test with myocardial perfusion Cardiac Nuclear Medicine Routine Other chest pain Benign essential hypertension (CMS/HCC) Dyslipidemia (CMS/HCC) Obesity (BMI 30-39.9) Expected: 11/13/2023 (Approximate), Expires: 11/12/2025 [facility] Work Phone: Comment on above: Expected: 11/13/2023 (Approximate), Expires: 11/12/2025 Start: 11-13-2023 End: 11-13-2023 Patient encounter procedure 11/13/2023 11:00 AM EDT Office Visit [facility] [address] [place] [phone] Sampson Da Silva MD [address] [place] [phone] Arrived [facility] Comment on above: Arrived Start: 09-12-2022 End: 09-12-2022 [facility] Start: 07-20-2022 Duplex scan of lower limb veins US venous duplex LE LT [facility] Start: 07-20-2022 US Lower extremity v ein - left [facility] Start: 05-01-2022 Bacteria identified in Urine by Culture [facility] Start: 2010 Screening for malign ant neoplasm of breast Mammogram [facility] Start: 02-17-2000 Screening for malign ant neoplasm of cervix [facility] Start: 1991 Screening for malign ant neoplasm of cervix Pap Smear [facility] Start: 1970 Screening for malign ant neoplasm of colon [facility] Patient Education [facility] Work Phone: Patient referral [facility] Work Phone: [facility] Immunizations Immunization Date Immunization Notes Care Provider Fa cility 12-28-2022 influenza virus vaccine, unspecified formulation Sampson Da Silva MD Work Phone: [facility] 12-13-2020 COVID-19 mRNAFlorentin (Pfizer) MD Sampson Da Silva Work Phone: [facility] 11-22-2020 COVID-19 mRNAFlorentin (Pfizer) MD Sampson Da Silva Work Phone: [facility] 10-14-2015 Toradol per 15 mg Carrol Traore Other [employer] Other Payers Date Payer Category Payer [employer] ( [employer] others) [id number] 2024 Self-pay [id number] 2022 [employer] ( and others) FORMERLY [facility] [id number] 2022-Present [address] [place] [address] [id number] 2022 ([facility]) [id number] 2022 [employer] ( and others) [id number] 1970 Unknown [id number] 1970 Unknown [id number] 1970 Unknown [id number] 1970 Unknown [id number] 1970 Unknown [id number] 1970 Unknown [id number] 1970 Unknown [id number] 1959 [employer] ( and others) [id number] [employer] ( and others) [id number] Unknown [id number] Social History Date Type Detail Facility Unknown if ever smoked [employer] Other Start: 11-13-2023 End: 03-05-2024 Sex Assigned At [employer] Other Start: 01-14-2020 End: 11-13-2023 Tobacco smoking status NHIS Never smoked tobacco (finding) [facility] Start: 1970 Sex Assigned At Female [facility] Start: 11-13-2023 Tobacco use and exposure Smokeless tobacco non-user [facility] Start: 11-13-2023 End: 03-05-2024 Alcoholic beverage intake Current drinker of alcohol (finding) [facility] Start: 11-13-2023 End: 03-05-2024 History of Social function [facility] Start: 11-13-2023 Alcohol Comment [facility]AL [facility] Start: 1970 Sex assigned at Not on file [facility] Tobacco smoking status LAIS Tobacco smoking consumption unknown [facility] NEGATED: Highlighted rowStart: NINF History of tobacco use Passive smoker [facility] Goals Date Patient Goal Desired Activity /State Clinical Notes 07-10-2017 to 03-05-2024 Sampson Da Silva MD - 03/05/2024 2:28 PM Meir Da Silav MD - 03/05/2024 2:26 PM Meir Da Silva MD - 03/05/2024 2:26 PM Meir Da Silva MD - 03/05/2024 2:26 PM EST Note Date & Type Note Facility 03-05-2024 History of Presen t illness Narrative Associated Problem(s): Class 2 severe obesity due to excess calories with serious comorbidity and body mass index (BMI) of 39.0 to 39.9 in adult (CMS/[facility]) Weight loss indicated Associated Problem(s): Venous insufficiency Severe swelling and bulging veins. Refer to vein center. Associated Problem(s): Other chest pain Pain likely related to anxiety and elevated BP. Monitor. If worsens return to ER. Associated Problem(s): Chronic superficial gastritis without bleeding Start protonix. Associated Problem(s): IRAIS (generalized anxiety disorder) (CMS/HCC) Severe symptoms and not functioning well. Start zoloft PRN. Warned will take 2-3 weeks to notice improvement in mood. Start valium PRN. Associated Problem(s): Benign essential hypertension (CMS/HCC) BP elevated and add losartan. Monitor PRN. Discussed DASH diet. Images from the original note were not included. Subjective Patient ID: Pam Méndez is a 54 y.o. female who presents for Follow-up (Er f/u) and Hypertension (Bp running high/). ER follow up from 03/02 for chest pain and elevated BP. Seen in October after hospitalized with HTN urgency. Added norvasc then developed edema. Changed to losartan and took for a month then out. Over past few weeks BP very elevated. BP 150-170 systolic and 156/72 today. C/o severe anxiety over past few weeks. on Thanksgiving 5 years ago and harder to deal with this time of year. Nervous and worry all the time. Stressed out and overwhelmed. Thought racing and hard to clear mind. [place], irritable and snapping at others. Easily upset and overreact. To ER and labs and EKG normal. Concerned chest pain related to anxiety. C/o swelling both legs for months but worse on left. Edema worse after standing at work. Legs swollen and painful. Notice bulging veins on left. Tried lasix and no change. Compression provides mild relief. Review of Systems Respiratory: Negative for cough, shortness of breath and wheezing. Cardiovascular: Negative for chest pain and palpitations. Gastrointestinal: Negative for abdominal pain, diarrhea, nausea and vomiting. Genitourinary: Negative for dysuria. Objective Physical Exam Constitutional: General: She is not in acute distress. Appearance: Normal appearance. HENT: Head: Normocephalic. Right Ear: Tympanic membrane normal. Left Ear: Tympanic membrane normal. Eyes: Extraocular Movements: Extraocular movements intact. Pupils: Pupils are equal, round, and reactive to light. Cardiovascular: Rate and Rhythm: Normal rate and regular rhythm. Heart sounds: No murmur heard. No friction rub. No gallop. Pulmonary: Effort: Pulmonary effort is normal. Breath sounds: Normal breath sounds. No wheezing, rhonchi or rales. Abdominal: General: Bowel sounds are normal. There is no distension. Palpations: Abdomen is soft. Tenderness: There is no abdominal tenderness. There is no guarding or rebound. Musculoskeletal: Cervical back: Neck supple. Right lower leg: No edema. Left lower leg: No edema. Neurological: Mental Status: She is alert. Assessment/Plan Problem List Items Addressed This Visit Venous insufficiency Severe swelling and bulging veins. Refer to vein center. Relevant Orders Ambulatory referral to Vascular Surgery IRAIS (generalized anxiety disorder) (CMS/HCC) Severe symptoms and not functioning well. Start zoloft PRN. Warned will take 2-3 weeks to notice improvement in mood. Start valium PRN. Relevant Medications sertraline (Zoloft) 25 MG tablet diazePAM (Valium) 5 MG tablet Benign essential hypertension (CMS/HCC) BP elevated and add losartan. Monitor PRN. Discussed DASH diet. Relevant Medications losartan (Cozaar) 25 MG tablet Other chest pain - Primary Pain likely related to anxiety and elevated BP. Monitor. If worsens return to ER. Chronic superficial gastritis without bleeding Start protonix. Relevant Medications pantoprazole (Protonix) 40 MG EC tablet Other Visit Diagnoses Breast cancer screening by mammogram Relevant Orders Bilateral screening mammogram documented in this encounter [facility] 11-13-2023 History of Presen t illness Narrative Associated Problem(s): Dyslipidemia (CMS/HCC) Continue lipitor. Associated Problem(s): Other chest pain Recent pain and possibly related to elevated BP. Still with pain off and on and check stress test. Multiple risk factors for CAD including HTN, dyslipidemia, and obesity. Associated Problem(s): Benign essential hypertension (CMS/HCC) BP improved with norvasc and monitor PRN. Discussed DASH diet. Images from the original note were not included. Subjective Patient ID: Pam Méndez is a 53 y.o. female who presents for Hospital Follow-up (10/30 HYPERTENSIVE EMERGENCY 177/134/NORVASC ADDED). Hospital follow up from 10/30-10/31 for chest pain. Developed pain in mid chest and to left shoulder. Checked BP and very elevated. Reports chest discomfort off and on for several weeks prior. To ER and monitored. Started norvasc for BP and improved. Echo normal. Discharged home and recommended to have outpatient stress test. Started aspirin daily and lipitor. Still occasional chest pain but notices if BP elevated. No SOB with exertion. Checking BP PRN and typically controlled. BP normal today. Taking medication daily and tolerating without side effects. Review of Systems Respiratory: Positive for chest tightness. Negative for cough, shortness of breath and wheezing. Cardiovascular: Negative for chest pain and palpitations. Gastrointestinal: Negative for abdominal pain, diarrhea, nausea and vomiting. Genitourinary: Negative for dysuria. Objective Physical Exam Constitutional: General: She is not in acute distress. Appearance: Normal appearance. HENT: Head: Normocephalic. Right Ear: Tympanic membrane normal. Left Ear: Tympanic membrane normal. Eyes: Extraocular Movements: Extraocular movements intact. Pupils: Pupils are equal, round, and reactive to light. Cardiovascular: Rate and Rhythm: Normal rate and regular rhythm. Heart sounds: No murmur heard. No friction rub. No gallop. Pulmonary: Effort: Pulmonary effort is normal. Breath sounds: Normal breath sounds. No wheezing, rhonchi or rales. Abdominal: General: Bowel sounds are normal. There is no distension. Palpations: Abdomen is soft. Tenderness: There is no abdominal tenderness. There is no guarding or rebound. Musculoskeletal: Cervical back: Neck supple. Right lower leg: No edema. Left lower leg: No edema. Neurological: Mental Status: She is alert. Assessment/Plan Problem List Items Addressed This Visit Dyslipidemia (CMS/HCC) Relevant Orders Stress test with myocardial perfusion Benign essential hypertension (CMS/HCC) BP improved with norvasc and monitor PRN. Discussed DASH diet. Relevant Orders Stress test with myocardial perfusion Other chest pain - Primary Recent pain and possibly related to elevated BP. Still with pain off and on and check stress test. Multiple risk factors for CAD including HTN, dyslipidemia, and obesity. Relevant Orders Stress test with myocardial perfusion Obesity (BMI 30-39.9) Relevant Orders Stress test with myocardial perfusion documented in this encounter [facility] 03-09-2023 Evaluation note Encounter Date Diagnosis Assessment [...] treatment plan. Patient left in stable condition. [employer] Other 06-26-2023 Evaluation note* Encounter Date Diagnosis [...] Other specified postprocedural states (ICD-10 - Z98.890) [employer] Other 05-02-2023 Evaluation note* Encounter Date Diagnosis [...] of pain and plan potential surgical treatment. [employer] Other 02-07-2023 Evaluation note* Encounter Date Diagnosis [...] understanding and is agreeable to treatment plan [employer] Other 06-19-2022 Evaluation note* Encounter Date Diagnosis [...] externa of right ear (ICD-10 - H60.311) [employer] Other 05-17-2022 Evaluation note* Encounter Date Diagnosis [...] Patient care instructions given in writting by [facility] document. [employer] Other 03-01-2022 Reason for referral (narrative)* Reason *FU 09/29 patient has had ear infection since May 2021 - history of repeated TM's - must have referral due to insurance. Has been hospitalized in past for ENT related infections. treated 3 times Diagnosis 1 Right chronic serous otitis media (H65.21) Diagnosis 2 Acute diffuse otitis externa of right ear (H60.311) Referral Organization [facility] Yusuf Koch Referring Provider First Name Carrol Referring Provider Last Name Eugenie Referring Provider Specialty Nurse Charlotte [facility]ige [facility] Yves Warren Referred Address [address], [place],[address] Referred Provider Specialty Otolaryngolo gy Referral Priority Routine General Notes Paula Huertas Solitario 022 01:50:59 PM >Received today and waiting for notes to be locked and system is down today to check on Prior Auth Kiya Paula 09/13/2021 07:39:02 AM > Auth attached and waiting for office notes to be locked Paula Huertas 09/18/2021 08:16:51 AM >Please lock notes Paula Huertas 09/21/2021 09:04:12 AM >Referral was fax [employer] Other 02-21-2022 Evaluation note* Encounter Date Diagnosis [...] Patient care instructions given in writting by [facility] document. [employer] Other 10-09-2021 Evaluation note* Encounter Date Diagnosis [...] care provider if no improvement of symptoms. [employer] Other 04-18-2018 History general Narrative - Reported* Type Description Date Surgical History Foot Surgery Surgical History ear surgery Surgical History tubal ligation 1999 Surgical History RCTR 07/10/17 Hospitalization History ear infetions [employer] Other 04-18-2018 History general Narrative - Reported* Type Description Date Surgical History Foot Surgery Surgical History ear surgery Surgical History tubal ligation 1999 Surgical History RCTR 07/10/17 Surgical History left knee arthroscop y with partial medial meniscectomy and chondral debridement medial femoral condyle, lateral patellar facet 09/12/22 Hospitalization History ear infetions [employer] Other Evaluation noteNo InformationNort[employer] Other Evaluation noteNo assessment information available [facility] Work Phone: [place] [facility] Other Evaluation note* Diagnosis Other chest pain- Primary Benign essential hypertension (CMS/HCC) Essential hypertension, benign Dyslipidemia (CMS/HCC) Other and unspecified hyperlipidemia Obesity (BMI 30-39.9) Other chest pain- Primary Benign essential hypertension (CMS/HCC) Essential hypertension, benign IRAIS (generalized anxiety disorder) (CMS/HCC) Generalized anxiety disorder Venous insufficiency Unspecified venous (peripheral) insufficiency Breast cancer screening by mammogram Chronic superficial gastritis without bleeding Class 2 severe obesity due to excess calories with serious comorbidity and body mass index (BMI) of 39.0 to 39.9 in adult (CMS/HCC) documented in this encounter [facility] HealthcareEvaluation note* Diagnosis Other chest pain- Primary Benign essential hypertension (CMS/HCC) Essential hypertension, benign Dyslipidemia (CMS/HCC) Other and unspecified hyperlipidemia Obesity (BMI 30-39.9) documented in this encounter [facility] HealthcareHistory general Narrative - [facility] Other Hospital Discharge instructions Additional Instructions DISCHARGE [...] you should first call your surgeon at [phone] for advice. If your are unable to contact your surgeon, seek help from a hospital emergency room.[facility] Work Phone: Summary Purpose Family History No [...] Scope/Medial Menisectomy Chief Complaint right ear iinfection Reason for Referral Specialty Diagnoses / Procedures Referred By Contac t Referred To Contact Diagnoses Other chest pain Benign essential hypertension (CMS/HCC) Dyslipidemia (CMS/HCC) Obesity (BMI 30-39.9) Procedures Stress test with myocardial perfusion Sampson Da Silva MD [address] [place] [address] Referral ID Status Reason Start Date Expiration Date V isits Requested Visits Authorized [id number] Pending Review 11/13/2023 05/11/2024 3 3 Additional Source Comments INFORMATION SOURCE (unrecogn ized section and content) DATE CREATED AUTHOR 09/15/2021 [facility] DATE CREATED AUTHOR AUTHOR'S ORGANIZ ATION 06/17/2022 [facility] DATE CREATED AUTHOR AUTHOR'S ORGANIZ ATION 03/08/2024 [facility] EPIC DATE CREATED AUTHOR AUTHOR'S ORGANIZ ATION 03/13/2024 [facility] REASON FOR VISIT (unrecogniz ed section and content) Reason Comments Follow-up Er f/u Hypertension Bp running high Reason Comments Hospital Follow-up 10/30 HYPERTENSIVE EM ERGENCY 177/134NORVASC ADDED Care Teams (unrecognized sec tion and content) [...] September 06, 2023 End: September 06, 2023 Warning Coordination Meteorologist Relationship Specialty Start Date End Date Sampson Da Silva MD [address] [place] [address] PCP - General Family Medicine 11/13/23 Warning Coordination Meteorologist Relationship Specialty Start Date End Date Sampson Da Silva MD [address] [place] [id number] PCP - General Family Medicine 11/13/23 Warning Coordination Meteorologist Relationship Specialty Start Date End Date Sampson Da Silva MD [address] [place] [id number] PCP - General Family Medicine 11/13/23 Warning Coordination Meteorologist Relationship Specialty Start Date End Date Sampson Da Silva MD [address] [place] [phone] PCP - General Family Medicine 11/13/23 Goals (unrecognized section and content) Goals may [...] BE BASED ON THE PRIMARY CLINICAL RECORDS. [facility] [employer] [facility]. provides no warranty or guarantee of the accuracy or completeness of information in this document.
--- NOTE | 2024-03-26 07:54 | VEIN_ITS ---
Patient Name: MIL MARCUM MR#: [id number] : 1970 Exam Date: 03/26/2024 Ordering Doctor: DR ISHAAN CORTEZ M.D. RADIOLOGY REPORT PROCEDURE: VC EXT VENOUS REFLUX SAIRA LMTD COMPARISON: None. INDICATIONS: Pain due to varicose veins of bilateral legs I83.813 TECHNIQUE: Duplex imaging of the lower extremity to assess the deep and superficial venous system for the presence of deep or superficial venous incompetence and to document the location and severity of disease. The study includes evaluation of the great saphenous vein (GSV), anterior accessory saphenous vein (AASV) and small saphenous vein (SSV). Patient scanned in reverse Trendelenburg and standing. FINDINGS: RIGHT LOWER EXTREMITY: Saphenofemoral Junction Reflux: Yes 8.5mm 1.8 sec GSV: Diam (mm) Reflux/ Time (sec) Proximal Thigh 7.0 Yes 1.7 Mid Thigh 5.9 Yes 1.6 Distal Thigh 5.9 Yes 1.0 Prox Calf 3.1 No Mid Calf 3.2 No Saphenopopliteal Junction Reflux: 4.4mm No SSV: Proximal Calf 2.9 Yes 0.9 Mid Calf 3.1 Yes 0.5 AASV: Proximal Thigh 3.9 Yes 1.0 Mid Thigh 2.7 No Distal Thigh Thrombi: No acute or chronic thrombus visualized Compressibility: Normal Flow: Normal Preforator: Dist/med calf 4.7mm with 0s reflux. Tech Note: Incompetent GSV. Patent varicose vein prox/med calf 3.6mm with 1.1s reflux. Patent varicose vein mid/med thigh 4.8mm with 1.4s reflux. Patent varicose vein medial knee 4.0mm with 0.8s reflux. LEFT LOWER EXTREMITY: Saphenofemoral Junction Reflux: Yes 9.8 mm 2.5 sec GSV: Diam (mm) Reflux/Time (sec) Proximal Thigh 6.7 Yes 1.2 Mid Thigh 6.6 Yes 1.0 Distal Thigh 4.2 No Prox Calf 2.9 No Mid Calf 2.6 Yes 1.0 Saphenopopliteal Junction Relux: 4.2 mm No SSV: Proximal Calf 2.0 No Mid Calf 2.5 No AASV: Proximal Thigh 3.8 No Mid Thigh 2.3 Yes 0.6 Distal Thigh Thrombi: No acute or chronic thrombus visualized Compressibility: Normal Flow: Normal Warning Analyst: Dist/med calf 2.5mm with 0s reflux. Tech Note: Incompetent GSV. Patent varicose vein prox/med calf 4.7mm with 1.3s reflux. Patent varicose vein mid/posterior calf. 3.9mm with 1.1s reflux. CONCLUSION: 1. Mild to moderate bilateral great saphenous vein venous insufficiency with dilatation and saphenofemoral junction reflux 2. Mild venous insufficiency in the right small saphenous and bilateral anterior accessory saphenous veins without dilatation 3. Bilateral incompetent varicose veins Dictated by: Ishaan Cortez MD on 03/26/2024 at 08:42 Approved by: Ishaan Cortez MD on 03/26/2024 at 08:44
--- NOTE | 2024-03-26 07:54 | VEIN_ITS ---
Patient Name: MIL MARCUM MR#: [id number] : 1970 Exam Date: 03/26/2024 Ordering Doctor: DR ISHAAN CORTEZ M.D. RADIOLOGY REPORT PROCEDURE: [facility] VEIN [facility] - OFFICE VISIT INITIAL COMPARISON: None. PROGRESS NOTES: 54-year-old female who presents from Dr. Marie for secondary to venous insufficiency. The patient complains of bilateral leg pain and swelling, left greater than right. The patient has worn compression stockings in the past. 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 This sitting and standing results in significant exacerbation of her symptoms to the point she is considering a different career. The patient has some partial relief with rest, leg elevation and compression stocking use. The patient does take over the counter oral analgesics when necessary. The patient denies any signs and symptoms to suggest arterial ischemia. The patient describes a family history significant for cancer and diabetes. The patient does not drink alcohol. The patient has never smoked. No illicit drug use. Past medical history significant for varicose veins, hyperlipidemia and hypertension. Past surgical history significant for knee arthroscopy. See separate report for medications. No history of deep venous thrombus or pulmonary embolus. See separate history and physical for medication list. No prior treatment for varicose or spider veins. Nursing notes were reviewed. After history and physical exam I discussed at length the pathophysiology of venous hypertension and possible treatments, therapies and strategies available. We discussed at length the importance of elevating the lower extremities above the level of the heart, increased physical activity and compression stocking use. I discussed with the patient that her swelling was likely multifactorial and related to obesity, inactivity, hypertension, lymphatic dysfunction and venous disease. While expected some improvement with treatment of her vein disease likely the swelling would not completely resolved. We discussed intravenous laser ablation micro foam chemical ablation and injection sclerotherapy at length. Risks benefits and alternatives were discussed with the patient. Ultrasound venous reflux study performed the same day was discussed at length with the patient. The report demonstrates mild to moderate bilateral great saphenous vein venous insufficiency with dilatation and saphenofemoral junction reflux. Mild right and bilateral anterior accessory saphenous vein venous insufficiency without dilatation. Bilateral incompetent varicose veins PHYSICAL EXAM: The right leg demonstrates moderate scattered varicose spider in reticular veins. Mild subcutaneous edema below the knee. No hemosiderin staining or active ulceration. The left leg demonstrates moderate scattered varicose reticular and spider veins. Moderate subcutaneous edema below the knee. No hemosiderin staining or active ulceration Both thighs, legs and feet were symmetrically warm to the touch. Good posterior tibial and dorsalis pedis pulses were present bilaterally. VEIN/VC Facility NEW Comprehensive IMPRESSION: 1. Moderate bilateral great saphenous vein venous insufficiency with dilatation and saphenofemoral junction reflux 2. Moderate lower extremity varicose veins 3. Mild right and moderate left lower extremity subcutaneous edema 4. No definite flow significant arterial disease 5. CEAP: C3, Ep, As, Pr PLAN: 1. Endovenous laser ablation of the left great saphenous vein. The patient has improvement we will proceed with treatment of the right great saphenous vein 2. Micro foam chemical ablation bilateral incompetent varicose veins 3. Bilateral injection sclerotherapy 4. Long-term use of bilateral knee or thigh-high 20-30 mm compression stockings 5. Weight loss, leg elevation and increased physical activity for symptomatic relief Nurse notes, history and physical were reviewed and confirmed, see attached forms. The nurse was present throughout the physical exam and consultation Dictated by: Ishaan Cortez MD on 03/26/2024 at 10:30 Approved by: Ishaan Cortez MD on 03/26/2024 at 10:35
[2024-03-26 07:55] VITALS: BP 134/75; PULSE 72; O2SAT 98; BMI 39.0
--- NOTE | 2024-03-26 08:53 | VEINCLINIC_ITS ---
Vital Signs 03/26/24 07:55 Height 5 ft 3 in Weight 99.79 kg BMI 39.0 BP 134/75 BP Location Right Brachial BP Position Supine BP Cuff Size Adult BP Source Automatic Cuff Respiration 16 Pulse 72 Pulse Source Monitor Pulse Oximetry (%) 98 Oxygen Delivery Method Room Air Comment The patient's blood pressure is elevated. [facility] Medical History (Updated 03/26/24 @ 08:10 by Osbaldo Nixon) Varicose veins of bilateral lower extremities with pain ?I83.813 - Varicose veins of bilateral lower extremities with pain (ICD-10) HLD (hyperlipidemia) ?E78.5 - Hyperlipidemia, unspecified (ICD-10) Hypertension ?I10 - Essential (primary) hypertension (ICD-10) Surgical History (Updated 11/01/23 @ 03:06 by Coral Alcantara) H/O arthroscopy of knee ?Z98.890 - Other specified postprocedural states (ICD-10) History of bunionectomy ?Z98.890 - Other specified postprocedural states (ICD-10) Family History (Updated 11/01/23 @ 03:07 by Coral Alcantara) Mother Family history of cancer Grandmother Family history of diabetes mellitus Social History (Updated 11/01/23 @ 03:08 by Coral Alcantara) Within the past year, how often did you have a drink containing alcohol: never Score interpretation: A score less than 3 is consistent with normal alcohol consumption. Smoking status: Never smoker Non-prescribed substance use: denies use Previous occupational history: EMT Highest level of school completed/degree received: Associate degree: academic program Are you now , , , , never or living with a partner: In a typical week, how many times do you talk on the telephone with family, f riends, or neighbors: 3 or more times per week How often do you get together with friends or relatives: 3 or more times per week How often do you attend congregational or jain services: never Little interest or pleasure in doing things: not at all Feeling down, depressed, or hopeless: not at all Feel stressed/tense/nervous/anxious/difficulty sleeping: not at all Meds Home Medications and Allergies Home Medications ?Medication ?Instructions ?Recorded ?Confirmed ?Type amlodipine 10 mg tablet (Norvasc) 10 mg PO DAILY #30 tabs 11/01/23 11/07/23 Rx aspirin 81 mg chewable tablet 81 mg PO DAILY #30 tabs 11/01/23 11/07/23 Rx atorvastatin 20 mg tablet (Lipitor) 20 mg PO DAILY #30 tabs 11/01/23 11/07/23 Rx Allergies Allergy/AdvReac Type Severity Reaction Status Date / Time No Known Drug Allergies Allergy Verified 11/07/23 17:10 Exam Constitutional Vital Signs, click to edit/add: Last Vital Signs Pulse 72 03/26/24 07:55 Resp 16 03/26/24 07:55 BP 134/75 03/26/24 07:55 Pulse Ox 98 03/26/24 07:55 Results Additional Findings Additional findings: Bilateral leg reflux u/s reveals mild to moderate great saphenous venous insufficiency with dilation bilaterally along with bilateral leg branch saphenous truncal tributary venous insufficiency. Ishaan Oshea MD personally performed the services described in this documentation, as scribed by Osbaldo Nixon RN in my presence and it is both accurate and complete. Osbaldo Oshea RN, am scribing for, and in the presence of, Dr. Ishaan Cortez and in the presence of the patient. Assessment and Plan Assessment and Plan (1) Varicose veins of bilateral lower extremities with pain: Plan Patient is for patient to continue bilateral leg compression, exercise, rest, and elevation of bilateral legs/feet. Patient to return for EVLT of left GSV followed by right GSV followed by microfoam chemical ablation bilateral leg branch saphenous varicosities, and lastly sclerotherapy bilateral leg pre-hemorrhagic, reticular spider veins. Ishaan Oshea MD personally performed the services described in this documentation, as scribed by Osbaldo Nixon RN in my presence and it is both accurate and complete. Osbaldo Oshea RN, am scribing for, and in the presence of, Dr. Ishaan Cortez and in the presence of the patient.
== END 2024-03-26 07:44 | disposition home or self-care (01) ==
LOC: VC 07:44
PROVIDERS: PCP Family Medicine; Visit Provider Radiology Diagnostic Radiology
DX: I83.813 Varicose veins of bilateral lower extremities with pain (principal)
CPT/HCPCS: 93970; G0463

== ENCOUNTER 2025-02-05 10:59 | Outpatient (OUT) | payer OTHER, SELFPAY ==
--- OUTSIDE RECORDS SUMMARY | 2025-02-04 09:00 | XMS_ITS | Continuity of Care Document ---
Author Organization [facility] Address [address] [place] [address] Phone Care Team Providers Care Stem Roller Name Role Phone Sampson Carpenter MD Primary Care Provider Zonia Stout APRN Attending Provider Sampson Carpenter MD Attending Provider Care Teams Patient Care Team Team Status: Active Member Role/Relationship Status Dates Sampson Carpenter MD Primary Care Provider Active Visit Care Team Team Status: Inactive Member Role/Relationship Status Dates Sampson Carpenter MD Primary Care Provider Active S tart: December 12, 2024 End: December 12, 2024Riley Martell ProviderActiveStart: December 12, 2024 End: December 12, 2024 Patient Care Team Team Status: Inactive Member Role/Relationship Status Dates Sampson Carpenter MD Primary Care Provider Active S tart: February 04, 2025 End: February 04, 2025Sampson Carpenter MDAttending ProviderActiveStart: February 04, 2025 End: February 04, 2025 Chief Complaint and Reason for Visit Chief Complaint Admit Date Vaginal itching, urinary urgency Sept2024 9:40am Established Patient February 04, 2025 1:13pm Reason for Visit Admit Date Bacterial vaginosis December 12, 2024 9:40am Annual physical exam February 04, 2025 1:13pm Allergies, Adverse Reactions, Alerts Allergen Type Severity Reaction Last Updated Verified Status meperidine Adverse Reaction Unknown Hallucinating Novem 2024 1:32pm Yes Active Social History Smoking Status Status Start Date End Date Date of Observa tion Never smoked tobacco (finding) February 04, 2025 1:36pm Observation Status Observation Response Date of Response Legal Sex Female (finding) Sex [facility] 1969 Family History Relationship Condition Age at Onset Recorded Date/T annabelle grandparent Diabetes mellitus Unknown motherMalignant neoplasm of lungUnknownfamily memberMalignant neoplasm of breast UnknownfatherDeceasedUnknownmotherDeceasedUnknown Problems Active Problems Problem Diagnosis/Recorded Date Onset Date Status C omments IRAIS (generalized anxiety disorder) February 03, 2025 1:02pm Unknown Active Hallux valgus (acquired), left footNovember 2024 1:02pmUnknownActive Varicose veins of both lower extremities with painNovember 2024 1:03pm UnknownActiveChronic superficial gastritis without bleedingNovember 2024 1:01pmUnknownActiveBenign essential hypertensionNovember 2024 1:01pm UnknownActiveDyslipidemiaNovember 2024 1:01pmUnknownActiveAnnual physical examNovember 2024 1:45pmUnknownActiveArthropathy of left kneeJune 2022 9:52pmUnknownActiveVenous insufficiencyNovember 2024 1:03pmUnknown ActivePlantar fasciitisNovember 2024 1:02pmUnknownActiveChronic left-sided thoracic back painNovember 2024 1:01pmUnknownActiveEquinus contracture of left ankleNovember 2024 1:02pmUnknownActivePre-diabetesNovember 2024 1:03pmUnknownActiveBilateral carpal tunnel syndromeSeptember 2024 8:44am UnknownActiveObesityNovember 2024 1:44pmUnknownActivePersistent insomnia February 03, 2025 1:02pmUnknownActiveInactive/Resolved Problems Problem Diagnosis/Recorded Date Onset Date Status C omments Colitis with rectal bleeding January 13, 2020 2:54pm Unknown Resolved Proble m List clean-up per request of Phys. EHR Cmte Knee sprain July 20, 2022 12:40pm Unknown Resolved Problem List clean-up per request of Phys. EHR Cmte Bacterial vaginosis December 12, 2024 10:26am Unknown Resolved Atypical chest painDecember 2023 7:00pmUnknownResolvedPost-operative pain September 17, 2022 12:10amUnknownResolvedProblem List clean-up per request of Phys. EHR CmteKnee painJune 2022 12:10amUnknownResolvedProblem List clean-up per request of Phys. EHR CmteRight ear impacted cerumenJune 2023 9:58amUnknown ResolvedAbdominal painJanuary 13, 2020 2:54pmUnknownResolvedProblem List clean-up per request of Phys. EHR CmteRight otitis externaJune 2023 9:58am UnknownResolved Medications Medication Status Dose Units Route Directions Qty Days Refills S tart Date Stop Date End Date Reason(s) Instructions Adherence Sugar Bear Hair Vitamans Discontinued July 07, 2017 11:00pmOctober 2019 11:30amHydrocodone-Acetaminophen (Alexander) 5-325 mg tabletDiscontinued1 - 2TABPOEVERY 4-6 HOURS as needed for Pain 300April 2017Oct2019 11:30amPostoperative pain of extremity Carpal tunnel syndrome of right wrist Other acute postprocedural pain Carpal tunnel syndrome, right upper limbSulfamethoxazole-Trimethoprim (Bactrim Ds) 800-160 mg wmqpgaLlivaxwzgjuw3VJPLNNoxdy vjujl3481Cjurr 2017 11:00pm January 13, 2020 11:30amZolpidem 10 mg wfeztmNkqtxi13YATUDifub at bedtime as needed for InsomniaJune 2022 11:00pmComplies with drug therapyHydrocodone- Acetaminophen (Alexander) 5-325 mg tabletDiscontinued1 - 2TABPOEVERY 4-6 HOURS as needed for Baxt943Lmbwryhi 2019 11:30amPostoperative pain of extremity Carpal tunnel syndrome Other acute postprocedural pain Carpal tunnel syndrome, unspecified upper limbSulfamethoxazole-Trimethoprim (Bactrim Ds) 800-160 mg snaagaRajrvmwseoff3IYGILJapqi rgthd7864Phymlxnp 2017 12:00amOct2019 11:30amOxycodone-Acetaminophen (Percocet) 5-325 mg ecxltqRzhcslcorhmx6JMVCNG0D as needed for yajr2573Cwyfxlm2019April 2022 11:17amOther specified diseases of intestineOndansetron 4 mg tablet,rrinbnkxgbmqdkMddrivfdbtic3OBLKM6U as needed for nausea and utgcaqxq583 January 12, 2020 11:00pmApril 2022 11:17amPhentermine-Topiramate (Qsymia) 11.25-69 mg capsule, ER multiphase 24 jrAovuqjikvgba2HHKNIIygzcWrkmh 2022 11:00pmJune 2022 3:34pmPantoprazole (Protonix) 20 mg tablet,delayed release (DR/EC)Gfjgindonvtp65RIHNEhdua039Sumbavon 2023 12:00amSept2024 8:50amCiprofloxacin-Dexamethasone 0.3-0.1 % drops,ubqhlwylkjWrixkgicrrlg0JDNRDDTAQPufdd daily7.570June 2023 11:00pm December 12, 2024 8:42amto right earDiazepam 5 mg gpqmpbEpcozs7DQCOYsmrc times daily as neededFebruary 03, 2025 12:00amComplies with drug therapy Furosemide 40 mg oubjvbJetyokgmwbxl40IHIGJgekuejnv 19th, 2025 11:00pmDecember 12, 2024 8:50amPotassium Chloride 20 mEq tablet extended releaseActiveMEQPO December 11, 2024 11:00pmComplies with drug therapyFurosemide 40 mg tablet Adtzid23ROYCga neededDecember 12, 2024 8:50amComplies with drug therapy Omeprazole 20 mg capsule,delayed release(DR/EC)Mwjjwk84HJELGyhwwPhpbcydot 19th, 2025 11:00pmComplies with drug therapyMetronidazole 500 mg xarmorXyrtckoiwhjn267 MGPOEvery 12 khjrh7606RkdioaptlDecember 11, 2024 11:00pmNov2024 1:33pm Immunizations Immunization Event Date Not Given Reason Dose Number Drawing Frame Tender Lot Number Reason(s) Given Vaccine Information Statement (VIS) Detail Administration Location COVID-19 mRNA, Comirnaty (Pfizer) November 22 COVID-19 mRNA, Comirnaty (Pfizer)December 13, 2020 Relevant Diagnostic Tests and/or Laboratory Data Laboratory Results Test Collection Date/Time Result Date/Time Result Interpretation Reference Range Result Comment Performing Site Urine Color December 12, 2024 8:54am December 12 9:01am lightyellow POC Bacterial Vaginitis (Rapid)December 12, 2024 10:27amSept2024 10:27amDetectedUrine AppearanceSept2024 8:54amSept2024 9:01amclearVaginal Irene speciesSeptember 2024 10:27amSeptember 2024 10:27amNot DetectedUrine Specific GravitySeptember 2024 8:54am December 12, 2024 9:01am1.015Vaginal Irene glabrata/kruseiSeptember 2024 10:27amSept2024 10:27amNot DetectedUrine pHSeptember 2024 8:54amSeptember 2024 9:01am6.0POC Trichomonas (Rapid)December 12, 2024 10:27amSeptember 2024 10:27amNot DetectedUrine Leukocyte EsteraseSeptember 2024 8:54amSeptember 2024 9:01amnegativeUrine NitriteSeptember 2024 8:54amSeptember 2024 9:01amNegativeUrine ProteinSept2024 8:54amSept2024 9:01amnegativeUrine Glucose (UA)December 12, 2024 8:54amSeptember 2024 9:01amnegativeUrine KetonesSeptember 2024 8:54amSept2024 9:01amnegativeUrine UrobilinogenSeptember 2024 8:54amSeptember 2024 9:01am0.2EU/dLUrine BilirubinSeptember 2024 8:54amSeptember 2024 9:01amnegativeUrine Occult BloodSeptember 2024 8:54amSept2024 9:01amnegative Vital Signs Vital Reading Result Reference Range Collection Date/Time Height 63 [in_i] December 12, 2024 8:28xeDsghck787.68 kgSept2024 8:47amBody Upwkjjgbaau05.1 [degF]97.6-99.0Se2024 8:47amHeart Rate75 /min 60-100Se2024 8:47amRespiratory rate16 /avn29-66QdriocjotDecember 12, 2024 8:47amOxygen saturation by Pulse dhahufrh21 %95-100December 12, 2024 8:47amBP Bhhpjdfy588 mm[Hg]100-140Sept2024 8:47amBP Bghurjclf54 mm[Hg]60-100Se2024 8:47amBMI (Body Mass Index)40.1 kg/n6JqzquhineDecember 12, 2024 8:43fjAdokwy61 [in_i]February 04, 2025 1:52lzEwchkx754.19 kg February 04, 2025 1:31pmBody Jzxxxvlovmq51.6 [degF]97.6-99.0February 04, 2025 1:31pmHeart Rate82 /lte78-622PpzqmdvbFebruary 04, 2025 1:31pmRespiratory rate12 /hij12-49ImtonwnbFebruary 04, 2025 1:31pmOxygen saturation by Pulse %95-100 February 04, 2025 1:31pmBP Xevqvtmm531 mm[Hg]100-140February 04, 2025 1:31pm BP Tlzaagdff46 mm[Hg]60-100February 04, 2025 1:31pmBMI (Body Mass Index)40.3 kg/t5SjajgxdyFebruary 04, 2025 1:31pm Advance Directives Advance Directive Response Recorded Date/ Time Advance Directives No June 28 8:31am Insurance Providers Guarantor Pam Vargas Honey Address [address] [place] [id number] Info.Home Phone: Payer Group Member ID Coverage Type Subscriber Relationship to Subscriber Effective Date Expiration Date [employer] [id number] Encounters Encounter Location(s) Arrival/Admit Date Discharge/Departure Date Discharge/Departure Disposition Provider(s) Departed Physician/ Provider Office Visit -[facility] Urgent Care Rosie December 12, 2024 9:40am December 12, 2024 10:29am Discharged to home care or self care (routine discharge) Solitario Camarillo APRN Departed Physician/ Provider Office Visit -[facility] Family Medicine Rosie February 04, 2025 1:13pm February 04, 2025 1:58pm Discharged to home care or self care (routine discharge) Sampson Carpenter MD Recent Diagnosis Onset Date Admit Date Bacterial vaginosis Unknown December 122024 9:40am Annual physical exam Unknown February 042024 1:13pm Assessments Diagnosis Onset Date Resolution Status Admit Date Bacterial vaginosis inactiveSept2024 9:40amAnnual physical examacuteNov2024 1:13pm Plan of Treatment Author Zonia Stout [facility]AuthoredSept2024 10:27amMVP test positive for BV. Discussed BV is an imbalance of good and bad bacteria. Will treat with Flagyl. No alcohol while on medication or will cause vomiting. Follow-up with women's health or PCP if any ongoing concerns after treatment. Future Tests Future scheduled test information is unavailable Pending Tests Test Name Ordered Date Scheduled Date Comprehensive Metabolic Panel February 04 1:49pm Future Visits Future appointment information is unavailable Future Procedures Procedure Name Ordered Date Scheduled Date A1C with Estimated Average Glu February 04 1:49pm Complete Blood Count Auto DiffNovember 2024 1:49pmLipid PanelNovember 2024 1:49pmThyroid Stimulating HormoneNovember 2024 1:49pm Future Medications Future medication information is unavailable Patient Instructions Patient instructions are unavailable
--- OUTSIDE RECORDS SUMMARY | 2025-02-05 11:03 | XMS_ITS | Clinical Summary ---
Author Organization [facility] Address [address] [place] [address], [address] [place] [address] Care Team Providers Care Schedule Clerk Name Role Phone Sampson Carpenter MD Primary Care Provider + Allergies No known active allergies Medications MedicationSigDispense QuantityRefillsLast FilledStart DateEnd DateStatus albuterol sulfate HFA (PROVENTIL;VENTOLIN;PROAIR) 108 (90 Base) MCG/ACT inhaler INHALE 2 (TWO) puff FOUR TIMES DAILY AJBNNR1708/08/2021ctive ALPRAZolam (XANAX) 0.5 MG tablet TAKE 1 TABLET BY MOUTH THREE TIMES DAILY ZVYLVN4306/27/2021ctive zolpidem (AMBIEN) 10 MG tablet TAKE 1 TABLET BY MOUTH AT QQCKCRU9306/27/2021ctive Active Problems ProblemNoted DateDiagnosed DateDisorder of both eustachian tubes10/04/2021 Conductive hearing loss of right ear with unrestricted hearing of left ear 10/04/2021 Social History Tobacco UseTypesPacks/DayYears UsedDateSmoking Tobacco: NeverSmokeless Tobacco: NeverCommentsUnknownSex and Gender InformationValueDate RecordedSex Assigned at BirthNot on fileLegal UpeOdkvmq75/30/2022 10:00 AM EDTGender IdentityNot on fileSexual OrientationNot on file Last Filed Vital Signs Vital SignReadingTime TakenCommentsBlood Wvfowgtg189/7807 8:32 AM EDT Oblhw304710/04/2021 8:32 AM EDTTemperature--Respiratory Xonf491210/04/2021 8:32 AM EDTOxygen Aiaccrmcus99%10/04/2021 8:32 AM EDTInhaled Oxygen Concentration-- Afkdrq08.5 kg (215 lb)10/04/2021 8:32 AM EDTHeight--Body Mass Index-- Plan of Treatment Not on file Care Teams Team MemberRelationshipSpecialtyStart DateEnd Date Sampson Carpenter MD [address] [place] [address] PCP - GeneralFamily Medicine10/04/21
--- OUTSIDE RECORDS SUMMARY | 2025-02-05 11:04 | XMS_ITS | Clinical Summary ---
Author Organization [facility] Address [address] [place] [address] Care Team Providers Care Cathode Builder Name Role Phone Sampson Carpenter MD Primary Care Provider [phone] Allergies No known active allergies Medications MedicationSigDispense QuantityRefillsLast FilledStart DateEnd DateStatus Clobetasol Propionate 0.05 % external spray APPLY TO THE AFFECTED AREA(S) topically TWICE DAILY3Active diazePAM (Valium) 5 MG tablet Indications:IRAIS (generalized anxiety disorder)Take 1 tablet (5 mg) by mouth 3 (three) times a day as needed for anxiety for up to 10 days 30 tablet 5Active furosemide (Lasix) 40 MG tablet Indications:Venous insufficiencyTake 1 tablet (40 mg) by mouth Daily as needed (Edema) 30 tablet /6Active potassium chloride CR (K-Tab) 20 MEQ ER tablet Indications:Venous insufficiencyTake 1 tablet (20 mEq) by mouth Daily as needed (Edema) Do not crush, chew, or split. 30 tablet 5Active Active Problems ProblemNoted DateDiagnosed DateVaricose veins of both lower extremities with pain11/03/2024 Assessment & Plan (11/03/2024 12:21 PM EDT): Pain in leg and refer back to vein center. Chronic superficial gastritis without aukwjlkz80/12/2024 Assessment & Plan (04/02/2024 4:47 PM EST): Symptoms controlled with protonix and continue. Assessment & Plan (03/05/2024 2:26 PM EST): Start protonix. Chronic left-sided thoracic back pain11/13/20235840Emlsvhlusffk11/21/2024 Assessment & Plan (11/13/2023 1:28 PM EDT): Continue lipitor. Venous woajqwffncrfj60/21/2024 Assessment & Plan (11/03/2024 12:22 PM EDT): Worsening edema and start lasix PRN. Elevate legs PRN. Refer back to vein center. Assessment & Plan (03/05/2024 2:26 PM EST): Severe swelling and bulging veins. Refer to vein center. Equinus contracture of left ankle11/13/2023Hallux valgus, left11/13/2023 Persistent apmiriny30/21/2024lantar bcnvgcxuq15/21/2024re-sqyhmgti70/21/2024 IRAIS (generalized anxiety disorder)11/13/2023 Assessment & Plan (04/02/2024 4:48 PM EST): Symptoms stable and use valium PRN. Assessment & Plan (03/05/2024 2:25 PM EST): Severe symptoms and not functioning well. Start zoloft PRN. Warned will take 2-3 weeks to notice improvement in mood. Start valium PRN. Benign essential omfmqnjlvewx89/21/2024 Assessment & Plan (11/03/2024 12:21 PM EDT): BP elevated today but reports normal at home and continue to monitor. Discussed DASH diet. Assessment & Plan (04/02/2024 4:47 PM EST): BP controlled and monitor PRN. Assessment & Plan (03/05/2024 2:24 PM EST): BP elevated and add losartan. Monitor PRN. Discussed DASH diet. Assessment & Plan (11/13/2023 1:27 PM EDT): BP improved with norvasc and monitor PRN. Discussed DASH diet. Class 2 severe obesity due to excess calories with serious comorbidity and body mass index (BMI) of39.0 to 39.9 in adult11/13/2023 Assessment & Plan (11/03/2024 12:21 PM EDT): Weight loss indicated Assessment & Plan (04/02/2024 4:48 PM EST): Weight loss indicated Assessment & Plan (03/05/2024 2:28 PM EST): Weight loss indicated Resolved Problems ProblemNoted DateDiagnosed DateResolved DateAcute UTI Assessment & Plan (04/02/2024 4:47 PM EST): History suggestive UTI and treat. Take levaquin for infection and use pyridium for symptoms. Increase water intake and cranberry juice. Use motrin or tylenol for discomfort. Other chest pain Assessment & Plan (03/05/2024 2:26 PM EST): Pain likely related to anxiety and elevated BP. Monitor. If worsens return to ER. Assessment & Plan (11/13/2023 1:28 PM EDT): Recent pain and possibly related to elevated BP. Still with pain off and on and check stress test. Multiple risk factors for CAD including HTN, dyslipidemia, and obesity. Family History Medical HistoryRelationNameCommentsNo Known ProblemsFatherNo Known Problems MotherRelationNameStatusCommentsFatherDeceasedMotherDeceased Social History Tobacco UseTypesPacks/DayYears UsedDateSmoking Tobacco: NeverPassive Smoke Exposure: NeverSmokeless Tobacco: Never Tobacco Cessation:Counseling Given: No Alcohol UseStandard Drinks/WeekCommentsYes0 (1 standard drink = 0.6 oz pure alcohol)OCCASSIONALCommentsUnknownSex and Gender InformationValueDate RecordedSex Assigned at BirthNot on fileLegal SsmEndfyc09/15/2023 7:33 PM EDT Gender IdentityNot on fileSexual OrientationNot on file Last Filed Vital Signs Vital SignReadingTime TakenCommentsBlood Zszpmson580/8411/03/2024 11:47 AM EDT Ipyfw9173/12/2025 11:47 AM RIXUshgswqyvsk16.2 ??C (97.1 ??F)11/03/2024 11:47 AM EDTRespiratory Vtpu505211/03/2024 11:47 AM EDTOxygen Nxciliccao15%11/03/2024 11:47 AM EDTInhaled Oxygen Concentration--Siscgz069 kg (221 lb)11/03/2024 11:47 AM EDT Cqhful414 cm (5' 3 )11/03/2024 11:47 AM EDTBody Mass Index39.15011/03/2024 11:47 AM EDT Plan of Treatment Health MaintenanceDue DateLast DoneCommentsCT Beevjqfzxaoy1970FIT-DNA 1970FIT1970FOBT1970 1938Hbwxxlpsmohir1970HPV/Fykvcs4802/17/2000 Wxxyybqfy73/25/2010COVID-19 Vaccine ( season)509/, 11/22/2020Influenza Vaccine (#1)/08/2022, 12/24/2019Cervical Cancer Zutbjbokw13/21/2026Pap Smear05/15/340000/8229Jvhshnuzqkl33 Colorectal Cancer Jcmmxcteb27/22/2030Pneumococcal Vaccine: Pediatrics (0 to 5 Years) and At-Risk Patients (6 to 64 Years)Aged OutNo longer eligible based on patient's age to complete this topic Insurance Care Teams Team MemberRelationshipSpecialtyStart DateEnd Date Sampson Carpenter MD PCP - GeneralFamily Medicine11/13/23
--- OUTSIDE RECORDS SUMMARY | 2025-02-05 11:04 | XMS_ITS | Clinical Summary ---
Author Organization [place] [id number] [address] [place] [address] Care Team Providers Care Textile Chemist Name Role Phone Sampson Carpenter MD Primary Care Provider [phone] Allergies No known active allergies Medications MedicationSigDispense QuantityRefillsLast FilledStart DateEnd DateStatus doxycycline (ADOXA) 100 MG tablet Indications:Acute non-recurrent maxillary sinusitisTake 1 tablet (100 mg total) by mouth 2 (two) times a day. 20 tablet 05/10/2018Active sodium chloride (OCEAN NASAL) 0.65 % nasal spray Indications:Acute non-recurrent maxillary sinusitisAdminister 1 spray into each nostril 3 (three) times a day. 15 mL 05/10/2018Active Family History RelationNameStatusCommentsFatherDeceasedMotherDeceased Social History Tobacco UseTypesPacks/DayYears UsedDateSmoking Tobacco: NeverSmokeless Tobacco: NeverAlcohol UseStandard Drinks/WeekCommentsNo0 (1 standard drink = 0.6 oz pure alcohol)AUDIT-CAnswerDate RecordedFrequency of Alcohol ConsumptionNever 05/10/2018Average Number of DrinksNot on file05/10/2018Frequency of Binge DrinkingNot on file05/10/2018ChildcareAnswerDate RecordedChildcareUnknown 09/03/2018EmploymentAnswerDate HyeckdrjSwczdyjktrMygiyfz99/12/2019Purpose - Life AnswerDate RecordedPurpose and direction in versGdawsjb93/11/2021 CommentsNoSex and Gender InformationValueDate RecordedSex Assigned at BirthNot on fileLegal SclTmhtyo55/06/2015 11:41 AM EDTGender IdentityNot on fileSexual OrientationNot on file Last Filed Vital Signs Vital SignReadingTime TakenCommentsBlood Wqsfiyvi889/9105/10/2018 8:13 AM EST Adhuz861905/10/2018 8:13 AM YMZWqquwwihuxr05.4 ??C (97.6 ??F)05/10/2018 8:13 AM ESTRespiratory Epxk042605/10/2018 8:13 AM ESTOxygen Rcqclvtxum62%05/10/2018 8:13 AM ESTInhaled Oxygen Concentration--Xqhnbw381.6 kg (224 lb)05/10/2018 8:13 AM TLKNuvydj046 cm (5' 3 )05/10/2018 8:13 AM ESTBody Mass Index39.68005/10/2018 8:13 AM EST Plan of Treatment Health MaintenanceDue DateLast DoneCommentsDepression Geyshyeto98/25/1982Tobacco Rjorwnjai20/25/1982Adult BMI Tjqflfscm43/25/1988DTaP,Tdap and Td Vaccines (1 - Tdap)1989Pap Smear1991Zoster (Shingles) Vaccine (1 of 2)02/17/2020 Influenza Cjkunnh8411/23/2024 Medical Devices Not on file Insurance Care Teams Team MemberRelationshipSpecialtyStart DateEnd Date Naderer, Sampson, MD [facility] - [facility]18
[2025-02-05 11:38] LABS: Hematocrit 41.9 % (36.0-48.0); Hemoglobin 14.1 g/dL (12.0-16.0); Immature Granulocytes Abs Auto 0.01 10^3/uL (0.00-0.03); Immature Granulocytes Pct Auto 0.1 % (0.0-0.5); Lymphocytes Absolute Auto 2.8 10^3/uL (1.2-3.8); Mean Corpuscular HGB Conc 33.7 g/dL (29.9-35.2); Mean Corpuscular Hemoglobin 28.7 pg (26.7-34.0); Mean Corpuscular Volume 85.3 fL (81.0-99.0); Platelet Count 270 10^3/uL (150-450); Red Blood Count 4.91 10^6/uL (4.20-5.40); White Blood Count 8.3 10^3/uL (4.0-11.0)
[2025-02-05 12:14] LABS: Alanine Aminotransferase 30 U/L (14-59); Albumin Globulin Ratio 1.0; Albumin Level 3.6 g/dL (3.4-5.0); Alkaline Phosphatase 60 U/L (46-116); Anion Gap 12.8; Aspartate Amino Transferase 22 U/L (15-37); Blood Urea Nitrogen 12.0 mg/dL (7.0-18.0); Calcium 9.1 mg/dL (8.5-10.1); Carbon Dioxide 28.4 mmol/L (21.0-32.0); Chloride 106 mmol/L (98-107); Cholesterol 227 mg/dL (<=200); Estimated GFR (African America >60 (>=60 mL/min/1.73m^2); Estimated GFR (Non-African Ame 55 (>=60 mL/min/1.73m^2); Globulin 3.7 g/dL; Glucose 110 mg/dL (74-106); HDL Cholesterol 54 mg/dL (40-60); Potassium 4.2 mmol/L (3.5-5.1); Sodium 143 mmol/L (136-145); Thyroid Stimulating Hormone 1.420 uIU/mL (0.358-3.740); Total Protein 7.3 g/dL (6.4-8.2); Triglycerides 122 mg/dL (<=150); VLDL CHOLESTEROL 24.4 mg/dL
== END 2025-02-05 11:00 | disposition home or self-care (01) ==
LOC: LAB 11:00
PROVIDERS: PCP Family Medicine; Visit Provider Family Medicine
DX: Z00.00 Encounter for general adult medical examination without abnormal findings (principal)
CPT/HCPCS: 36415; 80053; 80061; 83036; 84443; 85025